=== PATIENT | male | born 1945 | race African-American/Black ===

== ENCOUNTER → 2016-08-30 | Day surgery (SDC) | payer MEDICARE, MEDICAID ==
[~2016-08-30] MED LIST: ACET325T PO; ALPR.5 PO; ALPR0.5T3 PO; AMINLIQ7 PO; ANTA500C CHEW; ASPI-110 PO; ASPI81TA82 PO; B CO; CALC667T PO; CINA30 PO; DILT90 PO; DILT90TA PO; HYDR-3133 PO; HYDR50TA15 PO; ISOS30TA3 PO; ISOS60 PO; LEVOTAB PO; LOMO2.5T PO; LOSA100T PO; LOSA50TA PO; METO25 PO; METO25TA3 PO; MIRTA15 PO; ONDA1TAB17 PO; OXYC1SOL5 PO; OXYC1TAB63 PO; OXYGENTANK NAS.CANULA; PRED20 PO; REME15TA PO; SEVEL800 PO; SODIUM CHLOR 0.9% 1000 ML BAG IV ONE; SODIUM CHLOR 0.9% 250 ML BAG IV ONE; SUCR1TAB PO; TAB-TAB PO; TRAZ150T75 PO; TRIAPOW; ZANT300T PO; ZITHTAB PO; ZOFR4TAB3 SL
== END | disposition home or self-care (01) ==
LOC: ESDC 09:43
PROVIDERS: ATTEND Internal Medicine Gastroenterology
DX: R11.2 Nausea with vomiting, unspecified (principal); K22.9 Disease of esophagus, unspecified; K29.80 Duodenitis without bleeding
CPT/HCPCS: 00740; 43239; 88305; J3010; J7030; J7050

== ENCOUNTER 2016-09-14 23:02 | Inpatient (IN) | payer MEDICARE, MEDICAID ==
[~2016-09-14] VITALS: Ht 177.8 cm; Wt 83.0 kg
[~2016-09-14 23:02] MED LIST changes: -ACET325T PO; -ALPR0.5T3 PO; -AMINLIQ7 PO; -ANTA500C CHEW; -ASPI-110 PO; -B CO; -CINA30 PO; -DILT90TA PO; -ISOS30TA3 PO; -LEVOTAB PO; -LOMO2.5T PO; -LOSA100T PO; -METO25TA3 PO; -ONDA1TAB17 PO; -OXYC1TAB63 PO; -OXYGENTANK NAS.CANULA; -PRED20 PO; -SEVEL800 PO; -SODIUM CHLOR 0.9% 1000 ML BAG IV ONE; -SODIUM CHLOR 0.9% 250 ML BAG IV ONE; -SUCR1TAB PO; -TRAZ150T75 PO; -TRIAPOW; -ZITHTAB PO; -ZOFR4TAB3 SL
[2016-09-14 23:06] VITALS: BP 142/75; PULSE 104; RESP 24; TEMP 99.1; O2SAT 98
[2016-09-14 23:09] VITALS: BP 142/75; PULSE 95; RESP 22; O2SAT 96
[2016-09-14] MEDS ORDERED: SODIUM CHLORIDE 0.9% FLUSH 5 ML FLUSH IVF PRN (23:30)
[2016-09-14] MEDS ORDERED: methylPREDNISolone SOD SUCC 125 MG/2 ML VIAL IVP ONE (23:30)
[2016-09-14 23:35] VITALS: O2SAT 92
[2016-09-14] MEDS: RESP: ALBUTEROL 2.5 MG/IPRATROPIUM 0.5 MG NEB (SCH) INH (23:36)
--- NOTE | 2016-09-14 23:45 | RADRPT ---
EXAM DATE/TIME: 09/14/2016 21:32 [place] COMPARISON: CHEST PA & LAT, October 06, 2015, 10:24. INDICATIONS : Coughing x 3 days. MEDICAL HISTORY : Hypertension. Congestive heart failure. Chronic obstructive pulmonary disease. GERD, Renal failur e, Prostate CA, SURGICAL HISTORY : Prostatectomy. Arteriovenous shunt ENCOUNTER: Initial ACUITY: 3 days PAIN SCORE: 7/10 LOCATION: Bilateral chest FINDINGS: Mild cardiomegaly noted, slightly more prominent than last October. There is a slight degree of pulmona ry edema/vascular congestion. No focal/confluent consolidation. No large effusion seen. No pneumothor ax. Tortuous and atherosclerotic thoracic aorta again noted. There is a right internal jugular double lumen dialysis catheter with distal tip in the right atrium. CONCLUSION: Mild failure. No focal consolidation. Girish Russell MD on September 14, 2016 at 23:42 Board Certified Radiologist. This report was verified electronically.
[2016-09-14 23:51] LABS: AUTOMATED NEUTROPHIL # 7.1 TH/MM3 (1.8-7.7); BASOPHIL # 0.1 TH/MM3 (0-0.2); EOSINOPHIL # 0.6 TH/MM3 (0-0.4); EOSINOPHIL % 6.1 % (0.0-4.0); HEMATOCRIT 22.3 % (39.0-51.0); HEMO FLAGS DIFF FINAL; LYMPH % 7.3 % (9.0-44.0); LYMPHOCYTE # 0.7 TH/MM3 (1.0-4.8); MEAN CELL VOLUME 89.5 FL (80.0-100.0); MEAN CORPUSCULAR HEMOGLOBIN 30.1 PG (27.0-34.0); MEAN CORPUSCULAR HGB CONC 33.7 % (32.0-36.0); MONO % 9.5 % (0.0-8.0); NEUT % 76.1 % (16.0-70.0); PLATELET COUNT 222 TH/MM3 (150-450); RED BLOOD COUNT 2.49 MIL/MM3 (4.50-5.90); RED CELL DISTRIBUTION WIDTH 18.2 % (11.6-17.2); WHITE BLOOD COUNT 9.4 TH/MM3 (4.0-11.0)
[2016-09-14 23:58] LABS: INTERNATIONAL NORMALIZED RATIO 1.1 RATIO; PROTHROMBIN TIME - PATIENT 12.2 SEC (9.8-11.6)
[2016-09-15] VITALS (14 sets, daily range): BP systolic 132–177; BP diastolic 72–100; PULSE 92–119; RESP 16–30; TEMP 97.7–98.2; O2SAT 90–98
[2016-09-15 00:18] LABS: ANION GAP 10 MEQ/L (5-15); AST (GOT) 28 U/L (15-37); BLOOD UREA NITROGEN 44 MG/DL (7-18); CHLORIDE 101 MEQ/L (98-107); GLOMERULAR FILTRATION RATE 9 ML/MIN (>89); POTASSIUM 3.9 MEQ/L (3.5-5.1); SODIUM (NA) 139 MEQ/L (136-145)
[2016-09-15 00:23] LABS: ALKALINE PHOSPHATASE 270 U/L (45-117); ALT (GPT) 50 U/L (12-78); TOTAL BILIRUBIN ADULT 0.5 MG/DL (0.2-1.0)
--- NOTE | 2016-09-15 00:30 | PD ---
HPI Chief Complaint: Respiratory Symptoms Time Seen by Provider: 23:17 Travel History International Travel<30 days: No Contact w/Intl Traveler<30days: No Traveled to known affect area: No History of Present Illness HPI 71-year-old man who presents to the emergency room complaining of increased shortness of breath and cough. His a history of COPD, end-stage renal disease on Sunday dialysis, A. fib, hypertension, hyperlipidemia, who presents emergency Department if he develop worsening cough cold symptoms over the past several days, worsening trouble breathing tonight. He resides at [facility]. He has a prescription from his artificial foliage arranger for a chest x-ray. He denies any fevers or chills. He otherwise had been feeling well and healthy. History Past Medical History Narrative Medical A. fib History of prostate cancer COPD Hypertension GERD ESRD, on Sunday hemodialysis Hyperlipidemia Tetanus Vaccination: Unknown Influenza Vaccination: Yes Social History Alcohol Use: No Tobacco Use: No Allergies-Medications (Allergen,Severity, Reaction): Coded Allergies: No Known Allergies (Unverified , 09/14/16) Reported Meds & Prescriptions Reported Meds & Active Scripts Active Reported Antacid (Calcium Carbonate (Antacid)) 500 Mg Chew 500 Mg CHEW TID PRN Triamcinolone Acetonide (Triamcinolone Acetonide (Topic) 1 Pow Pow Acetaminophen 325 Mg Tab 325 Mg PO Q4-6H PRN Oxycodone-Acetaminophen 5-325 mg Tab 1 Tab PO Q6H PRN Pro-Stat (Amino Acids-Protein Hydrolysat) 1 Liq Liq 30 Ml PO TID Renal-Mya 0.8 mg (B-Complex W/ C & Folic Acid) 1 Tab Tab DAILY Alprazolam 0.5 Mg Tab 0.5 Mg PO HS PRN Aspirin 81 (Aspirin) 81 Mg Tabdr 81 Mg PO DAILY Trazodone (Trazodone HCl) 150 Mg Tab 150 Mg PO HS Levocetirizine 5 Mg Tab 5 Mg PO HS Sensipar (Cinacalcet) 30 Mg Tab 30 Mg PO DAILY Diltiazem (Diltiazem HCl) 90 Mg Tab 90 Mg PO QID Sucralfate 1 Gm Tab 1 Gm PO Q6HR on empty stomach Ondansetron (Ondansetron HCl) 8 Mg Tab 4 Mg PO TID Renvela (Sevelamer Carbonate) 800 Mg Tab 1,600 Mg PO TID Metoprolol Tartrate 25 Mg Tab 12.5 Mg PO BID Losartan (Losartan Potassium) 100 Mg Tab 100 Mg PO DAILY Isosorbide Mononitrate ER (Isosorbide Mononitrate) 30 Mg Nolan 30 Mg PO DAILY Review of Systems Except as stated in HPI: all other systems reviewed are Neg Physical Exam Narrative GENERAL: This 71-year-old man, moderate respiratory distress. SKIN: Warm and dry. HEAD: Atraumatic. Normocephalic. EYES: Pupils equal and round. No scleral icterus. No injection or drainage. ENT: No nasal bleeding or discharge. Mucous membranes pink and moist. NECK: Trachea midline. No JVD. CARDIOVASCULAR: Regular rate and rhythm. No murmur appreciated. RESPIRATORY: Moderate respiratory distress, speaks in short choppy sentences, moderate diffuse wheezing. GASTROINTESTINAL: Abdomen soft, non-tender, nondistended. Hepatic and splenic margins not palpable. MUSCULOSKELETAL: No obvious deformities. No edema. NEUROLOGICAL: Awake and alert. No obvious cranial nerve deficits. Motor grossly within normal limits. Normal speech. Data Data Last Documented VS Vital Signs Date Time Temp Pulse Resp B/P Pulse Ox O2 Delivery O2 Flow Rate FiO2 09/15/16 00:20 96 22 138/74 96 Nasal Cannula 4 09/14/16 23:06 99.1 Orders Complete Blood Count With Diff (09/14/16 23:17) Comprehensive Metabolic Panel (09/14/16 23:17) Prothrombin Time / Inr (Pt) (09/14/16 23:17) Magnesium (Mg) (09/14/16 23:17) Troponin I (09/14/16 23:17) Influenzae A/B Antigen (09/14/16 23:17) Blood Culture (09/14/16 23:17) Iv Access Insert/Monitor (09/14/16 23:17) Electrocardiogram (09/14/16 23:17) Ecg Monitoring (09/14/16 23:17) Oximetry (09/14/16 23:17) Oxygen Administration (09/14/16 23:17) Chest, Single Ap (09/14/16 23:17) Sodium Chloride 0.9% Flush (Ns Flush) (09/14/16 23:30) Methylprednisolone So Succ Inj (Solumedr (09/14/16 23:30) Albuterol-Ipratropium Neb (Duoneb Neb) (09/14/16 23:30) Ceftriaxone Inj (Rocephin Inj) (09/15/16 01:00) Azithromycin Inj (Zithromax Inj) (09/15/16 01:00) Admit Order (Ed Use Only) (09/15/16 ) Admit To Inpatient (09/15/16 ) Vital Signs (Adult) Q4H (09/15/16 01:07) Bedside Glucose KESHAWN.AC&HS (09/15/16 01:07) Engagement Mgr / Telemetry .CONTINUOUS (09/15/16 01:07) Intake + Output KESHAWN.QSHIFT (09/15/16 01:07) Diet Heart Healthy (09/15/16 Breakfast) Sodium Chloride 0.9% Flush (Ns Flush) (09/15/16 01:15) Sodium Chloride 0.9% Flush (Ns Flush) (09/15/16 09:00) Acetaminophen (Tylenol) (09/15/16 01:15) Ondansetron Inj (Zofran Inj) (09/15/16 01:15) Basic Metabolic Panel (Bmp) (09/16/16 06:00) Complete Blood Count With Diff (09/16/16 06:00) Heparin Inj (Heparin Inj) (09/15/16 01:15) Naloxone Inj (Narcan Inj) (09/15/16 01:15) Methylprednisolone So Succ Inj (Solumedr (09/15/16 06:00) Ceftriaxone Inj (Rocephin Inj) (09/15/16 01:15) Azithromycin Inj (Zithromax Inj) (09/15/16 01:15) Consult Nephrology (09/15/16 ) Albuterol-Ipratropium Neb (Duoneb Neb) (09/15/16 08:00) Albuterol-Ipratropium Neb (Duoneb Neb) (09/15/16 01:15) Labs Laboratory Tests Test 09/14/16 23:15 White Blood Count 9.4 TH/MM3 Red Blood Count 2.49 MIL/MM3 Hemoglobin 7.5 GM/DL Hematocrit 22.3 % Mean Corpuscular Volume 89.5 FL Mean Corpuscular Hemoglobin 30.1 PG Mean Corpuscular Hemoglobin 33.7 % Concent Red Cell Distribution Width 18.2 % Platelet Count 222 TH/MM3 Mean Platelet Volume 7.8 FL Neutrophils (%) (Auto) 76.1 % Lymphocytes (%) (Auto) 7.3 % Monocytes (%) (Auto) 9.5 % Eosinophils (%) (Auto) 6.1 % Basophils (%) (Auto) 1.0 % Neutrophils # (Auto) 7.1 TH/MM3 Lymphocytes # (Auto) 0.7 TH/MM3 Monocytes # (Auto) 0.9 TH/MM3 Eosinophils # (Auto) 0.6 TH/MM3 Basophils # (Auto) 0.1 TH/MM3 CBC Comment DIFF FINAL Differential Comment Prothrombin Time 12.2 SEC Prothromb Time International 1.1 RATIO Ratio Sodium Level 139 MEQ/L Potassium Level 3.9 MEQ/L Chloride Level 101 MEQ/L Carbon Dioxide Level 28.0 MEQ/L Anion Gap 10 MEQ/L Blood Urea Nitrogen 44 MG/DL Creatinine 7.25 MG/DL Estimat Glomerular Filtration 9 ML/MIN Rate Random Glucose 101 MG/DL Calcium Level 8.7 MG/DL Magnesium Level 2.0 MG/DL Total Bilirubin 0.5 MG/DL Aspartate Amino Transf 28 U/L (AST/SGOT) Alanine Aminotransferase 50 U/L (ALT/SGPT) Alkaline Phosphatase 270 U/L Troponin I 0.03 NG/ML Total Protein 7.4 GM/DL Albumin 3.5 GM/DL [facility] Medical Decision Making Medical Screen Exam Complete: Yes Emergency Medical Condition: Yes Interpretation(s) My review of EKG: A. fib, heart rate 106, leftward axis, nonspecific lateral ST depressions, no definite evidence of acute ischemia. Compared to previous EKG from October 17, 2015, lateral T wave inversions are less pronounced currently, heart rate under better control, lateral ST depressions of the same. LABS: CBC remarkable for hemoglobin of 7.5, CMP. A creatinine 44/7.25 Troponin 0.03 Coags unremarkable Chest x-ray mild failure. No focal consolidation. Differential Diagnosis Pneumonia, COPD, CHF or volume overload, other Narrative Course Medical decision making 71-year-old man, COPD and end-stage renal disease, presents with increased shortness of breath, with moderate diffuse wheezing. Dialysis was done today. Suspect pneumonia or COPD exacerbation. We'll check labs, x-ray, breathing treatment, steroids, reassess. FINAL: Patient with improved work of breathing but still with significant oxygen requirement. I suspect he has COPD exacerbation likely pneumonia although his chest x-ray shows some nonspecific pulmonary edema but no focal infiltrates. We'll recommend continue bronchodilators, oxygen, steroids, antibiotics. Consult nephrology. Diagnosis Primary Impression: Pneumonia Additional Impression: COPD exacerbation Keven Vargas MD Sep 15, 2016 00:30
[2016-09-15] MEDS ORDERED: OXYC1TAB63 PO (00:35)
[2016-09-15] MEDS ORDERED: TRIAPOW (00:35)
[2016-09-15] MEDS ORDERED: B CO (00:35)
[2016-09-15] MEDS ORDERED: LOSA100T PO (00:35)
[2016-09-15] MEDS ORDERED: SUCR1TAB PO (00:35)
[2016-09-15] MEDS ORDERED: ONDA1TAB17 PO (00:35)
[2016-09-15] MEDS ORDERED: SEVEL800 PO (00:35)
[2016-09-15] MEDS ORDERED: AMINLIQ7 PO (00:35)
[2016-09-15] MEDS ORDERED: DILT90TA PO (00:35)
[2016-09-15] MEDS ORDERED: ACET325T PO (00:35)
[2016-09-15] MEDS ORDERED: LEVOTAB PO (00:35)
[2016-09-15] MEDS ORDERED: METO25TA3 PO (00:35)
[2016-09-15] MEDS ORDERED: ISOS30TA3 PO (00:35)
[2016-09-15] MEDS ORDERED: TRAZ150T75 PO (00:35)
[2016-09-15] MEDS ORDERED: ALPR0.5T3 PO (00:35)
[2016-09-15] MEDS ORDERED: CINA30 PO (00:35)
[2016-09-15] MEDS ORDERED: ANTA500C CHEW (00:35)
[2016-09-15] MEDS ORDERED: ASPI-110 PO (00:35)
[2016-09-15] MEDS ORDERED: AZITHROMYCIN INJ 500 MG in SODIUM CHLOR 0.9% 250 ML INJ 250 ML IV ONE (01:00)
[2016-09-15] MEDS ORDERED: cefTRIAXone INJ 1,000 MG in SODIUM CHLORIDE 0.9% INJ 100 ML IV ONE (01:00)
[2016-09-15] MEDS ORDERED: SODIUM CHLORIDE 0.9% FLUSH 5 ML FLUSH FLUSH PRN (01:15)
[2016-09-15] MEDS ORDERED: ONDANSETRON HCL 4 MG/2 ML VIAL IVP PRN (01:15)
[2016-09-15] MEDS ORDERED: NALOXONE HCL 0.4 MG/ML AMP IV PRN (01:15)
[2016-09-15] MEDS ORDERED: ACETAMINOPHEN 325 MG TAB PO PRN ×2 (01:15→13:15)
[2016-09-15] MEDS: RESP: ALBUTEROL 2.5 MG/IPRATROPIUM 0.5 MG NEB (PRN) NEB ×2 (04:21→22:04)
[2016-09-15] MEDS ORDERED: ALPRAZolam 0.25 MG TAB PO ONE (05:15)
[2016-09-15] MEDS: methylPREDNISolone SOD SUCC 40 MG/1 ML VIAL IV PUSH SCH ×3 (05:19→18:00)
[2016-09-15] MEDS: RESP: ALBUTEROL 2.5 MG/IPRATROPIUM 0.5 MG NEB (SCH) NEB ×4 (07:41→19:12)
[2016-09-15] MEDS: SODIUM CHLORIDE 0.9% FLUSH 5 ML FLUSH FLUSH SCH ×2 (09:45→20:35)
[2016-09-15] MEDS: HEPARIN SODIUM - SQ 10,000 UNITS/ML VIAL SQ SCH ×2 (09:50→20:35)
--- NOTE | 2016-09-15 10:19 | MH ---
cc: PENNY GUTIERREZ DATE OF ADMISSION: 09/15/2016 REASON FOR ADMISSION Cough and shortness of breath. HISTORY OF PRESENT ILLNESS This is a pleasant 71-year-old black male who was in his usual state of health up until 3-4 days ago. He developed an acute onset of cough with increased shortness of breath and mild fever. He does have a significant history of end-stage renal disease and receives dialysis on Tuesdays, and Saturdays. He states that the symptoms have continued to worsen to the point last night that he felt like he needed to come and have someone in the emergency room see him. Currently according to the record he lives at the [facility]. He denies any chest pain. Denies any dizziness. He is positive for generalized weakness and fatigue secondary to his cough. Denies coughing up any sputum at this time. He is positive for a tachycardic rhythm, currently atrial fibrillation with RVR. He is alert and oriented but is unable to give extended talk or history at this time secondary to his shortness of breath. Most of this history information is being gathered by the record. PAST MEDICAL HISTORY 1. Atrial fibrillation. 2. Prostate cancer. 3. COPD. 4. Hypertension. 5. GERD. 6. End-stage renal disease with hemodialysis Sunday, and Sunday. 7. Hyperlipidemia. PAST SURGICAL HISTORY No history of surgery except for his shunt which is in the left forearm. ALLERGIES No known allergies. MEDICATIONS Medications reported: 1. Antacids. 2. Triamcinolone acetonide. 3. Oxycodone/acetaminophen. 4. Pro-Stat. 5. [place]-Mya. 6. Aspirin. 7. Trazodone. 8. Levocetirizine. 9. Sensipar. 10.Cardizem. 11.Carafate. 12.Ondansetron. 13.Renvela. 14.Lopressor. 15.Losartan. 16.Isosorbide ER. REVIEW OF SYSTEMS A 10-point review was attempted but was limited due to patient's shortness of breath. Positives noted acute shortness of breath, cough. Diarrhea noted approximately two weeks ago. Tachycardic rhythm. Anxiety, mild. PHYSICAL EXAMINATION VITAL SIGNS: Temperature 99.1, pulse 110, respiratory rate 28-36, blood pressure 141/81 and 147/94. O2 sat 90 on a Venti mask at 50%. GENERAL: A 71-year-old black man who looks to be his stated age struggling with some moderate respiratory distress. His head of bed is elevated at 75 degrees. He is alert and attempting to converse. SKIN: Pale mucous membranes. Warm and dry. HEENT: Atraumatic, normocephalic. Pupils are 2 mm and PERRLA. No drainage. Mucous membranes are pale and moist. No nasal discharge. NECK: Trachea is midline. No JVD. CARDIOVASCULAR: Irregular rate and rhythm with tachycardia. Heart sounds are distant but no murmurs, rubs or gallops appreciated. PULMONARY: Diffuse wheezing anteriorly and posteriorly with decreased breath sounds at the bases. He is speaking in 1-2 word short choppy sentences. Tachypneic respirations. O2 mask on. ABDOMEN: Round, soft, nontender, nondistended. Active bowel sounds in all four quadrants. EXTREMITIES: He moves his extremities with purpose. No edema. Pulses are intact. He does have a healed shunt in his left forearm. NEUROLOGIC: He is awake and alert. He is attempting to give data and history but is limited for now. Speech is clear. PSYCHIATRIC: Affect normal. Slightly anxious. DIAGNOSTIC DATA WBC count 9.4, RBC 2.49, hemoglobin 7.5, hematocrit 22.3, platelet count 222. Neutrophil count 76.1, lymphocyte 7.3, monocyte 9.5, eosinophils 6.1. Chemistry: Sodium 139, potassium 3.9, chloride 101, carbon dioxide 28, anion gap 10, BUN 44, creatinine 7.25, GFR 9, alkaline phosphatase 270, albumin 3.5. INR 1.1. Chest x-ray: No focal consolidation but mild failure. ASSESSMENT 1. COPD exacerbation with probable pneumonia. 2. Hypertension. 3. Possible congestive heart failure. 4. End-stage renal disease on hemodialysis. 5. Atrial fibrillation with RVR. 6. History of mood disorder. 7. Anemia of chronic disease. 8. Dyspnea. 9. Diabetes type 2. PLAN 1. Admit to inpatient status. 2. Vital signs q.4h. 3. Will monitor his glucose levels with Accu-Cheks a.c. and h.s., hyper and hypoglycemia protocol with sliding scale. 4. Heart-healthy renal diet. 5. Will use cardiac monitoring. 6. He has had labs for his initial assessment and will have pending labs for in the morning and whatever is needed. 7. Will consult nephrology for their expert opinion. The patient states he was initially told he might need more dialysis today, but his usual days are Sunday, and Sunday. 8. Reconcile his medications. 9. Currently he is going to receive IV steroids, Rocephin, azithromycin IV for possible pneumonia. 10.Accurate intake and output. 11.DVT prophylaxis with heparin. 12.O2 therapy as warranted to maintain his sat greater than 90. 13.Currently to my knowledge, patient is full code, full aggressive care, and we will follow. Dictated by: ROBINA Choudhary Penny Gutierrez MD JP/BT /8:42 AM /10:08 AM PT SEEN AND EXAMINED ON DAY ADMISSION ABOVE FACE TO FACE TIME SPENT WITH PT CHART WAS REVIEWED. INCLUDING LABS MEDS AND RAD DATA NOTES WERE REVEIWED PLAN OF CARE WAS DW AWAKE OVERNIGHT COUNSELOR ABOVE DW PT IN DETAIL COND WAS GUARDED MTDD
[2016-09-15] MEDS ORDERED: SODIUM CHLOR 0.9% 1000 ML INJ 1,000 ML IV PRN ×2 (13:03)
[2016-09-15] MEDS ORDERED: cloNIDine HCL 0.1 MG TAB PO PRN (13:15)
[2016-09-15] MEDS ORDERED: MANNITOL 12.5 GM/50 ML VIAL IV PRN (13:15)
[2016-09-15] MEDS ORDERED: EPOETIN ALFA 10,000 UNITS/ML VIAL IV PRN (13:15)
[2016-09-15] MEDS ORDERED: ALBUMIN HUMAN 25% 25 GM/100 ML BAGP IV PRN (13:15)
[2016-09-15] MEDS ORDERED: HEPARIN SODIUM - IV 10,000 UNITS/10 ML VIAL IVF PRN (13:15)
[2016-09-15] MEDS ORDERED: NITROGLYCERIN 0.4 MG SL 25 TABS/BTL SL PRN (13:15)
[2016-09-15] MEDS ORDERED: GELATIN 12 MM/7 MM FOAM TOP PRN (13:15)
[2016-09-15] MEDS ORDERED: PILL SPLITTER OTHER PRN (13:45)
--- NOTE | 2016-09-15 13:45 | PD.CONS ---
HPI Service Nephrology Consult Requested By Justice Reason for Consult ESRD on HD Primary Care Physician Gustavo Moody M.D. History of Present Illness This is a 71 y/o AA male dialysis patient who was admitted for complaints of non productive cough, shortness of breath, and fever. He denies vomiting, pain, and sick contacts at the [facility] where he resides. He has a hx of ESRD, is on hemodialysis T-Th-Sun. He had a 3 hr treatment yesterday, but the clinic staff report he has been cutting his treatments short over the past few weeks. Other PMH of HTN, anemia, hyperlipidemia, GERD, A fib, and prostate CA s/p prostatectomy 4-5 yrs ago. He has AVF that has recently become occluded. Approximately 2 weeks ago he had PermCath placed on right to use in the interim with the plan being new AVF creation in left arm in the near future. Today he is on 35% oxygen via Venti mask, oxygen saturations of 95%. Chest xray showing mild heart failure with cardiomegaly. He is in A fib RVR, rate 110s. There are no electrolyte abnormalities on metabolic profile from this morning. Hemoglobin is low at 7.5. We were consulted for dialysis management. (Angela Ortega) Review of Systems Constitutional: COMPLAINS OF: Fatigue, Fever, Chills, DENIES: Change in appetite Respiratory: COMPLAINS OF: Cough, Wheezing, Sputum production, Shortness of breath, DENIES: Apneas Cardiovascular: COMPLAINS OF: Palpitations, Dyspnea on Exertion, DENIES: Chest pain, Syncope, Lower Extremity Edema (Angela Ortega) Past Family Social History Allergies: Coded Allergies: No Known Allergies (Unverified , 09/14/16) Past Medical History ESRD on HD T-Th-Sat HTN A fib, not on anticoagulation other than ASA CHF COPD Prostate CA s/p prostatectomy Hyperlipidemia GERD Past Surgical History Left arm AVF PermCath placement Prostatectomy 4 yrs ago Reported Medications Antacid (Calcium Carbonate (Antacid)) 500 Mg Chew 500 Mg CHEW TID PRN Triamcinolone Acetonide (Triamcinolone Acetonide (Topic) 1 Pow Pow Acetaminophen 325 Mg Tab 325 Mg PO Q4-6H PRN Oxycodone-Acetaminophen 5-325 mg Tab 1 Tab PO Q6H PRN Pro-Stat (Amino Acids-Protein Hydrolysat) 1 Liq Liq 30 Ml PO TID Renal-Mya 0.8 mg (B-Complex W/ C & Folic Acid) 1 Tab Tab DAILY Alprazolam 0.5 Mg Tab 0.5 Mg PO HS PRN Aspirin 81 (Aspirin) 81 Mg Tabdr 81 Mg PO DAILY Trazodone (Trazodone HCl) 150 Mg Tab 150 Mg PO HS Levocetirizine 5 Mg Tab 5 Mg PO HS Sensipar (Cinacalcet) 30 Mg Tab 30 Mg PO DAILY Diltiazem (Diltiazem HCl) 90 Mg Tab 90 Mg PO QID Sucralfate 1 Gm Tab 1 Gm PO Q6HR on empty stomach Ondansetron (Ondansetron HCl) 8 Mg Tab 4 Mg PO TID Renvela (Sevelamer Carbonate) 800 Mg Tab 1,600 Mg PO TID Metoprolol Tartrate 25 Mg Tab 12.5 Mg PO BID Losartan (Losartan Potassium) 100 Mg Tab 100 Mg PO DAILY Isosorbide Mononitrate ER (Isosorbide Mononitrate) 30 Mg Nolan 30 Mg PO DAILY Active Ordered Medications Current Medications Medications (Trade) Dose Ordered Sig/Erik Route Start Time Stop Time Status Last Admin (NS Flush) 2 ml UNSCH PRN FLUSH 09/15/16 01:15 (NS Flush) 2 ml BID FLUSH 09/15/16 09:00 09/15/16 09:45 (Tylenol) 650 mg Q4H PRN PO 09/15/16 01:15 (Zofran Inj) 4 mg Q6H PRN IVP 09/15/16 01:15 (Heparin Inj) 5,000 units Q12H SQ 09/15/16 09:00 09/15/16 09:50 (Narcan Inj) 0.4 mg UNSCH PRN IV 09/15/16 01:15 Methylprednisolone Sodium Succinate 40 mg 40 mg Q6HR IV PUSH 09/15/16 06:00 09/15/16 11:34 Ceftriaxone Sodium 1000 mg/ Sodium Chloride 100 ml @ 200 mls/hr Q24H IV 09/16/16 01:00 (Zithromax Inj/ NS 250 ml Inj) 250 ml @ 250 mls/hr Q24H IV 09/16/16 02:00 Alprazolam 0.25 mg 0.25 mg TID PRN PO 09/15/16 05:15 (NS 1000 ml Inj) 1,000 ml @ 0 mls/hr Q0M PRN IV 09/15/16 13:03 UNV Heparin Sodium (Porcine) 8000 units 8,000 units UNSCH PRN IVF 09/15/16 13:15 UNV Sodium Chloride 1,000 ml @ 200 mls/hr Q5H PRN IV 09/15/16 13:03 UNV (NS 1000 ml Inj) 1,000 ml @ 0 mls/hr Q0M PRN IV 09/15/16 13:03 UNV (Mannitol Inj) 12.5 gm UNSCH PRN IV 09/15/16 13:15 UNV (Albumin 25% Inj) 25 gm UNSCH PRN IV 09/15/16 13:15 UNV (NS Flush) 5 ml UNSCH PRN IVF 09/15/16 13:15 UNV (Heparin Inj) UNSCH PRN .XX 09/15/16 13:15 UNV (Gentamicin (Dialysis) Inj) 20 mg UNSCH PRN IV 09/15/16 13:15 UNV (Zofran Inj) 4 mg UNSCH PRN IV 09/15/16 13:15 UNV (Tylenol) 650 mg UNSCH PRN PO 09/15/16 13:15 UNV (Benadryl) 25 mg UNSCH PRN PO 09/15/16 13:15 UNV (Nitrostat Sl) 0.4 mg UNSCH PRN SL 09/15/16 13:15 UNV (Catapres) 0.1 mg UNSCH PRN PO 09/15/16 13:15 UNV (Epogen Inj) 10,000 units UNSCH PRN IV 09/15/16 13:15 UNV (Gelfoam 12 Mm/7 Mm Top) 1 foam UNSCH PRN TOP 09/15/16 13:15 UNV Family History No family history of renal disorders or dialysis Social History Former smoker, quit 2 yrs ago No ETOH reported Lives in assisted living facility minimal social support needs assistance with ADLs full code status (Angela Ortega) Physical Exam Vital Signs Vital Signs Date Time Temp Pulse Resp B/P Pulse Ox O2 Delivery O2 Flow Rate FiO2 09/15/16 11:40 114 18 158/95 97 Venturi Mask 7 09/15/16 09:40 117 20 166/98 94 Venturi Mask 7 09/15/16 09:40 97 Venturi Mask 7 09/15/16 07:41 97 Venturi Mask 50 09/15/16 07:25 103 17 147/94 91 Venturi Mask 6 09/15/16 05:42 102 28 138/87 95 Venturi Mask 6 09/15/16 04:19 95 Venturi Mask 6.00 50 09/15/16 03:43 103 24 137/78 90 Venturi Mask 6 09/15/16 03:03 110 28 141/81 90 Venturi Mask 7 50 09/15/16 01:55 92 30 132/72 92 Venturi Mask 7 50 09/15/16 00:20 96 22 138/74 96 Nasal Cannula 4 09/14/16 23:35 92 Nasal Cannula 6.00 09/14/16 23:19 89 Nasal Cannula 6 09/14/16 23:09 99 24 09/14/16 23:09 95 22 142/75 96 Room Air 09/14/16 23:06 99.1 104 24 142/75 98 Physical Exam Elderly AAM sitting up in bed, awake/alert oriented x 3, moves all extremities, no neuro deficits, of note he is more interactive/talkative than usual CV: S1/S2, irreg irregular, tachy in 110s, no murmurs or rubs; Permcath right chest/IJ Resp: rales throughout, some expiratory wheezing Ext: no edema, DP/PT pulses 2+; left forearm, AVF with aneurysm, no thrill or bruit detected Laboratory Laboratory Tests Test 09/14/16 23:15 White Blood Count 9.4 Red Blood Count 2.49 Hemoglobin 7.5 Hematocrit 22.3 Mean Corpuscular Volume 89.5 Mean Corpuscular Hemoglobin 30.1 Mean Corpuscular Hemoglobin 33.7 Concent Red Cell Distribution Width 18.2 Platelet Count 222 Mean Platelet Volume 7.8 Neutrophils (%) (Auto) 76.1 Lymphocytes (%) (Auto) 7.3 Monocytes (%) (Auto) 9.5 Eosinophils (%) (Auto) 6.1 Basophils (%) (Auto) 1.0 Neutrophils # (Auto) 7.1 Lymphocytes # (Auto) 0.7 Monocytes # (Auto) 0.9 Eosinophils # (Auto) 0.6 Basophils # (Auto) 0.1 CBC Comment DIFF FINAL Differential Comment Prothrombin Time 12.2 Prothromb Time International 1.1 Ratio Sodium Level 139 Potassium Level 3.9 Chloride Level 101 Carbon Dioxide Level 28.0 Anion Gap 10 Blood Urea Nitrogen 44 Creatinine 7.25 Estimat Glomerular Filtration 9 Rate Random Glucose 101 Calcium Level 8.7 Magnesium Level 2.0 Total Bilirubin 0.5 Aspartate Amino Transf 28 (AST/SGOT) Alanine Aminotransferase 50 (ALT/SGPT) Alkaline Phosphatase 270 Troponin I 0.03 Total Protein 7.4 Albumin 3.5 Date/Time Procedure Status Source Growth 09/14/16 23:45 Influenza Types A,B Antigen (JUSTIN) - Final Complete Nasal Washing NEGATIVE FOR FLU A AND B ANTIGEN.... 09/14/16 23:25 Aerobic Blood Culture - Preliminary Resulted Blood Peripheral NO GROWTH IN 1 DAY 09/14/16 23:25 Anaerobic Blood Culture - Preliminary Resulted Blood Peripheral NO GROWTH IN 1 DAY 09/14/16 23:17 Influenza Types A,B Antigen (JUSTIN) Received Nasal Washing Pending (Angela Ortega) Result Diagram: 09/14/16231409/14/162314 Imaging Last 72 hours Impressions Chest X-Ray 09/14/162316 Signed Impressions: Service Date/Time: September 21:32 - CONCLUSION: Mild failure. No focal consolidation. Girish Russell MD (Angela Ortega) Assessment and Plan Problem List: (1) ESRD (end stage renal disease) on dialysis Plan: T--Sun HD schedule, he did have 3 hr treatment yesterday I spoke with the clinic, he has been cutting his treatments short for the past several weeks chest xray demonstrating heart failure, will dialyze him today he has Permcath for dialysis no electrolyte concerns monitor fluid volume status (2) Pneumonia Plan: On solumedrol, antibiotic therapy consists of Rocephin and Zithromax oxygen as needed monitor clinically blood cx in progress (3) HTN (hypertension) Plan: restarted home medications including Cardizem, metoprolol, and isosorbide monitor blood pressure (4) Atrial fibrillation Plan: rate is elevated I will restart Cardizem and Lopressor per home medication list he is on ASA for anticoagulation may require medication/dosage adjustment (5) Anemia of renal disease Plan: denies rectal bleeding, give Epogen with dialysis, check iron profile in am monitor hemoglobin, transfuse as needed (6) Metabolic bone disease Plan: check phosphorus level in am begin Renvela, monitor effect (Angela Ortega) Assessment and Plan patient was seen and examined. Seen during dialysis. On 3K, UF goal is 4 liters. He is tachycardic. Admitted with shortness of breath, also has anemia. Patient has been cutting short his treatments, has become fluid overloaded over the past 2 weeks or so. His weight was about 8kg above his dry weight as of yesterday when I saw him in [facility]. Attempt fluid removal with dialysis. Blood transfusion : 1 unit of PRBC. Rule out occult bleeding. Monitor. (Keron Singh MD) Angela Ortega Sep 15, 2016 13:45 Keron Singh MD Sep 15, 2016 15:58
[2016-09-15] MEDS ORDERED: CINACALCET HYDROCHLORIDE 30 MG TAB PO SCH (14:00)
[2016-09-15] MEDS ORDERED: SODIUM CHLOR 0.9% 250 ML INJ 250 ML IV ONE (15:15)
[2016-09-15] MEDS: SODIUM CHLOR 0.9% 1000 ML INJ 1,000 ML IV PRN (15:21)
[2016-09-15] MEDS: HEPARIN SODIUM - IV 10,000 UNITS/10 ML VIAL PRN (15:21)
[2016-09-15] MEDS: GENTAMICIN SULFATE (DIALYSIS USE ONLY) 20 MG/2 ML VIAL IV PRN (15:21)
[2016-09-15] MEDS: SODIUM CHLORIDE 0.9% FLUSH 5 ML FLUSH IVF PRN (15:22)
[2016-09-15] MEDS: SEVELAMER CARBONATE 800 MG TAB PO SCH (17:00)
[2016-09-15] MEDS: DILTIAZEM HCL 90 MG TAB PO SCH (18:00)
--- NOTE | 2016-09-15 18:54 | EKG ---
Date Performed: 09/14/2016 Time Performed: 23:17:33 PTAGE: 71 years EKG: ATRIAL FIBRILLATION WITH RAPID VENTRICULAR RESPONSE MARKED LEFT AXIS DEVIATION MODERATE INT RAVENTRICULAR CONDUCTION DELAY NONSPECIFIC ST & T-WAVE ABNORMALITY When compared to previous tracing, heart rate is slower, Otherwise no significant change. ABNORMAL ECG PREVIOUS TRACING : 09/18/2015 11.16 DOCTOR: Ronnie Gonzalez Interpretating Date/Time 09/15/2016 18:52:36
[2016-09-15] MEDS: METOPROLOL TARTRATE 25 MG TAB PO SCH (20:34)
[2016-09-16] VITALS (10 sets, daily range): BP systolic 105–143; BP diastolic 64–88; PULSE 88–108; RESP 16–24; TEMP 98.2–99.7; O2SAT 91–97
[2016-09-16] MEDS: DILTIAZEM HCL 90 MG TAB PO SCH ×5 (00:24→23:33)
[2016-09-16] MEDS: methylPREDNISolone SOD SUCC 40 MG/1 ML VIAL IV PUSH SCH ×4 (00:24→22:27)
[2016-09-16] MEDS: cefTRIAXone INJ 1,000 MG in SODIUM CHLORIDE 0.9% INJ 100 ML IV SCH ×2 (00:25→23:35)
[2016-09-16] MEDS: AZITHROMYCIN INJ 500 MG in SODIUM CHLOR 0.9% 250 ML INJ 250 ML IV SCH (01:14)
[2016-09-16] MEDS: ISOSORBIDE MONONITRATE 30 MG TAB PO SCH (06:25)
[2016-09-16] MEDS: RESP: ALBUTEROL 2.5 MG/IPRATROPIUM 0.5 MG NEB (SCH) NEB ×5 (07:14→19:44)
[2016-09-16] MEDS: SEVELAMER CARBONATE 800 MG TAB PO SCH ×3 (08:00→18:38)
[2016-09-16] MEDS: diphenhydrAMINE HCL 25 MG CAP PO PRN (08:01)
[2016-09-16] MEDS: SODIUM CHLOR 0.9% 1000 ML INJ 1,000 ML IV PRN (08:02)
[2016-09-16] MEDS: SODIUM CHLORIDE 0.9% FLUSH 5 ML FLUSH IVF PRN (08:02)
[2016-09-16] MEDS: HEPARIN SODIUM - IV 10,000 UNITS/10 ML VIAL PRN (08:03)
[2016-09-16] MEDS: GENTAMICIN SULFATE (DIALYSIS USE ONLY) 20 MG/2 ML VIAL IV PRN (08:03)
[2016-09-16 08:09] LABS: AUTOMATED NEUTROPHIL # 7.8 TH/MM3 (1.8-7.7); BASOPHIL % 0.3 % (0.0-2.0); HEMATOCRIT 26.8 % (39.0-51.0); HEMO FLAGS DIFF FINAL; LYMPH % 3.8 % (9.0-44.0); LYMPHOCYTE # 0.3 TH/MM3 (1.0-4.8); MEAN CELL VOLUME 88.2 FL (80.0-100.0); MEAN CORPUSCULAR HEMOGLOBIN 29.2 PG (27.0-34.0); MEAN CORPUSCULAR HGB CONC 33.1 % (32.0-36.0); MONO % 3.6 % (0.0-8.0); NEUT % 92.3 % (16.0-70.0); PLATELET COUNT 210 TH/MM3 (150-450); RED BLOOD COUNT 3.03 MIL/MM3 (4.50-5.90); RED CELL DISTRIBUTION WIDTH 18.4 % (11.6-17.2); WHITE BLOOD COUNT 8.4 TH/MM3 (4.0-11.0)
[2016-09-16 08:25] LABS: ANION GAP 11 MEQ/L (5-15); BLOOD UREA NITROGEN 60 MG/DL (7-18); CHLORIDE 101 MEQ/L (98-107); GLOMERULAR FILTRATION RATE 8 ML/MIN (>89); POTASSIUM 4.7 MEQ/L (3.5-5.1); SODIUM (NA) 138 MEQ/L (136-145); TRANSFERRIN IRON PROFILE 208 MG/DL (200-360)
[2016-09-16] MEDS: HEPARIN SODIUM - SQ 10,000 UNITS/ML VIAL SQ SCH ×2 (09:00→22:26)
[2016-09-16] MEDS: SODIUM CHLORIDE 0.9% FLUSH 5 ML FLUSH FLUSH SCH ×2 (09:00→22:27)
--- NOTE | 2016-09-16 10:32 | HHI.NPPN ---
Subjective General Problems: Anemia, Heart Disease, Hypertension Renal Failure: End Stage Renal Disease History of Present Illness 71 y/o AA male dialysis patient who was admitted for complaints of non productive cough, shortness of breath, and fever. He denies vomiting, pain, and sick contacts at the [facility] where he resides. He has a hx of ESRD, is on hemodialysis T-Th-Sat. He had a 3 hr treatment yesterday, but the clinic staff report he has been cutting his treatments short over the past few weeks. Other PMH of HTN, anemia, hyperlipidemia, GERD, A fib, and prostate CA s/p prostatectomy 4-5 yrs ago. Additional Remarks Patient is alert, still has cough and mild SOB, now off O2. Review of Systems General Constitutional: Fatigue Respiratory Lungs: SOB, Cough, Sputum, Wheeze Cardiovascular Cardiac: HERNANDEZ Objective Data Data 09/15/16 09/16/16 19:00 07:00 Intake Total 360 ml Output Total 4000 ml Balance -4000 ml 360 ml Intake Oral 360 ml Output Hemodialysis 4000 ml # Voids 0 # Bowel Movements 0 Vital Signs Date Time Temp Pulse Resp B/P Pulse Ox O2 Delivery O2 Flow Rate FiO2 09/16/16 09:03 98.5 99 20 143/88 97 09/16/16 07:14 95 Nasal Cannula 4.00 09/16/16 04:00 98.4 88 24 131/77 95 09/16/16 00:00 98.3 107 20 131/75 91 09/15/16 22:04 21 09/15/16 21:25 132/97 09/15/16 20:00 119 09/15/16 19:48 97.7 112 24 177/100 98 09/15/16 17:15 98.2 108 16 170/95 97 09/15/16 13:00 96 Venturi Mask 6 09/15/16 11:40 114 18 158/95 97 Venturi Mask 7 -: 09/16/16 0625 09/16/16 0625 Physical Exam General Appearance: No Acute Distress, Comfortable Pulmonary Resp Exam: No Distress, Rhonchi, Decreased Bases, Diminished Breath Sounds Cardiology CV Exam: Regular, Normal Sinus Rhythm Gastrointestinal/Abdomen GI Exam: Soft, Non-Tender Extremeties Extremities Exam: Trace Edema Neurologic Neuro Exam: Alert, Awake, Oriented Psychiatric Psych Exam: Appropriate Responses Assessment/Plan Problem List: (1) ESRD (end stage renal disease) on dialysis Plan: T--Sun HD schedule, he has Permcath for dialysis no electrolyte concerns monitor fluid volume status. HD now, removing 4 liters. BP is stable. On Azithromycin and Ceftriaxone. (2) Pneumonia Plan: On solumedrol, antibiotic therapy consists of Rocephin and Zithromax oxygen as needed monitor clinically blood cx in progress (3) HTN (hypertension) Plan: restarted home medications including Cardizem, metoprolol, and isosorbide monitor blood pressure (4) Atrial fibrillation Plan: rate is elevated I will restart Cardizem and Lopressor per home medication list he is on ASA for anticoagulation may require medication/dosage adjustment (5) Anemia of renal disease Plan: denies rectal bleeding, give Epogen with dialysis, check iron profile in am monitor hemoglobin, transfuse as needed (6) Metabolic bone disease Plan: check phosphorus level in am begin Allegra, monitor effect Rosendo Driscoll MD Sep 16, 2016 10:32
[2016-09-16] MEDS: ONDANSETRON HCL 4 MG/2 ML VIAL IV PRN (10:41)
--- NOTE | 2016-09-16 11:26 | HHI.PR ---
Subjective Subjective Remarks back from HD c/o cough after HD tx, resolving now wants to eat no cp no sob removed oxygen, sats 80s, refuses to put back on as he is concerned with eating doesn't appear in distress no fever Review of Systems Constitutional Constitutional Remarks 12 point ROS difficult to complete Vitals/Results Intake & Output 09/15/16 09/15/16 09/16/16 15:00 23:00 07:00 Intake Total 360 ml Output Total 4000 ml Balance -4000 ml 360 ml Intake Oral 360 ml Output Hemodialysis 4000 ml # Voids 0 # Bowel Movements 0 Vital Signs Vital Signs Date Time Temp Pulse Resp B/P Pulse Ox O2 Delivery O2 Flow Rate FiO2 09/16/16 09:03 98.5 99 20 143/88 97 09/16/16 07:14 95 Nasal Cannula 4.00 09/16/16 04:00 98.4 88 24 131/77 95 09/16/16 00:00 98.3 107 20 131/75 91 09/15/16 22:04 21 09/15/16 21:25 132/97 09/15/16 20:00 119 09/15/16 19:48 97.7 112 24 177/100 98 09/15/16 17:15 98.2 108 16 170/95 97 09/15/16 13:00 96 Venturi Mask 6 09/15/16 11:40 114 18 158/95 97 Venturi Mask 7 CBC/BMP: 09/16/16 0625 09/16/16 0625 Lab Results Laboratory Tests Test 09/15/16 09/16/16 15:10 06:25 Blood Type B POSITIVE Antibody Screen NEGATIVE Crossmatch Leukocyte-Reduced Red Blood Cells Blood Bank Comment White Blood Count 8.4 TH/MM3 Red Blood Count 3.03 MIL/MM3 Hemoglobin 8.9 GM/DL Hematocrit 26.8 % Mean Corpuscular Volume 88.2 FL Mean Corpuscular Hemoglobin 29.2 PG Mean Corpuscular Hemoglobin 33.1 % Concent Red Cell Distribution Width 18.4 % Platelet Count 210 TH/MM3 Mean Platelet Volume 7.8 FL Neutrophils (%) (Auto) 92.3 % Lymphocytes (%) (Auto) 3.8 % Monocytes (%) (Auto) 3.6 % Eosinophils (%) (Auto) 0.0 % Basophils (%) (Auto) 0.3 % Neutrophils # (Auto) 7.8 TH/MM3 Lymphocytes # (Auto) 0.3 TH/MM3 Monocytes # (Auto) 0.3 TH/MM3 Eosinophils # (Auto) 0.0 TH/MM3 Basophils # (Auto) 0.0 TH/MM3 CBC Comment DIFF FINAL Differential Comment Sodium Level 138 MEQ/L Potassium Level 4.7 MEQ/L Chloride Level 101 MEQ/L Carbon Dioxide Level 26.0 MEQ/L Anion Gap 11 MEQ/L Blood Urea Nitrogen 60 MG/DL Creatinine 7.72 MG/DL Estimat Glomerular Filtration 8 ML/MIN Rate Random Glucose 121 MG/DL Calcium Level 8.6 MG/DL Phosphorus Level 4.9 MG/DL Iron Level 57 MCG/DL Total Iron Binding Capacity 291 MCG/DL Percent Iron Saturation 19.6 % Physical Exam General General Appearance: No Acute Distress, Comfortable Eyes Eye Exam: Pupils Equal, Pupils Reactive Ears & Nose Ears & Nose Exam: Nasal Mucosa [place] Th[place]at Throat Exam: Oral Mucosa [place] & Moist Pulmonary Resp Exam: No Distress, Decreased Bases, Diminished Breath Sounds Resp Remarks faint ronchi Cardiology CV Exam: Regular, Normal Sinus Rhythm Gastrointestinal/Abdomen GI Exam: Soft, Non-Tender, Bowel Sounds Present, Non-Distended Musculoskeletal MS Exam: Joints Intact Integumentary Skin Exam: Warm, Dry Extremeties Extremities Exam: Pedal Pulses Palpable, Trace Edema Neurologic Neuro Exam: Alert, Awake, Oriented, Speech Clear, Moving All Extremities, No Focal Deficits Psychiatric Psych Exam: Appropriate Responses VTE Prophylaxis VTE Prophylaxis Meds: Heparin Assessment/Plan Problem List: (1) CHF (congestive heart failure) (2) COPD exacerbation (3) Atrial fibrillation (4) Pneumonia (5) HTN (hypertension) (6) ESRD (end stage renal disease) on dialysis (7) Anemia of renal disease (8) Mood disorder Assessment/Plan appreciate nephrology input continue with HD per schedule Oxygen to keep sats >90% Duonebs Add Robitussin PRN wean down IV steroids continue empiric abx Monitor HH anemia of CKD Continue with BB/Cardizem cardiac telemetry Heparin for DVT prophylaxis Continue with home meds Possible dc 1-2 days D/W RN D/W Dr. Gutierrez D/W pt This pt. was seen by myself and Dr. Gutierrez, this note is written on his behalf. Problem Qualifiers (1) CHF (congestive heart failure): (2) Atrial fibrillation: Qualified Code: I48.2 - Chronic atrial fibrillation (3) Pneumonia: Qualified Code: J18.9 - Pneumonia due to infectious organism, unspecified laterality, unspecified part of lung (4) HTN (hypertension): Qualified Code: I10 - Essential hypertension Shirley Rivera Sep 16, 2016 11:26
[2016-09-16] MEDS: METOPROLOL TARTRATE 25 MG TAB PO SCH ×2 (11:35→22:25)
[2016-09-16] MEDS: guaiFENesin/DEXTROMETHORPHAN 200 MG/20 MG/10 ML CUP PO PRN ×3 (12:12→23:33)
[2016-09-16] MEDS: CALCIUM CARBONATE 500 MG CHEWABLE TAB CHEW PRN (17:34)
[2016-09-16] MEDS: ALPRAZolam 0.25 MG TAB PO PRN (22:26)
[2016-09-17] VITALS (9 sets, daily range): BP systolic 119–145; BP diastolic 71–85; PULSE 70–87; RESP 18–20; TEMP 97.4–98.5; O2SAT 92–96
[2016-09-17] MEDS: AZITHROMYCIN INJ 500 MG in SODIUM CHLOR 0.9% 250 ML INJ 250 ML IV SCH ×2 (02:00→18:00)
[2016-09-17] MEDS: ISOSORBIDE MONONITRATE 30 MG TAB PO SCH (05:27)
[2016-09-17] MEDS: DILTIAZEM HCL 90 MG TAB PO SCH ×4 (05:27→23:34)
[2016-09-17] MEDS: RESP: ALBUTEROL 2.5 MG/IPRATROPIUM 0.5 MG NEB (SCH) NEB ×4 (07:15→20:21)
[2016-09-17] MEDS: ONDANSETRON HCL 4 MG/2 ML VIAL IV PRN (08:58)
[2016-09-17] MEDS: SODIUM CHLORIDE 0.9% FLUSH 5 ML FLUSH FLUSH SCH ×2 (09:00→21:43)
[2016-09-17] MEDS: methylPREDNISolone SOD SUCC 40 MG/1 ML VIAL IV PUSH SCH ×2 (09:04→21:44)
[2016-09-17] MEDS: ALPRAZolam 0.25 MG TAB PO PRN ×2 (09:09→18:08)
[2016-09-17] MEDS: HEPARIN SODIUM - SQ 10,000 UNITS/ML VIAL SQ SCH ×2 (09:09→21:45)
--- NOTE | 2016-09-17 09:12 | HHI.PR ---
Subjective Subjective Remarks inc. cough and wheezing, can't bring up secretions sob no cp on oxygen at 2L/NC sats 95 no fever occ. vomiting after meals not feeling ready to be discharged doesn't use oxygen at [facility] Review of Systems Constitutional Constitutional Remarks 12 point ROS completed, unreliable Vitals/Results Intake & Output 09/16/16 09/16/16 09/17/16 15:00 23:00 07:00 Intake Total 480 ml 240 ml Output Total 4000 ml Balance -4000 ml 480 ml 240 ml Intake Oral 480 ml 240 ml Output Hemodialysis 4000 ml # Voids 1 1 # Bowel Movements 1 1 Vital Signs Vital Signs Date Time Temp Pulse Resp B/P Pulse Ox O2 Delivery O2 Flow Rate FiO2 09/17/16 08:00 97.8 86 20 129/72 95 09/17/16 07:15 95 Nasal Cannula 2.00 09/17/16 04:00 98.1 85 18 145/82 92 09/17/16 04:00 Nasal Cannula 3.00 09/17/16 00:00 98.5 77 18 124/85 96 09/17/16 00:00 Nasal Cannula 3.00 09/16/16 20:02 97 09/16/16 20:00 98.2 95 18 132/74 96 09/16/16 20:00 Nasal Cannula 4.00 09/16/16 19:47 97 Nasal Cannula 4.00 09/16/16 17:34 99.7 97 16 110/64 95 09/16/16 17:26 101 09/16/16 13:04 98.2 108 18 105/72 97 CBC/BMP: 09/16/16 0625 09/16/16 0625 Microbiology Microbiology 09/17/16 Stool Occult Blood (JUSTIN) - Final, Complete HEMOCCULT POSITIVE Physical Exam General General Appearance: No Acute Distress, Comfortable Eyes Eye Exam: Pupils Equal, Pupils Reactive Ears & Nose Ears & Nose Exam: Nasal Mucosa [place] Throat Throat Exam: Oral Mucosa [place] & Moist Pulmonary Resp Exam: No Distress, Decreased Bases, Diminished Breath Sounds Resp Remarks diffuse exp. wheeze and ronchi Cardiology CV Exam: Regular, Normal Sinus Rhythm Gastrointestinal/Abdomen GI Exam: Soft, Non-Tender, Bowel Sounds Present, Non-Distended Musculoskeletal MS Exam: Joints Intact Integumentary Skin Exam: Warm, Dry Extremeties Extremities Exam: Pedal Pulses Palpable, Trace Edema Neurologic Neuro Exam: Alert, Awake, Oriented, Speech Clear, Moving All Extremities, No Focal Deficits Psychiatric Psych Exam: Appropriate Responses VTE Prophylaxis VTE Prophylaxis Meds: Heparin Assessment/Plan Problem List: (1) CHF (congestive heart failure) (2) COPD exacerbation (3) Atrial fibrillation (4) Pneumonia (5) HTN (hypertension) (6) ESRD (end stage renal disease) on dialysis (7) Anemia of renal disease (8) Mood disorder Assessment/Plan appreciate nephrology input continue with HD per schedule Oxygen to keep sats >90% Duonebs Robitussin PRN Continue IV steroids continue empiric abx order walk test Add Mucinex Monitor HH anemia of CKD Continue with BB/Cardizem cardiac telemetry Heparin for DVT prophylaxis Continue with home meds not ready for dc today, remains with significant wheezing and cough, continue with above treatment D/W RN D/W Dr. Gutierrez D/W pt This pt. was seen by myself and Dr. Gutierrez, this note is written on his behalf. Problem Qualifiers (1) CHF (congestive heart failure): (2) Atrial fibrillation: Qualified Code: I48.2 - Chronic atrial fibrillation (3) Pneumonia: Qualified Code: J18.9 - Pneumonia due to infectious organism, unspecified laterality, unspecified part of lung (4) HTN (hypertension): Qualified Code: I10 - Essential hypertension Shirley Rivera Sep 17, 2016 09:12
[2016-09-17] MEDS: guaiFENesin E.R. 600 MG TAB PO SCH ×2 (09:15→21:00)
[2016-09-17] MEDS: SEVELAMER CARBONATE 800 MG TAB PO SCH ×3 (11:01→17:00)
[2016-09-17] MEDS: METOPROLOL TARTRATE 25 MG TAB PO SCH ×2 (11:01→21:45)
--- NOTE | 2016-09-17 12:16 | HHI.NPPN ---
Subjective General Problems: Anemia, Heart Disease, Hypertension Renal Failure: End Stage Renal Disease History of Present Illness 71 y/o AA male dialysis patient who was admitted for complaints of non productive cough, shortness of breath, and fever. He denies vomiting, pain, and sick contacts at the [facility] where he resides. He has a hx of ESRD, is on hemodialysis T-Th-Sat. He had a 3 hr treatment yesterday, but the clinic staff report he has been cutting his treatments short over the past few weeks. Other PMH of HTN, anemia, hyperlipidemia, GERD, A fib, and prostate CA s/p prostatectomy 4-5 yrs ago. Additional Remarks Patient is alert, sitting on chair, feeling better, cough and SOB improving. Review of Systems General Constitutional: Fatigue Respiratory Lungs: SOB, Cough, Sputum, Wheeze Cardiovascular Cardiac: HERNANDEZ Objective Data Data 09/16/16 09/17/16 19:00 07:00 Intake Total 720 ml Output Total 4000 ml Balance -4000 ml 720 ml Intake Oral 720 ml Output Hemodialysis 4000 ml # Voids 2 # Bowel Movements 2 Vital Signs Date Time Temp Pulse Resp B/P Pulse Ox O2 Delivery O2 Flow Rate FiO2 09/17/16 12:00 97.9 83 20 119/71 92 09/17/16 08:00 97.8 86 20 129/72 95 09/17/16 07:15 95 Nasal Cannula 2.00 09/17/16 04:00 98.1 85 18 145/82 92 09/17/16 04:00 Nasal Cannula 3.00 09/17/16 00:00 98.5 77 18 124/85 96 09/17/16 00:00 Nasal Cannula 3.00 09/16/16 20:02 97 09/16/16 20:00 98.2 95 18 132/74 96 09/16/16 20:00 Nasal Cannula 4.00 09/16/16 19:47 97 Nasal Cannula 4.00 09/16/16 17:34 99.7 97 16 110/64 95 09/16/16 17:26 101 09/16/16 13:04 98.2 108 18 105/72 97 -: 09/16/16 0625 09/16/16 0625 Microbiology 09/17/16 Stool Occult Blood (JUSTIN) - Final, Complete HEMOCCULT POSITIVE Physical Exam General Appearance: No Acute Distress, Comfortable Eyes Eye Exam: Pupils Equal, Pupils Reactive Ears & Nose Ears & Nose Exam: Nasal Mucosa [place] Throat Throat Exam: Oral Mucosa [place] & Moist Pulmonary Resp Exam: No Distress, Decreased Bases, Diminished Breath Sounds Cardiology CV Exam: Regular, Normal Sinus Rhythm Gastrointestinal/Abdomen GI Exam: Soft, Non-Tender, Bowel Sounds Present, Non-Distended Musculoskeletal MS Exam: Joints Intact Integumentary Skin Exam: Warm, Dry Extremeties Extremities Exam: Pedal Pulses Palpable, Trace Edema Neurologic Neuro Exam: Alert, Awake, Oriented, Speech Clear, Moving All Extremities, No Focal Deficits Psychiatric Psych Exam: Appropriate Responses Assessment/Plan Problem List: (1) ESRD (end stage renal disease) on dialysis Plan: T--Sun HD schedule, he has Permcath for dialysis no electrolyte concerns monitor fluid volume status. HD done yesterday, tolerated well, 4 liters removed. BP is stable, Continue antibiotics. (2) Pneumonia Plan: On solumedrol, antibiotic therapy consists of Rocephin and Zithromax oxygen as needed monitor clinically blood cx in progress (3) HTN (hypertension) Plan: restarted home medications including Cardizem, metoprolol, and isosorbide monitor blood pressure (4) Atrial fibrillation Plan: rate is elevated I will restart Cardizem and Lopressor per home medication list he is on ASA for anticoagulation may require medication/dosage adjustment (5) Anemia of renal disease Plan: denies rectal bleeding, give Epogen with dialysis, check iron profile in am monitor hemoglobin, transfuse as needed (6) Metabolic bone disease Plan: check phosphorus level in am begin Renvela, monitor effect Problem Qualifiers (1) Pneumonia: Qualified Code: J18.9 - Pneumonia due to infectious organism, unspecified laterality, unspecified part of lung (2) HTN (hypertension): Qualified Code: I10 - Essential hypertension (3) Atrial fibrillation: Qualified Code: I48.2 - Chronic atrial fibrillation Rosendo Driscoll MD Sep 17, 2016 12:16
[2016-09-17] MEDS: CALCIUM CARBONATE 500 MG CHEWABLE TAB CHEW PRN (18:08)
[2016-09-17] MEDS: guaiFENesin/DEXTROMETHORPHAN 200 MG/20 MG/10 ML CUP PO PRN (18:08)
[2016-09-17] MEDS: cefTRIAXone INJ 1,000 MG in SODIUM CHLORIDE 0.9% INJ 100 ML IV SCH (23:35)
[2016-09-18] VITALS: BP 113/67; PULSE 90; RESP 18; TEMP 97.4; O2SAT 92
[2016-09-18] MEDS: ALPRAZolam 0.25 MG TAB PO PRN (02:51)
[2016-09-18 04:00] VITALS: BP 142/67; PULSE 94; RESP 18; TEMP 97.2; O2SAT 91
[2016-09-18] MEDS: diphenhydrAMINE HCL 25 MG CAP PO PRN (05:11)
[2016-09-18] MEDS: DILTIAZEM HCL 90 MG TAB PO SCH (05:11)
[2016-09-18] MEDS: CALCIUM CARBONATE 500 MG CHEWABLE TAB CHEW PRN (05:12)
[2016-09-18] MEDS: ISOSORBIDE MONONITRATE 30 MG TAB PO SCH (05:12)
[2016-09-18] MEDS: RESP: ALBUTEROL 2.5 MG/IPRATROPIUM 0.5 MG NEB (SCH) NEB (08:53)
--- NOTE | 2016-09-18 09:11 | HHI.FF ---
Face to Face Verification Diagnosis: (1) COPD exacerbation Home Health Nursing Order: Medical education Oxygen administration education Nursing assessment with vital signs I have seen patient Renny Beaver on 09/18/16. My clinical findings support the need for the requested home health care services because: Patient has SOB Limited ability to care for self Need for psychosocial assistance Impaired cognition/judgement I certify that my clinical findings support that this patient is homebound because: Hx COPD- exertion dyspnea/weakness Shirley Rivera Sep 18, 2016 09:11
[2016-09-18] MEDS ORDERED: OXYGENTANK NAS.CANULA ×2 (09:12→12:34)
--- NOTE | 2016-09-18 09:13 | HHI.DCPOC ---
Discharge Care Plan Diagnosis: (1) HTN (hypertension) (2) ESRD (end stage renal disease) on dialysis (3) Anemia of renal disease (4) Mood disorder (5) CHF (congestive heart failure) (6) COPD exacerbation Your Health Problems Are: Chest Pain Shortness of Breath Goals to Promote Your Health * To prevent worsening of your condition and complications * To maintain your health at the optimal level Directions to Meet Your Goals Take your medications as prescribed Follow your dietary instruction Follow activity as directed Keep your appointments as scheduled Take your immunizations and boosters as scheduled If your symptoms worsen call your PCP, if no PCP go to Urgent Care Center or Emergency Room Smoking is Dangerous to Your Health. Avoid second hand smoke Call the 24-hour hour crisis hotline for domestic abuse at Shirley Rivera Sep 18, 2016 09:13
--- NOTE | 2016-09-18 10:04 | HHI.PR ---
Subjective Subjective Remarks sitting up in chair no distress notes sats 80 on RA, when asked to put oxygen on he states "what I need is food" per nursing, pt. threatening to leave AMA because he wanted food earlier less cough and wheezing today states that he doesn't use oxygen at [facility] "they won't give it to me" Tele reviewed, HR 100, afib RT placed on oxygen after pt. agreed, 2L/NC---sats up to 94% Review of Systems Constitutional Constitutional Remarks 12 point ROS difficult to complete Vitals/Results Intake & Output 09/17/16 09/17/16 09/18/16 15:00 23:00 07:00 Intake Total 600 ml 763 ml 340 ml Balance 600 ml 763 ml 340 ml Intake Oral 600 ml 240 ml 240 ml IV Total 523 ml 100 ml # Voids 0 0 # Bowel Movements 0 0 Vital Signs Vital Signs Date Time Temp Pulse Resp B/P Pulse Ox O2 Delivery O2 Flow Rate FiO2 09/18/16 04:00 Room Air 09/18/16 04:00 97.2 94 18 142/67 91 09/18/16 00:00 Nasal Cannula 2.00 09/18/16 00:00 97.4 90 18 113/67 92 09/17/16 20:23 95 Nasal Cannula 2.00 09/17/16 20:06 79 09/17/16 20:00 97.4 70 18 122/78 92 09/17/16 20:00 Nasal Cannula 2.00 09/17/16 16:00 98.3 87 20 133/81 94 09/17/16 12:00 97.9 83 20 119/71 92 CBC/BMP: 09/16/16 0625 09/16/16 0625 Physical Exam General General Appearance: No Acute Distress, Comfortable Eyes Eye Exam: Pupils Equal, Pupils Reactive Ears & Nose Ears & Nose Exam: Nasal Mucosa [place] Throat Throat Exam: Oral Mucosa [place] & Moist Pulmonary Resp Exam: Crackles, Decreased Bases, Diminished Breath Sounds Resp Remarks Cardiology CV Exam: Regular, Normal Sinus Rhythm Gastrointestinal/Abdomen GI Exam: Soft, Non-Tender, Bowel Sounds Present, Non-Distended Musculoskeletal MS Exam: Joints Intact Integumentary Skin Exam: Warm, Dry Extremeties Extremities Exam: Pedal Pulses Palpable, Trace Edema Neurologic Neuro Exam: Alert, Awake, Oriented, Speech Clear, Moving All Extremities, No Focal Deficits Psychiatric Psych Exam: Appropriate Responses VTE Prophylaxis VTE Prophylaxis Meds: Heparin Assessment/Plan Problem List: (1) CHF (congestive heart failure) (2) COPD exacerbation (3) Atrial fibrillation (4) Pneumonia (5) HTN (hypertension) (6) ESRD (end stage renal disease) on dialysis (7) Anemia of renal disease (8) Mood disorder Assessment/Plan appreciate nephrology input continue with HD per schedule Oxygen to keep sats >90% Duonebs Robitussin PRN DC IV steroids, change to PO continue empiric abx Mucinex order walk test Monitor HH anemia of CKD Continue with BB/Cardizem cardiac telemetry HR elevated, increase BB Heparin for DVT prophylaxis CM consult for DC planning, HHC, oxygen f/u on walk test results poss. DC later today if he remains stable D/W RN D/W Dr. Gutierrez D/W pt D/W CM This pt. was seen by myself and Dr. Gutierrez, this note is written on his behalf. Problem Qualifiers (1) CHF (congestive heart failure): (2) Atrial fibrillation: Qualified Code: I48.2 - Chronic atrial fibrillation (3) Pneumonia: Qualified Code: J18.9 - Pneumonia due to infectious organism, unspecified laterality, unspecified part of lung (4) HTN (hypertension): Qualified Code: I10 - Essential hypertension Shirley Rivera Sep 18, 2016 10:04
[2016-09-18] MEDS: guaiFENesin E.R. 600 MG TAB PO SCH (10:27)
[2016-09-18] MEDS: SEVELAMER CARBONATE 800 MG TAB PO SCH (10:27)
[2016-09-18] MEDS: SODIUM CHLORIDE 0.9% FLUSH 5 ML FLUSH FLUSH SCH (10:27)
[2016-09-18] MEDS: HEPARIN SODIUM - SQ 10,000 UNITS/ML VIAL SQ SCH (10:27)
[2016-09-18] MEDS ORDERED: PRED20 PO (12:36)
[2016-09-18] MEDS ORDERED: ZITHTAB PO (12:36)
--- NOTE | 2016-09-18 16:31 | PD.AMA ---
Against Medical Advice Note Discharge Disposition: Against Medical Advice Pt Condition on Discharge: Stable AMA Statement Patient Renny Beaver has decided to leave the hospital against medical advice. This patient has the capacity to refuse care and understands the risks of leaving, including permanent disability and/or , and has had an opportunity to ask questions about his condition. The patient has been informed that he may return for care at any time, and follow up has been arranged/ advised. Shirley Rivera Sep 18, 2016 16:31
--- NOTE | 2016-09-18 16:54 | HHI.DS ---
Discharge Summary Admission Date Sep 15, 2016 at 01:14 Discharge Date: Sep 18, 2016 Admitting Diagnosis COPD exacerbation, pneumonia (1) CHF (congestive heart failure) (2) Pneumonia (3) Hypoxia (4) COPD exacerbation (5) ESRD (end stage renal disease) on dialysis (6) HTN (hypertension) (7) Atrial fibrillation (8) Metabolic bone disease (9) Non-compliance (10) Mood disorder (11) Anemia of renal disease CBC/BMP: 09/16/16 0625 09/16/16 0625 Significant Findings Laboratory Tests Test 09/16/16 06:25 Red Blood Count 3.03 MIL/MM3 (4.50-5.90) Hemoglobin 8.9 GM/DL (13.0-17.0) Hematocrit 26.8 % (39.0-51.0) Red Cell Distribution Width 18.4 % (11.6-17.2) Neutrophils (%) (Auto) 92.3 % (16.0-70.0) Lymphocytes (%) (Auto) 3.8 % (9.0-44.0) Neutrophils # (Auto) 7.8 TH/MM3 (1.8-7.7) Lymphocytes # (Auto) 0.3 TH/MM3 (1.0-4.8) Blood Urea Nitrogen 60 MG/DL (7-18) Creatinine 7.72 MG/DL (0.60-1.30) Estimat Glomerular Filtration 8 ML/MIN (>89) Rate Random Glucose 121 MG/DL (74-106) Iron Level 57 MCG/DL (65-175) Percent Iron Saturation 19.6 % (20-50) Imaging Last Impressions Chest X-Ray 09/14/16 8457 Signed Impressions: Service Date/Time: September 21:32 - CONCLUSION: Mild failure. No focal consolidation. Girish Russell MD Hospital Course This is a pleasant 71-year-old black male who was in his usual state of health up until 3-4 days ago. He developed an acute onset of cough with increased shortness of breath and mild fever. He does have a significant history of end-stage renal disease and receives dialysis on Tuesdays, and Saturdays. He stated that the symptoms continued to worsen to the point last night that he felt like he needed to come and have someone in the emergency room see him. He lives in an [facility]. He denied any chest pain. Denied any dizziness. He is positive for generalized weakness and fatigue secondary to his cough. Denied coughing up any sputum at this time. He was positive for a tachycardic rhythm, atrial fibrillation with RVR. He is alert and oriented but is unable to give extended talk or history at this time secondary to his shortness of breath. Most of this history information is being gathered from the record. Pt. was evaluated and found with: (1) CHF (congestive heart failure) (2) COPD exacerbation (3) Atrial fibrillation (4) Pneumonia (5) HTN (hypertension) (6) ESRD (end stage renal disease) on dialysis (7) Anemia of renal disease (8) Mood disorder During the course of the hospitalization, the following took place: Patient was admitted, was put on oxygen to keep sats greater than 90%, IV steroids were initiated He was started on empiric antibiotics Cultures were obtained and followed-they were negative. Influenza was negative Nephrology was consulted to manage hemodialysis need Per nephrology, patient had been cutting treatments for the last couple of weeks. Likely cause of his symptoms was combination of fluid overload as well as infectious pulmonary process Patient was continued on dialysis per schedule, he tolerated well Patient started to improve, steroids were weaned to oral She was given Robitussin as needed for cough Difficulty mobilizing secretions, Mucinex was ordered Patient at times very cantankerous, demanding more food He threatened to leave AMA H&H was monitored, he was not anemic, likely secondary to chronic disease Hemoccult was negative Low iron stores Heart rate was elevated, A. fib, 1 teens 120s Was continued on beta blockers, Cardizem was adjusted On 09/18-Patient was noted hypoxic on room air, sats down to 80%, asymptomatic. Instructed to apply oxygen on, patient was fighting with respiratory therapist and undersigned. Indicated that he was interested in eating not putting oxygen on. He finally agreed to put oxygen back on an sats went up to 94% Patient was not on oxygen at assisted living facility. Informed patient that oxygen would be arranged, he was agreeable however he kept going back to the conversation of food. Case management was consulted to arrange home health care and discharge planning Walk test was ordered Discussed with patient discharge plan, patient was clinically stable, no WBC elevation, no fever Case management attempted to speak to patient about discharge plan, he was reluctant to provide information Patient signed out AGAINST MEDICAL ADVICE because he wanted to go eat Patient signed AMA form and left the hospital. Pt Condition on Discharge: Stable Discharge Instructions DIET: Follow Instructions for: Renal Failure Diet Activities you can perform: Weight Bearing as Violet Follow up Referrals: PCP Follow-up New Medications: Oxygen tank (Oxygen tank) 1 Ea Tank 2 LITER CHERYL.CANULA CONTINUOUS Oxygen Concentrator Portable Gaseous 2 L/min via Nasal Cannula Continuous For 99 months HYPOXEMIA PREVENTION #1 CYLINDER Continued Medications: Acetaminophen (Acetaminophen) 325 Mg Tab 325 MG PO Q4-6H PRN PAIN SCALE 1 TO 4/COUGH Ref 0 TAB Alprazolam (Alprazolam) 0.5 Mg Tab 0.5 MG PO HS PRN ANXIETY Ref 0 TAB Amino Acids-Protein Hydrolysat (Pro-Stat) 1 Liq Liq 30 ML PO TID Aspirin DR (Aspirin 81) 81 Mg Tabdr 81 MG PO DAILY Ref 0 TAB B-Complex W/ C & Folic Acid (Renal-Mya 0.8 mg) 1 Tab Tab DAILY Calcium Carbonate (Antacid) (Antacid) 500 Mg Chew 500 MG CHEW TID PRN REFLUX TAB Cinacalcet (Sensipar) 30 Mg Tab 30 MG PO DAILY #30 Ref 0 TAB Diltiazem (Diltiazem) 90 Mg Tab 90 MG PO QID Angina #120 Ref 0 TAB Isosorbide Mononitrate ER (Isosorbide Mononitrate ER) 30 Mg Nolan 30 MG PO DAILY Prevent Chest Pain #30 Ref 0 TAB Levocetirizine (Levocetirizine) 5 Mg Tab 5 MG PO HS Allergy Management #30 Ref 0 TAB Losartan (Losartan) 100 Mg Tab 100 MG PO DAILY Blood Pressure Management #30 Ref 0 TAB Metoprolol Tartrate (Metoprolol Tartrate) 25 Mg Tab 12.5 MG PO BID #60 Ref 0 TAB Ondansetron (Ondansetron) 8 Mg Tab 4 MG PO TID Nausea/Vomiting Ref 0 TAB Sevelamer Carbonate (Renvela) 800 Mg Tab 1600 MG PO TID Control phosphorous levels #180 Ref 0 TAB Sucralfate (Sucralfate) 1 Gm Tab 1 GM PO Q6HR on empty stomach Duodenal ulcer #90 Ref 0 TAB Trazodone (Trazodone) 150 Mg Tab 150 MG PO HS Control Depression #30 Ref 0 TAB Triamcinolone Acetonide (Topic (Triamcinolone Acetonide) 1 Pow Pow Discontinued Medications: Oxycodone-Acetaminophen (Oxycodone-Acetaminophen) 5-325 mg Tab 1 TAB PO Q6H PRN PAIN Ref 0 TAB Shirley Rivera Sep 18, 2016 16:54
[2016-09-18] MEDS ORDERED: AZITHROMYCIN INJ 500 MG in SODIUM CHLOR 0.9% 250 ML INJ 250 ML IV SCH (18:00)
[2016-09-18] MEDS ORDERED: METOPROLOL TARTRATE 25 MG TAB PO SCH (21:00)
[2016-09-19] MEDS ORDERED: predniSONE 20 MG TAB PO SCH (09:00)
== END 2016-09-18 10:40 | disposition left against medical advice (07) | DRG 193 ==
LOC: NEPC 23:02 → NEDA 09-15 01:14 → NEDH 09-15 05:21 → N04A 09-15 17:12
PROVIDERS: ADMIT Specialist; ATTEND Specialist
PROC: 5A1D60Z (ICD-10-PCS; principal; 2016-09-15)
PROC: 30233N1 Transfusion of Nonautologous Red Blood Cells into Peripheral Vein, Percutaneous Approach (ICD-10-PCS; 2016-09-15)
DX: J18.9 Pneumonia, unspecified organism (principal); N18.6 End stage renal disease; I12.0 Hypertensive chronic kidney disease with stage 5 chronic kidney disease or end stage renal disease; E88.89 Other specified metabolic disorders; I48.2 Chronic atrial fibrillation; J44.1 Chronic obstructive pulmonary disease with (acute) exacerbation; E87.70 Fluid overload, unspecified; E11.22 Type 2 diabetes mellitus with diabetic chronic kidney disease; I50.9 Heart failure, unspecified; Z99.2 Dependence on renal dialysis; K21.9 Gastro-esophageal reflux disease without esophagitis; Z85.46 Personal history of malignant neoplasm of prostate; E78.5 Hyperlipidemia, unspecified; Z79.82 Long term (current) use of aspirin; Z87.891 Personal history of nicotine dependence; Z91.19 Patient's noncompliance with other medical treatment and regimen; F39 Unspecified mood [affective] disorder; Z90.79 Acquired absence of other genital organ(s); D63.1 Anemia in chronic kidney disease; R09.02 Hypoxemia
CPT/HCPCS: 36430; 71010; 76937; 80048; 80053; 82272; 82948; 83540; 83550; 83735; 84100; 84484; 85025; 85610; 86850; 86900; 86901; 86920; 87040; 87804; 90935; 93005; 94640; 94664; 96374; 96375; J0456; J0696; J1580; J1644; J2405; J2920; J2930; J7030; J7050; P9016; Q4081

== ENCOUNTER 2016-09-18 11:04 | Emergency (ER) | payer MEDICARE, MEDICAID ==
[~2016-09-18] VITALS: Ht 177.8 cm; Wt 85.0 kg
[~2016-09-18 11:04] MED LIST changes: +ACET325T PO; -ALPR.5 PO; +ALPR0.5T3 PO; +AMINLIQ7 PO; +ANTA500C CHEW; +ASPI-110 PO; -ASPI81TA82 PO; +B CO; -CALC667T PO; +CINA30 PO; -DILT90 PO; +DILT90TA PO; -HYDR-3133 PO; -HYDR50TA15 PO; +ISOS30TA3 PO; -ISOS60 PO; +LEVOTAB PO; +LOSA100T PO; -LOSA50TA PO; -METO25 PO; +METO25TA3 PO; -MIRTA15 PO; +ONDA1TAB17 PO; -OXYC1SOL5 PO; +OXYC1TAB63 PO; +OXYGENTANK NAS.CANULA; -REME15TA PO; +SEVEL800 PO; +SUCR1TAB PO; -TAB-TAB PO; +TRAZ150T75 PO; +TRIAPOW; -ZANT300T PO
[2016-09-18 11:09] VITALS: BP 137/87; PULSE 106; RESP 16; TEMP 97.4; O2SAT 86
[2016-09-18 11:23] VITALS: BP 145/82; PULSE 95; RESP 22; O2SAT 94
--- NOTE | 2016-09-18 11:27 | PD ---
HPI Chief Complaint: Respiratory Symptoms Time Seen by Provider: 11:19 Travel History International Travel<30 days: No Contact w/Intl Traveler<30days: No History of Present Illness HPI Patient is a 71-year-old male with history of COPD, ESRD on HD here approximately one hour after he signed out AGAINST MEDICAL ADVICE. Patient was admitted for approximately 3 days for a pneumonia. He was being treated appropriately. This morning he was noted to be hypoxic on room air and the plan was to have an oxygen walk test. Patient however did not get the breakfast that he wanted. Patient states that they gave him 1 and again he takes for 4 breakfast. Patient signed out AGAINST MEDICAL ADVICE, had breakfast in our cafeteria and then presented to the ER to be readmitted. Overall his shortness of breath is improving, he IS hypoxic to 86%. PFSH Past Medical History Anemia: Yes Atrial Fibrillation: Yes Anxiety: Yes Cancer: Yes (HX PROSTATE) Cardiovascular Problems: Yes Chemotherapy: Yes Congestive Heart Failure: Yes COPD: Yes Diabetes: No Dialysis: Yes (M/W/F) Diminished Hearing: No Gastrointestinal Disorders: Yes (APPENDICITIS) GERD: Yes Hypertension: Yes Respiratory: Yes Migraines: Yes Renal Failure: Yes Tetanus Vaccination: Unknown Past Surgical History Arteriovenous Shunt: Yes (L ARM) Prostatectomy: Yes Other Surgery: Yes (AV FISTULA TO LEFT ARM) Social History Alcohol Use: No Tobacco Use: No Substance Use: No Allergies-Medications (Allergen,Severity, Reaction): Coded Allergies: No Known Allergies (Unverified , 09/14/16) Reported Meds & Prescriptions Reported Meds & Active Scripts Active Oxygen tank (Oxygen) 1 Ea Tank 2 Liter CHERYL.CANULA CONTINUOUS Oxygen Concentrator Portable Gaseous 2 L/min via Nasal Cannula Continuous For 99 months Reported Antacid (Calcium Carbonate (Antacid)) 500 Mg Chew 500 Mg CHEW TID PRN Triamcinolone Acetonide (Triamcinolone Acetonide (Topic) 1 Pow Pow Acetaminophen 325 Mg Tab 325 Mg PO Q4-6H PRN Pro-Stat (Amino Acids-Protein Hydrolysat) 1 Liq Liq 30 Ml PO TID Renal-Mya 0.8 mg (B-Complex W/ C & Folic Acid) 1 Tab Tab DAILY Alprazolam 0.5 Mg Tab 0.5 Mg PO HS PRN Aspirin 81 (Aspirin) 81 Mg Tabdr 81 Mg PO DAILY Trazodone (Trazodone HCl) 150 Mg Tab 150 Mg PO HS Levocetirizine 5 Mg Tab 5 Mg PO HS Sensipar (Cinacalcet) 30 Mg Tab 30 Mg PO DAILY Diltiazem (Diltiazem HCl) 90 Mg Tab 90 Mg PO QID Sucralfate 1 Gm Tab 1 Gm PO Q6HR on empty stomach Ondansetron (Ondansetron HCl) 8 Mg Tab 4 Mg PO TID Renvela (Sevelamer Carbonate) 800 Mg Tab 1,600 Mg PO TID Metoprolol Tartrate 25 Mg Tab 12.5 Mg PO BID Losartan (Losartan Potassium) 100 Mg Tab 100 Mg PO DAILY Isosorbide Mononitrate ER (Isosorbide Mononitrate) 30 Mg Nolan 30 Mg PO DAILY Review of Systems Except as stated in HPI: all other systems reviewed are Neg Physical Exam Narrative GENERAL: Well-appearing male in no respiratory distress SKIN: Warm and dry. HEAD: Normocephalic. EYES: No scleral icterus. No injection or drainage. ENT: Mucous membranes pink and moist. NECK: Supple CARDIOVASCULAR: Regular rate and rhythm. No murmur appreciated. RESPIRATORY: No accessory muscle use. Decreased in bilateral bases GASTROINTESTINAL: Abdomen soft, non-tender, nondistended. MUSCULOSKELETAL: Left upper extremity with palpable AV fistula NEUROLOGICAL: Awake and alert. Normal speech. PSYCHIATRIC: insight and judgment poor Data Data Last Documented VS Vital Signs Date Time Temp Pulse Resp B/P Pulse Ox O2 Delivery O2 Flow Rate FiO2 09/18/16 11:45 93 Nasal Cannula 4.00 09/18/16 11:23 95 22 145/82 09/18/16 11:09 97.4 Orders Resp Home Oxygen Walk Test (09/18/16 ) [facility] Medical Decision Making Medical Screen Exam Complete: Yes Emergency Medical Condition: Yes Medical Record Reviewed: Yes Differential Diagnosis 71-year-old male with history of COPD, ESRD here with shortness of breath 1 hour after he signed out AMA from a pneumonia admission. Differential includes pneumonia, nonadherence, A. fib, anemia, volume overload, CHF. Narrative Course Previous hospital records were reviewed. It appears the patient overall is doing better and there were plans to potentially discharge him to home today anyway should he pass and oxygen walk test. I spoke with patient's admitting physicians who routed on him today, they confirmed the above. Patient had a oxygen walk test with respiratory and failed and was hypoxic requiring home was involved to help arrange this. Patient will be discharged home with steroids, azithromycin and the home oxygen. Diagnosis Primary Impression: Hypoxia Additional Impressions: Pneumonia Qualified Code: J18.9 - Pneumonia due to infectious organism, unspecified laterality, unspecified part of lung COPD exacerbation CHF (congestive heart failure) Referrals: Primary Care Physician 2 days Additional Instructions: Finish antibiotics, steroids. Home oxygen as prescribed. Med/Other Pt SpecificInfo: Prescription(s) given Scripts Azithromycin (Zithromax Z-Kenney)250 Mg [id number] Mg PO DIRECTED #1 DSPK Ref 0 500 MG (2 tabs) day 1, then 1 tab days 2-5. Prov:Diana Andrade MD 09/18/16 Prednisone 20 Mg Tab20 Mg PO DAILY 5 Days Ref 0 Prov:Diana Andrade MD 09/18/16 Oxygen tank 1 Ea Tank #1 Liter Cheryl.canula Continuous Oxygen Concentrator Portable Gaseous 2 L/min via Nasal Cannula Continuous For 99 months Prov:Diana Andrade MD 09/18/16 Disposition: 01 DISCHARGE HOME Condition: Stable Diana Andrade MD Sep 18, 2016 11:27
[2016-09-18 11:45] VITALS: O2SAT 93
[2016-09-18] MEDS ORDERED: OXYGENTANK NAS.CANULA (12:34)
[2016-09-18] MEDS ORDERED: PRED20 PO (12:36)
[2016-09-18] MEDS ORDERED: ZITHTAB PO (12:36)
[2016-09-18 13:35] VITALS: BP 140/74
== END 2016-09-18 13:36 | disposition home or self-care (01) ==
LOC: NEPE 11:04
DX: R09.02 Hypoxemia (principal); J44.1 Chronic obstructive pulmonary disease with (acute) exacerbation; J18.9 Pneumonia, unspecified organism; I50.9 Heart failure, unspecified; N18.6 End stage renal disease; I12.0 Hypertensive chronic kidney disease with stage 5 chronic kidney disease or end stage renal disease; I48.91 Unspecified atrial fibrillation; D64.9 Anemia, unspecified; Z99.2 Dependence on renal dialysis
CPT/HCPCS: 94620

== ENCOUNTER 2016-10-01 04:18 | Emergency (ER) | payer MEDICARE, MEDICAID ==
[~2016-10-01 04:18] MED LIST changes: -OXYC1TAB63 PO; +PRED20 PO; +ZITHTAB PO
[2016-10-01 04:28] VITALS: BP 137/98; PULSE 120; RESP 18; TEMP 97.6; O2SAT 95
--- NOTE | 2016-10-01 04:36 | PD ---
HPI Chief Complaint: GI Complaint Time Seen by Provider: 04:25 Travel History International Travel<30 days: No Contact w/Intl Traveler<30days: No Traveled to known affect area: No History of Present Illness HPI 71-year-old male complains of nausea vomiting diarrhea. Patient states that the symptoms started tonight. Patient denies any headache. Patient denies any chest pain or shortness of breath. Patient denies abdominal pain. Patient denies any fever chills. Patient denies any blood or mucus in the stool. Patient has history of end-stage renal disease on dialysis. Patient also has history of CHF, COPD, hypertension, atrial fibrillation, mood disorder and anemia. PFSH Past Medical History Anemia: Yes Atrial Fibrillation: Yes Anxiety: Yes Cancer: Yes (HX PROSTATE) Cardiovascular Problems: Yes Chemotherapy: Yes Congestive Heart Failure: Yes COPD: Yes Diabetes: No Dialysis: Yes (M/W/F) Diminished Hearing: No Gastrointestinal Disorders: Yes (APPENDICITIS) GERD: Yes Hypertension: Yes Respiratory: Yes Migraines: Yes Renal Failure: Yes Past Surgical History Arteriovenous Shunt: Yes (L ARM) Prostatectomy: Yes Other Surgery: Yes (AV FISTULA TO LEFT ARM) Social History Alcohol Use: No Tobacco Use: No Substance Use: No Allergies-Medications (Allergen,Severity, Reaction): Coded Allergies: No Known Allergies (Unverified , 10/01/16) Reported Meds & Prescriptions Reported Meds & Active Scripts Active Zithromax Z-Kenney (Azithromycin) 250 Mg Dspk 250 Mg PO DIRECTED 500 MG (2 tabs) day 1, then 1 tab days 2-5. Prednisone 20 Mg Tab 20 Mg PO DAILY 5 Days Oxygen tank (Oxygen) 1 Ea Tank 2 Liter CHERYL.CANULA CONTINUOUS Oxygen Concentrator Portable Gaseous 2 L/min via Nasal Cannula Continuous For 99 months Oxygen tank (Oxygen) 1 Ea Tank 2 Liter CHERYL.CANULA CONTINUOUS Oxygen Concentrator Portable Gaseous 2 L/min via Nasal Cannula Continuous For 99 months Reported Antacid (Calcium Carbonate (Antacid)) 500 Mg Chew 500 Mg CHEW TID PRN Triamcinolone Acetonide (Triamcinolone Acetonide (Topic) 1 Pow Pow Acetaminophen 325 Mg Tab 325 Mg PO Q4-6H PRN Pro-Stat (Amino Acids-Protein Hydrolysat) 1 Liq Liq 30 Ml PO TID Renal-Mya 0.8 mg (B-Complex W/ C & Folic Acid) 1 Tab Tab DAILY Alprazolam 0.5 Mg Tab 0.5 Mg PO HS PRN Aspirin 81 (Aspirin) 81 Mg Tabdr 81 Mg PO DAILY Trazodone (Trazodone HCl) 150 Mg Tab 150 Mg PO HS Levocetirizine 5 Mg Tab 5 Mg PO HS Sensipar (Cinacalcet) 30 Mg Tab 30 Mg PO DAILY Diltiazem (Diltiazem HCl) 90 Mg Tab 90 Mg PO QID Sucralfate 1 Gm Tab 1 Gm PO Q6HR on empty stomach Ondansetron (Ondansetron HCl) 8 Mg Tab 4 Mg PO TID Renvela (Sevelamer Carbonate) 800 Mg Tab 1,600 Mg PO TID Metoprolol Tartrate 25 Mg Tab 12.5 Mg PO BID Losartan (Losartan Potassium) 100 Mg Tab 100 Mg PO DAILY Isosorbide Mononitrate ER (Isosorbide Mononitrate) 30 Mg Nolan 30 Mg PO DAILY Review of Systems General / Constitutional: No: Fever Eyes: No: Visual changes HENT: No: Headaches Cardiovascular: No: Chest Pain or Discomfort Respiratory: No: Shortness of Breath Gastrointestinal: Positive: Nausea, Vomiting, Diarrhea, No: Abdominal Pain Genitourinary: No: Dysuria Musculoskeletal: No: Pain Skin: No Rash Neurologic: No: Weakness Psychiatric: No: Depression Endocrine: No: Polydipsia Hematologic/Lymphatic: No: Easy Bruising Physical Exam Narrative GENERAL: Well-nourished, well-developed patient. SKIN: Warm and dry. HEAD: Normocephalic. EYES: No scleral icterus. No injection or drainage. NECK: Supple, trachea midline. No JVD or lymphadenopathy. CARDIOVASCULAR: Regular rate and rhythm without murmurs, gallops, or rubs. RESPIRATORY: Breath sounds equal bilaterally. No accessory muscle use. GASTROINTESTINAL: Abdomen soft, non-tender, nondistended. MUSCULOSKELETAL: No cyanosis, or edema. BACK: Nontender without obvious deformity. No CVA tenderness. Neurologic exam normal. Data Data Last Documented VS Vital Signs Date Time Temp Pulse Resp B/P Pulse Ox O2 Delivery O2 Flow Rate FiO2 10/01/16 04:40 125 18 95 Nasal Cannula 2 10/01/16 04:28 97.6 137/98 Orders Complete Blood Count With Diff (10/01/16 04:30) Comprehensive Metabolic Panel (10/01/16 04:30) Lipase (10/01/16 04:30) Magnesium (Mg) (10/01/16 04:30) Phosphorus (Po4) (10/01/16 04:30) Iv Access Insert/Monitor (10/01/16 04:30) Ecg Monitoring (10/01/16 04:30) Oximetry (10/01/16 04:30) Sodium Chlor 0.9% 1000 Ml Inj (Ns 1000 M (10/01/16 04:45) Ondansetron Inj (Zofran Inj) (10/01/16 04:45) Diphenoxylate/Atropine Tab (Lomotil Tab) (10/01/16 04:45) Labs Laboratory Tests Test 10/01/16 05:05 White Blood Count 12.4 TH/MM3 Red Blood Count 4.61 MIL/MM3 Hemoglobin 13.5 GM/DL Hematocrit 41.4 % Mean Corpuscular Volume 89.7 FL Mean Corpuscular Hemoglobin 29.4 PG Mean Corpuscular Hemoglobin 32.7 % Concent Red Cell Distribution Width 22.5 % Platelet Count 211 TH/MM3 Mean Platelet Volume 7.4 FL Neutrophils (%) (Auto) 92.3 % Lymphocytes (%) (Auto) 4.0 % Monocytes (%) (Auto) 1.8 % Eosinophils (%) (Auto) 1.3 % Basophils (%) (Auto) 0.6 % Neutrophils # (Auto) 11.5 TH/MM3 Lymphocytes # (Auto) 0.5 TH/MM3 Monocytes # (Auto) 0.2 TH/MM3 Eosinophils # (Auto) 0.2 TH/MM3 Basophils # (Auto) 0.1 TH/MM3 CBC Comment DIFF FINAL Differential Comment Sodium Level 139 MEQ/L Potassium Level 5.4 MEQ/L Chloride Level 99 MEQ/L Carbon Dioxide Level 27.2 MEQ/L Anion Gap 13 MEQ/L Blood Urea Nitrogen 53 MG/DL Creatinine 8.14 MG/DL Estimat Glomerular Filtration 8 ML/MIN Rate Random Glucose 101 MG/DL Calcium Level 9.1 MG/DL Phosphorus Level 3.9 MG/DL Magnesium Level 2.2 MG/DL Total Bilirubin 0.6 MG/DL Aspartate Amino Transf 16 U/L (AST/SGOT) Alanine Aminotransferase 22 U/L (ALT/SGPT) Alkaline Phosphatase 290 U/L Total Protein 8.5 GM/DL Albumin 4.3 GM/DL Lipase 155 U/L MDM Medical Decision Making Medical Screen Exam Complete: Yes Emergency Medical Condition: Yes Interpretation(s) 5:45 AM. CBC WBC 12.4. Hemoglobin 13.5 hematocrit 41.4. 92 neutrophil. Potassium 5.4. BUN 53. Creatinine 8.14. Alkaline phosphatase 290. Differential Diagnosis Differential diagnosis including gastroenteritis, gastritis, PUD, pancreatitis, cholecystitis, colitis, UTI, pyelonephritis. Narrative Course 71-year-old male complains of nausea vomiting diarrhea. Patient has history of end-stage renal disease on dialysis. Normal saline solution 100 cc an hour. Zofran 4 mg IV. Lomotil one tablet by mouth given. Diagnosis Primary Impression: Gastroenteritis Patient Instructions: General Instructions Additional Instructions: Clear fluid for 24 hours and advance as tolerated. Take medication as needed. Follow-up with personal physician. Return if persistent problem or worse. Med/Other Pt SpecificInfo: Prescription(s) given Scripts Diphenoxylate-Atropine (Lomotil)2.5-0.025 Mg Tab1 Tab PO Q6H PRN (DIARRHEA) #10 TAB Ref 0 Prov:Armond Clemens MD 10/01/16 Ondansetron Odt (Zofran Odt)4 Mg Tab4 Mg SL Q6HR PRN (Nausea/Vomiting) #10 TAB Prov:Armond Clemens MD 10/01/16 Disposition: 01 DISCHARGE HOME Condition: Stable Armond Clemens MD Oct 01, 2016 04:36
[2016-10-01 04:40] VITALS: PULSE 125; RESP 18; O2SAT 95
[2016-10-01] MEDS ORDERED: DIPHENOXYLATE/ATROPINE 2.5 MG/0.025 MG TAB PO ONE (04:45)
[2016-10-01] MEDS ORDERED: SODIUM CHLOR 0.9% 1000 ML INJ 1,000 ML IV SCH (04:45)
[2016-10-01] MEDS ORDERED: ONDANSETRON HCL 4 MG/2 ML VIAL IV PUSH ONE (04:45)
[2016-10-01 05:20] LABS: AUTOMATED NEUTROPHIL # 11.5 TH/MM3 (1.8-7.7); BASOPHIL # 0.1 TH/MM3 (0-0.2); BASOPHIL % 0.6 % (0.0-2.0); EOSINOPHIL # 0.2 TH/MM3 (0-0.4); EOSINOPHIL % 1.3 % (0.0-4.0); HEMATOCRIT 41.4 % (39.0-51.0); HEMO FLAGS DIFF FINAL; LYMPHOCYTE # 0.5 TH/MM3 (1.0-4.8); MEAN CELL VOLUME 89.7 FL (80.0-100.0); MEAN CORPUSCULAR HEMOGLOBIN 29.4 PG (27.0-34.0); MEAN CORPUSCULAR HGB CONC 32.7 % (32.0-36.0); MONO % 1.8 % (0.0-8.0); NEUT % 92.3 % (16.0-70.0); PLATELET COUNT 211 TH/MM3 (150-450); RED BLOOD COUNT 4.61 MIL/MM3 (4.50-5.90); RED CELL DISTRIBUTION WIDTH 22.5 % (11.6-17.2); WHITE BLOOD COUNT 12.4 TH/MM3 (4.0-11.0)
[2016-10-01 05:41] LABS: ALT (GPT) 22 U/L (12-78); ANION GAP 13 MEQ/L (5-15); AST (GOT) 16 U/L (15-37); BICARBONATE 27.2 MEQ/L (21.0-32.0); BLOOD UREA NITROGEN 53 MG/DL (7-18); CHLORIDE 99 MEQ/L (98-107); GLOMERULAR FILTRATION RATE 8 ML/MIN (>89); MAGNESIUM 2.2 MG/DL (1.5-2.5); POTASSIUM 5.4 MEQ/L (3.5-5.1); SODIUM (NA) 139 MEQ/L (136-145)
[2016-10-01 05:43] LABS: ALKALINE PHOSPHATASE 290 U/L (45-117); TOTAL BILIRUBIN ADULT 0.6 MG/DL (0.2-1.0)
[2016-10-01] MEDS ORDERED: ZOFR4TAB3 SL (05:48)
[2016-10-01] MEDS ORDERED: LOMO2.5T PO (05:48)
== END 2016-10-01 06:24 | disposition home or self-care (01) ==
LOC: NEPE 04:18
DX: K52.9 Noninfective gastroenteritis and colitis, unspecified (principal); N18.6 End stage renal disease; I12.0 Hypertensive chronic kidney disease with stage 5 chronic kidney disease or end stage renal disease; I50.9 Heart failure, unspecified; Z99.2 Dependence on renal dialysis
CPT/HCPCS: 80053; 83690; 83735; 84100; 85025; 96374; 99284; J2405; J7030

== ENCOUNTER 2017-06-13 00:56 | Inpatient (IN) | payer MEDICARE, MEDICAID ==
[2017-06-13] VITALS (13 sets, daily range): BP systolic 95–136; BP diastolic 53–76; PULSE 86–110; RESP 18–26; TEMP 98.2–98.7; O2SAT 91–100
[~2017-06-13] VITALS: Ht 177.8 cm; Wt 87.5 kg
[~2017-06-13 00:56] MED LIST changes: -ASPI-110 PO; +ASPI1TAB57 PO; +LOMO2.5T PO; -ONDA1TAB17 PO; +ONDA8TAB7 PO; +ZOFR4TAB3 SL
[2017-06-13] MEDS ORDERED: TYLE325T PO (01:08)
[2017-06-13] MEDS ORDERED: TRAZ1TAB14 PO (01:08)
[2017-06-13] MEDS ORDERED: SODIUM CHLORIDE 0.9% FLUSH 10 ML FLUSH IVF PRN (01:15)
--- NOTE | 2017-06-13 01:23 | PD ---
HPI Chief Complaint: Respiratory Symptoms Time Seen by Provider: 01:14 Travel History International Travel<30 days: No Contact w/Intl Traveler<30days: No Traveled to known affect area: No History of Present Illness HPI The patient is a 72 year old male who presents to the [facility] emergency department with a history of reportedly signing out AGAINST MEDICAL ADVICE from [facility] at 11 PM today. The patient reports that he had been admitted to the hospital for approximately 2 weeks. The patient reports that they were working on placement at a fpc facility. The patient reports that he does not have any place to go. He reports that he had been traveling back and forth to [place]. He reports that his son lives in [place] and kicked him out of the house. The patient is a chronic renal failure patient on hemodialysis. The patient receives hemodialysis on Sunday, , and Sunday. The patient last dialysis earlier today. The patient arrives nauseated and short of breath. The patient had 2 episodes of vomiting prior to arrival. The patient reports that he has had a dry cough. The patient reports that he left the other facility prior to arrival at this facility due to the fact that they would not let him go outside and sit son. On review of systems otherwise, the patient denies having any known recent fevers, neck pain, chest pain, abdominal pain, diarrhea, or neurologic symptoms. [facility] Past Medical History Narrative Medical The patient's past medical history is significant for COPD, congestive heart failure, chronic renal failure on hemodialysis, history of prostate cancer, history of atrial fibrillation, history of C. difficile colitis, history of anemia, diverticulosis, hyperlipidemia Anemia: Yes Atrial Fibrillation: Yes Anxiety: Yes Cancer: Yes (HX PROSTATE) Cardiovascular Problems: Yes Chemotherapy: Yes Congestive Heart Failure: Yes COPD: Yes Diabetes: No Dialysis: Yes (//SUN) Diminished Hearing: No Gastrointestinal Disorders: Yes (APPENDICITIS) GERD: Yes Hypertension: Yes Respiratory: Yes Migraines: Yes Renal Failure: Yes Tetanus Vaccination: < 5 Years Influenza Vaccination: Yes Past Surgical History Narrative Surgical The patient's past surgical history is significant for an AV fistula in the left upper extremity, prostatectomy. Arteriovenous Shunt: Yes (L UPPER ARM FISTULA-WORKING) Prostatectomy: Yes Other Surgery: Yes (AV FISTULA TO LEFT UPPER ARM WORKS) Social History Alcohol Use: No Tobacco Use: No Substance Use: No Allergies-Medications (Allergen,Severity, Reaction): Coded Allergies: No Known Allergies (Unverified Allergy, Unknown, 06/13/17) Reported Meds & Prescriptions Reported Meds & Active Scripts Active Lomotil (Diphenoxylate-Atropine) 2.5-0.025 Mg Tab 1 Tab PO Q6H PRN Zofran Odt (Ondansetron Odt) 4 Mg Tab 4 Mg SL Q6HR PRN Prednisone 20 Mg Tab 20 Mg PO DAILY 5 Days Reported Tylenol (Acetaminophen) 325 Mg Tab 325 Mg PO Q6H PRN Trazodone (Trazodone HCl) 150 Mg Tablet 150 Mg PO HS Antacid (Calcium Carbonate (Antacid)) 500 Mg Chew 500 Mg CHEW TID PRN Triamcinolone Acetonide (Triamcinolone Acetonide (Topic) 1 Pow Pow Pro-Stat (Amino Acids-Protein Hydrolysat) 1 Liq Liq 30 Ml PO TID Renal-Mya 0.8 mg (B-Complex W/ C & Folic Acid) 1 Tab Tab DAILY Alprazolam 0.5 Mg Tab 0.5 Mg PO HS PRN Aspirin 81 (Aspirin) 81 Mg Tabdr 81 Mg PO DAILY Levocetirizine 5 Mg Tab 5 Mg PO HS Sensipar (Cinacalcet) 30 Mg Tab 30 Mg PO DAILY Diltiazem (Diltiazem HCl) 90 Mg Tab 90 Mg PO QID Sucralfate 1 Gm Tab 1 Gm PO Q6HR on empty stomach Ondansetron (Ondansetron HCl) 8 Mg Tab 4 Mg PO TID Renvela (Sevelamer Carbonate) 800 Mg Tab 1,600 Mg PO TID Metoprolol Tartrate 25 Mg Tab 12.5 Mg PO BID Losartan (Losartan Potassium) 100 Mg Tab 100 Mg PO DAILY Isosorbide Mononitrate ER (Isosorbide Mononitrate) 30 Mg Nolan 30 Mg PO DAILY Review of Systems Except as stated in HPI: all other systems reviewed are Neg General / Constitutional: No: Fever Eyes: No: Visual changes HENT: No: Headaches Cardiovascular: No: Chest Pain or Discomfort Respiratory: Positive: Cough, Shortness of Breath Gastrointestinal: Positive: Nausea, Vomiting, No: Diarrhea, Abdominal Pain Musculoskeletal: No: Pain Skin: No Rash Neurologic: No: Weakness, Focal Abnormalities, Change in Mentation, Slurred Speech, Sensory Disturbance Psychiatric: No: Depression Endocrine: No: Polydipsia Hematologic/Lymphatic: No: Easy Bruising Physical Exam Narrative General: The patient is uncomfortable appearing on arrival with nausea and vomiting on arrival. Head and Neck exam: Head is normocephalic atraumatic. Eyes: EOMI, pupils are equal round and reactive to light. Nose: Midline septum with pink mucous membranes Mouth: Dentition unremarkable. Moist mucus membranes. Posterior oropharynx is not erythematous. No tonsillar hypertrophy. Uvula midline. Airway patent. Neck: No palpable lymphadenopathy. No nuchal rigidity. No thyromegaly. Cardiovascular: Irregularly irregular with a rate in the 1 teens, however the patient is initially active and actively vomiting on my arrival to the room without murmurs , gallops, or rubs. After the patient stopped retching and vomiting, the patient's heart rate is 90s. Lungs: Clear to auscultation bilaterally. No wheezes, rhonchi, or rales. Abdomen: Soft, without tenderness to palpation in all 4 quadrants of the abdomen. No guarding, rebound, or rigidity. Normal bowel sounds are audible. No tenderness on palpation of McBurney's point. Extremities: No clubbing, cyanosis, or edema. 2+ pulses in all 4 extremities. No calf tenderness on palpation. The patient has a palpable thrill in the AV fistula in the left upper extremity. Back: No costovertebral angle tenderness to palpation. Neurologic Exam: Grossly nonfocal. Skin Exam: No rash noted. Intact skin that is warm and dry. Data Data Last Documented VS Vital Signs Date Time Temp Pulse Resp B/P (MAP) Pulse Ox O2 Delivery O2 Flow Rate FiO2 06/13/17 01:26 95 Nasal Cannula 2.00 06/13/17 01:25 107 24 06/13/17 01:00 98.7 Orders Orders Electrocardiogram (06/13/17:) B-Type Natriuretic Peptide (06/13/17:15) Ckmb (Isoenzyme) Profile (06/13/17:15) Complete Blood Count With Diff (06/13/17:) Comprehensive Metabolic Panel (06/13/17:) Magnesium (Mg) (06/13/17:) Prothrombin Time / Inr (Pt) (11/8/17 01:15) Act Partial Throm Time (Ptt) (06/13/17 01:15) Troponin I (06/13/17 01:15) Lipase (06/13/17 01:15) Chest, Single Ap (06/13/17 01:15) Ecg Monitoring (06/13/17 01:15) Bilateral Bp Monitoring (06/13/17 01:15) Iv Access Insert/Monitor (06/13/17:15) Oximetry (06/13/17:15) Oxygen Administration (06/13/17:15) Sodium Chloride 0.9% Flush (Ns Flush) (06/13/17 01:15) Ondansetron Inj (Zofran Inj) (06/13/17 01:30) Sodium Polysty Sulfate Liq (Kayexalate L (06/13/17 04:30) Nitroglycerin 2% Oint (Nitroglycerin 2% (06/13/17 04:30) Admit Order (Ed Use Only) (06/13/17 04:16) Labs Laboratory Tests Test 06/13/17 01:48 White Blood Count 8.9 TH/MM3 Red Blood Count 3.49 MIL/MM3 Hemoglobin 11.4 GM/DL Hematocrit 35.0 % Mean Corpuscular Volume 100.2 FL Mean Corpuscular Hemoglobin 32.8 PG Mean Corpuscular Hemoglobin Concent 32.7 % Red Cell Distribution Width 20.9 % Platelet Count 329 TH/MM3 Mean Platelet Volume 8.3 FL CBC Comment AUTO DIFF Differential Total Cells Counted 100 Neutrophils % (Manual) 75 % Lymphocytes % 11 % Monocytes % 11 % Eosinophils % 1 % Basophils % 1 % Neutrophils # (Manual) 6.8 TH/MM3 Myelocytes 1 % Differential Comment FINAL DIFF MANUAL Atypical Lymphocytes % Platelet Estimate NORMAL Platelet Morphology Comment NORMAL Polychromasia 2.3 % Ovalocytes 1+ Acanthocytes 1+ Prothrombin Time 10.7 SEC Prothromb Time International Ratio 1.0 RATIO Activated Partial Thromboplast Time 26.8 SEC Blood Urea Nitrogen 48 MG/DL Creatinine 7.80 MG/DL Random Glucose 85 MG/DL Total Protein 7.4 GM/DL Albumin 4.0 GM/DL Calcium Level 9.3 MG/DL Magnesium Level 2.5 MG/DL Alkaline Phosphatase 282 U/L Aspartate Amino Transf (AST/SGOT) 17 U/L Alanine Aminotransferase (ALT/SGPT) 18 U/L Total Bilirubin 0.3 MG/DL Sodium Level 140 MEQ/L Potassium Level 5.7 MEQ/L Chloride Level 98 MEQ/L Carbon Dioxide Level 33.7 MEQ/L Anion Gap 8 MEQ/L Estimat Glomerular Filtration Rate 8 ML/MIN Total Creatine Kinase 82 U/L Troponin I 0.09 NG/ML B-Type Natriuretic Peptide 1264 PG/ML Lipase 139 U/L MDM Medical Decision Making Medical Screen Exam Complete: Yes Emergency Medical Condition: Yes Medical Record Reviewed: Yes Interpretation(s) Last Impressions Chest X-Ray 06/13/17 0115 Signed Impressions: Service Date/Time: Tuesday, June 13, 2017 01:48 - CONCLUSION: 1. Cardiomegaly and findings of congestive heart failure. Scottie Chavarria MD Differential Diagnosis COPD exacerbation, versus pneumonia, versus CHF exacerbation, versus fluid overload related to renal failure Narrative Course During the course of the patients emergency department visit, the patients history, examination, and differential diagnosis were reviewed with the patient. The patient was placed on a court monitor with oximetry and frequent blood pressure monitoring. The patient had IV access obtained and blood work sent for analysis. The patient had an ECG done on arrival. The patient's ECG reveals atrial fibrillation with RVR, heart rate of 108, no acute ST segment elevation. Records have been requested from [facility] in [place]. The patient was initially provided Zofran 4 mg IV for nausea. The patients laboratory studies were reviewed and remarkable for white count of 8.9, hemoglobin 11.4, platelets 329 with 75 neutrophils, 11 monocytes. CMP is remarkable for potassium of 5.7 with slight hemolysis, Kayexalate was administered times one dose. CO2 33.7, BUN 48, creatinine 7.80, alkaline phosphatase 282, CPK 82, troponin I 0.09. BNP 1264, lipase 139, PT 10.7, PTT 26.8. Given the patient's elevated troponin, the patient was given nitroglycerin 1 inch the chest wall. Radiology studies were reviewed and remarkable for a chest x-ray that shows cardiomegaly and findings of congestive heart failure. The patients results were discussed with the patient, including the plan of care. I explained that further testing and/ or monitoring is indicated based on the patients history, examination, and/ or laboratory findings. Therefore, I recommended admission for additional evaluation. The patient expressed understanding and was agreeable with this plan. The patient was admitted to the hospital in stable condition and sent to a bed under the care of the [facility] service. Physician Communication Physician Communication The patient's case including history, pertinent physical examination findings, and laboratory studies were discussed with Dr. Damon. It was agreed that the patient would be admitted to the [facility] service. Diagnosis Primary Impression: Acute exacerbation of congestive heart failure Qualified Codes: I50.9 - Heart failure, unspecified Additional Impressions: Elevated troponin Chronic kidney disease with end stage renal failure on dialysis Admitting Information Admitting Physician Requests: Admit Samaria Evans MD Jun 13, 2017 01:23
[2017-06-13] MEDS ORDERED: ONDANSETRON HCL 4 MG/2 ML VIAL IV PUSH ONE (01:30)
[2017-06-13 01:59] LABS: MEAN CELL VOLUME 100.2 FL (80.0-100.0); MEAN CORPUSCULAR HEMOGLOBIN 32.8 PG (27.0-34.0); MEAN CORPUSCULAR HGB CONC 32.7 % (32.0-36.0); PLATELET COUNT 329 TH/MM3 (150-450); RED BLOOD COUNT 3.49 MIL/MM3 (4.50-5.90); RED CELL DISTRIBUTION WIDTH 20.9 % (11.6-17.2); WHITE BLOOD COUNT 8.9 TH/MM3 (4.0-11.0)
[2017-06-13 02:01] LABS: HEMO FLAGS AUTO DIFF
--- NOTE | 2017-06-13 02:13 | RADRPT ---
EXAM DATE/TIME: 06/13/2017 01:48 [place] COMPARISON: CHEST SINGLE AP, September 14, 2016, 21:32. INDICATIONS : Chest pain. MEDICAL HISTORY : Hypertension. Congestive heart failure. Chronic obstructive pulmonary disease. GERD, Renal failure, P rostate CA. SURGICAL HISTORY : Prostatectomy. Arteriovenous shunt ENCOUNTER: Subsequent ACUITY: 3 days PAIN SCORE: 0/10 LOCATION: Bilateral chest FINDINGS: The cardiac silhouette is enlarged in transverse diameter. There is prominence of the aortic knob is with calcification characteristic of atherosclerotic vascular disease. There are findings of congesti ve heart failure with interstitial and alveolar opacity bilaterally. CONCLUSION: 1. Cardiomegaly and findings of congestive heart failure. Scottie Chavarria MD on June 13, 2017 at 2:11 Board Certified Radiologist. This report was verified electronically.
[2017-06-13 02:14] LABS: APTT (PATIENT) 26.8 SEC (24.3-30.1); PROTHROMBIN TIME - PATIENT 10.7 SEC (9.8-11.6)
[2017-06-13 02:26] LABS: BASOPHILS 1 % (0-2); EOSINOPHILS 1 % (0-4); MYELOCYTES 1 % (0-0); NEUTROPHIL # MANUAL DIFF 6.8 TH/MM3 (1.8-7.7); POLYS (SEG NEUTROPHILS) 75 % (16-70); SCAN/DIFF FINAL DIFF MANUAL; WBC DIFF SAMPLE 100
[2017-06-13 02:27] LABS: OVALOCYTES 1+ (NORMAL); PLATELET ESTIMATE SMEAR NORMAL (NORMAL); PLATELET MORPHOLOGY NORMAL (NORMAL)
[2017-06-13 02:28] LABS: ACANTHOCYTES 1+ (NORMAL); POLYCHROMASIA 2.3 % (0.0-1.9)
[2017-06-13 02:35] LABS: ALKALINE PHOSPHATASE 282 U/L (45-117); ALT (GPT) 18 U/L (12-78); ANION GAP 8 MEQ/L (5-15); AST (GOT) 17 U/L (15-37); BICARBONATE 33.7 MEQ/L (21.0-32.0); BLOOD UREA NITROGEN 48 MG/DL (7-18); CHLORIDE 98 MEQ/L (98-107); GLOMERULAR FILTRATION RATE 8 ML/MIN (>89); MAGNESIUM 2.5 MG/DL (1.5-2.5); SODIUM (NA) 140 MEQ/L (136-145); TOTAL BILIRUBIN ADULT 0.3 MG/DL (0.2-1.0)
[2017-06-13 02:36] LABS: CREATINE KINASE 82 U/L (39-308); POTASSIUM 5.7 MEQ/L (3.5-5.1)
[2017-06-13] MEDS ORDERED: NITROGLYCERIN 2% OINT 1 GM PACKET TOPICAL ONE (04:30)
[2017-06-13] MEDS ORDERED: SODIUM POLYSTYRENE SULFONATE SUSP 15 GM/60 ML CUP PO ONE (04:30)
[2017-06-13] MEDS ORDERED: NALOXONE HCL 0.4 MG/ML AMP IV PUSH PRN (04:45)
[2017-06-13] MEDS ORDERED: SODIUM CHLORIDE 0.9% FLUSH 10 ML FLUSH IV FLUSH PRN ×3 (04:45→09:30)
[2017-06-13] MEDS: HEPARIN SODIUM - SQ 10,000 UNITS/ML VIAL SQ SCH ×5 (05:55→21:37)
[2017-06-13] MEDS ORDERED: CALCIUM CARBONATE 500 MG CHEWABLE TAB CHEW PRN (07:45)
--- NOTE | 2017-06-13 07:58 | HHI.HP ---
[facility] Service [place] [facility] Primary Care Physician No Primary Care Physician Admission Diagnosis Chf exacerbation, renal failure on hemodialysis Diagnoses: (1) Atrial fibrillation with RVR Diagnosis: Principal Chief Complaint: shortness of breath Travel History International Travel<30 Days: No Contact w/Intl Traveler <30 Da: No Traveled to Known Affected Are: No History of Present Illness patient is a 72 y/o male, homeless, with history of ESRD-on HD, atrial fibrillation, COPD and hypertension who presented to ER with shortness of breath. he says that he was admitted to the [facility] because of COPD exacerbation. he says that ' they were trying to find him a place' but he signed out AMA. he went to a hotel but his sob and cough got worse and he came back to ER. he denies any fever, chills,chest pain, palpitations. he says that he has dry cough.he was found to be in a-fib with RVR at the time of presentation. Review of Systems Constitutional: DENIES: Fever, Weight loss, Chills, Night Sweats Eyes: DENIES: Blurred vision, Diplopia, Vision loss, Double Vision Ears, nose, mouth, throat: DENIES: Tinnitus, Vertigo, Throat pain, Epistaxis Respiratory: COMPLAINS OF: Cough, Shortness of breath, DENIES: Apneas, Snoring , Wheezing, Hemoptysis, Sputum production Cardiovascular: DENIES: Chest pain, Palpitations, Syncope, Dyspnea on Exertion , PND, Lower Extremity Edema, Orthopnea, Claudication Gastrointestinal: DENIES: Abdominal pain, Black stools, Bloody stools, Constipation, Diarrhea, Nausea, Vomiting, Difficulty Swallowing, Anorexia Genitourinary: DENIES: Urinary frequency, Urgency, Hematuria, Dysuria Musculoskeletal: DENIES: Joint pain, Muscle aches, Stiffness, Joint Swelling Integumentary: DENIES: Rash Neurologic: DENIES: Abnormal gait, Headache, Localized weakness, Paresthesias, Seizures, Speech Problems, Tremor, Poor Balance Psychiatric: DENIES: Anxiety, Confusion, Mood changes, Depression, Hallucinations, Agitation, Suicidal Ideation, Homicidal Ideation, Delusions Past Family Social History Past Medical History COPD atrial fibrillation prostate cancer hypertension ESRD Past Surgical History prostate surgery and shunt placement Reported Medications Lomotil (Diphenoxylate-Atropine) 2.5-0.025 Mg Tab 1 Tab PO Q6H PRN Zofran Odt (Ondansetron Odt) 4 Mg Tab 4 Mg SL Q6HR PRN Prednisone 20 Mg Tab 20 Mg PO DAILY 5 Days Reported Tylenol (Acetaminophen) 325 Mg Tab 325 Mg PO Q6H PRN Trazodone (Trazodone HCl) 150 Mg Tablet 150 Mg PO HS Antacid (Calcium Carbonate (Antacid)) 500 Mg Chew 500 Mg CHEW TID PRN Triamcinolone Acetonide (Triamcinolone Acetonide (Topic) 1 Pow Pow Pro-Stat (Amino Acids-Protein Hydrolysat) 1 Liq Liq 30 Ml PO TID Renal-Mya 0.8 mg (B-Complex W/ C & Folic Acid) 1 Tab Tab DAILY Alprazolam 0.5 Mg Tab 0.5 Mg PO HS PRN Aspirin 81 (Aspirin) 81 Mg Tabdr 81 Mg PO DAILY Levocetirizine 5 Mg Tab 5 Mg PO HS Sensipar (Cinacalcet) 30 Mg Tab 30 Mg PO DAILY Diltiazem (Diltiazem HCl) 90 Mg Tab 90 Mg PO QID Sucralfate 1 Gm Tab 1 Gm PO Q6HR on empty stomach Ondansetron (Ondansetron HCl) 8 Mg Tab 4 Mg PO TID Renvela (Sevelamer Carbonate) 800 Mg Tab 1,600 Mg PO TID Metoprolol Tartrate 25 Mg Tab 12.5 Mg PO BID Losartan (Losartan Potassium) 100 Mg Tab 100 Mg PO DAILY Isosorbide Mononitrate ER (Isosorbide Mononitrate) 30 Mg Nolan 30 Mg PO DAILY Allergies: Coded Allergies: No Known Allergies (Unverified Allergy, Unknown, 06/13/17) Active Ordered Medications Current Medications Sodium Chloride (NS Flush) 2 ml UNSCH PRN IVF FLUSH AFTER USING IV ACCESS; Start 06/13/17 at 01:15; Stop 06/13/17 at 04:46; Status DC Ondansetron HCl (Zofran Inj) 4 mg ONCE ONCE IV PUSH Last administered on t 01:54; Start 06/13/17 at 01:30; Stop 06/13/17 at 01:31; Status DC Sodium Polystyrene Sulfonate (Kayexalate Liq) 15 gm ONCE ONCE PO Last administered on 06/13/17 04:53; Start 06/13/17 at 04:30; Stop 06/13/17 at 04:31 ; Status DC Nitroglycerin (Nitroglycerin 2% Oint) 1 inch ONCE ONCE TOPICAL ; Start at 04:30; Stop 06/13/17 at 04:31; Status DC Sodium Chloride (NS Flush) 2 ml UNSCH PRN IV FLUSH FLUSH AFTER USING IV ACCESS ; Start 06/13/17 at 04:45 Sodium Chloride (NS Flush) 2 ml BID IV FLUSH ; Start 06/13/17 at 09:00 Heparin Sodium (Porcine) (Heparin Inj) 5,000 units Q8H SQ Last administered on 06/13/17 05:55; Start 06/13/17 at 06:00 Naloxone HCl (Narcan Inj) 0.4 mg UNSCH PRN IV PUSH SEE LABEL COMMENTS; Start 06/13/17 at 04:45 Family History not significant. Social History quit smoking two years ago- doesn't drink. currently homeless. Physical Exam Vital Signs Vital Signs Date Time Temp Pulse Resp B/P (MAP) Pulse Ox O2 Delivery O2 Flow Rate FiO2 06/13/17 06:16 87 06/13/17 04:54 109 22 116/75 (89) 98 Nasal Cannula 2.00 06/13/17 01:26 95 Nasal Cannula 2.00 06/13/17 01:26 95 Nasal Cannula 2.00 06/13/17 01:25 107 24 120/62 (81) 96 Nasal Cannula 2.00 06/13/17 01:00 98.7 110 22 120/62 (81) 96 Physical Exam GENERAL: This is a well-nourished, well-developed patient, in no apparent distress. SKIN: No rashes, ecchymoses or lesions. Cool and dry. HEAD: Atraumatic. Normocephalic. No temporal or scalp tenderness. EYES: Pupils equal round and reactive. Extraocular motions intact. No scleral icterus. No injection or drainage. ENT: Nose without bleeding, purulent drainage or septal hematoma. Throat without erythema, tonsillar hypertrophy or exudate. Uvula midline. Airway patent. NECK: Trachea midline. No JVD or lymphadenopathy. Supple, nontender, no meningeal signs. CARDIOVASCULAR: Regular rate and rhythm without murmurs, gallops, or rubs. RESPIRATORY: mild bilateral wheezing. GASTROINTESTINAL: Abdomen soft, non-tender, nondistended. No hepato-splenomegaly , or palpable masses. No guarding. MUSCULOSKELETAL: Extremities without clubbing, cyanosis, or edema. No joint tenderness, effusion, or edema noted. No calf tenderness. Negative Homans sign bilaterally. NEUROLOGICAL: Awake and alert. Cranial nerves II through XII intact. Motor and sensory grossly within normal limits. Five out of 5 muscle strength in all muscle groups. Normal speech. Laboratory Laboratory Tests Test 06/13/17 01:48 White Blood Count 8.9 Red Blood Count 3.49 Hemoglobin 11.4 Hematocrit 35.0 Mean Corpuscular Volume 100.2 Mean Corpuscular Hemoglobin 32.8 Mean Corpuscular Hemoglobin Concent 32.7 Red Cell Distribution Width 20.9 Platelet Count 329 Mean Platelet Volume 8.3 CBC Comment AUTO DIFF Differential Total Cells Counted 100 Neutrophils % (Manual) 75 Lymphocytes % 11 Monocytes % 11 Eosinophils % 1 Basophils % 1 Neutrophils # (Manual) 6.8 Myelocytes 1 Differential Comment FINAL DIFF MANUAL Atypical Lymphocytes Platelet Estimate NORMAL Platelet Morphology Comment NORMAL Polychromasia 2.3 Ovalocytes 1+ Acanthocytes 1+ Prothrombin Time 10.7 Prothromb Time International Ratio 1.0 Activated Partial Thromboplast Time 26.8 Blood Urea Nitrogen 48 Creatinine 7.80 Random Glucose 85 Total Protein 7.4 Albumin 4.0 Calcium Level 9.3 Magnesium Level 2.5 Alkaline Phosphatase 282 Aspartate Amino Transf (AST/SGOT) 17 Alanine Aminotransferase (ALT/SGPT) 18 Total Bilirubin 0.3 Sodium Level 140 Potassium Level 5.7 Chloride Level 98 Carbon Dioxide Level 33.7 Anion Gap 8 Estimat Glomerular Filtration Rate 8 Total Creatine Kinase 82 Troponin I 0.09 B-Type Natriuretic Peptide 1264 Lipase 139 Result Diagram: 06/13/1714706/13/17147 Imaging Last Impressions Chest X-Ray 06/13/17114 Signed Impressions: Service Date/Time: Tuesday, June 13, 2017 01:48 - CONCLUSION: 1. Cardiomegaly and findings of congestive heart failure. MD Pita Garcia VTE Risk Assessment Pita VTE Risk Assessment: Mod/High Risk (score >= 2) Caprini Risk Assessment Model Point Value = 1 Point Value = 2 Point Value = 3 Point Value = 5 Age 41-60 Minor surgery BMI > 25 kg/m2 Swollen legs Varicose veins or History of unexplained or recurrent spontaneous Oral contraceptives or hormone replacement Sepsis (< 1 month) Serious lung disease, including pneumonia (< 1 month) Abnormal pulmonary function Acute myocardial infarction Congestive heart failure (< 1 month) History of inflammatory bowel disease Medical patient at bed rest Age 61-74 Arthroscopic surgery Major open surgery (> 45 min) Laparoscopic surgery (> 45 min) Malignancy Confined to bed (> 72 hours) Immobilizing plaster cast Central venous access Age >= 75 History of VTE Family history of VTE Factor V Leiden Prothrombin [id number] Lupus anticoagulant Anticardiolipin antibodies Elevated serum homocysteine Heparin-induced thrombocytopenia Other congenital or acquired thrombophilia Stroke (< 1 month) Elective arthroplasty Hip, pelvis, or leg fracture Acute spinal cord injury (< 1 month) Prophylaxis Regimen Total Risk Factor Score Risk Level Prophylaxis Regimen 0-1 Low Early ambulation 2 Moderate Order ONE of the following: *Sequential Compression Device (SCD) *Heparin 5000 units SQ BID 3-4 Higher Order ONE of the following medications: *Heparin 5000 units SQ TID *Enoxaparin/Lovenox 40 mg SQ daily (WT < 150 kg, CrCl > 30 mL/min) *Enoxaparin/Lovenox 30 mg SQ daily (WT < 150 kg, CrCl > 10-29 mL/min) *Enoxaparin/Lovenox 30 mg SQ BID (WT < 150 kg, CrCl > 30 mL/min) AND/OR *Sequential Compression Device (SCD) 5 or more Highest Order ONE of the following medications: *Heparin 5000 units SQ TID (Preferred with Epidurals) *Enoxaparin/Lovenox 40 mg SQ daily (WT < 150 kg, CrCl > 30 mL/min) *Enoxaparin/Lovenox 30 mg SQ daily (WT < 150 kg, CrCl > 10-29 mL/min) *Enoxaparin/Lovenox 30 mg SQ BID (WT < 150 kg, CrCl > 30 mL/min) AND *Sequential Compression Device (SCD) Assessment and Plan Assessment and Plan A/P - atrial fibrillation with RVR HR overall better- resume his po metoprolol, cardizem- continue to monitor on telemetry resume aspirin -sob and cough due COPD with mild exacerbation vs acute on chronic systolic CHF - start on neb treatment and po prednisone-keep on oxygen to keep O2 sat > 90%. nephrology consulted for HD. -hypertension; resume home meds- will monitor and adjust the regimen as needed -ESRD - on HD ( on TTS schedule; the last dialysis was yesterday)- with hyperkalemia- received a dose of Kayexalate- repeat potassium level today- nephrology consulted -history of prostate cancer -DVT prophylaxis with subq Heparin -consulted PT and case management ( patient is homeless) . will obtain the medical record from [facility]. Discussed Condition With the patient. Physician Certification 2 Midnight Certification Type: Admission for Inpatient Services Order for Inpatient Services The services are ordered in accordance with Medicare regulations or non- Medicare payer requirements, as applicable. In the case of services not specified as inpatient-only, they are appropriately provided as inpatient services in accordance with the 2-midnight benchmark. Estimated LOS (days): 2 days is the estimated time the patient will need to remain in the hospital, assuming treatment plan goals are met and no additional complications. Post-Hospital Plan: Not yet determined Kae Edward MD Jun 13, 2017 07:58
[2017-06-13] MEDS ORDERED: PILL SPLITTER OTHER PRN (08:45)
[2017-06-13] MEDS ORDERED: SODIUM CHLOR 0.9% 1000 ML INJ 1,000 ML IV PRN ×2 (08:57→09:17)
[2017-06-13] MEDS ORDERED: SODIUM CHLOR 0.9% 1000 ML INJ 1,000 ML OTHER PRN ×4 (08:57→09:17)
[2017-06-13] MEDS ORDERED: MANNITOL 12.5 GM/50 ML VIAL IV PRN ×2 (09:00→09:30)
[2017-06-13] MEDS ORDERED: cloNIDine HCL 0.1 MG TAB PO PRN ×2 (09:00→09:30)
[2017-06-13] MEDS ORDERED: HEPARIN SODIUM - IV 10,000 UNITS/10 ML VIAL PRN ×2 (09:00→09:30)
[2017-06-13] MEDS ORDERED: ONDANSETRON HCL 4 MG/2 ML VIAL IV PUSH PRN ×2 (09:00→09:30)
[2017-06-13] MEDS ORDERED: GELATIN 12 MM/7 MM FOAM TOP PRN ×2 (09:00→09:30)
[2017-06-13] MEDS ORDERED: ALBUMIN 25% INJ 100 ML IV PRN ×2 (09:00→09:30)
[2017-06-13] MEDS ORDERED: NITROGLYCERIN 0.4 MG SL 25 TABS/BTL SL PRN ×2 (09:00→09:30)
[2017-06-13] MEDS: SODIUM CHLORIDE 0.9% FLUSH 10 ML FLUSH IV FLUSH SCH ×2 (09:29→21:31)
[2017-06-13] MEDS ORDERED: diphenhydrAMINE HCL 25 MG CAP PO PRN (09:30)
[2017-06-13] MEDS ORDERED: ACETAMINOPHEN 325 MG TAB PO PRN (09:30)
[2017-06-13] MEDS ORDERED: GENTAMICIN SULFATE (DIALYSIS USE ONLY) 20 MG/2 ML VIAL OTHER PRN (09:30)
[2017-06-13] MEDS ORDERED: EPOETIN ALFA 4,000 UNITS/ML VIAL IV PUSH PRN (09:30)
[2017-06-13] MEDS ORDERED: HEPARIN SODIUM - IV 10,000 UNITS/10 ML VIAL IV FLUSH PRN (09:30)
[2017-06-13] MEDS: RESP: ALBUTEROL 2.5 MG/IPRATROPIUM 0.5 MG NEB (SCH) NEB ×3 (09:36→22:11)
--- NOTE | 2017-06-13 09:36 | EKG ---
Date Performed: 06/13/2017 Time Performed: 01:05:11 PTAGE: 72 years EKG: ATRIAL FIBRILLATION WITH RAPID VENTRICULAR RESPONSE PATTERN CONSISTENT WITH PULMONARY DISEA SE INFERIOR MYOCARDIAL INFARCTION ABNORMAL ECG PREVIOUS TRACING : 09/14/2016 23.17 DOCTOR: Keven Scherer Interpretating Date/Time 06/13/2017 09:33:25
[2017-06-13] MEDS: METOPROLOL TARTRATE 25 MG TAB PO SCH ×2 (09:45→21:31)
[2017-06-13] MEDS: predniSONE 20 MG TAB PO SCH (09:48)
[2017-06-13] MEDS: ASPIRIN EC 81 MG TABEC PO SCH (09:50)
[2017-06-13] MEDS: ISOSORBIDE MONONITRATE 30 MG TAB PO SCH (09:50)
[2017-06-13] MEDS: DILTIAZEM HCL 90 MG TAB PO SCH ×4 (09:51→21:29)
[2017-06-13] MEDS: CINACALCET HYDROCHLORIDE 30 MG TAB PO SCH (09:51)
[2017-06-13] MEDS: SEVELAMER CARBONATE 800 MG TAB PO SCH ×3 (09:52→16:56)
--- NOTE | 2017-06-13 11:11 | PD.CONS ---
HPI Service Nephrology Consult Requested By Reason for Consult ESRD on HD Primary Care Physician No Primary Care Physician History of Present Illness This is a 72 y/o AAM patient who left [facility] yesterday for unknown reasons. He has ESRD, was dialyzed yesterday in full. The pt apparently pulled out his permcath at some point. He has a fistula that is patient. K was 5.7 today, he was given Kayexalate. We were consulted for renal management. Other PMH of anemia, metabolic bone disorder, HTN, A Fib, and prostate CA. He is awake, alert, in no distress. We planned for dialysis today however the patient moved his left arm while on HD and his AVF infiltrated. Repeat potassium is 5.0. IR has been consulted. (Angela Ortega) Review of Systems Constitutional: DENIES: Fatigue, Fever, Weight loss, Change in appetite Respiratory: DENIES: Sputum production, Shortness of breath Cardiovascular: DENIES: Chest pain Gastrointestinal: DENIES: Abdominal pain (Angela Ortega) Past Family Social History Allergies: Coded Allergies: No Known Allergies (Unverified Allergy, Unknown, 06/13/17) Past Medical History ESRD on HD TTS COPD atrial fibrillation prostate cancer hypertension anemia metabolic bone disorder Past Surgical History AVF left arm prostate surgery Reported Medications Reported Tylenol (Acetaminophen) 325 Mg Tab 325 Mg PO Q6H PRN Trazodone (Trazodone HCl) 150 Mg Tablet 150 Mg PO HS Antacid (Calcium Carbonate (Antacid)) 500 Mg Chew 500 Mg CHEW TID PRN Triamcinolone Acetonide (Triamcinolone Acetonide (Topic) 1 Pow Pow Pro-Stat (Amino Acids-Protein Hydrolysat) 1 Liq Liq 30 Ml PO TID Renal-Mya 0.8 mg (B-Complex W/ C & Folic Acid) 1 Tab Tab DAILY Alprazolam 0.5 Mg Tab 0.5 Mg PO HS PRN Aspirin 81 (Aspirin) 81 Mg Tabdr 81 Mg PO DAILY Levocetirizine 5 Mg Tab 5 Mg PO HS Sensipar (Cinacalcet) 30 Mg Tab 30 Mg PO DAILY Diltiazem (Diltiazem HCl) 90 Mg Tab 90 Mg PO QID Sucralfate 1 Gm Tab 1 Gm PO Q6HR on empty stomach Ondansetron (Ondansetron HCl) 8 Mg Tab 4 Mg PO TID Renvela (Sevelamer Carbonate) 800 Mg Tab 1,600 Mg PO TID Metoprolol Tartrate 25 Mg Tab 12.5 Mg PO BID Losartan (Losartan Potassium) 100 Mg Tab 100 Mg PO DAILY Isosorbide Mononitrate ER (Isosorbide Mononitrate) 30 Mg Nolan 30 Mg PO DAILY Active Ordered Medications Current Medications Medications (Trade) Dose Ordered Sig/Erik Route Start Time Stop Time Status Last Admin (NS Flush) 2 ml UNSCH PRN IV FLUSH 06/13/17 04:45 (NS Flush) 2 ml BID IV FLUSH 06/13/17 09:00 06/13/17 09:29 (Heparin Inj) 5,000 units Q8H SQ 06/13/17 06:00 06/13/17 05:55 (Narcan Inj) 0.4 mg UNSCH PRN IV PUSH 06/13/17 04:45 (Duoneb Neb) 1 ampule Q6HR NEB NEB 06/13/17 10:00 06/14/17 09:00 06/13/17 09:36 (Albuterol Neb) 1.25 mg Q2HR NEB PRN NEB 06/13/17 07:45 (Xanax) 0.5 mg HS PRN PO 06/13/17 07:45 (Ecotrin Ec) 81 mg DAILY PO 06/13/17 09:00 06/13/17 09:50 (Tums Chew) 500 mg TID PRN CHEW 06/13/17 07:45 (Sensipar) 30 mg DAILY PO 06/13/17 09:00 06/13/17 09:51 (Cardizem) 90 mg QID PO 06/13/17 09:00 06/13/17 09:51 (Imdur) 30 mg DAILY@0700 PO 06/13/17 09:00 06/13/17 09:50 (Lopressor) 12.5 mg BID PO 06/13/17 09:00 06/13/17 09:45 (Renvela) 1,600 mg TID PO 06/13/17 09:00 06/13/17 09:52 (Carafate) 1 gm Q6HR PO 06/13/17 12:00 (Desyrel) 150 mg HS PO 06/13/17 21:00 (Deltasone) 40 mg DAILY PO 06/13/17 09:00 06/18/17 08:00 06/13/17 09:48 (Zofran Inj) 4 mg Q8HR PRN IV PUSH 06/13/17 08:15 (Pill Splitter) 1 ea UNSCH PRN OTHER 06/13/17 08:45 Sodium Chloride 1,000 ml @ 0 mls/hr Q0M PRN OTHER 06/13/17 08:57 (Heparin Inj) 8,000 units UNSCH PRN IV FLUSH 06/13/17 09:00 Sodium Chloride 1,000 ml @ 200 mls/hr Q5H PRN IV 06/13/17 08:57 Sodium Chloride 1,000 ml @ 0 mls/hr Q0M PRN OTHER 06/13/17 08:57 (Mannitol Inj) 12.5 gm UNSCH PRN IV 06/13/17 09:00 Albumin Human 100 ml @ 60 mls/hr UNSCH PRN IV 06/13/17 09:00 (NS Flush) 5 ml UNSCH PRN IV FLUSH 06/13/17 09:00 (Heparin Inj) UNSCH PRN .XX 06/13/17 09:00 (Gentamicin (Dialysis) Inj) 20 mg UNSCH PRN OTHER 06/13/17 09:00 (Zofran Inj) 4 mg UNSCH PRN IV PUSH 06/13/17 09:00 (Tylenol) 650 mg UNSCH PRN PO 06/13/17 09:00 (Benadryl) 25 mg UNSCH PRN PO 06/13/17 09:00 (Nitrostat Sl) 0.4 mg UNSCH PRN SL 06/13/17 09:00 (Catapres) 0.1 mg UNSCH PRN PO 06/13/17 09:00 (Gelfoam 12 Mm/7 Mm Top) 1 foam UNSCH PRN TOP 06/13/17 09:00 (Epogen Inj) 4,000 units UNSCH PRN IV PUSH 06/13/17 09:30 Family History No hx of renal disorders Social History No smoking Denies ETOH He is homeless Unemployed He is noncompliant with medical instructions (Angela Ortega) Physical Exam Vital Signs Vital Signs Date Time Temp Pulse Resp B/P (MAP) Pulse Ox O2 Delivery O2 Flow Rate FiO2 06/13/17 09:37 100 Nasal Cannula 3.00 06/13/17 09:23 107 18 136/63 (87) 91 Nasal Cannula 3.00 06/13/17 06:16 87 06/13/17 04:54 109 22 116/75 (89) 98 Nasal Cannula 2.00 06/13/17 01:26 95 Nasal Cannula 2.00 06/13/17 01:26 95 Nasal Cannula 2.00 06/13/17 01:25 107 24 120/62 (81) 96 Nasal Cannula 2.00 06/13/17 01:00 98.7 110 22 120/62 (81) 96 Physical Exam AAM, awake, not in distress Alert, orineted x 3 S1/S2, irreg irreg, rate controlled, no murmurs Abdomen soft No extremity edema AVF left arm, + thrill/bruit Laboratory Laboratory Tests Test 06/13/17 01:48 06/13/17 10:27 White Blood Count 8.9 Red Blood Count 3.49 Hemoglobin 11.4 Hematocrit 35.0 Mean Corpuscular Volume 100.2 Mean Corpuscular Hemoglobin 32.8 Mean Corpuscular Hemoglobin Concent 32.7 Red Cell Distribution Width 20.9 Platelet Count 329 Mean Platelet Volume 8.3 CBC Comment AUTO DIFF Differential Total Cells Counted 100 Neutrophils % (Manual) 75 Lymphocytes % 11 Monocytes % 11 Eosinophils % 1 Basophils % 1 Neutrophils # (Manual) 6.8 Myelocytes 1 Differential Comment FINAL DIFF MANUAL Atypical Lymphocytes Platelet Estimate NORMAL Platelet Morphology Comment NORMAL Polychromasia 2.3 Ovalocytes 1+ Acanthocytes 1+ Prothrombin Time 10.7 Prothromb Time International Ratio 1.0 Activated Partial Thromboplast Time 26.8 Blood Urea Nitrogen 48 Creatinine 7.80 Random Glucose 85 Total Protein 7.4 Albumin 4.0 Calcium Level 9.3 Magnesium Level 2.5 Alkaline Phosphatase 282 Aspartate Amino Transf (AST/SGOT) 17 Alanine Aminotransferase (ALT/SGPT) 18 Total Bilirubin 0.3 Sodium Level 140 Potassium Level 5.7 Chloride Level 98 Carbon Dioxide Level 33.7 Anion Gap 8 Estimat Glomerular Filtration Rate 8 Total Creatine Kinase 82 Troponin I 0.09 B-Type Natriuretic Peptide 1264 Lipase 139 (Angela Ortega) Result Diagram: 11/8/17 0148 11/8/17 0148 Imaging Last 72 hours Impressions Chest X-Ray 06/13/17 0115 Signed Impressions: Service Date/Time: Tuesday, June 13, 2017 01:48 - CONCLUSION: 1. Cardiomegaly and findings of congestive heart failure. Scottie Chavarria MD (Angela Ortega) Assessment and Plan Problem List: (1) ESRD (end stage renal disease) on dialysis ICD Codes: N18.6 - End stage renal disease; Z99.2 - Dependence on renal dialysis Status: Chronic Plan: Typical TTS HD, had treatment yesterday Attempted dialysis today, AVF infiltrated IR consulted for Permcath placement in AM and dialysis Repeat labs in AM Renal diet without protein restriction Avoid IVF (2) Hyperkalemia, diminished renal excretion ICD Codes: E87.5 - Hyperkalemia Status: Acute Plan: Given Kayexalate in the ER Low K diet ordered Repeat K has improved (3) Metabolic bone disease ICD Codes: E88.9 - Metabolic disorder, unspecified; M90.80 - Osteopathy in diseases classified elsewhere, unspecified site Status: Acute Plan: On Renvela with meals On Sensipar for secondary hyperparathyroidism (4) HTN (hypertension) ICD Codes: I10 - Essential (primary) hypertension Status: Acute Plan: Medications were resumed Monitor blood pressure (5) Anemia of renal disease ICD Codes: D63.1 - Anemia in chronic kidney disease Status: Acute Plan: Epogen with dialysis (Angela Ortega) Assessment and Plan patient was seen examined.Agree with above assessment and plan. Discussed with the gameroom technician that was taking care of him at [facility]. He was dialyzed yesterday through a left IJ PermCath, but it appears that the patient has pulled it at some point. Dialysis today because of hyperkalemia. Unfortunately his AVF infiltrated during dialysis due to patient movement. (Keron Singh MD) Angela Ortega Jun 13, 2017 11:11 Keron Singh MD Jun 13, 2017 20:47
[2017-06-13] MEDS: SUCRALFATE 1 GM TAB PO SCH ×2 (12:17→16:57)
[2017-06-13] MEDS: traZODone HCL 100 MG TAB PO SCH (21:31)
[2017-06-14] VITALS (16 sets, daily range): BP systolic 97–154; BP diastolic 54–85; PULSE 71–118; RESP 18–24; TEMP 97.2–98.1; O2SAT 91–98
[2017-06-14] MEDS: ALPRAZolam 0.5 MG TAB PO PRN ×2 (00:38→23:29)
[2017-06-14] MEDS: SUCRALFATE 1 GM TAB PO SCH ×5 (00:41→22:56)
[2017-06-14] MEDS: RESP: ALBUTEROL 2.5 MG/IPRATROPIUM 0.5 MG NEB (SCH) NEB (05:02)
[2017-06-14] MEDS: HEPARIN SODIUM - SQ 10,000 UNITS/ML VIAL SQ SCH ×3 (05:34→22:00)
[2017-06-14] MEDS: ISOSORBIDE MONONITRATE 30 MG TAB PO SCH (05:35)
--- NOTE | 2017-06-14 08:06 | HHI.PR ---
Subjective Remarks in no acute distress. sob has improved. denies pain. says that ' he's hungry.' awaiting permacath placement today. Objective Vitals Vital Signs Date Time Temp Pulse Resp B/P (MAP) Pulse Ox O2 Delivery O2 Flow Rate FiO2 06/14/17 05:00 97.5 82 20 112/65 (81) 94 06/14/17 00:36 113/62 (79) 96 06/13/17 23:35 98.5 98 20 95/53 (67) 92 06/13/17 22:18 98 Nasal Cannula 4.00 06/13/17 20:08 98.2 97 26 108/60 (76) 96 06/13/17 20:00 86 06/13/17 20:00 Nasal Cannula 3.00 06/13/17 11:45 Nasal Cannula 3.00 06/13/17 11:30 98.7 100 20 112/66 (81) 98 06/13/17 11:21 06/13/17 09:37 100 Nasal Cannula 3.00 06/13/17 09:23 107 18 136/63 (87) 91 Nasal Cannula 3.00 I/O 06/13/17 06/13/17 06/13/17 06/14/17 06/14/17 06/14/17 06:59 14:59 22:59 06:59 14:59 22:59 Intake Total 240 ml Output Total 0 ml Balance 240 ml Intake Oral 240 ml Output Urine Total 0 ml # Bowel Movements 0 Result Diagram: 06/13/17 0148 06/13/17 1027 Imaging Last Impressions Chest X-Ray 06/13/17 0115 Signed Impressions: Service Date/Time: Tuesday, June 13, 2017 01:48 - CONCLUSION: 1. Cardiomegaly and findings of congestive heart failure. Scottie Chavarria MD Objective Remarks GENERAL: This is a well-nourished, well-developed patient, in no apparent distress. CARDIOVASCULAR: Regular rate and regular rhythm without murmurs, gallops, or rubs. RESPIRATORY: Clear to auscultation. Breath sounds equal bilaterally. No wheezes , rales, or rhonchi. GASTROINTESTINAL: Abdomen soft, non-tender, nondistended. Normal, active bowel sounds MUSCULOSKELETAL: Extremities without clubbing, cyanosis, or edema. NEURO: Alert & Oriented x4 to person, place, time, situation. Moves all ext x4 Medications and IVs Current Medications Sodium Chloride (NS Flush) 2 ml UNSCH PRN IVF FLUSH AFTER USING IV ACCESS; Start 06/13/17 at 01:15; Stop 06/13/17 at 04:46; Status DC Ondansetron HCl (Zofran Inj) 4 mg ONCE ONCE IV PUSH Last administered on 01:54; Start 06/13/17 at 01:30; Stop 06/13/17 at 01:31; Status DC Sodium Polystyrene Sulfonate (Kayexalate Liq) 15 gm ONCE ONCE PO Last administered on 06/13/17 04:53; Start 06/13/17 at 04:30; Stop 06/13/17 at 04:31 ; Status DC Nitroglycerin (Nitroglycerin 2% Oint) 1 inch ONCE ONCE TOPICAL ; Start at 04:30; Stop 06/13/17 at 04:31; Status DC Sodium Chloride (NS Flush) 2 ml UNSCH PRN IV FLUSH FLUSH AFTER USING IV ACCESS ; Start 06/13/17 at 04:45 Sodium Chloride (NS Flush) 2 ml BID IV FLUSH Last administered on 06/13/17 21: 31; Start 06/13/17 at 09:00 Heparin Sodium (Porcine) (Heparin Inj) 5,000 units Q8H SQ Last administered on 06/13/17 05:55; Start 06/13/17 at 06:00 Naloxone HCl (Narcan Inj) 0.4 mg UNSCH PRN IV PUSH SEE LABEL COMMENTS; Start 06/13/17 at 04:45 Albuterol/ Ipratropium (Duoneb Neb) 1 ampule Q6HR NEB NEB Last administered on 06/14/17 05:02; Start 06/13/17 at 10:00; Stop 06/14/17 at 09:00 Albuterol Sulfate (Albuterol Neb) 1.25 mg Q2HR NEB PRN NEB SHORTNESS OF BREATH ; Start 06/13/17 at 07:45 Alprazolam (Xanax) 0.5 mg HS PRN PO ANXIETY Last administered on 06/14/17 00: 38; Start 06/13/17 at 07:45 Aspirin (Ecotrin Ec) 81 mg DAILY PO Last administered on 06/13/17 09:50; Start 06/13/17 at 09:00 Calcium Carbonate (Tums Chew) 500 mg TID PRN CHEW REFLUX; Start 06/13/17 at 07: 45 Cinacalcet (Sensipar) 30 mg DAILY PO Last administered on 06/13/17 09:51; Start 06/13/17 at 09:00 Diltiazem HCl (Cardizem) 90 mg QID PO Last administered on 06/13/17 21:29; Start 06/13/17 at 09:00 Isosorbide Mononitrate (Imdur) 30 mg DAILY@0700 PO Last administered on 05:35; Start 06/13/17 at 09:00 Metoprolol Tartrate (Lopressor) 12.5 mg BID PO Last administered on 06/13/17 21:31; Start 06/13/17 at 09:00 Sevelamer Carbonate (Renvela) 1,600 mg TID PO Last administered on 06/13/17 16 :56; Start 06/13/17 at 09:00 Sucralfate (Carafate) 1 gm Q6HR PO Last administered on 06/14/17 05:35; Start 06/13/17 at 12:00 Trazodone HCl (Desyrel) 150 mg HS PO Last administered on 06/13/17 21:31; Start 06/13/17 at 21:00 Prednisone (Deltasone) 40 mg DAILY PO Last administered on 06/13/17 09:48; Start 06/13/17 at 09:00; Stop 06/18/17 at 08:00 Ondansetron HCl (Zofran Inj) 4 mg Q8HR PRN IV PUSH NAUSEA; Start 06/13/17 at 08 :15 Miscellaneous (Pill Splitter) 1 ea UNSCH PRN OTHER SEE LABEL COMMENTS; Start 06/13/17 at 08:45 Sodium Chloride 1,000 ml @ 0 mls/hr Q0M PRN OTHER For Prime & Rinse Back; Start 06/13/17 at 08:57 Heparin Sodium (Porcine) (Heparin Inj) 8,000 units UNSCH PRN IV FLUSH WITH DIALYSIS; Start 06/13/17 at 09:00 Sodium Chloride 1,000 ml @ 200 mls/hr Q5H PRN IV WITH DIALYSIS; Start 06/13/17 at 08:57 Sodium Chloride 1,000 ml @ 0 mls/hr Q0M PRN OTHER WITH DIALYSIS; Start at 08:57 Mannitol (Mannitol Inj) 12.5 gm UNSCH PRN IV WITH DIALYSIS; Start 06/13/17 at 09:00 Albumin Human 100 ml @ 60 mls/hr UNSCH PRN IV WITH DIALYSIS; Start 06/13/17 at 09:00 Sodium Chloride (NS Flush) 5 ml UNSCH PRN IV FLUSH WITH DIALYSIS; Start at 09:00 Heparin Sodium (Porcine) (Heparin Inj) UNSCH PRN .XX WITH DIALYSIS; Start 06/13/17 at 09:00 Gentamicin Sulfate (Gentamicin (Dialysis) Inj) 20 mg UNSCH PRN OTHER WITH DIALYSIS; Start 06/13/17 at 09:00 Ondansetron HCl (Zofran Inj) 4 mg UNSCH PRN IV PUSH WITH DIALYSIS; Start at 09:00 Acetaminophen (Tylenol) 650 mg UNSCH PRN PO for headach, pain, temp > 101F; Start 06/13/17 at 09:00 Diphenhydramine HCl (Benadryl) 25 mg UNSCH PRN PO for hives/itching/anaphylaxis ; Start 06/13/17 at 09:00 Nitroglycerin (Nitrostat Sl) 0.4 mg UNSCH PRN SL CHEST PAIN; Start 06/13/17 at 09:00 Clonidine (Catapres) 0.1 mg UNSCH PRN PO for BP > 180/100 X 2 readings; Start 06/13/17 at 09:00 Gelatin (Gelfoam 12 Mm/7 Mm Top) 1 foam UNSCH PRN TOP SEE LABEL COMMENTS; Start 06/13/17 at 09:00 Sodium Chloride 1,000 ml @ 0 mls/hr Q0M PRN OTHER For Prime & Rinse Back; Start 06/13/17 at 09:17; Stop 06/13/17 at 09:57; Status DC Heparin Sodium (Porcine) (Heparin Inj) 8,000 units UNSCH PRN IV FLUSH WITH DIALYSIS; Start 06/13/17 at 09:30; Stop 06/13/17 at 09:57; Status DC Sodium Chloride 1,000 ml @ 200 mls/hr Q5H PRN IV WITH DIALYSIS; Start 06/13/17 at 09:17; Stop 06/13/17 at 09:57; Status DC Sodium Chloride 1,000 ml @ 0 mls/hr Q0M PRN OTHER WITH DIALYSIS; Start at 09:17; Stop 06/13/17 at 09:57; Status DC Mannitol (Mannitol Inj) 12.5 gm UNSCH PRN IV WITH DIALYSIS; Start 06/13/17 at 09:30; Stop 06/13/17 at 09:57; Status DC Albumin Human 100 ml @ 60 mls/hr UNSCH PRN IV WITH DIALYSIS; Start 06/13/17 at 09:30; Stop 06/13/17 at 09:57; Status DC Sodium Chloride (NS Flush) 5 ml UNSCH PRN IV FLUSH WITH DIALYSIS; Start at 09:30; Stop 06/13/17 at 09:57; Status DC Heparin Sodium (Porcine) (Heparin Inj) UNSCH PRN .XX WITH DIALYSIS; Start 06/13/17 at 09:30; Stop 06/13/17 at 09:57; Status DC Gentamicin Sulfate (Gentamicin (Dialysis) Inj) 20 mg UNSCH PRN OTHER WITH DIALYSIS; Start 06/13/17 at 09:30; Stop 06/13/17 at 09:57; Status DC Ondansetron HCl (Zofran Inj) 4 mg UNSCH PRN IV PUSH WITH DIALYSIS; Start at 09:30; Stop 06/13/17 at 09:57; Status DC Acetaminophen (Tylenol) 650 mg UNSCH PRN PO for headach, pain, temp > 101F; Start 06/13/17 at 09:30; Stop 06/13/17 at 09:57; Status DC Diphenhydramine HCl (Benadryl) 25 mg UNSCH PRN PO for hives/itching/anaphylaxis ; Start 06/13/17 at 09:30; Stop 06/13/17 at 09:57; Status DC Nitroglycerin (Nitrostat Sl) 0.4 mg UNSCH PRN SL CHEST PAIN; Start 06/13/17 at 09:30; Stop 06/13/17 at 09:57; Status DC Clonidine (Catapres) 0.1 mg UNSCH PRN PO for BP > 180/100 X 2 readings; Start 06/13/17 at 09:30; Stop 06/13/17 at 09:57; Status DC Epoetin [place] (Epogen Inj) 4,000 units UNSCH PRN IV PUSH WITH DIALYSIS; Start 06/13/17 at 09:30 Gelatin (Gelfoam 12 Mm/7 Mm Top) 1 foam UNSCH PRN TOP SEE LABEL COMMENTS; Start 06/13/17 at 09:30; Stop 06/13/17 at 09:57; Status DC A/P Problem List: (1) Atrial fibrillation with RVR ICD Code: I48.91 - Unspecified atrial fibrillation Assessment and Plan A/P - atrial fibrillation with RVR; HR overall improved. resumed his po metoprolol, cardizem- continue to monitor on telemetry resumed aspirin -sob and cough due COPD with mild exacerbation vs acute on chronic systolic CHF - started on neb treatment and po prednisone-keep on oxygen to keep O2 sat > 90% - improved. nephrology consulted for HD. -hypertension; resumed home meds- will monitor and adjust the regimen as needed -ESRD - on HD ( on TTS schedule); had HD on 06/13/17 due to hyperkalemia- back on his HD schedule . reportedly pulled out his perma-cath- IR consulted for perma-cath placement. nephrology following. -history of prostate cancer -DVT prophylaxis with subq Heparin -consulted PT and case management ( patient is homeless) . Discharge Planning for perma-cath placement today. discharge when cleared by nephrology. case management consulted since the patient is homeless. Kae Edward MD Jun 14, 2017 08:06
[2017-06-14] MEDS ORDERED: VANCOMYCIN INJ 1,000 MG in SODIUM CHLOR 0.9% 250 ML INJ 250 ML IV SCH (08:15)
[2017-06-14] MEDS ORDERED: ceFAZolin 2 GM PREMIX 50 ML IV SCH (08:15)
[2017-06-14 08:23] LABS: AUTOMATED NEUTROPHIL # 6.2 TH/MM3 (1.8-7.7); BASOPHIL # 0.1 TH/MM3 (0-0.2); BASOPHIL % 0.7 % (0.0-2.0); EOSINOPHIL # 0.2 TH/MM3 (0-0.4); EOSINOPHIL % 1.8 % (0.0-4.0); HEMATOCRIT 29.6 % (39.0-51.0); HEMO FLAGS DIFF FINAL; LYMPHOCYTE # 1.5 TH/MM3 (1.0-4.8); MEAN CELL VOLUME 99.6 FL (80.0-100.0); MEAN CORPUSCULAR HEMOGLOBIN 32.7 PG (27.0-34.0); MEAN CORPUSCULAR HGB CONC 32.9 % (32.0-36.0); MONO % 9.7 % (0.0-8.0); NEUT % 70.8 % (16.0-70.0); PLATELET COUNT 255 TH/MM3 (150-450); RED BLOOD COUNT 2.97 MIL/MM3 (4.50-5.90); RED CELL DISTRIBUTION WIDTH 20.8 % (11.6-17.2); WHITE BLOOD COUNT 8.7 TH/MM3 (4.0-11.0)
[2017-06-14 08:48] LABS: BICARBONATE 29.3 MEQ/L (21.0-32.0); POTASSIUM 4.6 MEQ/L (3.5-5.1)
[2017-06-14] MEDS: SEVELAMER CARBONATE 800 MG TAB PO SCH ×3 (09:00→17:00)
[2017-06-14] MEDS: ASPIRIN EC 81 MG TABEC PO SCH (09:00)
[2017-06-14] MEDS: CINACALCET HYDROCHLORIDE 30 MG TAB PO SCH (09:14)
[2017-06-14] MEDS: METOPROLOL TARTRATE 25 MG TAB PO SCH ×2 (09:14→22:59)
[2017-06-14] MEDS: predniSONE 20 MG TAB PO SCH (09:14)
[2017-06-14] MEDS: DILTIAZEM HCL 90 MG TAB PO SCH ×5 (09:14→22:58)
[2017-06-14] MEDS: SODIUM CHLORIDE 0.9% FLUSH 10 ML FLUSH IV FLUSH SCH ×2 (09:15→22:59)
[2017-06-14] MEDS ORDERED: LIDOCAINE 1%/EPINEPHrine 1:100,000 SOLN 20 ML VIAL ONE (10:16)
[2017-06-14] MEDS ORDERED: MIDAZOLAM HCL 2 MG/2 ML VIAL ONE (10:22)
[2017-06-14] MEDS ORDERED: HEPARIN SODIUM - IV 2,000 UNITS/2 ML VIAL IV FLUSH PRN (12:15)
[2017-06-14] MEDS ORDERED: SODIUM CHLORIDE 0.9% FLUSH 10 ML FLUSH IV FLUSH PRN (12:15)
--- NOTE | 2017-06-14 12:15 | PD.RAD ---
Post Procedure Progress Note Pre Procedure Diagnosis: (1) Renal dialysis device, implant, or graft complication (2) ESRD (end stage renal disease) on dialysis Post Procedure Diagnosis: (1) Renal dialysis device, implant, or graft complication (2) ESRD (end stage renal disease) on dialysis Procedure Date: Jun 14, 2017 Supervising Radiologist: José Miguel Judge Proceduralist/Assist: Gricelda Guzman, RT(R), RT Eduar(R) Anesthesia: Local, Analgesia, Conscious Sedation Plan of Activity Patient to Unit: ROPU Patient Condition: Good See PACS Report for procedural detail/treatment Central Venous Access Device Procedure 1 Left (Subclavian), Right Internal Jugular Hemodialysis Catheter Tunneled Placement dual lumen [place]: 15 PICC Line Length (cm): 31 Findings: Left venous system chronically occluded. Unable to traverse occlusion from SC. Patient combative throughout procedure José Miguel Judge MD Jun 14, 2017 12:15
[2017-06-14] MEDS ORDERED: IOHEXOL 350 MG/ML 50 ML BTL (for RAD DIAG) OTHER ONE (13:09)
--- NOTE | 2017-06-14 16:20 | HHI.NPPN ---
Subjective Renal Failure: Chronic, End Stage Renal Disease Interval History Had permcath placed. To have dialysis today. (Angela Ortega) Objective Data Data Vital Signs Date Time Temp Pulse Resp B/P (MAP) Pulse Ox O2 Delivery O2 Flow Rate FiO2 06/14/17 14:50 73 18 119/63 (81) 93 06/14/17 14:20 77 18 106/65 (79) 92 06/14/17 14:20 94 Nasal Cannula 4.00 Non-Rebreather 06/14/17 13:50 74 18 100/56 (71) 95 06/14/17 13:30 94 Non-Rebreather 8.00 06/14/17 13:20 78 18 97/55 (69) 97 06/14/17 12:50 80 18 103/54 (70) 97 06/14/17 12:20 77 18 118/68 (85) 97 06/14/17 12:15 83 18 122/68 (86) 97 06/14/17 12:05 97.5 71 18 154/85 (108) 96 06/14/17 12:05 95 Partial Non-Rebreather 15.00 06/14/17 12:05 97.5 71 18 154/85 (108) 96 06/14/17 10:00 84 06/14/17 09:20 98 Nasal Cannula 2.00 06/14/17 09:00 99 Nasal Cannula 3.00 06/14/17 08:00 97.9 94 18 111/63 (79) 94 06/14/17 05:00 97.5 82 20 112/65 (81) 94 06/14/17 00:36 113/62 (79) 96 06/13/17 23:35 98.5 98 20 95/53 (67) 92 06/13/17 22:18 98 Nasal Cannula 4.00 06/13/17 20:08 98.2 97 26 108/60 (76) 96 06/13/17 20:00 86 06/13/17 20:00 Nasal Cannula 3.00 06/13/17 17:00 98.3 101 18 131/76 (94) 93 (Angela Ortega) -: 06/14/17 0720 06/14/17 0720 Imaging Last 72 hours Impressions Chest X-Ray 06/13/17 0115 Signed Impressions: Service Date/Time: Tuesday, June 13, 2017 01:48 - CONCLUSION: 1. Cardiomegaly and findings of congestive heart failure. Scottie Chavarria MD (Angela Ortega) Physical Exam General Appearance: Well Developed, Well Nourished, Comfortable (Angela Ortega) Eyes Eye Exam: Pupils Equal (Angela Ortega) Throat Throat Exam: Oral Mucosa Furley & Moist (Angela Ortega) Pulmonary Resp Exam: Clear Bilaterally, Breath Sounds Equal (Angela Ortega) Cardiology CV Exam: Regular, Normal Sinus Rhythm, Good Perfusion (Angela Ortega) Gastrointestinal/Abdomen GI Exam: Soft, Non-Tender, Bowel Sounds Present (Angela Ortega) Musculoskeletal MS Exam: Joints Intact, Normal Gait, Normal Tone (Angela Ortega) Integumentary Skin Exam: Clear, Warm, Dry (Angela Ortega) Extremeties Extremities Exam: No Edema, Pedal Pulses Palpable (Angela Orteag) Neurologic Neuro Exam: Alert, Awake, Oriented, Speech Clear, Moving All Extremities (Angela Ortega) Psychiatric Psych Exam: Appropriate Responses (Angela Ortega) Assessment/Plan Discussed Condition With: Patient Assessment Summary: End Stage Renal Disease Problem List: (1) ESRD (end stage renal disease) on dialysis ICD Codes: N18.6 - End stage renal disease; Z99.2 - Dependence on renal dialysis Status: Chronic Plan: Typical TTS HD, Due today for treatment Will attempt fluid removal given chest xray findings. s/p Permcath placement Renal diet without protein restriction Avoid IVF (2) Hyperkalemia, diminished renal excretion ICD Codes: E87.5 - Hyperkalemia Status: Acute Plan: Improved Monitor (3) Metabolic bone disease ICD Codes: E88.9 - Metabolic disorder, unspecified; M90.80 - Osteopathy in diseases classified elsewhere, unspecified site Status: Acute Plan: On Renvela with meals On Sensipar for secondary hyperparathyroidism (4) HTN (hypertension) ICD Codes: I10 - Essential (primary) hypertension Status: Acute Plan: Medications were resumed Monitor blood pressure (5) Anemia of renal disease ICD Codes: D63.1 - Anemia in chronic kidney disease Status: Acute Plan: Epogen with dialysis Plan He needs assistance with placement. In addition he does not have outpatient HD arrangements. He has historically been non compliant with dialysis. (Angela Ortega) Plan patient was seen and examined. Agree with above assessment and plan. (Keron Singh MD) Angela Ortega Jun 14, 2017 16:20 Keron Singh MD Jun 14, 2017 18:19
[2017-06-14] MEDS: diphenhydrAMINE HCL 25 MG CAP PO PRN (22:56)
[2017-06-14] MEDS: traZODone HCL 100 MG TAB PO SCH (22:57)
[2017-06-14] MEDS: RESP: ALBUTEROL 1.25 MG/3 ML NEB (PRN) NEB (23:12)
[2017-06-14] MEDS: ACETAMINOPHEN 325 MG TAB PO PRN (23:29)
[2017-06-15] VITALS (9 sets, daily range): BP systolic 80–119; BP diastolic 50–72; PULSE 86–106; RESP 12–20; TEMP 97.7–99; O2SAT 94–97
[2017-06-15] MEDS: HEPARIN SODIUM - SQ 10,000 UNITS/ML VIAL SQ SCH ×3 (06:00→20:35)
[2017-06-15] MEDS: ISOSORBIDE MONONITRATE 30 MG TAB PO SCH (06:41)
[2017-06-15] MEDS: SUCRALFATE 1 GM TAB PO SCH ×3 (06:41→17:55)
--- NOTE | 2017-06-15 09:16 | RADRPT ---
EXAM DATE/TIME: 06/14/2017 11:12 [place] COMPARISON: No previous studies available for comparison. INDICATIONS : Patient with end stage renal disease in need of tunnelled dialysis catheter placement. MEDICAL HISTORY : ESRD on hemodialysis, HTN, CHF, COPD, A-Fib, Prostate cancer, Anemia, GERD, Metabolic bone disorder SURGICAL HISTORY : AVF left arm, Prostatectomy, Dialysis catheter ENCOUNTER: Initial ACUITY: 2 days PAIN SCORE: 0/10 FLUORO TIME: 14.2 minutes IMAGE SERIES: 5 SEDATION TIME: 45 minutes CONTRAST: 40 cc Omnipaque (iohexol) 350 ACCESS: Left internal jugular vein SEDATION: 1.) 3 mg midazolam (Versed) IV 2.) 150 mcg fentanyl (Sublimaze) IV Prophylactic antibiotics were administered with appropriate pre-procedure timing. Vancomycin within 2 hours of procedure, Ancef (or alternative) within 1 hour of procedure. DEVICE: 1. 15 [place] dual lumen 31 cm Hardy II Plus catheter PROCEDURE : 1. Ultrasound-guided venipuncture. 2. PermaCath placement. 3. Conscious sedation with continuous EKG and oximetry monitoring. 4. Right subclavian venogram. The risks, benefits and alternatives to the procedure were explained and verbal and written consent w as obtained. The site was prepped in sterile fashion. Full sterile technique was used, including ca p, mask, sterile gloves and gown and a large sterile sheet. Hand hygiene and 2% chlorhexidine and/or betadine/alcohol prep was utilized per protocol for cutaneous antisepsis. Sterile gel and sterile p robe cover were utilized for ultrasound guidance. The skin and subcutaneous tissues were infiltrated with local anesthetic solution. Patient has had multiple vascular access is in the past. Also reports bilateral upper extremity fistu las which have failed. The last fistula was on the left the patient thought that they may be revising that access. Therefore, initially, we attempted to access the right. Ultrasound evaluation showed th e right IJ to be occluded with a widely patent subclavian that seems to vary slightly with respiratio n. With ultrasound guidance, the right subclavian was accessed but the wire would not pass centrally. Contrast injection showed chronic occlusion in the central subclavian some collateral reconstitution of the SVC. A brief attempt was made to traverse the occluded subclavian however, this was not succe ssful, partly due to the fact that the patient was extremely uncooperative and was continually moving throughout the procedure. With attempted further sedation, the patient would desaturate. At this poi nt, right-sided access was abandoned. With ultrasound and fluoroscopic guidance a dermatotomy was created over the prescribed vein. A micr opuncture set was used to access the targeted vein and serial dilatation was performed to accept the prescribed length catheter. A subcutaneous tunnel was created in a retrograde fashion the catheter w as pulled through the tunnel. The catheter was flushed and assembled and locked with heparin. The c atheter was sutured in place. Conscious sedation was performed with the prescribed dosages and duration as above in the presence of an independent trained radiology nurse to assist in the monitoring of the patient. EKG and oximetry remained stable throughout the procedure. The patient tolerated the procedure well and there were n o complications. The patient was sent to post anesthesia recovery in stable condition. CONCLUSION: 1. 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 2. Uncomplicated PermaCath placement in the left IJ as above. José Miguel Judge MD on June 15, 2017 at 9:10 Board Certified Radiologist. This report was verified electronically.
--- NOTE | 2017-06-15 09:30 | HHI.PR ---
Subjective Remarks resting comfortably with no distress. says that his sob has improved. Objective Vitals Vital Signs Date Time Temp Pulse Resp B/P (MAP) Pulse Ox O2 Delivery O2 Flow Rate FiO2 06/15/17 07:00 98.8 92 12 111/59 (76) 95 06/15/17 04:34 Nasal Cannula 3.00 06/15/17 04:34 98.3 88 20 100/55 (70) 96 06/14/17 23:42 Nasal Cannula 3.00 06/14/17 23:42 97.2 118 24 107/61 (76) 91 06/14/17 21:36 Nasal Cannula 2.00 06/14/17 21:21 113 06/14/17 20:00 98.1 104 18 114/71 (85) 94 06/14/17 14:50 73 18 119/63 (81) 93 06/14/17 14:20 77 18 106/65 (79) 92 06/14/17 14:20 94 Nasal Cannula 4.00 Non-Rebreather 06/14/17 13:50 74 18 100/56 (71) 95 06/14/17 13:30 94 Non-Rebreather 8.00 06/14/17 13:20 78 18 97/55 (69) 97 06/14/17 12:50 80 18 103/54 (70) 97 06/14/17 12:20 77 18 118/68 (85) 97 06/14/17 12:15 83 18 122/68 (86) 97 06/14/17 12:05 97.5 71 18 154/85 (108) 96 06/14/17 12:05 95 Partial Non-Rebreather 15.00 06/14/17 12:05 97.5 71 18 154/85 (108) 96 06/14/17 10:00 84 I/O 06/14/17 06/14/17 06/14/17 06/15/17 06/15/17 06/15/17 07:00 15:00 23:00 07:00 15:00 23:00 Intake Total 240 ml 420 ml Output Total 0 ml 3000 ml 0 ml Balance 240 ml -3000 ml 420 ml Intake Oral 240 ml 420 ml Output Urine Total 0 ml 0 ml Hemodialysis 3000 ml # Bowel Movements 0 0 Result Diagram: 06/14/1771906/14/17719 Imaging Last Impressions Chest X-Ray 06/13/17 0115 Signed Impressions: Service Date/Time: Tuesday, June 13, 2017 01:48 - CONCLUSION: 1. Cardiomegaly and findings of congestive heart failure. Scottie Chavarria MD Objective Remarks GENERAL: This is a well-nourished, well-developed patient, in no apparent distress. CARDIOVASCULAR: Regular rate and regular rhythm without murmurs, gallops, or rubs. RESPIRATORY: Clear to auscultation. Breath sounds equal bilaterally. No wheezes , rales, or rhonchi. GASTROINTESTINAL: Abdomen soft, non-tender, nondistended. Normal, active bowel sounds MUSCULOSKELETAL: Extremities without clubbing, cyanosis, or edema. NEURO: Alert & Oriented x4 to person, place, time, situation. Moves all ext x4 Medications and IVs Current Medications Sodium Chloride (NS Flush) 2 ml UNSCH PRN IVF FLUSH AFTER USING IV ACCESS; Start 06/13/17 at 01:15; Stop 06/13/17 at 04:46; Status DC Ondansetron HCl (Zofran Inj) 4 mg ONCE ONCE IV PUSH Last administered on 01:54; Start 06/13/17 at 01:30; Stop 06/13/17 at 01:31; Status DC Sodium Polystyrene Sulfonate (Kayexalate Liq) 15 gm ONCE ONCE PO Last administered on 06/13/17 04:53; Start 06/13/17 at 04:30; Stop 06/13/17 at 04:31 ; Status DC Nitroglycerin (Nitroglycerin 2% Oint) 1 inch ONCE ONCE TOPICAL ; Start at 04:30; Stop 06/13/17 at 04:31; Status DC Sodium Chloride (NS Flush) 2 ml UNSCH PRN IV FLUSH FLUSH AFTER USING IV ACCESS ; Start 06/13/17 at 04:45 Sodium Chloride (NS Flush) 2 ml BID IV FLUSH Last administered on 06/14/17 22: 59; Start 06/13/17 at 09:00 Heparin Sodium (Porcine) (Heparin Inj) 5,000 units Q8H SQ Last administered on 06/13/17 05:55; Start 06/13/17 at 06:00 Naloxone HCl (Narcan Inj) 0.4 mg UNSCH PRN IV PUSH SEE LABEL COMMENTS; Start 06/13/17 at 04:45 Albuterol/ Ipratropium (Duoneb Neb) 1 ampule Q6HR NEB NEB Last administered on 06/14/17 05:02; Start 06/13/17 at 10:00; Stop 06/14/17 at 09:00; Status DC Albuterol Sulfate (Albuterol Neb) 1.25 mg Q2HR NEB PRN NEB SHORTNESS OF BREATH Last administered on 06/14/17 23:12; Start 06/13/17 at 07:45 Alprazolam (Xanax) 0.5 mg HS PRN PO ANXIETY Last administered on 06/14/17 23: 29; Start 06/13/17 at 07:45 Aspirin (Ecotrin Ec) 81 mg DAILY PO Last administered on 06/13/17 09:50; Start 06/13/17 at 09:00 Calcium Carbonate (Tums Chew) 500 mg TID PRN CHEW REFLUX; Start 06/13/17 at 07: 45 Cinacalcet (Sensipar) 30 mg DAILY PO Last administered on 06/14/17 09:14; Start 06/13/17 at 09:00 Diltiazem HCl (Cardizem) 90 mg QID PO Last administered on 06/14/17 22:58; Start 06/13/17 at 09:00 Isosorbide Mononitrate (Imdur) 30 mg DAILY@0700 PO Last administered on 06:41; Start 06/13/17 at 09:00 Metoprolol Tartrate (Lopressor) 12.5 mg BID PO Last administered on 06/14/17 22:59; Start 06/13/17 at 09:00 Sevelamer Carbonate (Renvela) 1,600 mg TID PO Last administered on 06/13/17 16 :56; Start 06/13/17 at 09:00 Sucralfate (Carafate) 1 gm Q6HR PO Last administered on 06/15/17 06:41; Start 06/13/17 at 12:00 Trazodone HCl (Desyrel) 150 mg HS PO Last administered on 06/14/17 22:57; Start 06/13/17 at 21:00 Prednisone (Deltasone) 40 mg DAILY PO Last administered on 06/14/17 09:14; Start 06/13/17 at 09:00; Stop 06/18/17 at 08:00 Ondansetron HCl (Zofran Inj) 4 mg Q8HR PRN IV PUSH NAUSEA; Start 06/13/17 at 08 :15 Miscellaneous (Pill Splitter) 1 ea UNSCH PRN OTHER SEE LABEL COMMENTS; Start 06/13/17 at 08:45 Sodium Chloride 1,000 ml @ 0 mls/hr Q0M PRN OTHER For Prime & Rinse Back; Start 06/13/17 at 08:57 Heparin Sodium (Porcine) (Heparin Inj) 8,000 units UNSCH PRN IV FLUSH WITH DIALYSIS; Start 06/13/17 at 09:00 Sodium Chloride 1,000 ml @ 200 mls/hr Q5H PRN IV WITH DIALYSIS; Start 06/13/17 at 08:57 Sodium Chloride 1,000 ml @ 0 mls/hr Q0M PRN OTHER WITH DIALYSIS; Start at 08:57 Mannitol (Mannitol Inj) 12.5 gm UNSCH PRN IV WITH DIALYSIS; Start 06/13/17 at 09:00 Albumin Human 100 ml @ 60 mls/hr UNSCH PRN IV WITH DIALYSIS; Start 06/13/17 at 09:00 Sodium Chloride (NS Flush) 5 ml UNSCH PRN IV FLUSH WITH DIALYSIS; Start at 09:00 Heparin Sodium (Porcine) (Heparin Inj) UNSCH PRN .XX WITH DIALYSIS; Start 06/13/17 at 09:00 Gentamicin Sulfate (Gentamicin (Dialysis) Inj) 20 mg UNSCH PRN OTHER WITH DIALYSIS; Start 06/13/17 at 09:00 Ondansetron HCl (Zofran Inj) 4 mg UNSCH PRN IV PUSH WITH DIALYSIS; Start at 09:00 Acetaminophen (Tylenol) 650 mg UNSCH PRN PO for headach, pain, temp > 101F Last administered on 06/14/17 23:29; Start 06/13/17 at 09:00 Diphenhydramine HCl (Benadryl) 25 mg UNSCH PRN PO for hives/itching/ anaphylaxis Last administered on 06/14/17 22:56; Start 06/13/17 at 09:00 Nitroglycerin (Nitrostat Sl) 0.4 mg UNSCH PRN SL CHEST PAIN; Start 06/13/17 at 09:00 Clonidine (Catapres) 0.1 mg UNSCH PRN PO for BP > 180/100 X 2 readings; Start 06/13/17 at 09:00 Gelatin (Gelfoam 12 Mm/7 Mm Top) 1 foam UNSCH PRN TOP SEE LABEL COMMENTS; Start 06/13/17 at 09:00 Sodium Chloride 1,000 ml @ 0 mls/hr Q0M PRN OTHER For Prime & Rinse Back; Start 06/13/17 at 09:17; Stop 06/13/17 at 09:57; Status DC Heparin Sodium (Porcine) (Heparin Inj) 8,000 units UNSCH PRN IV FLUSH WITH DIALYSIS; Start 06/13/17 at 09:30; Stop 06/13/17 at 09:57; Status DC Sodium Chloride 1,000 ml @ 200 mls/hr Q5H PRN IV WITH DIALYSIS; Start 06/13/17 at 09:17; Stop 06/13/17 at 09:57; Status DC Sodium Chloride 1,000 ml @ 0 mls/hr Q0M PRN OTHER WITH DIALYSIS; Start at 09:17; Stop 06/13/17 at 09:57; Status DC Mannitol (Mannitol Inj) 12.5 gm UNSCH PRN IV WITH DIALYSIS; Start 06/13/17 at 09:30; Stop 06/13/17 at 09:57; Status DC Albumin Human 100 ml @ 60 mls/hr UNSCH PRN IV WITH DIALYSIS; Start 06/13/17 at 09:30; Stop 06/13/17 at 09:57; Status DC Sodium Chloride (NS Flush) 5 ml UNSCH PRN IV FLUSH WITH DIALYSIS; Start at 09:30; Stop 06/13/17 at 09:57; Status DC Heparin Sodium (Porcine) (Heparin Inj) UNSCH PRN .XX WITH DIALYSIS; Start 06/13/17 at 09:30; Stop 06/13/17 at 09:57; Status DC Gentamicin Sulfate (Gentamicin (Dialysis) Inj) 20 mg UNSCH PRN OTHER WITH DIALYSIS; Start 06/13/17 at 09:30; Stop 06/13/17 at 09:57; Status DC Ondansetron HCl (Zofran Inj) 4 mg UNSCH PRN IV PUSH WITH DIALYSIS; Start at 09:30; Stop 06/13/17 at 09:57; Status DC Acetaminophen (Tylenol) 650 mg UNSCH PRN PO for headach, pain, temp > 101F; Start 06/13/17 at 09:30; Stop 06/13/17 at 09:57; Status DC Diphenhydramine HCl (Benadryl) 25 mg UNSCH PRN PO for hives/itching/anaphylaxis ; Start 06/13/17 at 09:30; Stop 06/13/17 at 09:57; Status DC Nitroglycerin (Nitrostat Sl) 0.4 mg UNSCH PRN SL CHEST PAIN; Start 06/13/17 at 09:30; Stop 06/13/17 at 09:57; Status DC Clonidine (Catapres) 0.1 mg UNSCH PRN PO for BP > 180/100 X 2 readings; Start 06/13/17 at 09:30; Stop 06/13/17 at 09:57; Status DC Epoetin [place] (Epogen Inj) 4,000 units UNSCH PRN IV PUSH WITH DIALYSIS; Start 06/13/17 at 09:30 Gelatin (Gelfoam 12 Mm/7 Mm Top) 1 foam UNSCH PRN TOP SEE LABEL COMMENTS; Start 06/13/17 at 09:30; Stop 06/13/17 at 09:57; Status DC Vancomycin HCl 1000 mg/Sodium Chloride 250 ml @ 250 mls/hr FIRE BOSS IV Last administered on 06/14/17 09:13; Start 06/14/17 at 08:15; Stop 06/18/17 at 08: 14 Cefazolin Sodium/ Dextrose 50 ml @ 100 mls/hr FIRE BOSS IV Last administered on 06/14/17 09:12; Start 06/14/17 at 08:15; Stop 06/18/17 at 08:14 Heparin Sodium (Porcine) (*HEPARIN INJ Periprocedural ONLY) 10,000 units STK- MED ONCE .ROUTE Last administered on 06/14/17 11:50; Start 06/14/17 at 10:16; Stop 06/14/17 at 10:17; Status DC Lidocaine/ Epinephrine (Xylocaine-Epi 1%-1:100,000 Inj) 20 ml STK-MED ONCE .ROUTE Last administered on 06/14/17 11:00; Start 06/14/17 at 10:16; Stop 06/14/17 at 10:17; Status DC Fentanyl Citrate (fentaNYL INJ) 100 mcg STK-MED ONCE .ROUTE Last administered on 06/14/17 11:00; Start 06/14/17 at 10:22; Stop 06/14/17 at 10:23; Status DC Midazolam HCl (Versed Inj) 4 mg STK-MED ONCE .ROUTE Last administered on 10:22; Start 06/14/17 at 10:22; Stop 06/14/17 at 10:23; Status DC Fentanyl Citrate (fentaNYL INJ) 100 mcg STK-MED ONCE .ROUTE Last administered on 06/14/17 10:25; Start 06/14/17 at 10:25; Stop 06/14/17 at 10:26; Status DC Sodium Chloride (NS Flush) UNSCH PRN IV FLUSH SEE PROTOCOL; Start 06/14/17 at 12:15 Heparin Sodium (Porcine) (Heparin Inj) UNSCH PRN IV FLUSH SEE PROTOCOL; Start 06/14/17 at 12:15 Iohexol (Omnipaque 350 Inj) 40 ml STK-MED ONCE OTHER Last administered on 11:15; Start 06/14/17 at 13:09; Stop 06/14/17 at 13:10; Status DC A/P Problem List: (1) Atrial fibrillation with RVR ICD Code: I48.91 - Unspecified atrial fibrillation Assessment and Plan A/P - atrial fibrillation with RVR; HR overall improved. resumed his po metoprolol- hold cardizem for now due to low BP's; will resume at a lower dose within the next 24 hrs if BP improves.continue to monitor on telemetry resumed aspirin. -sob and cough due COPD with mild exacerbation vs acute on chronic systolic CHF - started on neb treatment and po prednisone-keep on oxygen to keep O2 sat > 90% - improved. on HD per nephrology. -hypertension; resumed home meds- will monitor and adjust the regimen as needed -ESRD - on HD ( on TTS schedule); had HD on 06/13/17 due to hyperkalemia- back on his HD schedule . reportedly pulled out his perma-cath- s/p perma-cath placement by IR. nephrology following. -history of prostate cancer -DVT prophylaxis with subq Heparin -consulted PT and case management ( patient is homeless) . Discharge Planning patient is homeless- on HD. case management consulted for dc planning- d/w the case management today. Kae Edward MD Jun 15, 2017 09:30
[2017-06-15] MEDS: METOPROLOL TARTRATE 25 MG TAB PO SCH ×2 (09:57→20:34)
[2017-06-15] MEDS: DILTIAZEM HCL 90 MG TAB PO SCH ×2 (09:57→12:44)
[2017-06-15] MEDS: SODIUM CHLORIDE 0.9% FLUSH 10 ML FLUSH IV FLUSH SCH ×2 (09:57→20:34)
[2017-06-15] MEDS: SEVELAMER CARBONATE 800 MG TAB PO SCH ×3 (09:57→17:55)
[2017-06-15] MEDS: CINACALCET HYDROCHLORIDE 30 MG TAB PO SCH (09:58)
[2017-06-15] MEDS: predniSONE 20 MG TAB PO SCH (09:58)
[2017-06-15] MEDS: ASPIRIN EC 81 MG TABEC PO SCH (09:58)
[2017-06-15] MEDS: ACETAMINOPHEN 325 MG TAB PO PRN ×2 (12:24→18:51)
--- NOTE | 2017-06-15 13:02 | HHI.NPPN ---
Subjective Renal Failure: Chronic, End Stage Renal Disease Interval History 3L fluid removal yesterday. He is ambulating in room. Appears short of breath. Hypotensive currently. (Angela Ortega) Objective Data Data Vital Signs Date Time Temp Pulse Resp B/P (MAP) Pulse Ox O2 Delivery O2 Flow Rate FiO2 06/15/17 12:19 86 80/51 (61) 06/15/17 11:42 97.7 92 15 89/50 (63) 94 06/15/17 09:16 95 Nasal Cannula 3.00 06/15/17 07:00 98.8 92 12 111/59 (76) 95 06/15/17 04:34 Nasal Cannula 3.00 06/15/17 04:34 98.3 88 20 100/55 (70) 96 06/14/17 23:42 Nasal Cannula 3.00 06/14/17 23:42 97.2 118 24 107/61 (76) 91 06/14/17 21:36 Nasal Cannula 2.00 06/14/17 21:21 113 06/14/17 20:00 98.1 104 18 114/71 (85) 94 06/14/17 14:50 73 18 119/63 (81) 93 06/14/17 14:20 77 18 106/65 (79) 92 06/14/17 14:20 94 Nasal Cannula 4.00 Non-Rebreather 06/14/17 13:50 74 18 100/56 (71) 95 06/14/17 13:30 94 Non-Rebreather 8.00 06/14/17 13:20 78 18 97/55 (69) 97 (Angela Ortega) -: 06/14/17 0720 06/14/17 0720 Imaging Last 72 hours Impressions Catheter Placement X-Ray 06/14/17 0000 Signed Impressions: Service Date/Time: June 11:12 - CONCLUSION: 1. 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 2. Uncomplicated PermaCath placement in the left IJ as above. José Miguel Judge MD Chest X-Ray 06/13/17 0115 Signed Impressions: Service Date/Time: Tuesday, June 13, 2017 01:48 - CONCLUSION: 1. Cardiomegaly and findings of congestive heart failure. Scottie Chavarria MD Tubes & Lines: Perma-Cath (Angela Ortega B. ASSOCIATE PROFESSOR OF LITERATURE) Physical Exam General Appearance: Well Developed, Well Nourished, Comfortable (Glen Ortegaon B. ASSOCIATE PROFESSOR OF LITERATURE) Eyes Eye Exam: Pupils Equal (Glen Ortegaon B. ASSOCIATE PROFESSOR OF LITERATURE) Throat Throat Exam: Oral Mucosa [place] & Moist (Angela Ortega B. ASSOCIATE PROFESSOR OF LITERATURE) Pulmonary Resp Exam: Clear Bilaterally, Breath Sounds Equal (ShannonAngela B. ASSOCIATE PROFESSOR OF LITERATURE) Cardiology CV Exam: Regular, Normal Sinus Rhythm, Good Perfusion (Angela Ortega B. ASSOCIATE PROFESSOR OF LITERATURE) Gastrointestinal/Abdomen GI Exam: Soft, Non-Tender, Bowel Sounds Present (Angela Ortega B. ASSOCIATE PROFESSOR OF LITERATURE) Musculoskeletal MS Exam: Joints Intact, Normal Gait, Normal Tone (Glen Ortegaon B. ASSOCIATE PROFESSOR OF LITERATURE) Integumentary Skin Exam: Clear, Warm, Dry (Angela Ortega B. ASSOCIATE PROFESSOR OF LITERATURE) Extremeties Extremities Exam: No Edema, Pedal Pulses Palpable (Angela Ortega B. ASSOCIATE PROFESSOR OF LITERATURE) Neurologic Neuro Exam: Alert, Awake, Oriented, Speech Clear, Moving All Extremities (Angela Ortega B. ASSOCIATE PROFESSOR OF LITERATURE) Psychiatric Psych Exam: Appropriate Responses (Angela OrtegaP) Assessment/Plan Discussed Condition With: Patient Assessment Summary: End Stage Renal Disease Problem List: (1) ESRD (end stage renal disease) on dialysis ICD Codes: N18.6 - End stage renal disease; Z99.2 - Dependence on renal dialysis Status: Chronic Plan: Continue TTS HD support. 3L UF yesterday Monitor fluid status, UF as tolerated tomorrow s/p Permcath placement due to AVG infiltration Attempt to cannulate AVG possibly on Sunday Renal diet without protein restriction Avoid IVF He does not have outpatient HD arrangements currently. (2) Hyperkalemia, diminished renal excretion ICD Codes: E87.5 - Hyperkalemia Status: Acute Plan: Improved Monitor (3) Metabolic bone disease ICD Codes: E88.9 - Metabolic disorder, unspecified; M90.80 - Osteopathy in diseases classified elsewhere, unspecified site Status: Acute Plan: On Renvela with meals On Sensipar for secondary hyperparathyroidism (4) HTN (hypertension) ICD Codes: I10 - Essential (primary) hypertension Status: Acute Plan: hypotensive today, hold antihypertensives if systolic < 100 mmHg Monitor blood pressure (5) Anemia of renal disease ICD Codes: D63.1 - Anemia in chronic kidney disease Status: Acute Plan: Epogen with dialysis , dose increased 06/15 Plan (Angela Ortega) Problem List: (1) ESRD (end stage renal disease) on dialysis ICD Codes: N18.6 - End stage renal disease; Z99.2 - Dependence on renal dialysis Status: Chronic Plan: Continue TTS HD support. 3L UF yesterday Monitor fluid status, UF as tolerated tomorrow s/p Permcath placement due to AVG infiltration Attempt to cannulate AVG possibly on Sunday Renal diet without protein restriction Avoid IVF He does not have outpatient HD arrangements currently. (2) Hyperkalemia, diminished renal excretion ICD Codes: E87.5 - Hyperkalemia Status: Acute Plan: Improved Monitor (3) Metabolic bone disease ICD Codes: E88.9 - Metabolic disorder, unspecified; M90.80 - Osteopathy in diseases classified elsewhere, unspecified site Status: Acute Plan: On Renvela with meals On Sensipar for secondary hyperparathyroidism (4) HTN (hypertension) ICD Codes: I10 - Essential (primary) hypertension Status: Acute Plan: hypotensive today, hold antihypertensives if systolic < 100 mmHg Monitor blood pressure (5) Anemia of renal disease ICD Codes: D63.1 - Anemia in chronic kidney disease Status: Acute Plan: Epogen with dialysis , dose increased 06/15 Plan patient was seen and examined. Dialysis tomorrow. Use AVF if possible tomorrow. Disposition is an issue. (Keron Singh MD) Angela Ortega Jun 15, 2017 13:02 Keron Singh MD Jun 15, 2017 15:19
[2017-06-15] MEDS: RESP: ALBUTEROL 1.25 MG/3 ML NEB (PRN) NEB (15:07)
[2017-06-15] MEDS ORDERED: ACETAMINOPHEN 325 MG TAB PO PRN (18:45)
[2017-06-15] MEDS: traZODone HCL 100 MG TAB PO SCH (20:34)
[2017-06-15] MEDS: diphenhydrAMINE HCL 25 MG CAP PO PRN (20:34)
[2017-06-16] MEDS: SUCRALFATE 1 GM TAB PO SCH ×4 (00:01→18:00)
[2017-06-16 04:42] VITALS: BP 112/80; PULSE 95; RESP 18; TEMP 98.2; O2SAT 97
[2017-06-16] MEDS: HEPARIN SODIUM - SQ 10,000 UNITS/ML VIAL SQ SCH ×3 (05:06→21:23)
[2017-06-16] MEDS: ISOSORBIDE MONONITRATE 30 MG TAB PO SCH (06:03)
[2017-06-16 08:00] VITALS: BP 119/82; PULSE 110; RESP 20; TEMP 97.8; O2SAT 90
[2017-06-16 08:11] LABS: BICARBONATE 28.7 MEQ/L (21.0-32.0); POTASSIUM 5.1 MEQ/L (3.5-5.1)
[2017-06-16] MEDS: SODIUM CHLORIDE 0.9% FLUSH 10 ML FLUSH IV FLUSH SCH ×2 (08:58→21:26)
[2017-06-16] MEDS: predniSONE 20 MG TAB PO SCH (08:59)
[2017-06-16] MEDS: SEVELAMER CARBONATE 800 MG TAB PO SCH ×3 (08:59→18:00)
[2017-06-16] MEDS: ASPIRIN EC 81 MG TABEC PO SCH (08:59)
[2017-06-16] MEDS: METOPROLOL TARTRATE 25 MG TAB PO SCH ×2 (08:59→21:23)
[2017-06-16] MEDS: CINACALCET HYDROCHLORIDE 30 MG TAB PO SCH (08:59)
--- NOTE | 2017-06-16 11:24 | HHI.NPPN ---
Subjective Renal Failure: Chronic, End Stage Renal Disease History of Present Illness 72 year old Black male with ESRD Additional Remarks Refused dialysis It is causing pain Objective Data Data Vital Signs Date Time Temp Pulse Resp B/P (MAP) Pulse Ox O2 Delivery O2 Flow Rate FiO2 06/16/17 09:10 90 Nasal Cannula 2.00 06/16/17 08:00 97.8 110 20 119/82 (94) 90 06/16/17 04:42 98.2 95 18 112/80 (91) 97 06/15/17 23:27 98.6 106 18 111/60 (77) 94 06/15/17 20:20 93 06/15/17 20:15 98.6 101 18 119/72 (88) 97 06/15/17 19:45 Nasal Cannula 2.00 06/15/17 16:00 99.0 100 20 105/53 (70) 97 06/15/17 12:19 86 80/51 (61) 06/15/17 11:42 97.7 92 15 89/50 (63) 94 -: 06/14/17 0720 06/16/17 0633 Tubes & Lines: Perma-Cath Physical Exam General Appearance: Well Developed, Well Nourished, Comfortable Eyes Eye Exam: Pupils Equal Throat Throat Exam: Oral Mucosa [place] & Moist Pulmonary Resp Exam: Crackles, Decreased Bases Cardiology CV Exam: Irregular, Arrhythmia Gastrointestinal/Abdomen GI Exam: Soft, Non-Tender, Bowel Sounds Present Musculoskeletal MS Exam: Joints Intact, Normal Gait, Normal Tone Integumentary Skin Exam: Clear, Warm, Dry Extremeties Extremities Exam: No Edema, Pedal Pulses Palpable Neurologic Neuro Exam: Alert, Awake, Oriented, Speech Clear, Moving All Extremities Psychiatric Psych Exam: Appropriate Responses Assessment/Plan Discussed Condition With: Patient Assessment Summary: End Stage Renal Disease Problem List: (1) ESRD (end stage renal disease) on dialysis ICD Codes: N18.6 - End stage renal disease; Z99.2 - Dependence on renal dialysis Status: Chronic Plan: Continue TTS HD refused dialysis he had pain with needles, but he had dialysis with PermCath and he states he had pain in neck I offered EMLA cream use AVF told him he needs dialysis today, he continues to refuse it c/o he do not like dialysis unit and then shifted that he has problems with Nursing staff at dialysis and he would like to be discharged I told him I will talk to Nursing staff which I did and he has been non cooperative told him he will have a different dialysis nurse today and we can try but refused to consider consequence including was explained he may sign AMA [id number] seen at dialysis finally agreed to it tolerating it well He does not have outpatient HD arrangements currently. (2) Hyperkalemia, diminished renal excretion ICD Codes: E87.5 - Hyperkalemia Status: Acute Plan: Improved Monitor (3) Metabolic bone disease ICD Codes: E88.9 - Metabolic disorder, unspecified; M90.80 - Osteopathy in diseases classified elsewhere, unspecified site Status: Acute Plan: On Renvela with meals On Sensipar for secondary hyperparathyroidism (4) HTN (hypertension) ICD Codes: I10 - Essential (primary) hypertension Status: Acute Plan: hypotensive today, hold antihypertensives if systolic < 100 mmHg Monitor blood pressure (5) Anemia of renal disease ICD Codes: D63.1 - Anemia in chronic kidney disease Status: Acute Plan: Epogen with dialysis , dose increased 06/15 Plan patient was seen and examined. Dialysis tomorrow. Use AVF if possible tomorrow. Disposition is an issue. Eliana Vital MD Jun 16, 2017 11:24
[2017-06-16] MEDS ORDERED: LIDOCAINE-PRILOCAIN 2.5% CREAM 5 GM TUBE TOPICAL ONE (11:30)
[2017-06-16 12:00] VITALS: BP 112/57; PULSE 105; RESP 20; TEMP 98.3; O2SAT 92
[2017-06-16 13:08] VITALS: O2SAT 99
[2017-06-16] MEDS: RESP: ALBUTEROL 1.25 MG/3 ML NEB (PRN) NEB (13:16)
[2017-06-16] MEDS ORDERED: NAPROXEN 250 MG TAB PO ONE (13:45)
[2017-06-16] MEDS ORDERED: ACETAMINOPHEN/HYDROcodone 325 MG/5 MG TAB PO PRN (13:45)
[2017-06-16] MEDS: ACETAMINOPHEN/HYDROcodone 325 MG/7.5 MG TAB PO PRN (14:29)
[2017-06-16] MEDS: HEPARIN SODIUM - IV 10,000 UNITS/10 ML VIAL IV FLUSH PRN (15:36)
[2017-06-16] MEDS: diphenhydrAMINE HCL 50 MG/ML VIAL IV PRN (15:36)
[2017-06-16] MEDS: GENTAMICIN SULFATE (DIALYSIS USE ONLY) 20 MG/2 ML VIAL OTHER PRN (15:36)
[2017-06-16] MEDS: EPOETIN ALFA 4,000 UNITS/ML VIAL IV PUSH PRN (15:36)
--- NOTE | 2017-06-16 16:32 | HHI.PR ---
Subjective Remarks Primary complaint today is left neck pain going into his left chest. This happens with vascular access that was placed at his left chest recently. Inflammatory etiology discussed with the patient. Objective Vital Signs Date Time Temp Pulse Resp B/P (MAP) Pulse Ox O2 Delivery O2 Flow Rate FiO2 06/16/17 13:08 99 Nasal Cannula 3.00 06/16/17 12:00 98.3 105 20 112/57 (75) 92 06/16/17 09:10 90 Nasal Cannula 2.00 06/16/17 08:00 97.8 110 20 119/82 (94) 90 06/16/17 04:42 98.2 95 18 112/80 (91) 97 06/15/17 23:27 98.6 106 18 111/60 (77) 94 06/15/17 20:20 93 06/15/17 20:15 98.6 101 18 119/72 (88) 97 06/15/17 19:45 Nasal Cannula 2.00 I/O 06/15/17 06/15/17 06/15/17 06/16/17 06/16/17 06/16/17 07:00 15:00 23:00 07:00 15:00 23:00 Intake Total 420 ml 960 ml 480 ml Output Total 0 ml 0 ml Balance 420 ml 960 ml 480 ml Intake Oral 420 ml 960 ml 480 ml Output Urine Total 0 ml 0 ml # Voids 3 # Bowel Movements 0 0 1 Result Diagram: 06/14/17 0720 06/16/17 0633 Objective Remarks GENERAL: NAD, A&Ox3 HEAD: Normocephalic. NECK: Supple, trachea midline. No lymphadenopathy. EYES: No scleral icterus. No injection or drainage. CARDIOVASCULAR: Regular rate and rhythm without murmurs, gallops, or rubs. RESPIRATORY: Breath sounds equal bilaterally. No accessory muscle use. GASTROINTESTINAL: Abdomen soft, non-tender, nondistended. MUSCULOSKELETAL: No cyanosis, or edema. Breasts Scars at arms. vascular access port in left upper chest. SKIN: Warm and dry. NEURO: No focal neurological deficitis. A/P Problem List: (1) Renal dialysis device, implant, or graft complication ICD Code: T82.9XXA - Unspecified complication of cardiac and vascular prosthetic device, implant and graft, initial encounter (2) Anemia of renal disease ICD Code: D63.1 - Anemia in chronic kidney disease Status: Acute (3) ESRD (end stage renal disease) on dialysis ICD Code: N18.6 - End stage renal disease; Z99.2 - Dependence on renal dialysis Status: Chronic Assessment and Plan Assessment and Plan 72-year-old male admitted secondary to CHF exacerbation with renal failure A. fib with RVR Continue metoprolol Follow on telemetry Continue aspirin COPD with mild exacerbation Exacerbation resolved Oxygen supplements as needed Chronic renal failure End-stage renal disease Continue dialysis Follow electrolytes Nephrology following Follow renal function Hypertension Continue baseline treatments Follow blood pressure History of prostate cancer Continue monitoring as an outpatient DVT prophylaxis Heparin Vinicius Philippe MD Jun 16, 2017 16:32
[2017-06-16 20:00] VITALS: BP 138/83; PULSE 115; RESP 17; TEMP 98; O2SAT 97
[2017-06-16 20:41] VITALS: PULSE 108
[2017-06-16] MEDS ORDERED: diphenhydrAMINE HCL 50 MG/ML VIAL IV PRN (21:00)
[2017-06-16] MEDS: traZODone HCL 100 MG TAB PO SCH (21:23)
[2017-06-16] MEDS: NAPROXEN 250 MG TAB PO SCH (21:23)
[2017-06-16] MEDS: ALPRAZolam 0.5 MG TAB PO PRN (21:23)
[2017-06-17] VITALS (8 sets, daily range): BP systolic 104–138; BP diastolic 61–82; PULSE 96–108; RESP 16–20; TEMP 97.8–98.8; O2SAT 88–97
[2017-06-17] MEDS: SUCRALFATE 1 GM TAB PO SCH ×4 (00:08→18:44)
[2017-06-17 05:27] LABS: BASOPHIL # 0.2 TH/MM3 (0-0.2); BASOPHIL % 1.6 % (0.0-2.0); EOSINOPHIL % 0.3 % (0.0-4.0); HEMATOCRIT 32.5 % (39.0-51.0); HEMO FLAGS DIFF FINAL; LYMPH % 9.1 % (9.0-44.0); MEAN CELL VOLUME 100.1 FL (80.0-100.0); MEAN CORPUSCULAR HEMOGLOBIN 32.4 PG (27.0-34.0); MEAN CORPUSCULAR HGB CONC 32.3 % (32.0-36.0); MONO % 7.5 % (0.0-8.0); NEUT % 81.5 % (16.0-70.0); PLATELET COUNT 242 TH/MM3 (150-450); RED BLOOD COUNT 3.25 MIL/MM3 (4.50-5.90); RED CELL DISTRIBUTION WIDTH 20.5 % (11.6-17.2)
[2017-06-17] MEDS: ISOSORBIDE MONONITRATE 30 MG TAB PO SCH (06:02)
[2017-06-17] MEDS: HEPARIN SODIUM - SQ 10,000 UNITS/ML VIAL SQ SCH ×3 (06:03→21:05)
[2017-06-17 06:33] LABS: ALKALINE PHOSPHATASE 204 U/L (45-117); ALT (GPT) 11 U/L (12-78); ANION GAP 10 MEQ/L (5-15); AST (GOT) 17 U/L (15-37); BICARBONATE 27.4 MEQ/L (21.0-32.0); BLOOD UREA NITROGEN 50 MG/DL (7-18); CHLORIDE 99 MEQ/L (98-107); GLOMERULAR FILTRATION RATE 9 ML/MIN (>89); POTASSIUM 4.8 MEQ/L (3.5-5.1); SODIUM (NA) 136 MEQ/L (136-145); TOTAL BILIRUBIN ADULT 0.3 MG/DL (0.2-1.0)
[2017-06-17] MEDS: NAPROXEN 250 MG TAB PO SCH ×2 (10:17→21:04)
[2017-06-17] MEDS: predniSONE 20 MG TAB PO SCH (10:17)
[2017-06-17] MEDS: CINACALCET HYDROCHLORIDE 30 MG TAB PO SCH (10:17)
[2017-06-17] MEDS: SEVELAMER CARBONATE 800 MG TAB PO SCH ×3 (10:17→18:44)
[2017-06-17] MEDS: SODIUM CHLORIDE 0.9% FLUSH 10 ML FLUSH IV FLUSH SCH ×2 (10:18→21:05)
[2017-06-17] MEDS: METOPROLOL TARTRATE 25 MG TAB PO SCH ×2 (10:18→21:04)
[2017-06-17] MEDS: ASPIRIN EC 81 MG TABEC PO SCH (10:18)
--- NOTE | 2017-06-17 10:40 | HHI.PR ---
Subjective Remarks Improvement in blood work status post dialysis yesterday. Improved pain and left chest with NSAIDs (temporary) and pain treatments. No new complaints from the patient. Objective Vital Signs Date Time Temp Pulse Resp B/P (MAP) Pulse Ox O2 Delivery O2 Flow Rate FiO2 06/17/17 08:01 98.2 96 17 128/71 (90) 92 06/17/17 07:54 104 06/17/17 04:00 Nasal Cannula 3.00 06/17/17 04:00 97.8 108 16 124/74 (91) 93 06/17/17 00:00 Nasal Cannula 3.00 06/17/17 00:00 98.4 104 18 123/73 (90) 97 06/16/17 20:41 108 06/16/17 20:00 Nasal Cannula 3.00 06/16/17 20:00 98.0 115 17 138/83 (101) 97 06/16/17 13:08 99 Nasal Cannula 3.00 06/16/17 12:00 98.3 105 20 112/57 (75) 92 I/O 06/16/17 06/16/17 06/16/17 06/17/17 06/17/17 06/17/17 07:00 15:00 23:00 07:00 15:00 23:00 Intake Total 480 ml 720 ml 400 ml Output Total 0 ml 2400 ml 0 ml Balance 480 ml -1680 ml 400 ml Intake Oral 480 ml 720 ml 400 ml Output Urine Total 0 ml 0 ml Hemodialysis 2400 ml # Voids 1 # Bowel Movements 1 1 Result Diagram: 06/17/1743006/17/17 0431 Objective Remarks GENERAL: NAD, A&Ox3 HEAD: Normocephalic. NECK: Supple, trachea midline. No lymphadenopathy. EYES: No scleral icterus. No injection or drainage. CARDIOVASCULAR: Regular rate and rhythm without murmurs, gallops, or rubs. RESPIRATORY: Breath sounds equal bilaterally. No accessory muscle use. GASTROINTESTINAL: Abdomen soft, non-tender, nondistended. MUSCULOSKELETAL: No cyanosis, or edema. Breasts Scars at arms. vascular access port in left upper chest. SKIN: Warm and dry. NEURO: No focal neurological deficitis. A/P Problem List: (1) Renal dialysis device, implant, or graft complication ICD Code: T82.9XXA - Unspecified complication of cardiac and vascular prosthetic device, implant and graft, initial encounter (2) Anemia of renal disease ICD Code: D63.1 - Anemia in chronic kidney disease Status: Acute (3) ESRD (end stage renal disease) on dialysis ICD Code: N18.6 - End stage renal disease; Z99.2 - Dependence on renal dialysis Status: Chronic Assessment and Plan Assessment and Plan 72-year-old male admitted secondary to CHF exacerbation with renal failure. Seeking long-term placement. Patient cannot be off dialysis at this point. A. fib with RVR Continue metoprolol Follow on telemetry Continue aspirin COPD with mild exacerbation Exacerbation resolved Oxygen supplements as needed Chronic renal failure End-stage renal disease Continue dialysis Follow electrolytes Nephrology following Follow renal function Hypertension Continue baseline treatments Follow blood pressure History of prostate cancer Continue monitoring as an outpatient DVT prophylaxis Heparin Vinicius Philippe MD Jun 17, 2017 10:40
--- NOTE | 2017-06-17 12:02 | HHI.NPPN ---
Subjective Renal Failure: Chronic, End Stage Renal Disease History of Present Illness 72 year old Black male with ESRD Objective Data Data Vital Signs Date Time Temp Pulse Resp B/P (MAP) Pulse Ox O2 Delivery O2 Flow Rate FiO2 06/17/17 08:01 98.2 96 17 128/71 (90) 92 06/17/17 07:54 104 06/17/17 04:00 Nasal Cannula 3.00 06/17/17 04:00 97.8 108 16 124/74 (91) 93 06/17/17 00:00 Nasal Cannula 3.00 06/17/17 00:00 98.4 104 18 123/73 (90) 97 06/16/17 20:41 108 06/16/17 20:00 Nasal Cannula 3.00 06/16/17 20:00 98.0 115 17 138/83 (101) 97 06/16/17 13:08 99 Nasal Cannula 3.00 -: 06/17/17 0431 06/17/17 0431 Tubes & Lines: Perma-Cath Physical Exam General Appearance: Well Developed, Well Nourished, Comfortable Eyes Eye Exam: Pupils Equal Throat Throat Exam: Oral Mucosa [place] & Moist Pulmonary Resp Exam: Crackles, Decreased Bases Cardiology CV Exam: Irregular, Arrhythmia Gastrointestinal/Abdomen GI Exam: Soft, Non-Tender, Bowel Sounds Present Musculoskeletal MS Exam: Joints Intact, Normal Gait, Normal Tone Integumentary Skin Exam: Clear, Warm, Dry Extremeties Extremities Exam: No Edema, Pedal Pulses Palpable Neurologic Neuro Exam: Alert, Awake, Oriented, Speech Clear, Moving All Extremities Psychiatric Psych Exam: Appropriate Responses Assessment/Plan Discussed Condition With: Patient Assessment Summary: End Stage Renal Disease Problem List: (1) ESRD (end stage renal disease) on dialysis ICD Codes: N18.6 - End stage renal disease; Z99.2 - Dependence on renal dialysis Status: Chronic Plan: Continue TTS HD refused dialysis he had pain with needles, but he had dialysis with PermCath and he states he had pain in neck after initial refusal finally did dialysis yesterday afternoon 2.4 L off He does not have outpatient HD arrangements currently. Dr. Singh to follow (2) Hyperkalemia, diminished renal excretion ICD Codes: E87.5 - Hyperkalemia Status: Acute Plan: Improved Monitor (3) Metabolic bone disease ICD Codes: E88.9 - Metabolic disorder, unspecified; M90.80 - Osteopathy in diseases classified elsewhere, unspecified site Status: Acute Plan: On Renvela with meals On Sensipar for secondary hyperparathyroidism (4) HTN (hypertension) ICD Codes: I10 - Essential (primary) hypertension Status: Acute Plan: hypotensive today, hold antihypertensives if systolic < 100 mmHg Monitor blood pressure (5) Anemia of renal disease ICD Codes: D63.1 - Anemia in chronic kidney disease Status: Acute Plan: Epogen with dialysis , dose increased 06/15 Plan patient was seen and examined. Dialysis tomorrow. Use AVF if possible tomorrow. Disposition is an issue. Eliana Vital MD Jun 17, 2017 12:02
[2017-06-17] MEDS: ALPRAZolam 0.5 MG TAB PO PRN (21:04)
[2017-06-17] MEDS: traZODone HCL 100 MG TAB PO SCH (21:04)
[2017-06-18] VITALS (8 sets, daily range): BP systolic 106–135; BP diastolic 58–81; PULSE 84–107; RESP 16–20; TEMP 97.4–98.3; O2SAT 92–98
[2017-06-18] MEDS: SUCRALFATE 1 GM TAB PO SCH ×5 (00:27→23:32)
[2017-06-18] MEDS: ISOSORBIDE MONONITRATE 30 MG TAB PO SCH (06:09)
[2017-06-18] MEDS: HEPARIN SODIUM - SQ 10,000 UNITS/ML VIAL SQ SCH ×3 (06:10→21:13)
[2017-06-18] MEDS: SEVELAMER CARBONATE 800 MG TAB PO SCH ×3 (08:33→18:17)
[2017-06-18] MEDS: ASPIRIN EC 81 MG TABEC PO SCH (08:34)
[2017-06-18] MEDS: METOPROLOL TARTRATE 25 MG TAB PO SCH ×2 (08:34→21:12)
[2017-06-18] MEDS: NAPROXEN 250 MG TAB PO SCH ×2 (08:34→21:13)
[2017-06-18] MEDS: ONDANSETRON HCL 4 MG/2 ML VIAL IV PUSH PRN ×2 (08:35→21:14)
[2017-06-18] MEDS: SODIUM CHLORIDE 0.9% FLUSH 10 ML FLUSH IV FLUSH SCH ×2 (08:35→21:13)
[2017-06-18] MEDS: CINACALCET HYDROCHLORIDE 30 MG TAB PO SCH (09:26)
[2017-06-18 09:38] LABS: AUTOMATED NEUTROPHIL # 8.4 TH/MM3 (1.8-7.7); BASOPHIL # 0.1 TH/MM3 (0-0.2); BASOPHIL % 0.5 % (0.0-2.0); EOSINOPHIL # 0.1 TH/MM3 (0-0.4); EOSINOPHIL % 0.6 % (0.0-4.0); HEMO FLAGS DIFF FINAL; LYMPH % 14.5 % (9.0-44.0); LYMPHOCYTE # 1.6 TH/MM3 (1.0-4.8); MEAN CELL VOLUME 99.5 FL (80.0-100.0); MEAN CORPUSCULAR HEMOGLOBIN 31.6 PG (27.0-34.0); MEAN CORPUSCULAR HGB CONC 31.8 % (32.0-36.0); MONO % 9.3 % (0.0-8.0); NEUT % 75.1 % (16.0-70.0); PLATELET COUNT 345 TH/MM3 (150-450); RED BLOOD COUNT 3.52 MIL/MM3 (4.50-5.90); RED CELL DISTRIBUTION WIDTH 20.7 % (11.6-17.2); WHITE BLOOD COUNT 11.2 TH/MM3 (4.0-11.0)
[2017-06-18 10:21] LABS: CHLORIDE 97 MEQ/L (98-107); POTASSIUM 4.3 MEQ/L (3.5-5.1); SODIUM (NA) 137 MEQ/L (136-145)
--- NOTE | 2017-06-18 11:53 | HHI.NPPN ---
Subjective Renal Failure: Chronic, End Stage Renal Disease Interval History Talkative, not in distress. No new issues. (Angela Ortega) Objective Data Data Vital Signs Date Time Temp Pulse Resp B/P (MAP) Pulse Ox O2 Delivery O2 Flow Rate FiO2 06/18/17 09:18 93 Nasal Cannula 3.00 06/18/17 08:00 97.6 84 17 120/73 (89) 97 06/18/17 04:00 97.4 86 20 122/77 (92) 95 06/18/17 04:00 Nasal Cannula 3.00 06/18/17 00:00 98.3 97 20 106/61 (76) 97 06/18/17 00:00 Nasal Cannula 3.00 06/17/17 22:05 Nasal Cannula 3.00 06/17/17 20:08 96 06/17/17 20:00 98.8 106 20 109/70 (83) 96 06/17/17 20:00 Nasal Cannula 3.00 06/17/17 16:01 98.0 101 17 138/82 (100) 95 06/17/17 12:01 98.6 100 17 104/61 (75) 88 06/17/17 12:00 3.00 (Angela Ortega) -: 06/18/17 0846 06/18/17 0846 Tubes & Lines: Perma-Cath (Angela Ortega) Physical Exam General Appearance: Well Developed, Well Nourished, No Acute Distress, Comfortable (Angela Ortega) Eyes Eye Exam: Pupils Equal (Angela Ortega) Throat Throat Exam: Oral Mucosa [place] & Moist (Angela Ortega) Pulmonary Resp Exam: Clear Bilaterally, Breath Sounds Equal, Decreased Bases (Angela Ortega) Cardiology CV Exam: Irregular, Arrhythmia (Angela Ortega) Gastrointestinal/Abdomen GI Exam: Soft, Non-Tender, Bowel Sounds Present (Angela Ortega) Musculoskeletal MS Exam: Joints Intact, Normal Gait, Normal Tone (Angela Ortega) Integumentary Skin Exam: Clear, Warm, Dry (Angela Ortega) Extremeties Extremities Exam: No Edema, Pedal Pulses Palpable Extremeties Remarks left arm + thrill/bruit (Angela Ortega) Neurologic Neuro Exam: Alert, Awake, Oriented, Speech Clear, Moving All Extremities (Angela Ortega) Psychiatric Psych Exam: Appropriate Responses (Angela Ortega) Assessment/Plan Discussed Condition With: Patient Assessment Summary: End Stage Renal Disease Problem List: (1) ESRD (end stage renal disease) on dialysis ICD Codes: N18.6 - End stage renal disease; Z99.2 - Dependence on renal dialysis Status: Chronic Plan: Continue TTS HD Due tomorrow We will attempt to cannulate left arm graft and have asked him to avoid sudden movements while on HD Order EMLA cream If successful we may be able to remove Permcath Intermittently obtain renal panel Avoid IVF He does not have outpatient HD arrangements currently. (2) Hyperkalemia, diminished renal excretion ICD Codes: E87.5 - Hyperkalemia Status: Acute Plan: Improved Monitor (3) Metabolic bone disease ICD Codes: E88.9 - Metabolic disorder, unspecified; M90.80 - Osteopathy in diseases classified elsewhere, unspecified site Status: Acute Plan: On Renvela with meals On Sensipar for secondary hyperparathyroidism (4) HTN (hypertension) ICD Codes: I10 - Essential (primary) hypertension Status: Acute Plan: BP is better; hold antihypertensives if systolic < 100 mmHg Monitor blood pressure (5) Anemia of renal disease ICD Codes: D63.1 - Anemia in chronic kidney disease Status: Acute Plan: Epogen with dialysis , dose increased 06/15 (Angela Ortega) Problem List: (1) ESRD (end stage renal disease) on dialysis ICD Codes: N18.6 - End stage renal disease; Z99.2 - Dependence on renal dialysis Status: Chronic Plan: Continue TTS HD Due tomorrow We will attempt to cannulate left arm graft and have asked him to avoid sudden movements while on HD Order EMLA cream If successful we may be able to remove Permcath Intermittently obtain renal panel Avoid IVF He does not have outpatient HD arrangements currently. (2) Hyperkalemia, diminished renal excretion ICD Codes: E87.5 - Hyperkalemia Status: Acute Plan: Improved Monitor (3) Metabolic bone disease ICD Codes: E88.9 - Metabolic disorder, unspecified; M90.80 - Osteopathy in diseases classified elsewhere, unspecified site Status: Acute Plan: On Renvela with meals On Sensipar for secondary hyperparathyroidism (4) HTN (hypertension) ICD Codes: I10 - Essential (primary) hypertension Status: Acute Plan: BP is better; hold antihypertensives if systolic < 100 mmHg Monitor blood pressure (5) Anemia of renal disease ICD Codes: D63.1 - Anemia in chronic kidney disease Status: Acute Plan: Epogen with dialysis , dose increased 06/15 Plan patient was seen and examined. Disposition is an issue. We will attempt to use AVF for dialysis. (Keron Singh MD) Angela Ortega Jun 18, 2017 11:53 Keron Singh MD Jun 19, 2017 11:30
[2017-06-18 11:58] LABS: ALKALINE PHOSPHATASE 235 U/L (45-117); AST (GOT) 10 U/L (15-37); BLOOD UREA NITROGEN 74 MG/DL (7-18); GLOMERULAR FILTRATION RATE 6 ML/MIN (>89)
[2017-06-18 11:59] LABS: ALT (GPT) 17 U/L (12-78); ANION GAP 14 MEQ/L (5-15); BICARBONATE 25.8 MEQ/L (21.0-32.0); TOTAL BILIRUBIN ADULT 0.5 MG/DL (0.2-1.0)
--- NOTE | 2017-06-18 16:04 | HHI.PR ---
Subjective Remarks Patient has shown stability now. No further CHF exacerbation. He will need to continue dialysis. Part of his fluid overload secondary to missed dialysis. Objective Vital Signs Date Time Temp Pulse Resp B/P (MAP) Pulse Ox O2 Delivery O2 Flow Rate FiO2 06/18/17 12:00 97.6 97 18 135/78 (97) 92 06/18/17 09:18 93 Nasal Cannula 3.00 06/18/17 08:00 Nasal Cannula 3.00 06/18/17 08:00 97.6 84 17 120/73 (89) 97 06/18/17 04:00 97.4 86 20 122/77 (92) 95 06/18/17 04:00 Nasal Cannula 3.00 06/18/17 00:00 98.3 97 20 106/61 (76) 97 06/18/17 00:00 Nasal Cannula 3.00 06/17/17 22:05 Nasal Cannula 3.00 06/17/17 20:08 96 06/17/17 20:00 98.8 106 20 109/70 (83) 96 06/17/17 20:00 Nasal Cannula 3.00 I/O 06/17/17 06/17/17 06/17/17 06/18/17 06/18/17 06/18/17 07:00 15:00 23:00 07:00 15:00 23:00 Intake Total 400 ml 700 ml Output Total 0 ml 0 ml Balance 400 ml 700 ml Intake Oral 400 ml 700 ml Output Urine Total 0 ml 0 ml # Voids 0 # Bowel Movements 0 Result Diagram: 06/18/1784506/18/1746 Objective Remarks GENERAL: NAD, A&Ox3 HEAD: Normocephalic. NECK: Supple, trachea midline. No lymphadenopathy. EYES: No scleral icterus. No injection or drainage. CARDIOVASCULAR: Regular rate and rhythm without murmurs, gallops, or rubs. RESPIRATORY: Breath sounds equal bilaterally. No accessory muscle use. GASTROINTESTINAL: Abdomen soft, non-tender, nondistended. MUSCULOSKELETAL: No cyanosis, or edema. Breasts Scars at arms. vascular access port in left upper chest. SKIN: Warm and dry. NEURO: No focal neurological deficitis. A/P Problem List: (1) Renal dialysis device, implant, or graft complication ICD Code: T82.9XXA - Unspecified complication of cardiac and vascular prosthetic device, implant and graft, initial encounter (2) Anemia of renal disease ICD Code: D63.1 - Anemia in chronic kidney disease Status: Acute (3) ESRD (end stage renal disease) on dialysis ICD Code: N18.6 - End stage renal disease; Z99.2 - Dependence on renal dialysis Status: Chronic Assessment and Plan Assessment and Plan 72-year-old male admitted secondary to CHF exacerbation with renal failure. Patient is presently homeless. Seeking long-term placement. Patient cannot be off dialysis at this point. A. fib with RVR Continue metoprolol Follow on telemetry Continue aspirin COPD with mild exacerbation Exacerbation resolved Oxygen supplements as needed Chronic renal failure End-stage renal disease Continue dialysis Follow electrolytes Nephrology following Follow renal function Hypertension Continue baseline treatments Follow blood pressure History of prostate cancer Continue monitoring as an outpatient DVT prophylaxis Heparin Vinicius Philippe MD Jun 18, 2017 16:04
[2017-06-18] MEDS: diphenhydrAMINE HCL 25 MG CAP PO PRN (21:12)
[2017-06-18] MEDS: ALPRAZolam 0.5 MG TAB PO PRN (21:13)
[2017-06-18] MEDS: traZODone HCL 100 MG TAB PO SCH (21:13)
[2017-06-19] MEDS: SUCRALFATE 1 GM TAB PO SCH ×4 (06:13→22:44)
[2017-06-19] MEDS: ISOSORBIDE MONONITRATE 30 MG TAB PO SCH (06:13)
[2017-06-19] MEDS: HEPARIN SODIUM - SQ 10,000 UNITS/ML VIAL SQ SCH ×3 (06:13→20:04)
[2017-06-19 08:07] VITALS: BP 115/65; PULSE 98; RESP 20; TEMP 98; O2SAT 88
[2017-06-19] MEDS: ASPIRIN EC 81 MG TABEC PO SCH (08:43)
[2017-06-19] MEDS: SEVELAMER CARBONATE 800 MG TAB PO SCH ×3 (08:43→18:16)
[2017-06-19] MEDS: CINACALCET HYDROCHLORIDE 30 MG TAB PO SCH (08:43)
[2017-06-19] MEDS: METOPROLOL TARTRATE 25 MG TAB PO SCH ×2 (08:44→20:04)
[2017-06-19] MEDS: SODIUM CHLORIDE 0.9% FLUSH 10 ML FLUSH IV FLUSH SCH ×2 (09:00→20:03)
[2017-06-19 09:11] LABS: AUTOMATED NEUTROPHIL # 6.6 TH/MM3 (1.8-7.7); BASOPHIL # 0.1 TH/MM3 (0-0.2); EOSINOPHIL # 0.4 TH/MM3 (0-0.4); EOSINOPHIL % 4.1 % (0.0-4.0); HEMATOCRIT 32.5 % (39.0-51.0); HEMO FLAGS DIFF FINAL; LYMPHOCYTE # 1.8 TH/MM3 (1.0-4.8); MEAN CELL VOLUME 100.1 FL (80.0-100.0); MEAN CORPUSCULAR HEMOGLOBIN 32.2 PG (27.0-34.0); MEAN CORPUSCULAR HGB CONC 32.1 % (32.0-36.0); MONO % 8.6 % (0.0-8.0); NEUT % 68.3 % (16.0-70.0); PLATELET COUNT 298 TH/MM3 (150-450); RED BLOOD COUNT 3.25 MIL/MM3 (4.50-5.90); RED CELL DISTRIBUTION WIDTH 20.3 % (11.6-17.2); WHITE BLOOD COUNT 9.7 TH/MM3 (4.0-11.0)
[2017-06-19 09:28] LABS: ANION GAP 13 MEQ/L (5-15)
[2017-06-19 09:33] LABS: ALKALINE PHOSPHATASE 192 U/L (45-117); ALT (GPT) 9 U/L (12-78); AST (GOT) 12 U/L (15-37); BICARBONATE 24.4 MEQ/L (21.0-32.0); BLOOD UREA NITROGEN 90 MG/DL (7-18); CHLORIDE 97 MEQ/L (98-107); GLOMERULAR FILTRATION RATE 6 ML/MIN (>89); POTASSIUM 5.1 MEQ/L (3.5-5.1); SODIUM (NA) 134 MEQ/L (136-145); TOTAL BILIRUBIN ADULT 0.5 MG/DL (0.2-1.0)
--- NOTE | 2017-06-19 10:11 | HHI.PR ---
Subjective Remarks No complaints from the patient. Medically he is stable for discharge when outpatient dialysis can be arranged. Patient is agreeable to placement if needed. Objective Vital Signs Date Time Temp Pulse Resp B/P (MAP) Pulse Ox O2 Delivery O2 Flow Rate FiO2 06/19/17 08:07 98.0 98 20 115/65 (82) 88 06/19/17 04:00 Nasal Cannula 3.00 06/19/17 00:00 Nasal Cannula 3.00 06/18/17 23:32 97.9 92 16 111/58 (75) 98 06/18/17 20:00 Nasal Cannula 3.00 06/18/17 19:56 102 06/18/17 19:32 97.6 107 16 131/81 (98) 97 06/18/17 12:00 97.6 97 18 135/78 (97) 92 I/O 06/18/17 06/18/17 06/18/17 06/19/17 06/19/17 06/19/17 07:00 15:00 23:00 07:00 15:00 23:00 Intake Total 320 ml Output Total 0 ml Balance 320 ml Intake Oral 320 ml Output Urine Total 0 ml # Bowel Movements 0 Result Diagram: 06/19/17 0754 06/19/17 0754 Objective Remarks GENERAL: NAD, A&Ox3 HEAD: Normocephalic. NECK: Supple, trachea midline. No lymphadenopathy. EYES: No scleral icterus. No injection or drainage. CARDIOVASCULAR: Regular rate and rhythm without murmurs, gallops, or rubs. RESPIRATORY: Breath sounds equal bilaterally. No accessory muscle use. GASTROINTESTINAL: Abdomen soft, non-tender, nondistended. MUSCULOSKELETAL: No cyanosis, or edema. Breasts Scars at arms. vascular access port in left upper chest. SKIN: Warm and dry. NEURO: No focal neurological deficitis. A/P Problem List: (1) Renal dialysis device, implant, or graft complication ICD Code: T82.9XXA - Unspecified complication of cardiac and vascular prosthetic device, implant and graft, initial encounter (2) Anemia of renal disease ICD Code: D63.1 - Anemia in chronic kidney disease Status: Acute (3) ESRD (end stage renal disease) on dialysis ICD Code: N18.6 - End stage renal disease; Z99.2 - Dependence on renal dialysis Status: Chronic Assessment and Plan Assessment and Plan 72-year-old male admitted secondary to CHF exacerbation with renal failure. Patient is presently homeless. Seeking long-term placement. Patient cannot be off dialysis at this point. Continue to monitor renal function while hospitalized. A. fib with RVR Continue metoprolol Follow on telemetry Continue aspirin COPD with mild exacerbation Exacerbation resolved Oxygen supplements as needed Chronic renal failure End-stage renal disease Continue dialysis Follow electrolytes Nephrology following Follow renal function Hypertension Continue baseline treatments Follow blood pressure History of prostate cancer Continue monitoring as an outpatient DVT prophylaxis Heparin Vinicius Philippe MD Jun 19, 2017 10:11
--- NOTE | 2017-06-19 11:29 | HHI.NPPN ---
Subjective Renal Failure: Chronic, End Stage Renal Disease Interval History To be dialyzed today. No new concerns. (Angela Ortega) Objective Data Data Vital Signs Date Time Temp Pulse Resp B/P (MAP) Pulse Ox O2 Delivery O2 Flow Rate FiO2 06/19/17 08:07 98.0 98 20 115/65 (82) 88 06/19/17 04:00 Nasal Cannula 3.00 06/19/17 00:00 Nasal Cannula 3.00 06/18/17 23:32 97.9 92 16 111/58 (75) 98 06/18/17 20:00 Nasal Cannula 3.00 06/18/17 19:56 102 06/18/17 19:32 97.6 107 16 131/81 (98) 97 06/18/17 12:00 97.6 97 18 135/78 (97) 92 (Angela Ortega) -: 06/19/17 0754 06/19/17 0754 Tubes & Lines: Perma-Cath (Angela Ortega) Physical Exam General Appearance: Well Developed, Well Nourished, No Acute Distress, Comfortable (Angela Ortega) Eyes Eye Exam: Pupils Equal (Angela Ortega) Throat Throat Exam: Oral Mucosa [place] & Moist (Angela Ortega) Pulmonary Resp Exam: Clear Bilaterally, Breath Sounds Equal, Decreased Bases (Angela Ortega) Cardiology CV Exam: Irregular, Arrhythmia (Angela Ortega) Gastrointestinal/Abdomen GI Exam: Soft, Non-Tender, Bowel Sounds Present (Angela Ortega) Musculoskeletal MS Exam: Joints Intact, Normal Gait, Normal Tone (Angela Ortega) Integumentary Skin Exam: Clear, Warm, Dry (Angela Ortega) Extremeties Extremities Exam: No Edema, Pedal Pulses Palpable Extremeties Remarks left arm + thrill/bruit (Angela Ortega) Neurologic Neuro Exam: Alert, Awake, Oriented, Speech Clear, Moving All Extremities (Angela Ortega) Psychiatric Psych Exam: Appropriate Responses (Angela Ortega) Assessment/Plan Discussed Condition With: Patient Assessment Summary: Hypertension, End Stage Renal Disease Problem List: (1) ESRD (end stage renal disease) on dialysis ICD Codes: N18.6 - End stage renal disease; Z99.2 - Dependence on renal dialysis Status: Chronic Plan: Continue TTS HD He is due today We will attempt to cannulate left arm graft and have asked him to avoid sudden movements while on HD Ordered EMLA cream for nurse to apply prior to HD If successful we may be able to remove Permcath Intermittently obtain renal panel Avoid IVF He does not have outpatient HD arrangements currently. (2) Hyperkalemia, diminished renal excretion ICD Codes: E87.5 - Hyperkalemia Status: Acute Plan: Improved Monitor (3) Metabolic bone disease ICD Codes: E88.9 - Metabolic disorder, unspecified; M90.80 - Osteopathy in diseases classified elsewhere, unspecified site Status: Acute Plan: On Renvela with meals On Sensipar for secondary hyperparathyroidism (4) HTN (hypertension) ICD Codes: I10 - Essential (primary) hypertension Status: Acute Plan: BP is stable; hold antihypertensives if systolic < 100 mmHg Monitor blood pressure (5) Anemia of renal disease ICD Codes: D63.1 - Anemia in chronic kidney disease Status: Acute Plan: Epogen with dialysis , dose increased 06/15 (Angela Ortega) Plan patient was seen and examined. Attempt to use AVF. Agree with above assessment and plan. (Keron Singh MD) Angela Ortega Jun 19, 2017 11:28 Keron Singh MD Jun 20, 2017 10:32
[2017-06-19 12:07] VITALS: BP 121/75; PULSE 94; RESP 20; TEMP 98.5; O2SAT 91
[2017-06-19] MEDS: LIDOCAINE-PRILOCAIN 2.5% CREAM 5 GM TUBE TOPICAL PRN ×2 (12:45→13:15)
[2017-06-19] MEDS: GENTAMICIN SULFATE (DIALYSIS USE ONLY) 20 MG/2 ML VIAL OTHER PRN (16:36)
[2017-06-19 17:56] VITALS: O2SAT 91
[2017-06-19] MEDS: RESP: ALBUTEROL 1.25 MG/3 ML NEB (PRN) NEB (18:37)
[2017-06-19 19:30] VITALS: BP 143/77; PULSE 109; RESP 22; TEMP 97.3; O2SAT 93
[2017-06-19 19:42] VITALS: PULSE 111
[2017-06-19] MEDS: traZODone HCL 100 MG TAB PO SCH (20:04)
[2017-06-19 23:17] VITALS: BP 108/61; PULSE 88; RESP 20; TEMP 98.6; O2SAT 97
[2017-06-20] VITALS (8 sets, daily range): BP systolic 101–142; BP diastolic 60–88; PULSE 80–106; RESP 18–25; TEMP 97.6–99.3; O2SAT 90–100
[2017-06-20] MEDS: HEPARIN SODIUM - SQ 10,000 UNITS/ML VIAL SQ SCH ×3 (05:33→22:00)
[2017-06-20] MEDS: ISOSORBIDE MONONITRATE 30 MG TAB PO SCH (05:35)
[2017-06-20] MEDS: SUCRALFATE 1 GM TAB PO SCH ×4 (06:42→23:28)
[2017-06-20] MEDS: RESP: ALBUTEROL 1.25 MG/3 ML NEB (PRN) NEB ×4 (07:36→19:45)
[2017-06-20] MEDS: CINACALCET HYDROCHLORIDE 30 MG TAB PO SCH (10:20)
[2017-06-20] MEDS: SEVELAMER CARBONATE 800 MG TAB PO SCH ×3 (10:21→17:35)
[2017-06-20] MEDS: ASPIRIN EC 81 MG TABEC PO SCH (10:21)
[2017-06-20] MEDS: METOPROLOL TARTRATE 25 MG TAB PO SCH ×2 (10:21→21:59)
[2017-06-20 10:22] LABS: ANION GAP 16 MEQ/L (5-15); AST (GOT) 16 U/L (15-37); BICARBONATE 23.4 MEQ/L (21.0-32.0); BLOOD UREA NITROGEN 68 MG/DL (7-18); CHLORIDE 95 MEQ/L (98-107); GLOMERULAR FILTRATION RATE 7 ML/MIN (>89); POTASSIUM 4.9 MEQ/L (3.5-5.1); SODIUM (NA) 134 MEQ/L (136-145)
[2017-06-20 10:24] LABS: ALKALINE PHOSPHATASE 202 U/L (45-117); ALT (GPT) 12 U/L (12-78); TOTAL BILIRUBIN ADULT 0.4 MG/DL (0.2-1.0)
--- NOTE | 2017-06-20 12:23 | HHI.NPPN ---
Subjective Renal Failure: Chronic, End Stage Renal Disease Interval History Dialyzed yesterday. He is threatening to leave AMA today. (Angela Ortega) Objective Data Data Vital Signs Date Time Temp Pulse Resp B/P (MAP) Pulse Ox O2 Delivery O2 Flow Rate FiO2 06/20/17 08:07 98.8 106 20 142/88 (106) 91 06/20/17 08:00 Nasal Cannula 3.00 06/20/17 07:35 97 Nasal Cannula 3.00 06/20/17 03:55 98.4 80 20 120/86 (97) 94 06/20/17 00:00 Nasal Cannula 3.00 06/19/17 23:17 98.6 88 20 108/61 (77) 97 06/19/17 20:00 Nasal Cannula 3.00 06/19/17 19:42 111 06/19/17 19:30 97.3 109 22 143/77 (99) 93 06/19/17 17:56 91 Nasal Cannula 3.00 (Angela Ortega) -: 06/19/17 0754 06/20/17 0838 Tubes & Lines: Perma-Cath (Angela Ortega) Physical Exam General Appearance: Well Developed, Well Nourished, No Acute Distress, Comfortable (Angela Ortega) Eyes Eye Exam: Pupils Equal (Angela Ortega) Throat Throat Exam: Oral Mucosa [place] & Moist (Angela Ortega) Pulmonary Resp Exam: Clear Bilaterally, Breath Sounds Equal, Decreased Bases (Angela Orteag) Cardiology CV Exam: Irregular, Arrhythmia (Angela Ortega) Gastrointestinal/Abdomen GI Exam: Soft, Non-Tender, Bowel Sounds Present (Angela Ortega) Musculoskeletal MS Exam: Joints Intact, Normal Gait, Normal Tone (Angela Ortega) Integumentary Skin Exam: Clear, Warm, Dry (Angela Ortega) Extremeties Extremities Exam: No Edema, Pedal Pulses Palpable Extremeties Remarks left arm + thrill/bruit (Angela Ortega) Neurologic Neuro Exam: Alert, Awake, Oriented, Speech Clear, Moving All Extremities (Angela Ortega) Psychiatric Psych Exam: Appropriate Responses (Angela Ortega) Assessment/Plan Discussed Condition With: Patient Assessment Summary: Hypertension, End Stage Renal Disease Problem List: (1) ESRD (end stage renal disease) on dialysis ICD Codes: N18.6 - End stage renal disease; Z99.2 - Dependence on renal dialysis Status: Chronic Plan: Dialyzed yesterday, 3L UF Continue TTS HD Intermittently obtain renal panel Avoid IVF Attempt to cannulate AV access tomorrow He does not have outpatient HD arrangements currently. Threatening to leave AMA. (2) Hyperkalemia, diminished renal excretion ICD Codes: E87.5 - Hyperkalemia Status: Acute Plan: Improved Monitor (3) Metabolic bone disease ICD Codes: E88.9 - Metabolic disorder, unspecified; M90.80 - Osteopathy in diseases classified elsewhere, unspecified site Status: Acute Plan: On Renvela with meals On Sensipar for secondary hyperparathyroidism (4) HTN (hypertension) ICD Codes: I10 - Essential (primary) hypertension Status: Acute Plan: BP is stable. continue medications as ordered Monitor blood pressure (5) Anemia of renal disease ICD Codes: D63.1 - Anemia in chronic kidney disease Status: Acute Plan: Epogen with dialysis , dose increased 06/15 (Angela Ortega) Plan patient did not cooperate during exam. He threatened to leave AMA (Keron Singh MD) Angela Ortega Jun 20, 2017 12:23 Keron Singh MD Jun 20, 2017 21:24
--- NOTE | 2017-06-20 13:12 | HHI.PR ---
Subjective Remarks Patient threatened to leave AMA today. Primary complaint was his diet. No other complaints. Objective Vital Signs Date Time Temp Pulse Resp B/P (MAP) Pulse Ox O2 Delivery O2 Flow Rate FiO2 06/20/17 12:07 98.0 92 20 122/73 (89) 97 06/20/17 08:07 98.8 106 20 142/88 (106) 91 06/20/17 08:00 Nasal Cannula 3.00 06/20/17 07:35 97 Nasal Cannula 3.00 06/20/17 03:55 98.4 80 20 120/86 (97) 94 06/20/17 00:00 Nasal Cannula 3.00 06/19/17 23:17 98.6 88 20 108/61 (77) 97 06/19/17 20:00 Nasal Cannula 3.00 06/19/17 19:42 111 06/19/17 19:30 97.3 109 22 143/77 (99) 93 06/19/17 17:56 91 Nasal Cannula 3.00 I/O 06/19/17 06/19/17 06/19/17 06/20/17 06/20/17 06/20/17 07:00 15:00 23:00 07:00 15:00 23:00 Intake Total 320 ml 380 ml 600 ml Output Total 0 ml 3000 ml Balance 320 ml -2620 ml 600 ml Intake Oral 320 ml 380 ml 600 ml Output Urine Total 0 ml Hemodialysis 3000 ml # Voids 0 0 # Bowel Movements 0 0 0 Result Diagram: 06/19/17 0754 06/20/17 0838 Objective Remarks GENERAL: NAD, A&Ox3 HEAD: Normocephalic. NECK: Supple, trachea midline. No lymphadenopathy. EYES: No scleral icterus. No injection or drainage. CARDIOVASCULAR: Regular rate and rhythm without murmurs, gallops, or rubs. RESPIRATORY: Breath sounds equal bilaterally. No accessory muscle use. GASTROINTESTINAL: Abdomen soft, non-tender, nondistended. MUSCULOSKELETAL: No cyanosis, or edema. Breasts Scars at arms. vascular access port in left upper chest. SKIN: Warm and dry. NEURO: No focal neurological deficitis. A/P Problem List: (1) Renal dialysis device, implant, or graft complication ICD Code: T82.9XXA - Unspecified complication of cardiac and vascular prosthetic device, implant and graft, initial encounter (2) Anemia of renal disease ICD Code: D63.1 - Anemia in chronic kidney disease Status: Acute (3) ESRD (end stage renal disease) on dialysis ICD Code: N18.6 - End stage renal disease; Z99.2 - Dependence on renal dialysis Status: Chronic Assessment and Plan Assessment and Plan 72-year-old male admitted secondary to CHF exacerbation with renal failure. Patient is presently homeless. Seeking long-term placement. Patient cannot be off dialysis at this point. Labs reviewed. Continue dialysis needed. Continue to monitor renal function while hospitalized. Labs ordered for further monitoring. A. fib with RVR Continue metoprolol Follow on telemetry Continue aspirin COPD with mild exacerbation Exacerbation resolved Oxygen supplements as needed Chronic renal failure End-stage renal disease Continue dialysis Follow electrolytes Nephrology following Follow renal function Hypertension Continue baseline treatments Follow blood pressure History of prostate cancer Continue monitoring as an outpatient DVT prophylaxis Heparin Vinicius Philippe MD Jun 20, 2017 13:12
[2017-06-20] MEDS: SODIUM CHLORIDE 0.9% FLUSH 10 ML FLUSH IV FLUSH SCH ×2 (13:32→22:00)
[2017-06-20 17:03] LABS: AUTOMATED NEUTROPHIL # 7.7 TH/MM3 (1.8-7.7); BASOPHIL # 0.1 TH/MM3 (0-0.2); BASOPHIL % 0.8 % (0.0-2.0); EOSINOPHIL # 0.5 TH/MM3 (0-0.4); EOSINOPHIL % 4.9 % (0.0-4.0); HEMATOCRIT 34.5 % (39.0-51.0); HEMO FLAGS DIFF FINAL; LYMPH % 13.3 % (9.0-44.0); LYMPHOCYTE # 1.4 TH/MM3 (1.0-4.8); MEAN CELL VOLUME 97.8 FL (80.0-100.0); MEAN CORPUSCULAR HEMOGLOBIN 32.7 PG (27.0-34.0); MEAN CORPUSCULAR HGB CONC 33.5 % (32.0-36.0); MONO % 8.3 % (0.0-8.0); NEUT % 72.7 % (16.0-70.0); PLATELET COUNT 307 TH/MM3 (150-450); RED BLOOD COUNT 3.53 MIL/MM3 (4.50-5.90); RED CELL DISTRIBUTION WIDTH 20.8 % (11.6-17.2); WHITE BLOOD COUNT 10.6 TH/MM3 (4.0-11.0)
[2017-06-20] MEDS: ONDANSETRON HCL 4 MG/2 ML VIAL IV PUSH PRN (17:35)
[2017-06-20] MEDS: ALPRAZolam 0.5 MG TAB PO PRN (21:59)
[2017-06-20] MEDS: traZODone HCL 100 MG TAB PO SCH (21:59)
[2017-06-20] MEDS: ACETAMINOPHEN/HYDROcodone 325 MG/7.5 MG TAB PO PRN (23:28)
[2017-06-21] MEDS: RESP: ALBUTEROL 1.25 MG/3 ML NEB (PRN) NEB ×3 (00:37→18:04)
[2017-06-21] MEDS: ONDANSETRON HCL 4 MG/2 ML VIAL IV PUSH PRN (00:40)
[2017-06-21 03:45] VITALS: BP 105/57; PULSE 101; RESP 18; TEMP 98.6; O2SAT 97
[2017-06-21] MEDS: HEPARIN SODIUM - SQ 10,000 UNITS/ML VIAL SQ SCH ×3 (06:00→20:52)
[2017-06-21] MEDS: ISOSORBIDE MONONITRATE 30 MG TAB PO SCH (06:08)
[2017-06-21] MEDS: SUCRALFATE 1 GM TAB PO SCH ×4 (06:08→17:31)
[2017-06-21 08:00] VITALS: BP 116/71; PULSE 96; RESP 20; TEMP 98.7; O2SAT 98
[2017-06-21 08:31] VITALS: O2SAT 98
[2017-06-21] MEDS: SEVELAMER CARBONATE 800 MG TAB PO SCH ×4 (08:36→17:32)
[2017-06-21] MEDS: ASPIRIN EC 81 MG TABEC PO SCH (08:36)
[2017-06-21] MEDS: SODIUM CHLORIDE 0.9% FLUSH 10 ML FLUSH IV FLUSH SCH ×2 (08:36→20:53)
[2017-06-21] MEDS: CINACALCET HYDROCHLORIDE 30 MG TAB PO SCH (08:36)
[2017-06-21] MEDS: METOPROLOL TARTRATE 25 MG TAB PO SCH ×2 (08:36→20:53)
[2017-06-21 10:26] LABS: AUTOMATED NEUTROPHIL # 5.6 TH/MM3 (1.8-7.7); BASOPHIL # 0.1 TH/MM3 (0-0.2); BASOPHIL % 1.3 % (0.0-2.0); EOSINOPHIL # 0.9 TH/MM3 (0-0.4); EOSINOPHIL % 9.8 % (0.0-4.0); HEMO FLAGS DIFF FINAL; LYMPH % 16.3 % (9.0-44.0); LYMPHOCYTE # 1.5 TH/MM3 (1.0-4.8); MEAN CELL VOLUME 98.7 FL (80.0-100.0); MEAN CORPUSCULAR HEMOGLOBIN 32.8 PG (27.0-34.0); MEAN CORPUSCULAR HGB CONC 33.2 % (32.0-36.0); MONO % 10.3 % (0.0-8.0); NEUT % 62.3 % (16.0-70.0); PLATELET COUNT 238 TH/MM3 (150-450); RED BLOOD COUNT 3.34 MIL/MM3 (4.50-5.90); RED CELL DISTRIBUTION WIDTH 20.7 % (11.6-17.2)
[2017-06-21 10:56] LABS: ALKALINE PHOSPHATASE 205 U/L (45-117); ALT (GPT) 9 U/L (12-78); ANION GAP 14 MEQ/L (5-15); AST (GOT) 10 U/L (15-37); BICARBONATE 28.9 MEQ/L (21.0-32.0); BLOOD UREA NITROGEN 79 MG/DL (7-18); CHLORIDE 94 MEQ/L (98-107); GLOMERULAR FILTRATION RATE 6 ML/MIN (>89); POTASSIUM 4.3 MEQ/L (3.5-5.1); SODIUM (NA) 137 MEQ/L (136-145); TOTAL BILIRUBIN ADULT 0.4 MG/DL (0.2-1.0)
[2017-06-21] MEDS: diphenhydrAMINE HCL 50 MG/ML VIAL IV PRN (11:17)
[2017-06-21] MEDS: diphenhydrAMINE HCL 25 MG CAP PO PRN (12:27)
[2017-06-21] MEDS: GENTAMICIN SULFATE (DIALYSIS USE ONLY) 20 MG/2 ML VIAL OTHER PRN (15:03)
[2017-06-21] MEDS: HEPARIN SODIUM - IV 10,000 UNITS/10 ML VIAL IV FLUSH PRN (15:03)
[2017-06-21] MEDS: EPOETIN ALFA 4,000 UNITS/ML VIAL IV PUSH PRN (15:04)
[2017-06-21] MEDS: ALPRAZolam 0.5 MG TAB PO PRN (15:42)
[2017-06-21 16:00] VITALS: BP 109/60; PULSE 107; RESP 20; TEMP 97.4; O2SAT 95
--- NOTE | 2017-06-21 17:20 | HHI.PR ---
Subjective Remarks Mr. Beaver had dialysis today. After dialysis he is reporting that he like to leave AMA. He is encouraged to stay in the hospital and seek options of placement in outpatient dialysis arrangement rather than leaving AMA. Risks are discussed. Objective Vital Signs Date Time Temp Pulse Resp B/P (MAP) Pulse Ox O2 Delivery O2 Flow Rate FiO2 06/21/17 16:00 97.4 107 20 109/60 (76) 95 06/21/17 12:07 Nasal Cannula 2.00 06/21/17 08:31 98 Nasal Cannula 2.00 06/21/17 08:00 98.7 96 20 116/71 (86) 98 06/21/17 03:45 98.6 101 18 105/57 (73) 97 06/21/17 03:45 Nasal Cannula 2.00 06/20/17 23:28 Nasal Cannula 2.00 06/20/17 23:28 99.3 94 18 101/60 (74) 98 06/20/17 20:00 97.6 100 25 117/74 (88) 100 06/20/17 20:00 Nasal Cannula 2.00 06/20/17 19:45 93 21 I/O 06/20/17 06/20/17 06/20/17 06/21/17 06/21/17 06/21/17 07:00 15:00 23:00 07:00 15:00 23:00 Intake Total 600 ml 520 ml 240 ml Output Total 2500 ml Balance 600 ml 520 ml 240 ml -2500 ml Intake Oral 600 ml 520 ml 240 ml Hemodialysis 2500 ml # Voids 0 4 # Bowel Movements 0 0 2 Result Diagram: 06/21/1792606/21/17926 Objective Remarks GENERAL: NAD, A&Ox3 HEAD: Normocephalic. NECK: Supple, trachea midline. No lymphadenopathy. EYES: No scleral icterus. No injection or drainage. CARDIOVASCULAR: Regular rate and rhythm without murmurs, gallops, or rubs. RESPIRATORY: Breath sounds equal bilaterally. No accessory muscle use. GASTROINTESTINAL: Abdomen soft, non-tender, nondistended. MUSCULOSKELETAL: No cyanosis, or edema. Breasts Scars at arms. vascular access port in left upper chest. SKIN: Warm and dry. NEURO: No focal neurological deficitis. A/P Problem List: (1) Renal dialysis device, implant, or graft complication ICD Code: T82.9XXA - Unspecified complication of cardiac and vascular prosthetic device, implant and graft, initial encounter (2) Anemia of renal disease ICD Code: D63.1 - Anemia in chronic kidney disease Status: Acute (3) ESRD (end stage renal disease) on dialysis ICD Code: N18.6 - End stage renal disease; Z99.2 - Dependence on renal dialysis Status: Chronic Assessment and Plan Assessment and Plan 72-year-old male admitted secondary to CHF exacerbation with renal failure. Patient is considering leaving AMA. He is encouraged to stay rather than leave AMA. The risks of missing dialysis are discussed with the patient. A. fib with RVR Continue metoprolol Follow on telemetry Continue aspirin COPD with mild exacerbation Exacerbation resolved Oxygen supplements as needed Chronic renal failure End-stage renal disease Continue dialysis Follow electrolytes Nephrology following Follow renal function Hypertension Continue baseline treatments Follow blood pressure History of prostate cancer Continue monitoring as an outpatient DVT prophylaxis Heparin Vinicius Philippe MD Jun 21, 2017 17:20
[2017-06-21 19:22] VITALS: BP 135/79; PULSE 110; RESP 20; TEMP 98.6; O2SAT 92
--- NOTE | 2017-06-21 20:38 | HHI.NPPN ---
Subjective Renal Failure: Chronic, End Stage Renal Disease Interval History Had dialysis today, apparently moved his arm, developed infiltration at AVF site , therefore PermCath was used to complete dialysis. Objective Data Data 06/21/17 06/22/17 19:00 07:00 Output Total 2500 ml Balance -2500 ml Hemodialysis 2500 ml Vital Signs Date Time Temp Pulse Resp B/P (MAP) Pulse Ox O2 Delivery O2 Flow Rate FiO2 06/21/17 16:00 97.4 107 20 109/60 (76) 95 06/21/17 12:07 Nasal Cannula 2.00 06/21/17 08:31 98 Nasal Cannula 2.00 06/21/17 08:00 98.7 96 20 116/71 (86) 98 06/21/17 03:45 98.6 101 18 105/57 (73) 97 06/21/17 03:45 Nasal Cannula 2.00 06/20/17 23:28 Nasal Cannula 2.00 06/20/17 23:28 99.3 94 18 101/60 (74) 98 -: 06/21/17 0927 06/21/17 0927 Tubes & Lines: Perma-Cath Physical Exam General Appearance: Well Developed, Well Nourished, No Acute Distress, Comfortable Eyes Eye Exam: Pupils Equal Throat Throat Exam: Oral Mucosa [place] & Moist Pulmonary Resp Exam: Clear Bilaterally, Breath Sounds Equal, Decreased Bases Cardiology CV Exam: Irregular, Arrhythmia Gastrointestinal/Abdomen GI Exam: Soft, Non-Tender, Bowel Sounds Present Musculoskeletal MS Exam: Joints Intact, Normal Gait, Normal Tone Integumentary Skin Exam: Clear, Warm, Dry Extremeties Extremities Exam: No Edema, Pedal Pulses Palpable Neurologic Neuro Exam: Alert, Awake, Oriented, Speech Clear, Moving All Extremities Psychiatric Psych Exam: Appropriate Responses Assessment/Plan Discussed Condition With: Patient Assessment Summary: Hypertension, End Stage Renal Disease Problem List: (1) ESRD (end stage renal disease) on dialysis ICD Codes: N18.6 - End stage renal disease; Z99.2 - Dependence on renal dialysis Status: Chronic Plan: Dialyzed yesterday, 3L UF Continue TTS HD Intermittently obtain renal panel Avoid IVF He does not have outpatient HD arrangements currently. Threatening to leave AMA. (2) Hyperkalemia, diminished renal excretion ICD Codes: E87.5 - Hyperkalemia Status: Acute Plan: Improved Monitor (3) Metabolic bone disease ICD Codes: E88.9 - Metabolic disorder, unspecified; M90.80 - Osteopathy in diseases classified elsewhere, unspecified site Status: Acute Plan: On Renvela with meals On Sensipar for secondary hyperparathyroidism (4) HTN (hypertension) ICD Codes: I10 - Essential (primary) hypertension Status: Acute Plan: BP is stable. continue medications as ordered Monitor blood pressure (5) Anemia of renal disease ICD Codes: D63.1 - Anemia in chronic kidney disease Status: Acute Plan: Epogen with dialysis , dose increased 06/15 Plan He may be sent to SNF with dialysis arranged with transitional dialysis at [place]. Keron Singh MD Jun 21, 2017 20:38
[2017-06-21] MEDS: traZODone HCL 100 MG TAB PO SCH (20:53)
[2017-06-22] MEDS: SUCRALFATE 1 GM TAB PO SCH ×4 (00:13→17:19)
[2017-06-22] MEDS: diphenhydrAMINE HCL 25 MG CAP PO PRN (00:13)
[2017-06-22] MEDS: RESP: ALBUTEROL 1.25 MG/3 ML NEB (PRN) NEB ×2 (00:17→15:10)
[2017-06-22] MEDS: ISOSORBIDE MONONITRATE 30 MG TAB PO SCH (06:13)
[2017-06-22] MEDS: HEPARIN SODIUM - SQ 10,000 UNITS/ML VIAL SQ SCH ×2 (06:14→12:21)
[2017-06-22 08:00] VITALS: BP 126/61; PULSE 100; RESP 18; TEMP 98.4; O2SAT 92
[2017-06-22] MEDS: ASPIRIN EC 81 MG TABEC PO SCH (08:41)
[2017-06-22] MEDS: METOPROLOL TARTRATE 25 MG TAB PO SCH (08:41)
[2017-06-22] MEDS: CINACALCET HYDROCHLORIDE 30 MG TAB PO SCH (08:41)
[2017-06-22] MEDS: SODIUM CHLORIDE 0.9% FLUSH 10 ML FLUSH IV FLUSH SCH ×2 (08:41→08:44)
[2017-06-22] MEDS: SEVELAMER CARBONATE 800 MG TAB PO SCH ×3 (08:41→17:19)
--- NOTE | 2017-06-22 09:50 | HHI.PR ---
Subjective Remarks Patient has not yet left AMA. He says he's intensely today, he said that yesterday. He is encouraged to stay and wait placement and dialysis arrangements. I also said that if he is going to leave AMA he should time at right with the weekend and his next dialysis treatment so that he has more time to arrange housing and dialysis himself with the least possible risk. Objective Vital Signs Date Time Temp Pulse Resp B/P (MAP) Pulse Ox O2 Delivery O2 Flow Rate FiO2 06/22/17 09:02 Nasal Cannula 2.00 06/22/17 08:00 98.4 100 18 126/61 (82) 92 06/21/17 19:22 98.6 110 20 135/79 (97) 92 06/21/17 16:00 97.4 107 20 109/60 (76) 95 06/21/17 12:07 Nasal Cannula 2.00 I/O 06/21/17 06/21/17 06/21/17 06/22/17 06/22/17 06/22/17 07:00 15:00 23:00 07:00 15:00 23:00 Intake Total 240 ml 600 ml Output Total 2500 ml 0 ml Balance 240 ml -2500 ml 600 ml Intake Oral 240 ml 600 ml Output Urine Total 0 ml Hemodialysis 2500 ml # Bowel Movements 2 0 Result Diagram: 06/21/1792606/21/17926 Objective Remarks GENERAL: NAD, A&Ox3 HEAD: Normocephalic. NECK: Supple, trachea midline. No lymphadenopathy. EYES: No scleral icterus. No injection or drainage. CARDIOVASCULAR: Regular rate and rhythm without murmurs, gallops, or rubs. RESPIRATORY: Breath sounds equal bilaterally. No accessory muscle use. GASTROINTESTINAL: Abdomen soft, non-tender, nondistended. MUSCULOSKELETAL: No cyanosis, or edema. Breasts Scars at arms. vascular access port in left upper chest. SKIN: Warm and dry. NEURO: No focal neurological deficitis. A/P Problem List: (1) Renal dialysis device, implant, or graft complication ICD Code: T82.9XXA - Unspecified complication of cardiac and vascular prosthetic device, implant and graft, initial encounter (2) Anemia of renal disease ICD Code: D63.1 - Anemia in chronic kidney disease Status: Acute (3) ESRD (end stage renal disease) on dialysis ICD Code: N18.6 - End stage renal disease; Z99.2 - Dependence on renal dialysis Status: Chronic Assessment and Plan Assessment and Plan 72-year-old male admitted secondary to CHF exacerbation with renal failure. Patient is considering leaving AMA. He is encouraged to stay rather than leave AMA. The risks of missing dialysis are discussed with the patient. Continue arrangements for outpatient dialysis and housing arrangements. A. fib with RVR Continue metoprolol Follow on telemetry Continue aspirin COPD with mild exacerbation Exacerbation resolved Oxygen supplements as needed Chronic renal failure End-stage renal disease Continue dialysis Follow electrolytes Nephrology following Follow renal function Hypertension Continue baseline treatments Follow blood pressure History of prostate cancer Continue monitoring as an outpatient DVT prophylaxis Heparin Vinicius Philippe MD Jun 22, 2017 09:50
[2017-06-22 09:58] LABS: AUTOMATED NEUTROPHIL # 5.8 TH/MM3 (1.8-7.7); BASOPHIL # 0.1 TH/MM3 (0-0.2); BASOPHIL % 1.1 % (0.0-2.0); EOSINOPHIL # 1.1 TH/MM3 (0-0.4); EOSINOPHIL % 12.2 % (0.0-4.0); HEMATOCRIT 35.1 % (39.0-51.0); HEMO FLAGS DIFF FINAL; LYMPH % 15.6 % (9.0-44.0); LYMPHOCYTE # 1.5 TH/MM3 (1.0-4.8); MEAN CELL VOLUME 99.4 FL (80.0-100.0); MEAN CORPUSCULAR HEMOGLOBIN 32.6 PG (27.0-34.0); MEAN CORPUSCULAR HGB CONC 32.8 % (32.0-36.0); MONO % 9.6 % (0.0-8.0); NEUT % 61.5 % (16.0-70.0); PLATELET COUNT 283 TH/MM3 (150-450); RED BLOOD COUNT 3.53 MIL/MM3 (4.50-5.90); RED CELL DISTRIBUTION WIDTH 20.4 % (11.6-17.2); WHITE BLOOD COUNT 9.4 TH/MM3 (4.0-11.0)
[2017-06-22 10:22] LABS: ALKALINE PHOSPHATASE 208 U/L (45-117); ALT (GPT) 10 U/L (12-78); ANION GAP 10 MEQ/L (5-15); AST (GOT) 10 U/L (15-37); BICARBONATE 30.5 MEQ/L (21.0-32.0); BLOOD UREA NITROGEN 56 MG/DL (7-18); CHLORIDE 96 MEQ/L (98-107); GLOMERULAR FILTRATION RATE 7 ML/MIN (>89); POTASSIUM 4.1 MEQ/L (3.5-5.1); SODIUM (NA) 136 MEQ/L (136-145); TOTAL BILIRUBIN ADULT 0.4 MG/DL (0.2-1.0)
--- NOTE | 2017-06-22 10:26 | HHI.NPPN ---
Subjective Renal Failure: Chronic, End Stage Renal Disease Interval History Resting, no acute concerns. Discharge plans uncertain. (Angela Ortega) Objective Data Data Vital Signs Date Time Temp Pulse Resp B/P (MAP) Pulse Ox O2 Delivery O2 Flow Rate FiO2 06/22/17 09:02 Nasal Cannula 2.00 06/22/17 08:00 98.4 100 18 126/61 (82) 92 06/21/17 19:22 98.6 110 20 135/79 (97) 92 06/21/17 16:00 97.4 107 20 109/60 (76) 95 06/21/17 12:07 Nasal Cannula 2.00 (Angela Ortega) -: 06/22/17 0917 06/22/17 09 Tubes & Lines: Perma-Cath (Angela Ortega) Physical Exam General Appearance: Well Developed, Well Nourished, No Acute Distress, Comfortable (Angela Ortega) Eyes Eye Exam: Pupils Equal (Angela Ortega) Throat Throat Exam: Oral Mucosa [place] & Moist (Angela Ortega) Pulmonary Resp Exam: Clear Bilaterally, Breath Sounds Equal, Decreased Bases (Angela Ortega) Cardiology CV Exam: Irregular, Arrhythmia (Angela Ortega) Gastrointestinal/Abdomen GI Exam: Soft, Non-Tender, Bowel Sounds Present (Angela Ortega) Musculoskeletal MS Exam: Joints Intact, Normal Gait, Normal Tone (Angela Ortega) Integumentary Skin Exam: Clear, Warm, Dry (Angela Ortega) Extremeties Extremities Exam: No Edema, Pedal Pulses Palpable Extremeties Remarks left arm + thrill/bruit (Angela Ortega) Neurologic Neuro Exam: Alert, Awake, Oriented, Speech Clear, Moving All Extremities (Angela Ortega) Psychiatric Psych Exam: Appropriate Responses (Angela Ortega) Assessment/Plan Discussed Condition With: Patient Assessment Summary: Hypertension, End Stage Renal Disease Problem List: (1) ESRD (end stage renal disease) on dialysis ICD Codes: N18.6 - End stage renal disease; Z99.2 - Dependence on renal dialysis Status: Chronic Plan: Dialysis yesterday, Continue TTS HD Intermittently obtain renal panel Avoid IVF He does not have outpatient HD arrangements currently. Was going to go to [facility] and enter [place] [facility] are no vacant spots (2) Hyperkalemia, diminished renal excretion ICD Codes: E87.5 - Hyperkalemia Status: Acute Plan: Improved Monitor (3) Metabolic bone disease ICD Codes: E88.9 - Metabolic disorder, unspecified; M90.80 - Osteopathy in diseases classified elsewhere, unspecified site Status: Acute Plan: On Renvela with meals On Sensipar for secondary hyperparathyroidism (4) HTN (hypertension) ICD Codes: I10 - Essential (primary) hypertension Status: Acute Plan: BP is stable. continue medications as ordered Monitor blood pressure (5) Anemia of renal disease ICD Codes: D63.1 - Anemia in chronic kidney disease Status: Acute Plan: Epogen with dialysis , dose increased 06/15 (Angela Ortega) Problem List: (1) ESRD (end stage renal disease) on dialysis ICD Codes: N18.6 - End stage renal disease; Z99.2 - Dependence on renal dialysis Status: Chronic Plan: Dialysis yesterday, Continue TTS HD Intermittently obtain renal panel Avoid IVF He does not have outpatient HD arrangements currently. Was going to go to [facility] and enter [place] [facility] there are no vacant spots (2) Hyperkalemia, diminished renal excretion ICD Codes: E87.5 - Hyperkalemia Status: Acute Plan: Improved Monitor (3) Metabolic bone disease ICD Codes: E88.9 - Metabolic disorder, unspecified; M90.80 - Osteopathy in diseases classified elsewhere, unspecified site Status: Acute Plan: On Renvela with meals On Sensipar for secondary hyperparathyroidism (4) HTN (hypertension) ICD Codes: I10 - Essential (primary) hypertension Status: Acute Plan: BP is stable. continue medications as ordered Monitor blood pressure (5) Anemia of renal disease ICD Codes: D63.1 - Anemia in chronic kidney disease Status: Acute Plan: Epogen with dialysis , dose increased 06/15 Plan patient was seen and examined. He will be dialyzed tomorrow. patient safety manager is attempting to send him to [facility], with transitional dialysis at [place]. (Keron Singh MD) Angela Ortega [facility] Jun 22, 2017 10:26 Keron Singh MD Jun 22, 2017 14:58
[2017-06-22 10:48] VITALS: O2SAT 92
[2017-06-22 12:04] VITALS: BP 108/63; PULSE 96; RESP 20; TEMP 99.1; O2SAT 100
[2017-06-22] MEDS ORDERED: LOPERAMIDE HCL SOLN 2 MG/10 ML UDC PO PRN (12:15)
[2017-06-22 15:10] VITALS: O2SAT 95
[2017-06-22 16:00] VITALS: BP 116/68; PULSE 99; RESP 20; TEMP 98.4; O2SAT 96
== END 2017-06-22 17:36 | DRG 291 ==
LOC: NEPE 00:56 → NEDA 04:18 → N04B 11:07
PROVIDERS: ADMIT Hospitalist; ATTEND Hospitalist
PROC: 5A1D70Z Performance of Urinary Filtration, Intermittent, Less than 6 Hours Per Day (ICD-10-PCS; 2017-06-13)
PROC: 05HM33Z Insertion of Infusion Device into Right Internal Jugular Vein, Percutaneous Approach (ICD-10-PCS; principal; 2017-06-14)
DX: I13.2 Hypertensive heart and chronic kidney disease with heart failure and with stage 5 chronic kidney disease, or end stage renal disease (principal); N18.6 End stage renal disease; I95.9 Hypotension, unspecified; E87.5 Hyperkalemia; N25.81 Secondary hyperparathyroidism of renal origin; J44.1 Chronic obstructive pulmonary disease with (acute) exacerbation; I48.91 Unspecified atrial fibrillation; N25.0 Renal osteodystrophy; I50.9 Heart failure, unspecified; Z99.2 Dependence on renal dialysis; K21.9 Gastro-esophageal reflux disease without esophagitis; F41.9 Anxiety disorder, unspecified; E78.5 Hyperlipidemia, unspecified; K57.90 Diverticulosis of intestine, part unspecified, without perforation or abscess without bleeding; D63.1 Anemia in chronic kidney disease; R11.2 Nausea with vomiting, unspecified; R74.8 Abnormal levels of other serum enzymes; Z91.15 Patient's noncompliance with renal dialysis; Z91.19 Patient's noncompliance with other medical treatment and regimen; Z86.19 Personal history of other infectious and parasitic diseases; Z85.46 Personal history of malignant neoplasm of prostate; Z59.0 Homelessness; Z87.891 Personal history of nicotine dependence
CPT/HCPCS: 36558; 71010; 75827; 75860; 76937; 77001; 80048; 80053; 80069; 80074; 82550; 83690; 83735; 83880; 83970; 84132; 84484; 85007; 85025; 85027; 85610; 85730; 90935; 93005; 94640; 94664; 96374; 96375; 99152; 99153; C1750; C1769; C1887; J0690; J1200; J1580; J1644; J2250; J2405; J3010; J3370; J7050; J7512; J7613; Q4081; Q9967

== ENCOUNTER 2017-06-27 21:50 | Emergency (ER) | payer MEDICARE, MEDICAID ==
[~2017-06-27] VITALS: Ht 177.8 cm; Wt 91.0 kg
[~2017-06-27 21:50] MED LIST changes: -ACET325T PO; -OXYGENTANK NAS.CANULA; -TRAZ150T75 PO; +TRAZ1TAB14 PO; +TYLE325T PO; -ZITHTAB PO
[2017-06-27 21:59] VITALS: BP 137/81; PULSE 114; RESP 22; TEMP 98.6; O2SAT 91
[2017-06-27 22:24] VITALS: RESP 20; O2SAT 91
--- NOTE | 2017-06-27 22:26 | PD ---
HPI Chief Complaint: Skin Problem Time Seen by Provider: 22:06 Travel History International Travel<30 days: No Contact w/Intl Traveler<30days: No Traveled to known affect area: No History of Present Illness HPI Patient is a 72-year-old male with history of end-stage renal dialysis with a permacath in place, atrial fibrillation, COPD, hypertension who reports that he does get dialysis every Tuesdays, and Saturdays. Patient reports that he has anuric at baseline. Patient reports that he thinks that he may need a stress was changed to his permacath as he had dialysis today and his permacath is "itchy." Patient denies any drainage from his permacath, denies any fever or chills, denies any chest pain or shortness of breath. Patient is here for dressing changes to his permacath. Patient denies any complaints except for pruritus on his permacath. Denies any cough or congestion or palpitations. PFSH Past Medical History Anemia: Yes Atrial Fibrillation: Yes Anxiety: Yes Cancer: Yes (HX PROSTATE) Cardiovascular Problems: Yes Chemotherapy: Yes Congestive Heart Failure: Yes COPD: Yes Diabetes: No Dialysis: Yes (//SUN) Diminished Hearing: No Gastrointestinal Disorders: Yes (APPENDICITIS) GERD: Yes Hypertension: Yes Respiratory: Yes Migraines: Yes Renal Failure: Yes Past Surgical History Arteriovenous Shunt: Yes (L UPPER ARM FISTULA-WORKING) Prostatectomy: Yes Other Surgery: Yes (AV FISTULA TO LEFT UPPER ARM WORKS) Social History Alcohol Use: No Tobacco Use: No Substance Use: No Allergies-Medications (Allergen,Severity, Reaction): Coded Allergies: No Known Allergies (Unverified Allergy, Unknown, 06/27/17) Reported Meds & Prescriptions Reported Meds & Active Scripts Active Lomotil (Diphenoxylate-Atropine) 2.5-0.025 Mg Tab 1 Tab PO Q6H PRN Zofran Odt (Ondansetron Odt) 4 Mg Tab 4 Mg SL Q6HR PRN Prednisone 20 Mg Tab 20 Mg PO DAILY 5 Days Reported Tylenol (Acetaminophen) 325 Mg Tab 325 Mg PO Q6H PRN Trazodone (Trazodone HCl) 150 Mg Tablet 150 Mg PO HS Antacid (Calcium Carbonate (Antacid)) 500 Mg Chew 500 Mg CHEW TID PRN Triamcinolone Acetonide (Triamcinolone Acetonide (Topic) 1 Pow Pow Pro-Stat (Amino Acids-Protein Hydrolysat) 1 Liq Liq 30 Ml PO TID Renal-Mya 0.8 mg (B-Complex W/ C & Folic Acid) 1 Tab Tab DAILY Alprazolam 0.5 Mg Tab 0.5 Mg PO HS PRN Aspirin 81 (Aspirin) 81 Mg Tabdr 81 Mg PO DAILY Levocetirizine 5 Mg Tab 5 Mg PO HS Sensipar (Cinacalcet) 30 Mg Tab 30 Mg PO DAILY Diltiazem (Diltiazem HCl) 90 Mg Tab 90 Mg PO QID Sucralfate 1 Gm Tab 1 Gm PO Q6HR on empty stomach Ondansetron (Ondansetron HCl) 8 Mg Tab 4 Mg PO TID Renvela (Sevelamer Carbonate) 800 Mg Tab 1,600 Mg PO TID Metoprolol Tartrate 25 Mg Tab 12.5 Mg PO BID Losartan (Losartan Potassium) 100 Mg Tab 100 Mg PO DAILY Isosorbide Mononitrate ER (Isosorbide Mononitrate) 30 Mg Nolan 30 Mg PO DAILY Review of Systems General / Constitutional: No: Fever Eyes: No: Visual changes HENT: No: Headaches Cardiovascular: No: Chest Pain or Discomfort Respiratory: No: Shortness of Breath Gastrointestinal: No: Abdominal Pain Genitourinary: No: Dysuria Musculoskeletal: No: Pain Skin: No Rash Neurologic: No: Weakness Psychiatric: No: Depression Endocrine: No: Polydipsia Hematologic/Lymphatic: No: Easy Bruising Physical Exam Narrative GENERAL: Mild distress SKIN: Focused skin assessment warm/dry. HEAD: Atraumatic. Normocephalic. EYES: Pupils equal and round. No scleral icterus. No injection or drainage. ENT: No nasal bleeding or discharge. Mucous membranes pink and moist. NECK: Trachea midline. No JVD. CARDIOVASCULAR: Tachycardic. No murmur appreciated. Patient with left sided permacath in place, there are no signs of infection or drainage around the permacath site RESPIRATORY: No accessory muscle use. Clear to auscultation. Breath sounds equal bilaterally. GASTROINTESTINAL: Abdomen soft, non-tender, nondistended. Hepatic and splenic margins not palpable. MUSCULOSKELETAL: No obvious deformities. No clubbing. No cyanosis. No edema. NEUROLOGICAL: Awake and alert. No obvious cranial nerve deficits. Motor grossly within normal limits. Normal speech. PSYCHIATRIC: Appropriate mood and affect; insight and judgment normal. Data Data Last Documented VS Vital Signs Date Time Temp Pulse Resp B/P (MAP) Pulse Ox O2 Delivery O2 Flow Rate FiO2 06/27/17 23:42 91 19 115/75 (88) 95 Nasal Cannula 2.00 06/27/17 21:59 98.6 Orders Orders Electrocardiogram (06/27/17 22:16) Basic Metabolic Panel (Bmp) (06/27/17 22:16) Complete Blood Count With Diff (06/27/17 22:16) Prothrombin Time / Inr (Pt) (06/27/17 22:16) Act Partial Throm Time (Ptt) (06/27/17 22:16) Chest, Single Ap (06/27/17 22:16) Ecg Monitoring (06/27/17 22:16) Iv Access Insert/Monitor (06/27/17 22:16) Oximetry (06/27/17 22:16) Sodium Chloride 0.9% Flush (Ns Flush) (06/27/17 22:30) Influenzae A/B Antigen (06/27/17 22:16) Blood Culture (06/27/17 22:16) Diltiazem Inj (Cardizem Inj) (06/27/17 22:45) Diltiazem (Cardizem) (06/28/17 00:00) Sodium Polysty Sulfate Liq (Kayexalate L (06/28/17 00:45) Labs Laboratory Tests Test 06/27/17 23:25 White Blood Count 8.2 TH/MM3 Red Blood Count 3.35 MIL/MM3 Hemoglobin 10.8 GM/DL Hematocrit 32.8 % Mean Corpuscular Volume 97.8 FL Mean Corpuscular Hemoglobin 32.2 PG Mean Corpuscular Hemoglobin Concent 32.9 % Red Cell Distribution Width 19.3 % Platelet Count 217 TH/MM3 Mean Platelet Volume 7.9 FL Neutrophils (%) (Auto) 64.5 % Lymphocytes (%) (Auto) 13.9 % Monocytes (%) (Auto) 9.0 % Eosinophils (%) (Auto) 11.6 % Basophils (%) (Auto) 1.0 % Neutrophils # (Auto) 5.3 TH/MM3 Lymphocytes # (Auto) 1.1 TH/MM3 Monocytes # (Auto) 0.7 TH/MM3 Eosinophils # (Auto) 0.9 TH/MM3 Basophils # (Auto) 0.1 TH/MM3 CBC Comment DIFF FINAL Differential Comment Prothrombin Time 10.8 SEC Prothromb Time International Ratio 1.0 RATIO Activated Partial Thromboplast Time 26.4 SEC Blood Urea Nitrogen 46 MG/DL Creatinine 8.14 MG/DL Random Glucose 92 MG/DL Calcium Level 8.7 MG/DL Sodium Level 139 MEQ/L Potassium Level 5.7 MEQ/L Chloride Level 98 MEQ/L Carbon Dioxide Level 33.6 MEQ/L Anion Gap 7 MEQ/L Estimat Glomerular Filtration Rate 8 ML/MIN MDM Medical Decision Making Medical Screen Exam Complete: Yes Emergency Medical Condition: Yes Medical Record Reviewed: Yes Interpretation(s) EKG at 2230: Aflutter at 113bpm, qt/qtc: 329/396 Vital Signs Date Time Temp Pulse Resp B/P (MAP) Pulse Ox O2 Delivery O2 Flow Rate FiO2 06/27/17 21:59 98.6 114 22 137/81 (99) 91 Differential Diagnosis Atrial fibrillation, pneumonia, sepsis, infection to permacath site Narrative Course During the course of the patients emergency department visit, the patients history, examination, and differential diagnosis were reviewed with the patient. The patient was placed on a graphic arts instructor with oximetry and frequent blood pressure monitoring. Patient is tachycardic as he is currently in a flutter with a heart rate of 113 , IV Cardizem ordered for him as he is on oral Cardizem at home. The patient was initially provided IV Cardizem. The patients laboratory studies were reviewed and remarkable for: CBC & BMP Diagram 06/27/17 23:25 Calcium Level 8.7 Radiology studies were reviewed and remarkable for: Last Impressions Chest X-Ray 06/27/172215 Signed Impressions: Service Date/Time: Tuesday, June 27, 2017 22:35 - CONCLUSION: 1. Stable cardiomegaly. 2. No definite infiltrate seen, however motion degradation may obscure small infiltrates. Gelacio Odell MD Patient with afib with rvr - patient rate controlled after cardizem administered... patient's dressing were changed, patient refuses further care at this time. bun/cr elevated - patient will be due for his dialysis on Sat. patient does not have any signs of infection to his permacath site. Patient will return to ER as needed Diagnosis Primary Impression: Atrial fibrillation with RVR Additional Impression: Hyperkalemia Patient Instructions: General Instructions Additional Instructions: Please follow up with your primary care doctor in 2-3 days Return to the ER if symptoms worsen or progress Return to the ER as needed Please follow up with all cultures from today Disposition: 01 DISCHARGE HOME Condition: Stable Genet Hester DO Jun 27, 2017 22:26
[2017-06-27] MEDS ORDERED: SODIUM CHLORIDE 0.9% FLUSH 10 ML FLUSH IVF PRN (22:30)
[2017-06-27] MEDS ORDERED: DILTIAZEM HCL 25 MG/5 ML VIAL IV ONE (22:45)
--- NOTE | 2017-06-27 22:53 | RADRPT ---
EXAM DATE/TIME: 06/27/2017 22:35 [facility] COMPARISON: CHEST SINGLE AP, June 13, 2017, 1:48. INDICATIONS : Cough, Shortness of breath for 2 years. MEDICAL HISTORY : Chronic obstructive pulmonary disease. Hypertension Congestive heart failure. GERD, Renal failure , Prostate CA SURGICAL HISTORY : Prostatectomy. Arteriovenous shunt ENCOUNTER: Initial ACUITY: >1 year PAIN SCORE: 0/10 LOCATION: Bilateral chest FINDINGS: There is mild patient motion which degrades the image and may obscure small areas of infiltrate. The heart is enlarged, similar to prior. Double lumen central line in place with lumen tips projecting at the cavoatrial junction and right atrium. No evidence of pneumothorax. Prior chest x-ray on 06/13 had demonstrated patchy infiltrates in the lower lungs; no definite infiltrate seen on today's ex am; however, the motion may obscure infiltrates. Both hemidiaphragms are well delineated. CONCLUSION: 1. Stable cardiomegaly. 2. No definite infiltrate seen, however motion degradation may obscure small infiltrates. Gelacio Odell MD on June 27, 2017 at 22:50 Board Certified Radiologist. This report was verified electronically.
[2017-06-27 23:42] VITALS: BP 115/75; PULSE 91; RESP 19; O2SAT 95
[2017-06-28] MEDS ORDERED: DILTIAZEM HCL 30 MG TAB PO ONE
[2017-06-28 00:03] LABS: AUTOMATED NEUTROPHIL # 5.3 TH/MM3 (1.8-7.7); BASOPHIL # 0.1 TH/MM3 (0-0.2); EOSINOPHIL # 0.9 TH/MM3 (0-0.4); EOSINOPHIL % 11.6 % (0.0-4.0); HEMATOCRIT 32.8 % (39.0-51.0); HEMO FLAGS DIFF FINAL; LYMPH % 13.9 % (9.0-44.0); LYMPHOCYTE # 1.1 TH/MM3 (1.0-4.8); MEAN CELL VOLUME 97.8 FL (80.0-100.0); MEAN CORPUSCULAR HEMOGLOBIN 32.2 PG (27.0-34.0); MEAN CORPUSCULAR HGB CONC 32.9 % (32.0-36.0); NEUT % 64.5 % (16.0-70.0); PLATELET COUNT 217 TH/MM3 (150-450); RED BLOOD COUNT 3.35 MIL/MM3 (4.50-5.90); RED CELL DISTRIBUTION WIDTH 19.3 % (11.6-17.2); WHITE BLOOD COUNT 8.2 TH/MM3 (4.0-11.0)
[2017-06-28 00:18] LABS: APTT (PATIENT) 26.4 SEC (24.3-30.1); PROTHROMBIN TIME - PATIENT 10.8 SEC (9.8-11.6)
[2017-06-28 00:22] LABS: BICARBONATE 33.6 MEQ/L (21.0-32.0); POTASSIUM 5.7 MEQ/L (3.5-5.1)
[2017-06-28] MEDS ORDERED: SODIUM POLYSTYRENE SULFONATE SUSP 15 GM/60 ML CUP PO ONE (00:45)
--- NOTE | 2017-06-28 10:30 | EKG ---
Date Performed: 06/27/2017 Time Performed: 22:30:12 PTAGE: 72 years EKG: ATRIAL FLUTTER/TACHYCARDIA WITH RAPID VENTRICULAR RESPONSE MARKED LEFT AXIS DEVIATION PATTE RN CONSISTENT WITH PULMONARY DISEASE ABNORMAL ECG PREVIOUS TRACING : 06/13/2017 01.05 DOCTOR: Kamran Spears Interpretating Date/Time 06/28/2017 10:28:05
== END 2017-06-28 02:23 | disposition home or self-care (01) ==
LOC: NEPE 21:50
DX: I48.91 Unspecified atrial fibrillation (principal); E87.5 Hyperkalemia; I13.2 Hypertensive heart and chronic kidney disease with heart failure and with stage 5 chronic kidney disease, or end stage renal disease; N18.6 End stage renal disease; I50.9 Heart failure, unspecified; Z99.2 Dependence on renal dialysis
CPT/HCPCS: 71010; 80048; 85025; 85610; 85730; 87040; 87804; 93005; 96374

== ENCOUNTER 2017-06-30 16:41 | Inpatient (IN) | payer MEDICARE, MEDICAID ==
[~2017-06-30] VITALS: Ht 177.8 cm; Wt 92.9 kg
[2017-06-30 16:54] VITALS: BP 149/89; PULSE 92; RESP 35; O2SAT 94
[2017-06-30] MEDS ORDERED: AZITHROMYCIN 250 MG TAB PO ONE (17:00)
[2017-06-30] MEDS ORDERED: methylPREDNISolone SOD SUCC 125 MG/2 ML VIAL IV PUSH ONE (17:00)
[2017-06-30] MEDS ORDERED: SODIUM CHLORIDE 0.9% FLUSH 10 ML FLUSH IVF PRN (17:00)
[2017-06-30] MEDS ORDERED: cefTRIAXone INJ 1,000 MG in SODIUM CHLORIDE 0.9% INJ 100 ML IV ONE (17:00)
--- NOTE | 2017-06-30 17:06 | PD ---
HPI Chief Complaint: Respiratory Symptoms Time Seen by Provider: 16:56 Travel History International Travel<30 days: No Contact w/Intl Traveler<30days: No Traveled to known affect area: No History of Present Illness HPI 72-year-old Afro[place] male recently admitted for CHF exacerbation and renal failure. Patient has a port placed for dialysis on the left. Patient followed by Dr. Harmon. Patient has missed his dialysis appointment for the day today. He states increased cough and shortness of breath in the last 3 days. Patient states he may have had a fever over the last 2 days. He is currently on oxygen 2 L via nasal cannula satting at 91%. Patient denies any pain. He has no nausea or vomiting. He is notably dyspneic however. Patient is coming in from rehabilitation nursing facility. Patient states his last breathing treatment was approximately 12:30 PM. He has no known drug allergies. PFSH Past Medical History Anemia: Yes Atrial Fibrillation: Yes Anxiety: Yes Cancer: Yes (HX PROSTATE) Cardiovascular Problems: Yes Chemotherapy: Yes Congestive Heart Failure: Yes COPD: Yes Diabetes: No Dialysis: Yes (//SAT) Diminished Hearing: No Gastrointestinal Disorders: Yes (APPENDICITIS) GERD: Yes Hypertension: Yes Respiratory: Yes (COPD) Migraines: Yes Renal Failure: Yes Past Surgical History Arteriovenous Shunt: Yes (L UPPER ARM FISTULA-WORKING) Prostatectomy: Yes Other Surgery: Yes (AV FISTULA TO LEFT UPPER ARM WORKS) Social History Alcohol Use: No Tobacco Use: No Substance Use: No Allergies-Medications (Allergen,Severity, Reaction): Coded Allergies: No Known Allergies (Unverified Allergy, Unknown, 06/27/17) Reported Meds & Prescriptions Reported Meds & Active Scripts Active Lomotil (Diphenoxylate-Atropine) 2.5-0.025 Mg Tab 1 Tab PO Q6H PRN Zofran Odt (Ondansetron Odt) 4 Mg Tab 4 Mg SL Q6HR PRN Prednisone 20 Mg Tab 20 Mg PO DAILY 5 Days Reported Tylenol (Acetaminophen) 325 Mg Tab 325 Mg PO Q6H PRN Trazodone (Trazodone HCl) 150 Mg Tablet 150 Mg PO HS Antacid (Calcium Carbonate (Antacid)) 500 Mg Chew 500 Mg CHEW TID PRN Triamcinolone Acetonide (Triamcinolone Acetonide (Topic) 1 Pow Pow Pro-Stat (Amino Acids-Protein Hydrolysat) 1 Liq Liq 30 Ml PO TID Renal-Mya 0.8 mg (B-Complex W/ C & Folic Acid) 1 Tab Tab DAILY Alprazolam 0.5 Mg Tab 0.5 Mg PO HS PRN Aspirin 81 (Aspirin) 81 Mg Tabdr 81 Mg PO DAILY Levocetirizine 5 Mg Tab 5 Mg PO HS Sensipar (Cinacalcet) 30 Mg Tab 30 Mg PO DAILY Diltiazem (Diltiazem HCl) 90 Mg Tab 90 Mg PO QID Sucralfate 1 Gm Tab 1 Gm PO Q6HR on empty stomach Ondansetron (Ondansetron HCl) 8 Mg Tab 4 Mg PO TID Renvela (Sevelamer Carbonate) 800 Mg Tab 1,600 Mg PO TID Metoprolol Tartrate 25 Mg Tab 12.5 Mg PO BID Losartan (Losartan Potassium) 100 Mg Tab 100 Mg PO DAILY Isosorbide Mononitrate ER (Isosorbide Mononitrate) 30 Mg Nolan 30 Mg PO DAILY Review of Systems Except as stated in HPI: all other systems reviewed are Neg General / Constitutional: No: Fever, Chills Eyes: No: Visual changes HENT: No: Headaches Cardiovascular: No: Chest Pain or Discomfort Respiratory: No: Shortness of Breath Gastrointestinal: No: Abdominal Pain Genitourinary: No: Dysuria Musculoskeletal: No: Pain Skin: No Rash Neurologic: No: Weakness Psychiatric: No: Depression Endocrine: No: Polydipsia Hematologic/Lymphatic: No: Easy Bruising Physical Exam Narrative GENERAL: Patient appears in good spirits and in no acute distress. He is somewhat this neck. SKIN: Warm and dry. Normal color. Somewhat decreased turgor. HEAD: Atraumatic. Normocephalic. EYES: Pupils equal and round. No scleral icterus. No injection or drainage. ENT: No nasal bleeding or discharge. Mucous membranes pink and moist. Pharynx appears normal. Airway is patent. NECK: Trachea midline. No JVD. Supple and nontender. CARDIOVASCULAR: Regular rate and rhythm. RESPIRATORY: No accessory muscle use. Crackles in both bases to auscultation. Breath sounds equal bilaterally. GASTROINTESTINAL: Abdomen soft, non-tender, nondistended. Hepatic and splenic margins not palpable. MUSCULOSKELETAL: Extremities without clubbing, cyanosis, 1-2+ pedal edema in both feet and 1+ in both hands. No obvious deformities. NEUROLOGICAL: Awake and alert. No obvious cranial nerve deficits. Motor grossly within normal limits. Five out of 5 muscle strength in the arms and legs. Normal speech. PSYCHIATRIC: Appropriate mood and affect; insight and judgment normal. Data Data Last Documented VS Vital Signs Date Time Temp Pulse Resp B/P (MAP) Pulse Ox O2 Delivery O2 Flow Rate FiO2 06/30/17 18:23 98.2 109 21 149/89 (109) 96 Venturi Mask 35 06/30/17 17:02 4.00 Orders Orders Electrocardiogram (06/30/17 16:56) Complete Blood Count With Diff (06/30/17 16:56) Comprehensive Metabolic Panel (06/30/17 16:56) Lactic Acid Sepsis Protocol (06/30/17 16:56) Influenzae A/B Antigen (06/30/17 16:56) Urinalysis - C+S If Indicated (06/30/17 16:56) Blood Culture (06/30/17 16:56) Sputum Culture And Gram Stain (06/30/17 16:56) Chest, Single Ap (06/30/17 16:56) Arterial Blood Gas (Abg) (06/30/17 16:56) Ecg Monitoring (06/30/17 16:56) Iv Access Insert/Monitor (06/30/17 16:56) Oximetry (06/30/17 16:56) Oxygen Administration (06/30/17 16:56) Sodium Chloride 0.9% Flush (Ns Flush) (06/30/17 17:00) Ceftriaxone Inj (Rocephin Inj) (06/30/17 17:00) Azithromycin (Zithromax) (06/30/17 17:00) Albuterol-Ipratropium Neb (Duoneb Neb) (06/30/17 17:00) Methylprednisolone So Succ Inj (Solumedr (06/30/17 17:00) Sodium Bicarbonate 8.4% Inj (Sodium Bica (06/30/17 18:15) Insulin Human Regular Inj (Novolin R Inj (06/30/17 18:15) Calcium Chloride Inj (Calcium Chloride I (06/30/17 18:15) Dextrose 50% In Marcel (Vial) Inj (D50w (Vi (06/30/17 18:15) Blood Flow Rate (06/30/17 18:23) Dialysate Flow Rate (06/30/17 18:23) Dialyzer (06/30/17 18:) Concentrate (06/30/17 18:) Acid Concentrate (06/30/17 18:23) Length Of Dialysis (06/30/17 18:23) Frequency Of Dialysis (06/30/17 18:) Dialysis Obtain (06/30/17:) Needle Size (06/30/17:) Dialysis Schedule (06/30/17 18:) Resp Oxygen Ruddy C Titrat 1-4 L (06/30/17 ) Dialysis Weight (06/30/17 18:23) ^ Obtain As Needed (06/30/17:) Sodium Chlor 0.9% 1000 Ml Inj (Ns 1000 M (06/30/17 18:23) Heparin Inj (Heparin Inj) (06/30/17 18:30) Sodium Chlor 0.9% 1000 Ml Inj (Ns 1000 M (06/30/17 18:23) Sodium Chlor 0.9% 1000 Ml Inj (Ns 1000 M (06/30/17 18:23) Mannitol Inj (Mannitol Inj) (06/30/17 18:30) Albumin 25% Inj (Albumin 25% Inj) (06/30/17 18:30) Sodium Chloride 0.9% Flush (Ns Flush) (06/30/17 18:30) Ondansetron Inj (Zofran Inj) (06/30/17 18:30) Acetaminophen (Tylenol) (06/30/17 18:30) Diphenhydramine (Benadryl) (06/30/17 18:30) Nitroglycerin Sl (Nitrostat Sl) (06/30/17 18:30) Clonidine (Catapres) (06/30/17 18:30) Epoetin [place] Inj (Epogen Inj) (06/30/17 18:30) Gelatin 12 Mm/7 Mm Top (Gelfoam 12 Mm/7 (06/30/17 18:30) Labs Laboratory Tests Test 06/30/17 17:15 06/30/17 17:45 White Blood Count 8.8 TH/MM3 Red Blood Count 3.06 MIL/MM3 Hemoglobin 9.7 GM/DL Hematocrit 29.6 % Mean Corpuscular Volume 97.0 FL Mean Corpuscular Hemoglobin 31.7 PG Mean Corpuscular Hemoglobin Concent 32.7 % Red Cell Distribution Width 18.7 % Platelet Count 200 TH/MM3 Mean Platelet Volume 8.6 FL Neutrophils (%) (Auto) 70.0 % Lymphocytes (%) (Auto) 11.7 % Monocytes (%) (Auto) 7.1 % Eosinophils (%) (Auto) 9.9 % Basophils (%) (Auto) 1.3 % Neutrophils # (Auto) 6.2 TH/MM3 Lymphocytes # (Auto) 1.0 TH/MM3 Monocytes # (Auto) 0.6 TH/MM3 Eosinophils # (Auto) 0.9 TH/MM3 Basophils # (Auto) 0.1 TH/MM3 CBC Comment DIFF FINAL Differential Comment Blood Urea Nitrogen 73 MG/DL Creatinine 12.00 MG/DL Random Glucose 92 MG/DL Total Protein 6.6 GM/DL Albumin 3.6 GM/DL Calcium Level 8.8 MG/DL Alkaline Phosphatase 195 U/L Aspartate Amino Transf (AST/SGOT) 22 U/L Alanine Aminotransferase (ALT/SGPT) 33 U/L Total Bilirubin 0.8 MG/DL Sodium Level 133 MEQ/L Potassium Level 7.3 MEQ/L Chloride Level 95 MEQ/L Carbon Dioxide Level 27.9 MEQ/L Anion Gap 10 MEQ/L Estimat Glomerular Filtration Rate 5 ML/MIN Lactic Acid Level 1.8 mmol/L Blood Gas Puncture Site RT BRACHIAL Blood Gas Patient Temperature 37.0 Blood Gas HCO3 26 mmol/L Blood Gas Base Excess 1.5 mmol/L Blood Gas Oxygen Saturation 77 % Arterial Blood pH 7.42 Arterial Blood Partial Pressure CO2 40 mmHg Arterial Blood Partial Pressure O2 45 mmHG Arterial Blood Oxygen Content 10.2 Vol % Arterial Blood Carboxyhemoglobin 2.5 % Arterial Blood Methemoglobin 0.3 % Blood Gas Hemoglobin 9.5 G/DL Oxygen Delivery Device NASAL CANNULA Blood Gas Liter Flow 2 L/M [facility] Medical Decision Making Medical Screen Exam Complete: Yes Emergency Medical Condition: Yes Medical Record Reviewed: Yes Differential Diagnosis CHF. Pneumonia. Fluid overload. Need for dialysis. Narrative Course Patient appears medically stable at time of exam. Labs ordered including CBC, CMP, lactic acid and arterial blood gas. IV access is obtained Chest x-ray and EKG is ordered. Patient is given 1000 mg Rocephin as well as 500 mg of azithromycin by mouth. Blood cultures are ordered as well. CBC remarkable for hemoglobin 9.7, hematocrit 29.6. CMP remarkable for sodium 133, potassium is elevated 7.3, chloride is 95, BUN is 73, creatinine is 12.00 GFR is estimated 5. Lactic acid normal 1.8. Alkaline phosphatase is 195. Blood gas significant for O2 sat of 77, PO2 of 45, O2 content is 10.2, hemoglobin is 9.5. EKG shows atrial fibrillation with rapid ventricular response with marked peaked T waves. Patient discussed with Dr. Stevenson, who ordered bicarbonate, insulin, calcium chloride and D50 IV. Dr. Stevenson discussed the patient with Dr. Vital, the stacker straightener diversional therapist, and stat dialysis was arranged. Dr. Stevenson discussed the patient with who agreed to admit the patient. Diagnosis Primary Impression: Hypoxia Additional Impressions: ESRD (end stage renal disease) on dialysis Hyperkalemia, diminished renal excretion CHF (congestive heart failure) Qualified Codes: I50.9 - Heart failure, unspecified Admitting Information Admitting Physician Requests: Admit Condition: Stable Mook Rea Jun 30, 2017 17:06
[2017-06-30 17:21] VITALS: O2SAT 99
[2017-06-30] MEDS: RESP: ALBUTEROL 2.5 MG/IPRATROPIUM 0.5 MG NEB (SCH) INH (17:21)
[2017-06-30 17:38] LABS: AUTOMATED NEUTROPHIL # 6.2 TH/MM3 (1.8-7.7); BASOPHIL # 0.1 TH/MM3 (0-0.2); BASOPHIL % 1.3 % (0.0-2.0); EOSINOPHIL # 0.9 TH/MM3 (0-0.4); EOSINOPHIL % 9.9 % (0.0-4.0); HEMATOCRIT 29.6 % (39.0-51.0); HEMO FLAGS DIFF FINAL; LYMPH % 11.7 % (9.0-44.0); MEAN CORPUSCULAR HEMOGLOBIN 31.7 PG (27.0-34.0); MEAN CORPUSCULAR HGB CONC 32.7 % (32.0-36.0); MONO % 7.1 % (0.0-8.0); PLATELET COUNT 200 TH/MM3 (150-450); RED BLOOD COUNT 3.06 MIL/MM3 (4.50-5.90); RED CELL DISTRIBUTION WIDTH 18.7 % (11.6-17.2); WHITE BLOOD COUNT 8.8 TH/MM3 (4.0-11.0)
[2017-06-30 17:53] LABS: BLOOD GAS BASE EXCESS 1.5 mmol/L (-2-2); BLOOD GAS CARBOXYHEMOGLOBIN 2.5 % (0-4); BLOOD GAS HCO3 26 mmol/L (22-26); BLOOD GAS METHEMOGLOBIN 0.3 % (0-2); BLOOD GAS O2 HGB SATURATION 77 % (90-100); BLOOD GAS OXYGEN CONTENT 10.2 Vol % (12.0-20.0); BLOOD GAS PCO2 40 mmHg (38-42); BLOOD GAS PO2 45 mmHG (61-120); BLOOD GAS TOTAL HGB 9.5 G/DL (12.0-16.0)
[2017-06-30 17:54] LABS: CRITICAL VALUE YES; DRAW SITE RT BRACHIAL; LITER FLOW 2 L/M; NUMBER OF ARTERIAL PUNCTURES 2; OXYGEN DEVICE NASAL CANNULA; STAT YES; ULNAR PULSE PRESENT
[2017-06-30 17:55] LABS: ALKALINE PHOSPHATASE 195 U/L (45-117); ALT (GPT) 33 U/L (12-78); ANION GAP 10 MEQ/L (5-15); AST (GOT) 22 U/L (15-37); BICARBONATE 27.9 MEQ/L (21.0-32.0); BLOOD UREA NITROGEN 73 MG/DL (7-18); CHLORIDE 95 MEQ/L (98-107); GLOMERULAR FILTRATION RATE 5 ML/MIN (>89); SODIUM (NA) 133 MEQ/L (136-145); TOTAL BILIRUBIN ADULT 0.8 MG/DL (0.2-1.0)
[2017-06-30 18:00] LABS: POTASSIUM 7.3 MEQ/L (3.5-5.1)
[2017-06-30] MEDS ORDERED: INSULIN HUMAN REGULAR 1,000 UNITS/10 ML VIAL IV PUSH ONE (18:15)
[2017-06-30] MEDS ORDERED: CALCIUM CHLORIDE 10% SOLN 1 GRAM/10 ML SYR IV PUSH ONE (18:15)
[2017-06-30] MEDS ORDERED: SODIUM BICARBONATE 8.4% INJ 50 MEQ/50 ML SYR IV PUSH ONE (18:15)
[2017-06-30] MEDS ORDERED: DEXTROSE 50% IN WATER 50 ML VIAL(D50) IV PUSH ONE (18:15)
[2017-06-30 18:23] VITALS: BP 149/89; PULSE 109; RESP 21; TEMP 98.2; O2SAT 96
[2017-06-30] MEDS ORDERED: SODIUM CHLOR 0.9% 1000 ML INJ 1,000 ML OTHER PRN (18:23)
[2017-06-30] MEDS ORDERED: SODIUM CHLOR 0.9% 1000 ML INJ 1,000 ML IV PRN (18:23)
--- NOTE | 2017-06-30 18:24 | RADRPT ---
EXAM DATE/TIME: 06/30/2017 17:16 [facility] COMPARISON: CHEST SINGLE AP, June 27, 2017, 22:35. INDICATIONS : Cough. MEDICAL HISTORY : Chronic obstructive pulmonary disease. Hypertension Congestive heart failure. GERD, Renal failure, Pr ostate CA SURGICAL HISTORY : Prostatectomy. Arteriovenous shunt ENCOUNTER: Initial ACUITY: 1 day PAIN SCORE: 0/10 LOCATION: Bilateral chest FINDINGS: Frontal view of the chest demonstrates cardiomegaly and patchy areas of partially consolidative infil trate in both lower lobes. Both hemidiaphragms remain discernible. Double-lumen catheter stable in position. Stable cardiomegaly. CONCLUSION: Bilateral patchy infiltrates the mid and lower lungs. Stable cardiomegaly. Gelacio Odell MD on June 30, 2017 at 18:21 Board Certified Radiologist. This report was verified electronically.
[2017-06-30] MEDS ORDERED: HEPARIN SODIUM - IV 10,000 UNITS/10 ML VIAL IV FLUSH PRN (18:30)
[2017-06-30] MEDS ORDERED: EPOETIN ALFA 10,000 UNITS/ML VIAL IV PUSH PRN (18:30)
[2017-06-30] MEDS ORDERED: NITROGLYCERIN 0.4 MG SL 25 TABS/BTL SL PRN (18:30)
[2017-06-30] MEDS ORDERED: ACETAMINOPHEN 325 MG TAB PO PRN ×2 (18:30→19:00)
[2017-06-30] MEDS ORDERED: ONDANSETRON HCL 4 MG/2 ML VIAL IV PUSH PRN (18:30)
[2017-06-30] MEDS ORDERED: SODIUM CHLORIDE 0.9% FLUSH 10 ML FLUSH IV FLUSH PRN ×2 (18:30→19:00)
[2017-06-30] MEDS ORDERED: GELATIN 12 MM/7 MM FOAM TOP PRN (18:30)
[2017-06-30] MEDS ORDERED: ALBUMIN 25% INJ 100 ML IV PRN (18:30)
[2017-06-30] MEDS ORDERED: cloNIDine HCL 0.1 MG TAB PO PRN (18:30)
[2017-06-30] MEDS ORDERED: MANNITOL 12.5 GM/50 ML VIAL IV PRN (18:30)
[2017-06-30] MEDS ORDERED: BISACODYL 10 MG SUPP RECTAL PRN (19:00)
[2017-06-30] MEDS ORDERED: LACTULOSE SYRUP 20 GM/30 ML CUP PO PRN (19:00)
[2017-06-30] MEDS ORDERED: SENNOSIDES 8.6 MG TAB PO PRN (19:00)
[2017-06-30] MEDS ORDERED: MAGNESIUM HYDROXIDE SUSP 30 ML CUP PO PRN (19:00)
[2017-06-30] MEDS ORDERED: MORPHINE SULFATE 4 MG/ML INJ IV PUSH PRN (19:00)
--- NOTE | 2017-06-30 19:04 | HHI.HP ---
HPI Service [facility] Primary Care Physician No Primary Care Physician Admission Diagnosis CHF/Hyperkalemia/COPD Flair/ Diagnoses: (1) COPD (chronic obstructive pulmonary disease) Diagnosis: Principal (2) PNA (pneumonia) Diagnosis: Principal (3) Hypoxia Diagnosis: Principal (4) ESRD (end stage renal disease) on dialysis Diagnosis: Principal (5) CHF (congestive heart failure) Diagnosis: Principal (6) Hyperkalemia Diagnosis: Principal (7) Non-compliance Diagnosis: Principal (8) A-fib Diagnosis: Principal Travel History International Travel<30 Days: No Contact w/Intl Traveler <30 Da: No Traveled to Known Affected Are: No History of Present Illness This is a 72-year-old male with PMH of HTN, A. fib on ASA, Anxiety, CHF (Echo 07/21 w/ EF 40-45%), ESRD on HD T/Th/Sat, COPD and Non-Compliance who presented to the ER w/ complaints of cough and SOB. Has missed multiple appointments for dialysis, missed HD today and states cough/SOB much worse. Denies fever/ chills. On arrival pt noted to have O2 sat 88% on RA. Recent admit 06/13- for similar complaints, admitted for Afib w/ RVR, COPD and ESRD, per records pt wanting to LEAVE AMA on multiple occasions. BP 149/89, HR 92, O2 sat 91% on 2L NC, Afebrile. CBC essentially at baseline. K+ 7.3, s/p Insulin/D50/Ca/ Kayexalate. Creatinine 12.00, previously 8.14 on 06/27/17. CXR bilateral patchy infiltrates in the mid and lower lungs. Noted to have wheezing on exam as well. Dr. Vital consulted by ER physician, plan is for HD tonight. S/p Rocephin/Zithro, Solu-Medrol and DuoNeb in ER Review of Systems Except as stated in HPI: all other systems reviewed are Neg ROS: 14 point review of systems otherwise negative. Past Family Social History Past Medical History PMH: HTN, A. fib on ASA, Anxiety, CHF (Echo 09/17/15 w/ EF 40-45%), ESRD on HD T //Sun, COPD and Non-Compliance Past Surgical History PAST SURGICAL HISTORY: LUE AV Fistula, Prostatectomy Allergies: Coded Allergies: No Known Allergies (Unverified Allergy, Unknown, 06/27/17) Family History PAST FAMILY HISTORY: Reviewed. No h/o DM or CAD Social History PAST SOCIAL HISTORY: Negative for alcohol, tobacco or drugs. Physical Exam Vital Signs Vital Signs Date Time Temp Pulse Resp B/P (MAP) Pulse Ox O2 Delivery O2 Flow Rate FiO2 06/30/17 18:23 98.2 109 21 149/89 (109) 96 Venturi Mask 35 06/30/17 17:21 99 21 06/30/17 17:02 94 Nasal Cannula 4.00 06/30/17 16:58 18 Nasal Cannula 4.00 06/30/17 16:54 92 35 149/89 (109) 94 Physical Exam PE: GENERAL: Elderly black male in mild distress secondary to SOB, currently on Ventimask. HEENT: PERRLA, EOMI. No scleral icterus or conjunctival pallor. No lid lag or facial droop. CARDIOVASCULAR: Regular rate and rhythm. No obvious murmurs to auscultation. No chest tenderness to palpation. RESPIRATORY: No obvious rhonchi or wheezing. Crackles bilaterally. Breath sounds equal bilaterally. GASTROINTESTINAL: Abdomen soft, non-tender, nondistended. BS normal. MUSCULOSKELETAL: Extremities without clubbing, cyanosis. 2+ edema bilaterally. No obvious deformities. NEUROLOGICAL: Awake, alert and oriented x4. No focal neurologic deficits. Moving both upper and lower extremities spontaneously. Laboratory Laboratory Tests Test 06/30/17 17:15 06/30/17 17:45 White Blood Count 8.8 Red Blood Count 3.06 Hemoglobin 9.7 Hematocrit 29.6 Mean Corpuscular Volume 97.0 Mean Corpuscular Hemoglobin 31.7 Mean Corpuscular Hemoglobin Concent 32.7 Red Cell Distribution Width 18.7 Platelet Count 200 Mean Platelet Volume 8.6 Neutrophils (%) (Auto) 70.0 Lymphocytes (%) (Auto) 11.7 Monocytes (%) (Auto) 7.1 Eosinophils (%) (Auto) 9.9 Basophils (%) (Auto) 1.3 Neutrophils # (Auto) 6.2 Lymphocytes # (Auto) 1.0 Monocytes # (Auto) 0.6 Eosinophils # (Auto) 0.9 Basophils # (Auto) 0.1 CBC Comment DIFF FINAL Differential Comment Blood Urea Nitrogen 73 Creatinine 12.00 Random Glucose 92 Total Protein 6.6 Albumin 3.6 Calcium Level 8.8 Alkaline Phosphatase 195 Aspartate Amino Transf (AST/SGOT) 22 Alanine Aminotransferase (ALT/SGPT) 33 Total Bilirubin 0.8 Sodium Level 133 Potassium Level 7.3 Chloride Level 95 Carbon Dioxide Level 27.9 Anion Gap 10 Estimat Glomerular Filtration Rate 5 Lactic Acid Level 1.8 Blood Gas Puncture Site RT BRACHIAL Blood Gas Patient Temperature 37.0 Blood Gas HCO3 26 Blood Gas Base Excess 1.5 Blood Gas Oxygen Saturation 77 Arterial Blood pH 7.42 Arterial Blood Partial Pressure CO2 40 Arterial Blood Partial Pressure O2 45 Arterial Blood Oxygen Content 10.2 Arterial Blood Carboxyhemoglobin 2.5 Arterial Blood Methemoglobin 0.3 Blood Gas Hemoglobin 9.5 Oxygen Delivery Device NASAL CANNULA Blood Gas Liter Flow 2 Date/Time Source Procedure Growth Status 06/30/17 17:15 Blood Peripheral Aerobic Blood Culture Pending Received 06/30/17 17:15 Blood Peripheral Anaerobic Blood Culture Pending Received 06/30/17 18:08 Nasal Washing Influenza Types A,B Antigen (JUSTIN) - Final NEGATIVE FOR FLU A AND B ANTIGEN.... Complete Result Diagram: 06/30/17171406/30/171714 Caprini VTE Risk Assessment Caprini VTE Risk Assessment: Mod/High Risk (score >= 2) Caprini Risk Assessment Model Point Value = 1 Point Value = 2 Point Value = 3 Point Value = 5 Age 41-60 Minor surgery BMI > 25 kg/m2 Swollen legs Varicose veins or History of unexplained or recurrent spontaneous Oral contraceptives or hormone replacement Sepsis (< 1 month) Serious lung disease, including pneumonia (< 1 month) Abnormal pulmonary function Acute myocardial infarction Congestive heart failure (< 1 month) History of inflammatory bowel disease Medical patient at bed rest Age 61-74 Arthroscopic surgery Major open surgery (> 45 min) Laparoscopic surgery (> 45 min) Malignancy Confined to bed (> 72 hours) Immobilizing plaster cast Central venous access Age >= 75 History of VTE Family history of VTE Factor V Leiden Prothrombin [id number] Lupus anticoagulant Anticardiolipin antibodies Elevated serum homocysteine Heparin-induced thrombocytopenia Other congenital or acquired thrombophilia Stroke (< 1 month) Elective arthroplasty Hip, pelvis, or leg fracture Acute spinal cord injury (< 1 month) Prophylaxis Regimen Total Risk Factor Score Risk Level Prophylaxis Regimen 0-1 Low Early ambulation 2 Moderate Order ONE of the following: *Sequential Compression Device (SCD) *Heparin 5000 units SQ BID 3-4 Higher Order ONE of the following medications: *Heparin 5000 units SQ TID *Enoxaparin/Lovenox 40 mg SQ daily (WT < 150 kg, CrCl > 30 mL/min) *Enoxaparin/Lovenox 30 mg SQ daily (WT < 150 kg, CrCl > 10-29 mL/min) *Enoxaparin/Lovenox 30 mg SQ BID (WT < 150 kg, CrCl > 30 mL/min) AND/OR *Sequential Compression Device (SCD) 5 or more Highest Order ONE of the following medications: *Heparin 5000 units SQ TID (Preferred with Epidurals) *Enoxaparin/Lovenox 40 mg SQ daily (WT < 150 kg, CrCl > 30 mL/min) *Enoxaparin/Lovenox 30 mg SQ daily (WT < 150 kg, CrCl > 10-29 mL/min) *Enoxaparin/Lovenox 30 mg SQ BID (WT < 150 kg, CrCl > 30 mL/min) AND *Sequential Compression Device (SCD) Assessment and Plan Problem List: (1) COPD (chronic obstructive pulmonary disease) ICD Code: J44.9 - Chronic obstructive pulmonary disease, unspecified Status: Chronic (2) CHF (congestive heart failure) ICD Code: I50.9 - Heart failure, unspecified Status: Acute (3) Hypoxia ICD Code: R09.02 - Hypoxemia Status: Acute (4) ESRD (end stage renal disease) on dialysis ICD Code: N18.6 - End stage renal disease; Z99.2 - Dependence on renal dialysis Status: Chronic (5) Non-compliance ICD Code: Z91.19 - Patient's noncompliance with other medical treatment and regimen Status: Chronic (6) Hyperkalemia ICD Code: E87.5 - Hyperkalemia (7) PNA (pneumonia) ICD Code: J18.9 - Pneumonia, unspecified organism (8) A-fib ICD Code: I48.91 - Unspecified atrial fibrillation Assessment and Plan A/P: 1. COPD: Chronic Respiratory Failure w/ Acute Exacerbation, +wheezing on arrival, s/p Solu-Medrol and DuoNeb w/ some improvement. Continue Solu-Medrol, DuoNeb q4h and q2h prn, Symbicort, Mucinex 2. PNA: CXR w/ bilateral patchy infiltrates mid and lower lungs, images reviewed by me. S/p Rocephin/Zithro in ER. Continue w/ IV Abx. 3. CHF: Acute on Chronic. Systolic. Echo 09/17/15 w/ EF 40-45%. Resume home medications. HD for fluid overload. 4. Hypoxia: Multifactorial-secondary to CHF, COPD, PNA, and Non-compliance w/ HD. O2 sat 88% on RA, currently 96% on Venturi Mask. HD for fluid overload as above. Monitor O2. 5. ESRD on HD: //Sat. Follows w/ Dr. Singh. Notoriously non-compliant w / dialysis. Seen by Dr. Vital, plan is for HD tonight. 6. Hyperkalemia: K+ 7.3. S/p Insulin/D50/Ca/Kayexalate in ER. For HD tonight. Recheck labs following dialysis. 7. A-fib: Chronic. Resume home medications. On ASA. 8. Non-Compliance: As above, pt known to be non-compliant w/ meds, treatment and dialysis, wanting to LEAVE AMA on multiple occasions during last admit per records. Stressed importance of follow up and adhering to treatment. 9. DVT Prophylaxis: Heparin sq 10. Social work for d/c planning as needed. 11. Case discussed w/ ER physician at length. Physician Certification 2 Midnight Certification Type: Admission for Inpatient Services Order for Inpatient Services The services are ordered in accordance with Medicare regulations or non- Medicare payer requirements, as applicable. In the case of services not specified as inpatient-only, they are appropriately provided as inpatient services in accordance with the 2-midnight benchmark. Estimated LOS (days): 2 days is the estimated time the patient will need to remain in the hospital, assuming treatment plan goals are met and no additional complications. Post-Hospital Plan: Not yet determined Problem Qualifiers (1) CHF (congestive heart failure): Qualified Codes: I50.9 - Heart failure, unspecified (2) A-fib: Qualified Codes: I48.2 - Chronic atrial fibrillation Brenda Geiger MD Jun 30, 2017 19:04
--- NOTE | 2017-06-30 19:30 | PD.CONS ---
HPI Service Nephrology Consult Requested By Dr. Stevenson Reason for Consult ESRD needs hemodialysis Primary Care Physician No Primary Care Physician History of Present Illness Patient is a 72 year-old -Swiss male with history of noncompliance with hemodialysis missing several treatments he has a permacath in place also has left AV fistula and became short of breath, he was supposed to do his dialysis this morning, as an outpatient but missed his treatment and now came in in the emergency with increasing shortness of breath pulmonary edema and hyperkalemia with a potassium of 7.3, this was treated with calcium chloride, D50, insulin, and he is seen during his hemodialysis now. Patient has history of noncompliance and missing dialysis on several previous occasions. He follows with . Review of Systems Constitutional: COMPLAINS OF: Fatigue Respiratory: COMPLAINS OF: Cough, Shortness of breath Cardiovascular: COMPLAINS OF: Dyspnea on Exertion Neurologic: COMPLAINS OF: Abnormal gait Psychiatric: COMPLAINS OF: Anxiety Past Family Social History Allergies: Coded Allergies: No Known Allergies (Unverified Allergy, Unknown, 06/27/17) Past Medical History ESRD on HD TTS COPD atrial fibrillation prostate cancer hypertension anemia metabolic bone disorder Psychiatric disorder noncompliance Past Surgical History Permacath AVF left arm prostate surgery Reported Medications Reported Meds & Active Scripts Active Lomotil (Diphenoxylate-Atropine) 2.5-0.025 Mg Tab 1 Tab PO Q6H PRN Zofran Odt (Ondansetron Odt) 4 Mg Tab 4 Mg SL Q6HR PRN Prednisone 20 Mg Tab 20 Mg PO DAILY 5 Days Reported Tylenol (Acetaminophen) 325 Mg Tab 325 Mg PO Q6H PRN Trazodone (Trazodone HCl) 150 Mg Tablet 150 Mg PO HS Antacid (Calcium Carbonate (Antacid)) 500 Mg Chew 500 Mg CHEW TID PRN Triamcinolone Acetonide (Triamcinolone Acetonide (Topic) 1 Pow Pow Pro-Stat (Amino Acids-Protein Hydrolysat) 1 Liq Liq 30 Ml PO TID Renal-Mya 0.8 mg (B-Complex W/ C & Folic Acid) 1 Tab Tab DAILY Alprazolam 0.5 Mg Tab 0.5 Mg PO HS PRN Aspirin 81 (Aspirin) 81 Mg Tabdr 81 Mg PO DAILY Levocetirizine 5 Mg Tab 5 Mg PO HS Sensipar (Cinacalcet) 30 Mg Tab 30 Mg PO DAILY Diltiazem (Diltiazem HCl) 90 Mg Tab 90 Mg PO QID Sucralfate 1 Gm Tab 1 Gm PO Q6HR on empty stomach Ondansetron (Ondansetron HCl) 8 Mg Tab 4 Mg PO TID Renvela (Sevelamer Carbonate) 800 Mg Tab 1,600 Mg PO TID Metoprolol Tartrate 25 Mg Tab 12.5 Mg PO BID Losartan (Losartan Potassium) 100 Mg Tab 100 Mg PO DAILY Isosorbide Mononitrate ER (Isosorbide Mononitrate) 30 Mg Nolan 30 Mg PO DAILY Active Ordered Medications Current Medications Medications (Trade) Dose Ordered Sig/Erik Route Start Time Stop Time Status Last Admin (NS Flush) 2 ml UNSCH PRN IVF 06/30/17 17:00 Sodium Chloride 1,000 ml @ 0 mls/hr Q0M PRN OTHER 06/30/17 18:23 (Heparin Inj) 8,000 units UNSCH PRN IV FLUSH 06/30/17 18:30 Sodium Chloride 1,000 ml @ 200 mls/hr Q5H PRN IV 06/30/17 18:23 Sodium Chloride 1,000 ml @ 0 mls/hr Q0M PRN OTHER 06/30/17 18:23 (Mannitol Inj) 12.5 gm UNSCH PRN IV 06/30/17 18:30 Albumin Human 100 ml @ 60 mls/hr UNSCH PRN IV 06/30/17 18:30 (NS Flush) 5 ml UNSCH PRN IV FLUSH 06/30/17 18:30 (Zofran Inj) 4 mg UNSCH PRN IV PUSH 06/30/17 18:30 (Tylenol) 650 mg UNSCH PRN PO 06/30/17 18:30 (Benadryl) 25 mg UNSCH PRN PO 06/30/17 18:30 (Nitrostat Sl) 0.4 mg UNSCH PRN SL 06/30/17 18:30 (Catapres) 0.1 mg UNSCH PRN PO 06/30/17 18:30 (Epogen Inj) 10,000 units UNSCH PRN IV PUSH 06/30/17 18:30 (Gelfoam 12 Mm/7 Mm Top) 1 foam UNSCH PRN TOP 06/30/17 18:30 Ceftriaxone Sodium 1000 mg/ Sodium Chloride 100 ml @ 200 mls/hr Q24H IV 07/01/17 18:00 Azithromycin 500 mg/Sodium Chloride 250 ml @ 250 mls/hr Q24H IV 07/01/17 18:00 (Duoneb Neb) 1 ampule Q4HR WHILE AWAKE NEB NEB 06/30/17 20:00 UNV (Duoneb Neb) 1 ampule Q2HR NEB PRN NEB 06/30/17 19:00 UNV (SoluMEDROL INJ) 40 mg Q6HR IV PUSH 07/01/17 00:00 (NS Flush) 2 ml UNSCH PRN IV FLUSH 06/30/17 19:00 (NS Flush) 2 ml BID IV FLUSH 06/30/17 21:00 (Zofran Inj) 4 mg Q6H PRN IVP 06/30/17 19:00 (Heparin Inj) 5,000 units Q12H SQ 07/01/17 09:00 (Tylenol) 650 mg Q6H PRN PO 06/30/17 19:00 (King 5-325 Mg) 1 tab Q4H PRN PO 06/30/17 19:00 (Morphine Inj) 2 mg Q3H PRN IV PUSH 06/30/17 19:00 (Clarice-Colace) 1 tab BID PO 06/30/17 21:00 (Milk Of Magnesia Liq) 30 ml Q12H PRN PO 06/30/17 19:00 (Senokot) 17.2 mg Q12H PRN PO 06/30/17 19:00 (Dulcolax Supp) 10 mg DAILY PRN RECTAL 06/30/17 19:00 (Lactulose Liq) 30 ml DAILY PRN PO 06/30/17 19:00 (Xanax) 0.5 mg HS PRN PO 06/30/17 19:00 (Ecotrin Ec) 81 mg DAILY PO 07/01/17 09:00 (Sensipar) 30 mg DAILY PO 07/01/17 09:00 (Cardizem) 90 mg QID PO 06/30/17 21:00 (Imdur) 30 mg DAILY PO 07/01/17 09:00 (Cozaar) 100 mg DAILY PO 07/01/17 09:00 (Lopressor) 12.5 mg BID PO 06/30/17 21:00 (Renvela) 1,600 mg TID PO 07/01/17 09:00 (Carafate) 1 gm Q6HR PO 07/01/17 00:00 Non-Formulary Medication 150 mg HS PO 06/30/17 21:00 UNV Family History Noncontributory Social History History of smoking in the past Physical Exam Vital Signs Vital Signs Date Time Temp Pulse Resp B/P (MAP) Pulse Ox O2 Delivery O2 Flow Rate FiO2 06/30/17 18:23 98.2 109 21 149/89 (109) 96 Venturi Mask 35 06/30/17 17:21 99 21 06/30/17 17:02 94 Nasal Cannula 4.00 06/30/17 16:58 18 Nasal Cannula 4.00 06/30/17 16:54 92 35 149/89 (109) 94 Physical Exam GENERAL: Well-nourished, well-developed patient. SKIN: Warm and dry. HEAD: Normocephalic. EYES: No scleral icterus. No injection or drainage. NECK: Supple, trachea midline. No JVD or lymphadenopathy. CARDIOVASCULAR: Irregularly irregular. RESPIRATORY: Crepitation at the bases GASTROINTESTINAL: Abdomen soft, non-tender, nondistended. EXTREMITIES: No cyanosis,1 plus edema. NEUROLOGICAL: Awake, alert, and oriented x 3. Non-focal. Laboratory Laboratory Tests Test 06/30/17 17:15 06/30/17 17:45 White Blood Count 8.8 Red Blood Count 3.06 Hemoglobin 9.7 Hematocrit 29.6 Mean Corpuscular Volume 97.0 Mean Corpuscular Hemoglobin 31.7 Mean Corpuscular Hemoglobin Concent 32.7 Red Cell Distribution Width 18.7 Platelet Count 200 Mean Platelet Volume 8.6 Neutrophils (%) (Auto) 70.0 Lymphocytes (%) (Auto) 11.7 Monocytes (%) (Auto) 7.1 Eosinophils (%) (Auto) 9.9 Basophils (%) (Auto) 1.3 Neutrophils # (Auto) 6.2 Lymphocytes # (Auto) 1.0 Monocytes # (Auto) 0.6 Eosinophils # (Auto) 0.9 Basophils # (Auto) 0.1 CBC Comment DIFF FINAL Differential Comment Blood Urea Nitrogen 73 Creatinine 12.00 Random Glucose 92 Total Protein 6.6 Albumin 3.6 Calcium Level 8.8 Alkaline Phosphatase 195 Aspartate Amino Transf (AST/SGOT) 22 Alanine Aminotransferase (ALT/SGPT) 33 Total Bilirubin 0.8 Sodium Level 133 Potassium Level 7.3 Chloride Level 95 Carbon Dioxide Level 27.9 Anion Gap 10 Estimat Glomerular Filtration Rate 5 Lactic Acid Level 1.8 Blood Gas Puncture Site RT BRACHIAL Blood Gas Patient Temperature 37.0 Blood Gas HCO3 26 Blood Gas Base Excess 1.5 Blood Gas Oxygen Saturation 77 Arterial Blood pH 7.42 Arterial Blood Partial Pressure CO2 40 Arterial Blood Partial Pressure O2 45 Arterial Blood Oxygen Content 10.2 Arterial Blood Carboxyhemoglobin 2.5 Arterial Blood Methemoglobin 0.3 Blood Gas Hemoglobin 9.5 Oxygen Delivery Device NASAL CANNULA Blood Gas Liter Flow 2 Date/Time Source Procedure Growth Status 06/30/17 17:15 Blood Peripheral Aerobic Blood Culture Pending Received 06/30/17 17:15 Blood Peripheral Anaerobic Blood Culture Pending Received 06/30/17 18:08 Nasal Washing Influenza Types A,B Antigen (JUSTIN) - Final NEGATIVE FOR FLU A AND B ANTIGEN.... Complete Result Diagram: 06/30/17 1715 06/30/17 1715 Imaging Last Impressions Chest X-Ray 06/30/17 1656 Signed Impressions: Service Date/Time: Sunday, June 30, 2017 17:16 - CONCLUSION: Bilateral patchy infiltrates the mid and lower lungs. Stable cardiomegaly. Gelacio Odell MD Assessment and Plan Problem List: (1) ESRD (end stage renal disease) on dialysis ICD Codes: N18.6 - End stage renal disease; Z99.2 - Dependence on renal dialysis Status: Chronic Plan: Patient is seen during hemodialysis he remains argumentative He missed his appointment today and has been arguing with dialysis nurse that he has other things to do Patient is told that he has compromised his health by by not keeping his appointment And has a life-threatening hyperkalemia with congestive heart failure This can lead to cardiac arrest and He understands that but continued to be argumentative that he has other things to do He is seen during hemodialysis. Try to get fluid off him up to [address] Singh. (2) Non-compliance ICD Codes: Z91.19 - Patient's noncompliance with other medical treatment and regimen Status: Chronic Plan: Remains argumentative and wanted to state that he has other things to take care of (3) Hyperkalemia, diminished renal excretion ICD Codes: E87.5 - Hyperkalemia Status: Acute Plan: Discussed as above dialysis is initiated (4) CHF (congestive heart failure) ICD Codes: I50.9 - Heart failure, unspecified Status: Acute Plan: We'll get fluid off Problem Qualifiers (1) CHF (congestive heart failure): Qualified Codes: I50.9 - Heart failure, unspecified Eliana Vital MD Jun 30, 2017 19:30
[2017-06-30] MEDS: RESP: ALBUTEROL 2.5 MG/IPRATROPIUM 0.5 MG NEB (SCH) NEB (19:32)
[2017-06-30] MEDS: diphenhydrAMINE HCL 25 MG CAP PO PRN (20:00)
[2017-06-30] MEDS: DOCUSATE SODIUM 50 MG/SENNA 8.6 MG TAB PO SCH (21:00)
[2017-06-30] MEDS: GENTAMICIN SULFATE (DIALYSIS USE ONLY) 20 MG/2 ML VIAL OTHER PRN (22:00)
[2017-06-30] MEDS: SODIUM CHLOR 0.9% 1000 ML INJ 1,000 ML OTHER PRN (22:00)
[2017-06-30] MEDS: HEPARIN SODIUM - IV 10,000 UNITS/10 ML VIAL PRN (22:00)
[2017-06-30 22:40] VITALS: BP 137/104; PULSE 131; RESP 16; TEMP 97.7; O2SAT 94
[2017-06-30] MEDS: SUCRALFATE 1 GM TAB PO SCH (23:09)
[2017-06-30] MEDS: DILTIAZEM HCL 90 MG TAB PO SCH (23:10)
[2017-06-30] MEDS: METOPROLOL TARTRATE 25 MG TAB PO SCH (23:11)
[2017-06-30] MEDS: ALPRAZolam 0.5 MG TAB PO PRN (23:11)
[2017-06-30] MEDS: SODIUM CHLORIDE 0.9% FLUSH 10 ML FLUSH IV FLUSH SCH (23:11)
[2017-06-30] MEDS: BUDESONIDE-FORMOTEROL 160/4.5 MCG INHALER INH SCH (23:12)
[2017-06-30] MEDS: methylPREDNISolone SOD SUCC 40 MG/1 ML VIAL IV PUSH SCH (23:12)
[2017-06-30 23:14] VITALS: PULSE 144
--- NOTE | 2017-06-30 23:26 | EKG ---
Date Performed: 06/30/2017 Time Performed: 17:59:38 PTAGE: 72 years EKG: ATRIAL FIBRILLATION WITH RAPID VENTRICULAR RESPONSE MARKED LEFT AXIS DEVIATION INTRAVENTRIC ULAR CONDUCTION DELAY ABNORMAL ECG PREVIOUS TRACING : 06/27/2017 22.30 Compared to prior tracing no significant change DOCTOR: Gumaro Ro Interpretating Date/Time 06/30/2017 23:25:25
[2017-06-30 23:52] VITALS: PULSE 126
[2017-07-01] VITALS (12 sets, daily range): BP systolic 108–137; BP diastolic 63–77; PULSE 89–119; RESP 14–20; TEMP 97–98.8; O2SAT 86–98
[2017-07-01] MEDS: ACETAMINOPHEN/HYDROcodone 325 MG/5 MG TAB PO PRN ×2 (00:08→18:28)
[2017-07-01] MEDS: traZODone HCL 50 MG TAB PO SCH ×2 (00:08→22:54)
[2017-07-01] MEDS: guaiFENesin E.R. 600 MG TAB PO SCH ×3 (00:08→22:57)
[2017-07-01 00:21] LABS: BICARBONATE 25.9 MEQ/L (21.0-32.0); POTASSIUM 4.8 MEQ/L (3.5-5.1)
[2017-07-01] MEDS: RESP: ALBUTEROL 2.5 MG/IPRATROPIUM 0.5 MG NEB (PRN) NEB ×3 (00:21→14:09)
[2017-07-01] MEDS: methylPREDNISolone SOD SUCC 40 MG/1 ML VIAL IV PUSH SCH ×4 (05:18→22:57)
[2017-07-01] MEDS: SUCRALFATE 1 GM TAB PO SCH ×4 (05:18→22:58)
[2017-07-01] MEDS: METOPROLOL TARTRATE 25 MG TAB PO SCH ×2 (08:04→22:56)
[2017-07-01] MEDS: DILTIAZEM HCL 90 MG TAB PO SCH ×4 (08:05→22:54)
[2017-07-01] MEDS: ISOSORBIDE MONONITRATE 30 MG TAB PO SCH (08:05)
[2017-07-01] MEDS: BUDESONIDE-FORMOTEROL 160/4.5 MCG INHALER INH SCH ×2 (08:06→21:00)
[2017-07-01] MEDS: DOCUSATE SODIUM 50 MG/SENNA 8.6 MG TAB PO SCH ×3 (08:06→21:00)
[2017-07-01] MEDS: ASPIRIN EC 81 MG TABEC PO SCH (08:06)
[2017-07-01] MEDS: SODIUM CHLORIDE 0.9% FLUSH 10 ML FLUSH IV FLUSH SCH ×2 (08:06→22:57)
[2017-07-01] MEDS: HEPARIN SODIUM - SQ 10,000 UNITS/ML VIAL SQ SCH ×3 (08:06→22:54)
[2017-07-01] MEDS: SEVELAMER CARBONATE 800 MG TAB PO SCH ×3 (08:13→18:04)
[2017-07-01] MEDS: RESP: ALBUTEROL 2.5 MG/IPRATROPIUM 0.5 MG NEB (SCH) NEB ×4 (08:18→19:31)
[2017-07-01] MEDS ORDERED: LOSARTAN 50 MG TAB PO SCH (09:00)
[2017-07-01] MEDS: CINACALCET HYDROCHLORIDE 30 MG TAB PO SCH (10:43)
[2017-07-01] MEDS: CEFEPIME INJ 2,000 MG in SODIUM CHLORIDE 0.9% INJ 100 ML IV SCH (10:44)
[2017-07-01 11:49] LABS: AUTOMATED NEUTROPHIL # 5.4 TH/MM3 (1.8-7.7); BASOPHIL % 0.5 % (0.0-2.0); EOSINOPHIL % 0.2 % (0.0-4.0); HEMO FLAGS DIFF FINAL; LYMPH % 8.2 % (9.0-44.0); LYMPHOCYTE # 0.5 TH/MM3 (1.0-4.8); MEAN CELL VOLUME 96.4 FL (80.0-100.0); MEAN CORPUSCULAR HEMOGLOBIN 31.2 PG (27.0-34.0); MEAN CORPUSCULAR HGB CONC 32.4 % (32.0-36.0); MONO % 0.9 % (0.0-8.0); NEUT % 90.2 % (16.0-70.0); PLATELET COUNT 219 TH/MM3 (150-450); RED BLOOD COUNT 3.32 MIL/MM3 (4.50-5.90); RED CELL DISTRIBUTION WIDTH 18.9 % (11.6-17.2)
[2017-07-01] MEDS: guaiFENesin/CODEINE SYRUP 200 MG/20 MG/10 ML CUP PO PRN ×3 (12:20→22:59)
[2017-07-01 12:21] LABS: ALKALINE PHOSPHATASE 187 U/L (45-117); ALT (GPT) 32 U/L (12-78); ANION GAP 10 MEQ/L (5-15); AST (GOT) 26 U/L (15-37); BICARBONATE 28.2 MEQ/L (21.0-32.0); BLOOD UREA NITROGEN 52 MG/DL (7-18); CHLORIDE 96 MEQ/L (98-107); GLOMERULAR FILTRATION RATE 7 ML/MIN (>89); SODIUM (NA) 134 MEQ/L (136-145); TOTAL BILIRUBIN ADULT 0.7 MG/DL (0.2-1.0)
--- NOTE | 2017-07-01 12:21 | HHI.PR ---
Subjective Remarks Follow-up acute respiratory failure. Currently on Ventimask 6 L. Reports of improving shortness of breath and that nebulizations helps. Complains of nagging cough. Discussed with RN Objective Vitals Vital Signs Date Time Temp Pulse Resp B/P (MAP) Pulse Ox O2 Delivery O2 Flow Rate FiO2 07/01/17 08:19 Venturi Mask 6.00 07/01/17 08:18 96 Venturi Mask 50 07/01/17 08:15 98.3 104 20 137/73 (94) 93 07/01/17 04:00 97.6 106 14 136/77 (96) 94 07/01/17 00:21 94 Venturi Mask 5.00 50 07/01/17 00:00 97.0 119 16 114/63 (80) 96 06/30/17 23:52 126 06/30/17 23:15 Venturi Mask 6.00 06/30/17 23:14 144 06/30/17 22:40 97.7 131 16 137/104 (115) 94 06/30/17 19:35 06/30/17 18:23 98.2 109 21 149/89 (109) 96 Venturi Mask 35 06/30/17 17:21 99 21 06/30/17 17:02 94 Nasal Cannula 4.00 06/30/17 16:58 18 Nasal Cannula 4.00 06/30/17 16:54 92 35 149/89 (109) 94 I/O 06/30/17 06/30/17 06/30/17 07/01/17 07/01/17 07/01/17 07:00 15:00 23:00 07:00 15:00 23:00 Intake Total 100 ml Output Total 4000 ml Balance 100 ml -4000 ml Intake IV Total 100 ml Output Hemodialysis 4000 ml Result Diagram: 07/01/17 1125 06/30/17 2235 Imaging Last Impressions Chest X-Ray 06/30/17 1656 Signed Impressions: Service Date/Time: Friday, June 30, 2017 17:16 - CONCLUSION: Bilateral patchy infiltrates the mid and lower lungs. Stable cardiomegaly. Gelaico Odell MD Objective Remarks GENERAL: Elderly black male in mild distress secondary to SOB, currently on Ventimask. HEENT: PERRLA, EOMI. No scleral icterus or conjunctival pallor. No lid lag or facial droop. CARDIOVASCULAR: Irregularly irregular. No obvious murmurs to auscultation. No chest tenderness to palpation. RESPIRATORY: Expiratory wheezing and Crackles bilaterally. Breath sounds equal bilaterally. GASTROINTESTINAL: Abdomen soft, non-tender, nondistended. BS normal. MUSCULOSKELETAL: Extremities without clubbing, cyanosis. 2+ edema bilaterally. No obvious deformities. NEUROLOGICAL: Awake, alert and oriented x4. No focal neurologic deficits. Moving both upper and lower extremities spontaneously. Procedures None A/P Problem List: (1) COPD (chronic obstructive pulmonary disease) ICD Code: J44.9 - Chronic obstructive pulmonary disease, unspecified Status: Chronic (2) CHF (congestive heart failure) ICD Code: I50.9 - Heart failure, unspecified Status: Acute (3) Hypoxia ICD Code: R09.02 - Hypoxemia Status: Acute (4) ESRD (end stage renal disease) on dialysis ICD Code: N18.6 - End stage renal disease; Z99.2 - Dependence on renal dialysis Status: Chronic (5) Non-compliance ICD Code: Z91.19 - Patient's noncompliance with other medical treatment and regimen Status: Chronic (6) Hyperkalemia ICD Code: E87.5 - Hyperkalemia (7) PNA (pneumonia) ICD Code: J18.9 - Pneumonia, unspecified organism (8) A-fib ICD Code: I48.91 - Unspecified atrial fibrillation Assessment and Plan 1. COPD exacerbation: Chronic Respiratory Failure w/ Acute Exacerbation, + wheezing on arrival, s/p Solu-Medrol and DuoNeb w/ some improvement. Continue Solu-Medrol, DuoNeb q4h and q2h prn, Symbicort, Mucinex and oxygen to keep saturation at least 92% 2. PNA: CXR w/ bilateral patchy infiltrates mid and lower lungs, images reviewed by me. S/p Rocephin/Zithro in ER. Continue w/ IV Abx. Switch to cefepime for hospital-acquired pneumonia 3. CHF: Acute on Chronic. Systolic. Echo 09/17/15 w/ EF 40-45%. Resume home medications. Continue beta eris and ARB HD for fluid overload. 4. Hypoxia: Multifactorial-secondary to CHF, COPD, PNA, and Non-compliance w/ HD. O2 sat 88% on RA, currently 96% on Venturi Mask. HD for fluid overload as above. Monitor O2. 5. ESRD on HD: T//Sat. Follows w/ Dr. Singh. Notoriously non-compliant w / dialysis. Seen by Dr. Vital, plan is for HD tonight. 6. Hyperkalemia: K+ 7.3. S/p Insulin/D50/Ca/Kayexalate in ER. Improved 7. A-fib: Chronic. Resume home medications. On ASA. Consider Eliquis 8. Non-Compliance: As above, pt known to be non-compliant w/ meds, treatment and dialysis, wanting to LEAVE AMA on multiple occasions during last admit per records. Stressed importance of follow up and adhering to treatment. 9. DVT Prophylaxis: Heparin sq Discharge Planning Not ready for discharge Problem Qualifiers (1) CHF (congestive heart failure): Qualified Codes: I50.9 - Heart failure, unspecified (2) A-fib: Qualified Codes: I48.2 - Chronic atrial fibrillation Salty Buregss MD Jul 01, 2017 12:21
[2017-07-01 12:27] LABS: POTASSIUM 6.8 MEQ/L (3.5-5.1)
[2017-07-01] MEDS ORDERED: INSULIN HUMAN REGULAR 1,000 UNITS/10 ML VIAL IV PUSH ONE (12:30)
[2017-07-01] MEDS ORDERED: DEXTROSE 50% IN WATER 50 ML VIAL(D50) IV PUSH ONE (12:30)
[2017-07-01] MEDS ORDERED: CALCIUM GLUCONATE 10% 1 GM/10 ML VIAL IV PUSH ONE (12:30)
[2017-07-01] MEDS: SODIUM POLYSTYRENE SULFONATE SUSP 15 GM/60 ML CUP PO SCH ×3 (13:00→21:00)
[2017-07-01] MEDS ORDERED: SODIUM BICARBONATE 8.4% INJ 150 MEQ in DEXTROSE 5% IN WATE 1000ML INJ 1,000 ML IV SCH ×2 (15:00)
--- NOTE | 2017-07-01 15:34 | HHI.NPPN ---
Subjective History of Present Illness Patient is a 72-year-old noncompliant ESRD patient who misses his dialysis on a regular basis came in yesterday with increasing shortness of breath and hyperkalemia with a potassium of 7.3 Review of Systems General Constitutional: Fatigue Objective Data Data Vital Signs Date Time Temp Pulse Resp B/P (MAP) Pulse Ox O2 Delivery O2 Flow Rate FiO2 07/01/17 12:29 98 Venturi Mask 50 07/01/17 12:29 86 21 07/01/17 12:17 98.8 101 19 108/64 (79) 95 07/01/17 08:19 Venturi Mask 6.00 07/01/17 08:18 96 Venturi Mask 50 07/01/17 08:15 98.3 104 20 137/73 (94) 93 07/01/17 04:00 97.6 106 14 136/77 (96) 94 07/01/17 00:21 94 Venturi Mask 5.00 50 07/01/17 00:00 97.0 119 16 114/63 (80) 96 06/30/17 23:52 126 06/30/17 23:15 Venturi Mask 6.00 06/30/17 23:14 144 06/30/17 22:40 97.7 131 16 137/104 (115) 94 06/30/17 19:35 06/30/17 18:23 98.2 109 21 149/89 (109) 96 Venturi Mask 35 06/30/17 17:21 99 21 06/30/17 17:02 94 Nasal Cannula 4.00 06/30/17 16:58 18 Nasal Cannula 4.00 06/30/17 16:54 92 35 149/89 (109) 94 -: 07/01/17 1125 07/01/17 1125 Microbiology 06/30/17 Aerobic Blood Culture - Preliminary, Resulted NO GROWTH IN 1 DAY 06/30/17 Anaerobic Blood Culture - Preliminary, Resulted NO GROWTH IN 1 DAY 06/30/17 Aerobic Blood Culture - Preliminary, Resulted NO GROWTH IN 1 DAY 06/30/17 Anaerobic Blood Culture - Preliminary, Resulted NO GROWTH IN 1 DAY 06/30/17 Influenza Types A,B Antigen (JUSTIN) - Final, Complete NEGATIVE FOR FLU A AND B ANTIGEN.... Physical Exam General Appearance: Well Developed, Well Nourished Neck Neck Exam: Neck Supple Pulmonary Resp Exam: Decreased Bases, Diminished Breath Sounds Cardiology CV Exam: Regular Gastrointestinal/Abdomen GI Exam: Soft, Non-Tender, Bowel Sounds Present Extremeties Extremities Exam: Trace Edema Assessment/Plan Problem List: (1) ESRD (end stage renal disease) on dialysis ICD Codes: N18.6 - End stage renal disease; Z99.2 - Dependence on renal dialysis Status: Chronic Plan: Patient had dialysis yesterday and potassium declined to 4.8 but repeat went up to 6.8 Repeat potassium has been ordered after giving him medication lab is unable to draw blood and I spoke to the nurse repeated again as soon as possible Consider dialysis either this evening 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 Singh. (2) Non-compliance ICD Codes: Z91.19 - Patient's noncompliance with other medical treatment and regimen Status: Chronic Plan: Remains noncompliant (3) Hyperkalemia, diminished renal excretion ICD Codes: E87.5 - Hyperkalemia Status: Acute Plan: Discussed as above dialysis if necessary can be repeated (4) CHF (congestive heart failure) ICD Codes: I50.9 - Heart failure, unspecified Status: Acute Plan: 4 L removed Problem Qualifiers (1) CHF (congestive heart failure): Qualified Codes: I50.9 - Heart failure, unspecified Eliana Vital MD Jul 01, 2017 15:34
[2017-07-01 17:16] LABS: BICARBONATE 27.9 MEQ/L (21.0-32.0)
[2017-07-01 17:20] LABS: POTASSIUM 6.8 MEQ/L (3.5-5.1)
[2017-07-01] MEDS ORDERED: AZITHROMYCIN INJ 500 MG in SODIUM CHLOR 0.9% 250 ML INJ 250 ML IV SCH (18:00)
[2017-07-01] MEDS ORDERED: cefTRIAXone INJ 1,000 MG in SODIUM CHLORIDE 0.9% INJ 100 ML IV SCH (18:00)
[2017-07-01] MEDS: HEPARIN SODIUM - IV 10,000 UNITS/10 ML VIAL PRN (21:45)
[2017-07-01] MEDS: GENTAMICIN SULFATE (DIALYSIS USE ONLY) 20 MG/2 ML VIAL OTHER PRN (21:45)
[2017-07-01] MEDS: SODIUM CHLOR 0.9% 1000 ML INJ 1,000 ML OTHER PRN (21:45)
[2017-07-01] MEDS: ALPRAZolam 0.5 MG TAB PO PRN (23:01)
[2017-07-02] VITALS (9 sets, daily range): BP systolic 96–116; BP diastolic 53–77; PULSE 71–93; RESP 18–20; TEMP 97.7–98.8; O2SAT 90–99
[2017-07-02] MEDS: RESP: ALBUTEROL 2.5 MG/IPRATROPIUM 0.5 MG NEB (PRN) NEB ×2 (00:29→23:40)
[2017-07-02] MEDS: diphenhydrAMINE HCL 25 MG CAP PO PRN (02:22)
[2017-07-02 04:00] LABS: BICARBONATE 31.4 MEQ/L (21.0-32.0); POTASSIUM 4.9 MEQ/L (3.5-5.1)
[2017-07-02] MEDS: SUCRALFATE 1 GM TAB PO SCH ×4 (05:02→23:47)
[2017-07-02] MEDS: methylPREDNISolone SOD SUCC 40 MG/1 ML VIAL IV PUSH SCH ×4 (05:04→23:47)
[2017-07-02] MEDS: guaiFENesin/CODEINE SYRUP 200 MG/20 MG/10 ML CUP PO PRN (05:04)
[2017-07-02] MEDS: RESP: ALBUTEROL 2.5 MG/IPRATROPIUM 0.5 MG NEB (SCH) NEB ×4 (07:50→20:45)
[2017-07-02] MEDS: SODIUM CHLORIDE 0.9% FLUSH 10 ML FLUSH IV FLUSH SCH ×2 (09:00→22:31)
[2017-07-02] MEDS: CEFEPIME INJ 2,000 MG in SODIUM CHLORIDE 0.9% INJ 100 ML IV SCH (09:10)
[2017-07-02] MEDS: DILTIAZEM HCL 90 MG TAB PO SCH ×4 (09:10→22:33)
[2017-07-02] MEDS: ISOSORBIDE MONONITRATE 30 MG TAB PO SCH (09:10)
[2017-07-02] MEDS: METOPROLOL TARTRATE 25 MG TAB PO SCH ×2 (09:10→22:35)
[2017-07-02] MEDS: DOCUSATE SODIUM 50 MG/SENNA 8.6 MG TAB PO SCH ×2 (09:10→22:33)
[2017-07-02] MEDS: guaiFENesin E.R. 600 MG TAB PO SCH ×2 (09:10→22:33)
[2017-07-02] MEDS: SEVELAMER CARBONATE 800 MG TAB PO SCH ×3 (09:10→17:32)
[2017-07-02] MEDS: SODIUM POLYSTYRENE SULFONATE SUSP 15 GM/60 ML CUP PO SCH (09:11)
[2017-07-02] MEDS: HEPARIN SODIUM - SQ 10,000 UNITS/ML VIAL SQ SCH ×2 (09:11→21:00)
[2017-07-02] MEDS: ASPIRIN EC 81 MG TABEC PO SCH (09:11)
[2017-07-02] MEDS: BUDESONIDE-FORMOTEROL 160/4.5 MCG INHALER INH SCH ×2 (09:13→22:30)
[2017-07-02] MEDS: CINACALCET HYDROCHLORIDE 30 MG TAB PO SCH (09:16)
[2017-07-02] MEDS ORDERED: CALCIUM CARBONATE 500 MG CHEWABLE TAB CHEW PRN (11:15)
--- NOTE | 2017-07-02 11:39 | HHI.NPPN ---
Subjective Renal Failure: Chronic, End Stage Renal Disease Interval History Sitting up receiving a nebulizer. No acute concerns. (Angela Ortega) Review of Systems General Constitutional: Fatigue (Angela Ortega) Objective Data Data Vital Signs Date Time Temp Pulse Resp B/P (MAP) Pulse Ox O2 Delivery O2 Flow Rate FiO2 07/02/17 08:00 98.2 90 18 116/77 (90) 94 07/02/17 07:52 91 Venturi Mask 50 07/02/17 04:00 98.8 90 18 96/53 (67) 91 07/02/17 00:32 90 Venturi Mask 7.00 50 07/01/17 23:00 Venturi Mask 6.00 07/01/17 20:00 95 07/01/17 19:31 93 Venturi Mask 6.00 50 07/01/17 18:42 114 07/01/17 17:16 93 Venturi Mask 6.00 50 07/01/17 16:03 98.3 89 20 117/64 (81) 94 07/01/17 15:56 Nasal Cannula 4.00 07/01/17 12:29 98 Venturi Mask 50 07/01/17 12:29 86 21 07/01/17 12:17 98.8 101 19 108/64 (79) 95 (Angela Ortega) -: 07/01/17 1125 07/02/17 0321 Imaging Last 72 hours Impressions Chest X-Ray 06/30/17 1656 Signed Impressions: Service Date/Time: Friday, June 30, 2017 17:16 - CONCLUSION: Bilateral patchy infiltrates the mid and lower lungs. Stable cardiomegaly. Gelacio Odell MD Tubes & Lines: Perma-Cath (Angela Ortega) Physical Exam General Appearance: Well Developed, Well Nourished, Comfortable (Angela Ortega) Neck Neck Exam: Neck Supple (Angela Ortega) Pulmonary Resp Exam: Clear Bilaterally, No Distress, Decreased Bases, Diminished Breath Sounds (Angela Ortega) Cardiology CV Exam: Regular, Normal Sinus Rhythm (Angela Ortega) Gastrointestinal/Abdomen GI Exam: Soft, Non-Tender, Bowel Sounds Present (Angela Ortega) Musculoskeletal MS Exam: Normal Gait, Normal Tone (Angela Ortega) Integumentary Skin Exam: Warm, Dry, Intact (Angela Ortega) Extremeties Extremities Exam: No Edema, Pedal Pulses Palpable Extremeties Remarks AVF left arm, + thrill/bruit (Angela Ortega) Neurologic Neuro Exam: Alert, Awake, Oriented, Speech Clear, Moving All Extremities (Angela Ortega) Assessment/Plan Discussed Condition With: Patient Electrolyte Assessment: Hyperkalemia Problem List: (1) ESRD (end stage renal disease) on dialysis ICD Codes: N18.6 - End stage renal disease; Z99.2 - Dependence on renal dialysis Status: Chronic Plan: Normally has HD TTS. Missed Sunday; Dialyzed emergently Sunday evening and again on Sunday. We will dialyze tomorrow and then return to schedule. Low K diet ordered. No protein restriction. Avoid IVF. Renally dose medications when appropriate. (2) Non-compliance ICD Codes: Z91.19 - Patient's noncompliance with other medical treatment and regimen Status: Chronic Plan: Remains noncompliant with transitional program. He was residing at [facility]. (3) Hyperkalemia, diminished renal excretion ICD Codes: E87.5 - Hyperkalemia Status: Acute Plan: Improved with dialysis. Monitor renal panel. (4) CHF (congestive heart failure) ICD Codes: I50.9 - Heart failure, unspecified Status: Acute Plan: Follow fluid status. (Angela Ortega) Plan patient was seen and examined. Agree with above assessment and plan. Non compliant medication, has psych issues. Admitted with hyperkalemia. (Keron Singh MD) Problem Qualifiers (1) CHF (congestive heart failure): Qualified Codes: I50.9 - Heart failure, unspecified Angela Ortega Jul 02, 2017 11:39 Keron Singh MD Jul 03, 2017 10:47
--- NOTE | 2017-07-02 15:27 | HHI.PR ---
Subjective Remarks Follow-up respiratory failure. Still on Ventimask reports of improving shortness of breath. Also has belching. Discussed with RN Objective Vitals Vital Signs Date Time Temp Pulse Resp B/P (MAP) Pulse Ox O2 Delivery O2 Flow Rate FiO2 07/02/17 12:00 98.2 92 18 110/59 (76) 91 07/02/17 08:21 93 07/02/17 08:00 98.2 90 18 116/77 (90) 94 07/02/17 08:00 Venturi Mask 6.00 35 07/02/17 07:52 91 Venturi Mask 50 07/02/17 04:00 98.8 90 18 96/53 (67) 91 07/02/17 00:32 90 Venturi Mask 7.00 50 07/01/17 23:00 Venturi Mask 6.00 07/01/17 20:00 95 07/01/17 19:31 93 Venturi Mask 6.00 50 07/01/17 18:42 114 07/01/17 17:16 93 Venturi Mask 6.00 50 07/01/17 16:03 98.3 89 20 117/64 (81) 94 07/01/17 15:56 Nasal Cannula 4.00 I/O 07/01/17 07/01/17 07/01/17 07/02/17 07/02/17 07/02/17 07:00 15:00 23:00 07:00 15:00 23:00 Intake Total 100 ml 600 ml 360 ml Output Total 4000 ml 2500 ml 0 ml Balance -4000 ml 100 ml -1900 ml 360 ml Intake Oral 600 ml 360 ml IV Total 100 ml Output Urine Total 0 ml Hemodialysis 4000 ml 2500 ml # Bowel Movements 1 0 Result Diagram: 07/01/17 1125 07/02/17 0321 Imaging Last Impressions Chest X-Ray 06/30/17 1656 Signed Impressions: Service Date/Time: Friday, June 30, 2017 17:16 - CONCLUSION: Bilateral patchy infiltrates the mid and lower lungs. Stable cardiomegaly. Gelacio Odell MD Objective Remarks GENERAL: Elderly black male in no distress currently on Ventimask. HEENT: PERRLA, EOMI. No scleral icterus or conjunctival pallor. No lid lag or facial droop. CARDIOVASCULAR: Irregularly irregular. No obvious murmurs to auscultation. No chest tenderness to palpation. RESPIRATORY: Improved Crackles bilaterally. No wheezes Breath sounds equal bilaterally. GASTROINTESTINAL: Abdomen soft, non-tender, nondistended. BS normal. MUSCULOSKELETAL: Extremities without clubbing, cyanosis. 2+ edema bilaterally. No obvious deformities. NEUROLOGICAL: Awake, alert and oriented x4. No focal neurologic deficits. Moving both upper and lower extremities spontaneously. Procedures None A/P Problem List: (1) COPD (chronic obstructive pulmonary disease) ICD Code: J44.9 - Chronic obstructive pulmonary disease, unspecified Status: Chronic (2) CHF (congestive heart failure) ICD Code: I50.9 - Heart failure, unspecified Status: Acute (3) Hypoxia ICD Code: R09.02 - Hypoxemia Status: Acute (4) ESRD (end stage renal disease) on dialysis ICD Code: N18.6 - End stage renal disease; Z99.2 - Dependence on renal dialysis Status: Chronic (5) Non-compliance ICD Code: Z91.19 - Patient's noncompliance with other medical treatment and regimen Status: Chronic (6) Hyperkalemia ICD Code: E87.5 - Hyperkalemia (7) PNA (pneumonia) ICD Code: J18.9 - Pneumonia, unspecified organism (8) A-fib ICD Code: I48.91 - Unspecified atrial fibrillation Assessment and Plan 1. COPD exacerbation: Chronic Respiratory Failure w/ Acute Exacerbation, + wheezing on arrival, s/p Solu-Medrol and DuoNeb w/ some improvement. Improving but still requiring significant amount of oxygen. Continue Solu-Medrol, DuoNeb q4h and q2h prn, Symbicort, Mucinex and oxygen to keep saturation at least 92% 2. PNA: CXR w/ bilateral patchy infiltrates mid and lower lungs, images reviewed by me. S/p Rocephin/Zithro in ER. Continue w/ IV Abx. Switch to cefepime for hospital-acquired pneumonia. Switch to by mouth Zithromax 3. CHF: Acute on Chronic. Systolic. Echo 09/17/15 w/ EF 40-45%. Resume home medications. Continue beta eris and ARB HD for fluid overload. 4. Hypoxia: Multifactorial-secondary to CHF, COPD, PNA, and Non-compliance w/ HD. O2 sat 88% on RA, currently 96% on Venturi Mask. HD for fluid overload as above. Monitor O2. 5. ESRD on HD: T/Th/Sat. Follows w/ Dr. Singh. Notoriously non-compliant w / dialysis. Status post urgent hemodialysis last night secondary to hyperkalemia which is 6. Hyperkalemia: K+ 7.3. S/p Insulin/D50/Ca/Kayexalate in ER. Improved 7. A-fib: Chronic. Resume home medications. On ASA. Consider Eliquis 8. Non-Compliance: As above, pt known to be non-compliant w/ meds, treatment and dialysis, wanting to LEAVE AMA on multiple occasions during last admit per records. Stressed importance of follow up and adhering to treatment. 9. DVT Prophylaxis: Heparin sq Discharge Planning Not ready for discharge Problem Qualifiers (1) CHF (congestive heart failure): Qualified Codes: I50.9 - Heart failure, unspecified (2) A-fib: Qualified Codes: I48.2 - Chronic atrial fibrillation Salty Burgess MD Jul 02, 2017 15:27
[2017-07-02] MEDS: ACETAMINOPHEN/HYDROcodone 325 MG/5 MG TAB PO PRN ×2 (15:30→22:34)
[2017-07-02] MEDS: AZITHROMYCIN 250 MG TAB PO SCH (17:39)
[2017-07-02] MEDS: traZODone HCL 50 MG TAB PO SCH (22:33)
[2017-07-02] MEDS: ALPRAZolam 0.5 MG TAB PO PRN (23:47)
[2017-07-03] VITALS (10 sets, daily range): BP systolic 102–132; BP diastolic 55–82; PULSE 76–132; RESP 20; TEMP 97–98.5; O2SAT 90–99
[2017-07-03] MEDS: methylPREDNISolone SOD SUCC 40 MG/1 ML VIAL IV PUSH SCH ×3 (05:52→18:16)
[2017-07-03] MEDS: SUCRALFATE 1 GM TAB PO SCH ×3 (05:53→18:00)
[2017-07-03] MEDS: ONDANSETRON HCL 4 MG/2 ML VIAL IVP PRN (05:53)
[2017-07-03] MEDS: RESP: ALBUTEROL 2.5 MG/IPRATROPIUM 0.5 MG NEB (SCH) NEB ×4 (07:41→20:11)
[2017-07-03 08:53] LABS: BICARBONATE 27.5 MEQ/L (21.0-32.0); MAGNESIUM 2.3 MG/DL (1.5-2.5); POTASSIUM 5.5 MEQ/L (3.5-5.1)
[2017-07-03] MEDS: HEPARIN SODIUM - SQ 10,000 UNITS/ML VIAL SQ SCH ×2 (09:00→21:00)
[2017-07-03] MEDS: DILTIAZEM HCL 90 MG TAB PO SCH ×4 (09:00→22:24)
[2017-07-03] MEDS: DOCUSATE SODIUM 50 MG/SENNA 8.6 MG TAB PO SCH ×2 (09:00→21:00)
[2017-07-03] MEDS: BUDESONIDE-FORMOTEROL 160/4.5 MCG INHALER INH SCH ×2 (09:00→22:26)
[2017-07-03] MEDS: SODIUM CHLORIDE 0.9% FLUSH 10 ML FLUSH IV FLUSH SCH ×2 (09:00→22:26)
[2017-07-03 09:06] LABS: CALCIUM-PROTEIN CORRECTED 7.6 MG/DL (8.5-10.1)
--- NOTE | 2017-07-03 09:14 | HHI.NPPN ---
Subjective Renal Failure: Chronic, End Stage Renal Disease Interval History Seen during dialysis. He is on oxygen, coughing. (Angela Ortega) Review of Systems General Constitutional: Fatigue (Angela Ortega) Respiratory Lungs: SOB, Cough (Angela Ortega) Objective Data Data Vital Signs Date Time Temp Pulse Resp B/P (MAP) Pulse Ox O2 Delivery O2 Flow Rate FiO2 07/03/17 07:42 93 Venturi Mask 40 07/03/17 04:00 98.2 90 20 132/82 (99) 91 07/03/17 00:00 98.3 85 20 102/55 (71) 92 07/02/17 20:46 95 Venturi Mask 6.00 07/02/17 20:00 Venturi Mask 6.00 35 07/02/17 20:00 80 07/02/17 20:00 97.7 71 20 115/59 (77) 99 07/02/17 16:30 20 07/02/17 16:00 98.2 76 18 107/58 (74) 95 07/02/17 12:00 98.2 92 18 110/59 (76) 91 (Angela Ortega) -: 07/01/17 1125 07/03/17 0819 Tubes & Lines: Perma-Cath (Angela Ortega) Physical Exam General Appearance: Well Developed, Well Nourished, Comfortable (Angela Ortega) Neck Neck Exam: Neck Supple (Angela Ortega) Pulmonary Resp Exam: Clear Bilaterally, No Distress, Decreased Bases, Diminished Breath Sounds (Angela Ortega) Cardiology CV Exam: Regular, Normal Sinus Rhythm (Angela Ortega) Gastrointestinal/Abdomen GI Exam: Soft, Non-Tender, Bowel Sounds Present (Angela Ortega) Musculoskeletal MS Exam: Normal Gait, Normal Tone (Angela Ortega) Integumentary Skin Exam: Warm, Dry, Intact (Angela Ortega) Extremeties Extremities Exam: No Edema, Pedal Pulses Palpable Extremeties Remarks AVF left arm, + thrill/bruit (Angela Ortega) Neurologic Neuro Exam: Alert, Awake, Oriented, Speech Clear, Moving All Extremities (Angela Ortega) Assessment/Plan Discussed Condition With: Patient Assessment Summary: Anemia of CKD Electrolyte Assessment: Hyperkalemia Problem List: (1) ESRD (end stage renal disease) on dialysis ICD Codes: N18.6 - End stage renal disease; Z99.2 - Dependence on renal dialysis Status: Chronic Plan: Continue HD support TTS. Seen during dialysis today on 2K, 350 BFR, goal 2L Low K diet ordered. No protein restriction. Avoid IVF. Renally dose medications when appropriate. Intermittently obtain renal panel. He has AV access left side; resists the use. Has a Permcath for HD. (2) Non-compliance ICD Codes: Z91.19 - Patient's noncompliance with other medical treatment and regimen Status: Chronic Plan: Remains noncompliant with transitional program. He was residing at [facility]. (3) Hyperkalemia, diminished renal excretion ICD Codes: E87.5 - Hyperkalemia Status: Acute Plan: On a 2K dialysate today, Low K diet (discussed foods to avoid). Avoid multivitamins. Monitor renal panel. (4) CHF (congestive heart failure) ICD Codes: I50.9 - Heart failure, unspecified Status: Acute Plan: Follow fluid status. He is wheezing, has COPD component. On oxygen and nebulizers. May need steroids. (Angela Ortega) Problem List: (1) ESRD (end stage renal disease) on dialysis ICD Codes: N18.6 - End stage renal disease; Z99.2 - Dependence on renal dialysis Status: Chronic Plan: Continue HD support TTS. Seen during dialysis today on 2K, 350 BFR, goal 2L Low K diet ordered. No protein restriction. Avoid IVF. Renally dose medications when appropriate. Intermittently obtain renal panel. He has AV access left side; resists the use. Has a Permcath for HD. (2) Non-compliance ICD Codes: Z91.19 - Patient's noncompliance with other medical treatment and regimen Status: Chronic Plan: Remains noncompliant with transitional program. He was residing at [facility]. (3) Hyperkalemia, diminished renal excretion ICD Codes: E87.5 - Hyperkalemia Status: Acute Plan: On a 2K dialysate today, Low K diet (discussed foods to avoid). Avoid multivitamins. Monitor renal panel. (4) CHF (congestive heart failure) ICD Codes: I50.9 - Heart failure, unspecified Status: Acute Plan: Follow fluid status. He is wheezing, has COPD component. On oxygen and nebulizers. May need steroids. Plan patient was seen and examined during dialysis. Agree with above assessment and plan. (Keron Singh MD) Problem Qualifiers (1) CHF (congestive heart failure): Qualified Codes: I50.9 - Heart failure, unspecified Angela OrtegaP Jul 03, 2017 09:14 Keron Singh MD Jul 03, 2017 10:51
[2017-07-03] MEDS: diphenhydrAMINE HCL 25 MG CAP PO PRN (11:38)
[2017-07-03] MEDS: SEVELAMER CARBONATE 800 MG TAB PO SCH ×3 (13:00→18:16)
[2017-07-03] MEDS: CEFEPIME INJ 2,000 MG in SODIUM CHLORIDE 0.9% INJ 100 ML IV SCH (13:08)
[2017-07-03] MEDS: METOPROLOL TARTRATE 25 MG TAB PO SCH ×2 (13:10→22:25)
[2017-07-03] MEDS: ISOSORBIDE MONONITRATE 30 MG TAB PO SCH (13:10)
[2017-07-03] MEDS: ASPIRIN EC 81 MG TABEC PO SCH (13:10)
[2017-07-03] MEDS: guaiFENesin E.R. 600 MG TAB PO SCH ×2 (13:10→22:24)
[2017-07-03] MEDS: AZITHROMYCIN 250 MG TAB PO SCH (13:11)
--- NOTE | 2017-07-03 15:13 | HHI.PR ---
Subjective Remarks Follow-up respiratory failure. Complains of persistent cough. Ventimask down to 40%. Discussed with RN Objective Vitals Vital Signs Date Time Temp Pulse Resp B/P (MAP) Pulse Ox O2 Delivery O2 Flow Rate FiO2 07/03/17 12:00 98.5 95 20 123/71 (88) 99 07/03/17 08:00 Venturi Mask 6.00 35 07/03/17 08:00 97.6 86 20 117/59 (78) 90 07/03/17 08:00 95 07/03/17 07:42 93 Venturi Mask 40 07/03/17 04:00 98.2 90 20 132/82 (99) 91 07/03/17 00:00 98.3 85 20 102/55 (71) 92 07/02/17 20:46 95 Venturi Mask 6.00 07/02/17 20:00 Venturi Mask 6.00 35 07/02/17 20:00 80 07/02/17 20:00 97.7 71 20 115/59 (77) 99 07/02/17 16:30 20 07/02/17 16:00 98.2 76 18 107/58 (74) 95 I/O 07/02/17 07/02/17 07/02/17 07/03/17 07/03/17 07/03/17 07:00 15:00 23:00 07:00 15:00 23:00 Intake Total 360 ml 600 ml 360 ml Output Total 0 ml 0 ml 2500 ml Balance 360 ml 600 ml 360 ml -2500 ml Intake Oral 360 ml 600 ml 360 ml Output Urine Total 0 ml 0 ml Hemodialysis 2500 ml # Voids 0 # Bowel Movements 0 0 0 Result Diagram: 07/01/17 1125 07/03/17 0819 Imaging Last Impressions Chest X-Ray 06/30/17 1656 Signed Impressions: Service Date/Time: Friday, June 30, 2017 17:16 - CONCLUSION: Bilateral patchy infiltrates the mid and lower lungs. Stable cardiomegaly. Gelacio Odell MD Objective Remarks GENERAL: Elderly black male in no distress currently on Ventimask 40%. HEENT: PERRLA, EOMI. No scleral icterus or conjunctival pallor. No lid lag or facial droop. CARDIOVASCULAR: Irregularly irregular. No obvious murmurs to auscultation. No chest tenderness to palpation. RESPIRATORY: Improved Crackles bilaterally. No wheezes Breath sounds equal bilaterally. GASTROINTESTINAL: Abdomen soft, non-tender, nondistended. BS normal. MUSCULOSKELETAL: Extremities without clubbing, cyanosis. 2+ edema bilaterally. No obvious deformities. NEUROLOGICAL: Awake, alert and oriented x4. No focal neurologic deficits. Moving both upper and lower extremities spontaneously. Procedures None A/P Problem List: (1) COPD (chronic obstructive pulmonary disease) ICD Code: J44.9 - Chronic obstructive pulmonary disease, unspecified Status: Chronic (2) CHF (congestive heart failure) ICD Code: I50.9 - Heart failure, unspecified Status: Acute (3) Hypoxia ICD Code: R09.02 - Hypoxemia Status: Acute (4) ESRD (end stage renal disease) on dialysis ICD Code: N18.6 - End stage renal disease; Z99.2 - Dependence on renal dialysis Status: Chronic (5) Non-compliance ICD Code: Z91.19 - Patient's noncompliance with other medical treatment and regimen Status: Chronic (6) Hyperkalemia ICD Code: E87.5 - Hyperkalemia (7) PNA (pneumonia) ICD Code: J18.9 - Pneumonia, unspecified organism (8) A-fib ICD Code: I48.91 - Unspecified atrial fibrillation Assessment and Plan 1. COPD exacerbation: Chronic Respiratory Failure w/ Acute Exacerbation, + wheezing on arrival, s/p Solu-Medrol and DuoNeb w/ some improvement. Improving but still requiring significant amount of oxygen currently on Ventimask 40%. Continue DuoNeb q4h and q2h prn, Symbicort, Mucinex and oxygen to keep saturation at least 92%. Switch to prednisone in the morning 2. PNA: CXR w/ bilateral patchy infiltrates mid and lower lungs, images reviewed by me. S/p Rocephin/Zithro in ER. Continue w/ IV Abx. Switched to cefepime for hospital-acquired pneumonia. Switched to by mouth Zithromax. Cultures negative to date 3. CHF: Acute on Chronic. Systolic. Echo 09/17/15 w/ EF 40-45%. Resume home medications. Continue beta eris and ARB HD for fluid overload. 4. Hypoxia: Multifactorial-secondary to CHF, COPD, PNA, and Non-compliance w/ HD. O2 sat 88% on RA, currently 96% on Venturi Mask. HD for fluid overload as above. Monitor O2. 5. ESRD on HD: T//Sat. Follows w/ Dr. Singh. Notoriously non-compliant w / dialysis. Status post urgent hemodialysis 2 secondary to hyperkalemia 6. Hyperkalemia: K+ 7.3. S/p Insulin/D50/Ca/Kayexalate in ER. Improved 7. A-fib: Chronic. Resume home medications. On ASA. Consider Eliquis 8. Non-Compliance: As above, pt known to be non-compliant w/ meds, treatment and dialysis, wanting to LEAVE AMA on multiple occasions during last admit per records. Stressed importance of follow up and adhering to treatment. 9. DVT Prophylaxis: Heparin sq Discharge Planning Not ready for discharge Problem Qualifiers (1) CHF (congestive heart failure): Qualified Codes: I50.9 - Heart failure, unspecified (2) A-fib: Qualified Codes: I48.2 - Chronic atrial fibrillation Salty Burgess MD Jul 03, 2017 15:13
[2017-07-03] MEDS: BENZONATATE 100 MG CAP PO SCH (18:16)
[2017-07-03] MEDS: CINACALCET HYDROCHLORIDE 30 MG TAB PO SCH (18:17)
[2017-07-03] MEDS: guaiFENesin/CODEINE SYRUP 200 MG/20 MG/10 ML CUP PO PRN (22:23)
[2017-07-03] MEDS: traZODone HCL 50 MG TAB PO SCH (22:24)
[2017-07-04] VITALS (12 sets, daily range): BP systolic 99–138; BP diastolic 55–77; PULSE 75–95; RESP 18–20; TEMP 97.7–98.3; O2SAT 90–99
[2017-07-04] MEDS: ALPRAZolam 0.5 MG TAB PO PRN ×2 (00:56→23:45)
[2017-07-04] MEDS: BENZONATATE 100 MG CAP PO SCH ×4 (01:10→23:45)
[2017-07-04] MEDS: SUCRALFATE 1 GM TAB PO SCH ×5 (01:10→23:45)
[2017-07-04] MEDS: RESP: ALBUTEROL 2.5 MG/IPRATROPIUM 0.5 MG NEB (SCH) NEB ×3 (08:05→15:56)
[2017-07-04 08:14] LABS: BICARBONATE 28.9 MEQ/L (21.0-32.0); MAGNESIUM 2.2 MG/DL (1.5-2.5); POTASSIUM 5.1 MEQ/L (3.5-5.1)
[2017-07-04 08:33] LABS: CALCIUM-PROTEIN CORRECTED 7.5 MG/DL (8.5-10.1)
[2017-07-04] MEDS: ISOSORBIDE MONONITRATE 30 MG TAB PO SCH (08:36)
[2017-07-04] MEDS: AZITHROMYCIN 250 MG TAB PO SCH (08:36)
[2017-07-04] MEDS: CINACALCET HYDROCHLORIDE 30 MG TAB PO SCH (08:36)
[2017-07-04] MEDS: SEVELAMER CARBONATE 800 MG TAB PO SCH ×3 (08:36→17:49)
[2017-07-04] MEDS: predniSONE 20 MG TAB PO SCH (08:36)
[2017-07-04] MEDS: DILTIAZEM HCL 90 MG TAB PO SCH ×4 (08:37→22:10)
[2017-07-04] MEDS: DOCUSATE SODIUM 50 MG/SENNA 8.6 MG TAB PO SCH ×2 (08:37→21:00)
[2017-07-04] MEDS: METOPROLOL TARTRATE 25 MG TAB PO SCH ×2 (08:37→22:10)
[2017-07-04] MEDS: ASPIRIN EC 81 MG TABEC PO SCH (08:37)
[2017-07-04] MEDS: guaiFENesin E.R. 600 MG TAB PO SCH ×2 (08:37→22:10)
[2017-07-04] MEDS: guaiFENesin/CODEINE SYRUP 200 MG/20 MG/10 ML CUP PO PRN ×3 (08:38→19:28)
[2017-07-04] MEDS: SODIUM CHLORIDE 0.9% FLUSH 10 ML FLUSH IV FLUSH SCH ×2 (08:38→22:12)
[2017-07-04] MEDS ORDERED: CALCITRIOL 0.25 MCG CAP PO SCH (09:00)
[2017-07-04] MEDS: HEPARIN SODIUM - SQ 10,000 UNITS/ML VIAL SQ SCH ×2 (09:00→21:00)
[2017-07-04] MEDS: CEFEPIME INJ 2,000 MG in SODIUM CHLORIDE 0.9% INJ 100 ML IV SCH (09:18)
--- NOTE | 2017-07-04 09:19 | HHI.PR ---
Subjective Remarks Follow-up respiratory failure. Breathing better this time. He feels very tired and he is sleepy. Denies any chest pain at this time. No nausea or vomiting no diarrhea or constipation. He is not coughing much. Plan for hemodialysis tomorrow Objective Vitals Vital Signs Date Time Temp Pulse Resp B/P (MAP) Pulse Ox O2 Delivery O2 Flow Rate FiO2 07/04/17 08:05 97 Nasal Cannula 4.00 07/04/17 08:00 97.7 75 18 133/72 (92) 96 07/04/17 04:00 98.3 86 20 111/68 (82) 90 07/04/17 03:53 82 07/04/17 00:00 95 07/03/17 20:00 Venturi Mask 6.00 35 07/03/17 20:00 99 07/03/17 20:00 98.4 102 20 132/81 (98) 91 07/03/17 16:39 96 Venturi Mask 40 07/03/17 16:05 76 07/03/17 16:00 97.0 106 20 123/71 (88) 96 07/03/17 12:30 132 07/03/17 12:00 98.5 95 20 123/71 (88) 99 07/03/17 12:00 Venturi Mask 6.00 35 I/O 07/03/17 07/03/17 07/03/17 07/04/17 07/04/17 07/04/17 07:00 15:00 23:00 07:00 15:00 23:00 Intake Total 360 ml 240 ml Output Total 2500 ml Balance 360 ml -2500 ml 240 ml Intake Oral 360 ml 240 ml Hemodialysis 2500 ml # Voids 0 0 # Bowel Movements 0 0 1 Result Diagram: 07/01/17 1125 07/04/17 0635 Imaging Last Impressions Chest X-Ray 06/30/17 1656 Signed Impressions: Service Date/Time: Friday, June 30, 2017 17:16 - CONCLUSION: Bilateral patchy infiltrates the mid and lower lungs. Stable cardiomegaly. Gelacio Odell MD Objective Remarks GENERAL: Elderly black male in no distress currently on Ventimask 40%. HEENT: PERRLA, EOMI. No scleral icterus or conjunctival pallor. No lid lag or facial droop. CARDIOVASCULAR: Irregularly irregular. No obvious murmurs to auscultation. No chest tenderness to palpation. RESPIRATORY: Improved Crackles bilaterally. No wheezes Breath sounds equal bilaterally. GASTROINTESTINAL: Abdomen soft, non-tender, nondistended. BS normal. MUSCULOSKELETAL: Extremities without clubbing, cyanosis. 2+ edema bilaterally. No obvious deformities. NEUROLOGICAL: Awake, alert and oriented x4. No focal neurologic deficits. Moving both upper and lower extremities spontaneously. Procedures None A/P Problem List: (1) COPD (chronic obstructive pulmonary disease) ICD Code: J44.9 - Chronic obstructive pulmonary disease, unspecified Status: Chronic (2) CHF (congestive heart failure) ICD Code: I50.9 - Heart failure, unspecified Status: Acute (3) Hypoxia ICD Code: R09.02 - Hypoxemia Status: Acute (4) ESRD (end stage renal disease) on dialysis ICD Code: N18.6 - End stage renal disease; Z99.2 - Dependence on renal dialysis Status: Chronic (5) Non-compliance ICD Code: Z91.19 - Patient's noncompliance with other medical treatment and regimen Status: Chronic (6) Hyperkalemia ICD Code: E87.5 - Hyperkalemia (7) PNA (pneumonia) ICD Code: J18.9 - Pneumonia, unspecified organism (8) A-fib ICD Code: I48.91 - Unspecified atrial fibrillation Assessment and Plan COPD exacerbation: Chronic Respiratory Failure w/ Acute Exacerbation. + wheezing on arrival, s/p Solu-Medrol and DuoNeb w/ some improvement. Improving but still requiring significant amount of oxygen currently on Ventimask 40%. Continue DuoNeb q4h and q2h prn, Symbicort, Mucinex and oxygen to keep saturation at least 92%. Switch to prednisone in the morning PNA: CXR w/ bilateral patchy infiltrates mid and lower lungs, images reviewed by me. S/p Rocephin/Zithro in ER. Continue w/ IV Abx. Switched to cefepime for hospital-acquired pneumonia. Switched to by mouth Zithromax. Cultures negative to date CHF: Acute on Chronic. Systolic. Echo 09/17/15 w/ EF 40-45%. Resume home medications. Continue beta eris and ARB HD for fluid overload. Hypoxia: Multifactorial-secondary to CHF, COPD, PNA, and Non-compliance w/ HD. O2 sat 88% on RA, currently 96% on Venturi Mask. HD for fluid overload as above. Monitor O2. ESRD on HD: T/Th/Sat. Follows w/ Dr. Singh. Notoriously non-compliant w/ dialysis. Status post urgent hemodialysis 2 secondary to hyperkalemia Hyperkalemia: K+ 7.3. S/p Insulin/D50/Ca/Kayexalate in ER. Improved A-fib: Chronic. Resume home medications. On ASA. Consider Eliquis Non-Compliance: As above, pt known to be non-compliant w/ meds, treatment and dialysis, wanting to LEAVE AMA on multiple occasions during last admit per records. Stressed importance of follow up and adhering to treatment. DVT Prophylaxis: Heparin sq Discharge Planning pending improvement, not ready for discharge. CM ff Problem Qualifiers (1) CHF (congestive heart failure): Qualified Codes: I50.9 - Heart failure, unspecified (2) A-fib: Qualified Codes: I48.2 - Chronic atrial fibrillation Florecita Rodriguez MD Jul 04, 2017 09:19
[2017-07-04] MEDS: BUDESONIDE-FORMOTEROL 160/4.5 MCG INHALER INH SCH ×2 (09:23→22:13)
[2017-07-04] MEDS ORDERED: CALCIUM GLUCONATE INJ 1 GM in DEXTROSE 5% IN WATER 100ML INJ 100 ML IV ONE ×2 (11:00)
--- NOTE | 2017-07-04 11:51 | HHI.NPPN ---
Subjective Renal Failure: Chronic, End Stage Renal Disease Interval History Being treated for COPD exacerbation. Resting on oxygen. Dialyzed yesterday. (Angela Ortega) Review of Systems General Constitutional: Fatigue (Angela Ortega) Respiratory Lungs: SOB, Cough (Angela Ortega) Objective Data Data Vital Signs Date Time Temp Pulse Resp B/P (MAP) Pulse Ox O2 Delivery O2 Flow Rate FiO2 07/04/17 08:05 97 Nasal Cannula 4.00 07/04/17 08:00 77 07/04/17 08:00 97.7 75 18 133/72 (92) 96 07/04/17 04:00 98.3 86 20 111/68 (82) 90 07/04/17 03:53 82 07/04/17 00:00 95 07/03/17 20:00 Venturi Mask 6.00 35 07/03/17 20:00 99 07/03/17 20:00 98.4 102 20 132/81 (98) 91 07/03/17 16:39 96 Venturi Mask 40 07/03/17 16:05 76 07/03/17 16:00 97.0 106 20 123/71 (88) 96 07/03/17 12:30 132 07/03/17 12:00 98.5 95 20 123/71 (88) 99 07/03/17 12:00 Venturi Mask 6.00 35 (Angela Ortega) -: 07/01/17 1125 07/04/17 0635 Tubes & Lines: Perma-Cath (Angela Ortega) Physical Exam General Appearance: Well Developed, Well Nourished, Comfortable (Angela Ortega) Neck Neck Exam: Neck Supple (Angela Ortega) Pulmonary Resp Exam: Breath Sounds Equal, No Distress, Rhonchi, Decreased Bases, Diminished Breath Sounds Resp Remarks wheezing, expiratory (Angela Ortega) Cardiology CV Exam: Regular, Normal Sinus Rhythm (Angela Ortega) Gastrointestinal/Abdomen GI Exam: Soft, Non-Tender, Bowel Sounds Present (Angela Ortega) Musculoskeletal MS Exam: Normal Gait, Normal Tone (Angela Ortega) Integumentary Skin Exam: Warm, Dry, Intact (Angela Ortega) Extremeties Extremities Exam: No Edema, Pedal Pulses Palpable Extremeties Remarks AVF left arm, + thrill/bruit (Angela Ortega) Neurologic Neuro Exam: Alert, Awake, Oriented, Speech Clear, Moving All Extremities (Angela Ortega) Assessment/Plan Discussed Condition With: Patient Assessment Summary: Anemia of CKD Electrolyte Assessment: Hyperkalemia Problem List: (1) ESRD (end stage renal disease) on dialysis ICD Codes: N18.6 - End stage renal disease; Z99.2 - Dependence on renal dialysis Status: Chronic Plan: Continue HD support TTS. Low K diet ordered. No protein restriction. Avoid IVF. Renally dose medications when appropriate. Intermittently obtain renal panel. He has AV access left side; resists the use. Has a Permcath for HD. (2) Non-compliance ICD Codes: Z91.19 - Patient's noncompliance with other medical treatment and regimen Status: Chronic Plan: Remains noncompliant with transitional program. He was residing at [facility]. (3) Hyperkalemia, diminished renal excretion ICD Codes: E87.5 - Hyperkalemia Status: Acute Plan: Avoid multivitamins. Monitor renal panel. (4) CHF (congestive heart failure) ICD Codes: I50.9 - Heart failure, unspecified Status: Acute Plan: Follow fluid status. He is wheezing, being treated for COPD exacerbation; he is on oxygen and nebulizers. Steroids added. (5) Metabolic bone disease ICD Codes: E88.9 - Metabolic disorder, unspecified; M90.80 - Osteopathy in diseases classified elsewhere, unspecified site Status: Acute Plan: On Renvela with meals, dosage increase PTH is very high, has secondary hyperparathyroidism. On Sensipar, start Calcitriol 1mcg po daily (Angela Ortega) Plan patient was seen and examined. Agree with above assessment and plan. Calcitriol added due to high PTH. Continue Sensipar as well. Needs better phosphorus control. Continue Renvela with meals. (Keron Singh MD) Problem Qualifiers (1) CHF (congestive heart failure): Qualified Codes: I50.9 - Heart failure, unspecified Angela Ortega Jul 04, 2017 11:51 Keron Singh MD Jul 05, 2017 14:19
[2017-07-04] MEDS: traZODone HCL 50 MG TAB PO SCH (22:09)
[2017-07-04] MEDS: RESP: ALBUTEROL 2.5 MG/IPRATROPIUM 0.5 MG NEB (PRN) NEB (22:18)
[2017-07-05] VITALS (10 sets, daily range): BP systolic 109–124; BP diastolic 54–75; PULSE 79–106; RESP 16–20; TEMP 97.4–98.5; O2SAT 96–97
[2017-07-05] MEDS: ONDANSETRON HCL 4 MG/2 ML VIAL IVP PRN (01:54)
[2017-07-05] MEDS: SUCRALFATE 1 GM TAB PO SCH ×3 (06:23→19:20)
[2017-07-05 08:27] LABS: BICARBONATE 29.2 MEQ/L (21.0-32.0); MAGNESIUM 2.3 MG/DL (1.5-2.5); POTASSIUM 4.9 MEQ/L (3.5-5.1)
[2017-07-05] MEDS ORDERED: CALCITRIOL 0.25 MCG CAP PO SCH (09:00)
[2017-07-05] MEDS: METOPROLOL TARTRATE 25 MG TAB PO SCH (09:00)
[2017-07-05] MEDS: DILTIAZEM HCL 90 MG TAB PO SCH ×3 (09:00→19:20)
[2017-07-05] MEDS: ISOSORBIDE MONONITRATE 30 MG TAB PO SCH (09:00)
[2017-07-05] MEDS: HEPARIN SODIUM - SQ 10,000 UNITS/ML VIAL SQ SCH (09:00)
[2017-07-05] MEDS: RESP: ALBUTEROL 2.5 MG/IPRATROPIUM 0.5 MG NEB (PRN) NEB (09:22)
--- NOTE | 2017-07-05 09:36 | HHI.NPPN ---
Subjective Renal Failure: Chronic, End Stage Renal Disease Interval History Breathing improved. Due today for dialysis. (Angela Ortega) Review of Systems General Constitutional: Fatigue (Angela Ortega) Respiratory Lungs: SOB, Cough (Angela Ortega) Objective Data Data Vital Signs Date Time Temp Pulse Resp B/P (MAP) Pulse Ox O2 Delivery O2 Flow Rate FiO2 07/05/17 09:24 97 Nasal Cannula 5.00 07/05/17 06:28 98.0 105 20 122/61 (81) 96 07/05/17 04:00 106 07/05/17 04:00 Nasal Cannula 6.00 Humidified 07/05/17 00:18 98.2 91 20 123/60 (81) 97 07/05/17 00:00 Nasal Cannula 6.00 Humidified 07/05/17 00:00 79 07/04/17 22:20 99 Nasal Cannula 5.00 07/04/17 21:10 97.7 89 20 110/60 (77) 95 07/04/17 20:00 93 07/04/17 20:00 Nasal Cannula 6.00 Humidified 07/04/17 17:53 Nasal Cannula 6.00 07/04/17 17:49 80 138/77 (97) 07/04/17 16:00 97.7 81 18 120/60 (80) 97 07/04/17 15:59 96 Nasal Cannula 4.00 07/04/17 12:00 98.3 93 19 99/55 (70) 93 (Angela Ortega) -: 07/01/17 1125 07/05/17 0730 Tubes & Lines: Perma-Cath (Angela Ortega) Physical Exam General Appearance: Well Developed, Well Nourished, Comfortable (Angela Ortega) Neck Neck Exam: Neck Supple (Angela Ortega) Pulmonary Resp Exam: Breath Sounds Equal, No Distress, Rhonchi, Decreased Bases, Diminished Breath Sounds Resp Remarks wheezing, expiratory (Angela Ortega) Cardiology CV Exam: Regular, Normal Sinus Rhythm (Angela Ortega) Gastrointestinal/Abdomen GI Exam: Soft, Non-Tender, Bowel Sounds Present (Angela Ortega) Musculoskeletal MS Exam: Normal Gait, Normal Tone (Angela Ortega) Integumentary Skin Exam: Warm, Dry, Intact (Angela Ortega) Extremeties Extremities Exam: No Edema, Pedal Pulses Palpable Extremeties Remarks AVF left arm, + thrill/bruit (Angela Ortega) Neurologic Neuro Exam: Alert, Awake, Oriented, Speech Clear, Moving All Extremities (Angela Ortega) Assessment/Plan Discussed Condition With: Patient Assessment Summary: Anemia of CKD Electrolyte Assessment: Hyperkalemia Problem List: (1) ESRD (end stage renal disease) on dialysis ICD Codes: N18.6 - End stage renal disease; Z99.2 - Dependence on renal dialysis Status: Chronic Plan: Continue HD support TTS.He is due today. Attempt to cannulate AV access if he will allow. Historically he is resistant to using it. Permcath is in place Low K diet ordered. No protein restriction. Avoid IVF. Renally dose medications when appropriate. Intermittently obtain renal panel. (2) Non-compliance ICD Codes: Z91.19 - Patient's noncompliance with other medical treatment and regimen Status: Chronic Plan: Remains noncompliant with transitional program. We discussed the need to be compliant with the program to decrease hospital readmission. He was residing at [facility]. (3) Hyperkalemia, diminished renal excretion ICD Codes: E87.5 - Hyperkalemia Status: Acute Plan: Avoid multivitamins. Monitor renal panel. (4) CHF (congestive heart failure) ICD Codes: I50.9 - Heart failure, unspecified Status: Acute Plan: Follow fluid status. Wheezing improved, being treated for COPD exacerbation; he is on oxygen and nebulizers. Steroids added. (5) Metabolic bone disease ICD Codes: E88.9 - Metabolic disorder, unspecified; M90.80 - Osteopathy in diseases classified elsewhere, unspecified site Status: Acute Plan: On Renvela with meals, dosage increase PTH is very high, has secondary hyperparathyroidism. On Sensipar, also Calcitriol 1mcg po daily (Angela Ortega) Plan patient was seen and examined. Due for dialysis today. Agree with above assessment and plan. (Keron Singh MD) Problem Qualifiers (1) CHF (congestive heart failure): Qualified Codes: I50.9 - Heart failure, unspecified Angela Ortega Jul 05, 2017 09:36 Keron Singh MD Jul 05, 2017 14:26
[2017-07-05] MEDS: CINACALCET HYDROCHLORIDE 30 MG TAB PO SCH (09:57)
[2017-07-05] MEDS: guaiFENesin E.R. 600 MG TAB PO SCH (09:57)
[2017-07-05] MEDS: SEVELAMER CARBONATE 800 MG TAB PO SCH ×3 (09:57→19:20)
[2017-07-05] MEDS: predniSONE 20 MG TAB PO SCH (09:57)
[2017-07-05] MEDS: DOCUSATE SODIUM 50 MG/SENNA 8.6 MG TAB PO SCH (09:57)
[2017-07-05] MEDS: SODIUM CHLORIDE 0.9% FLUSH 10 ML FLUSH IV FLUSH SCH (09:58)
[2017-07-05] MEDS: BENZONATATE 100 MG CAP PO SCH (09:58)
[2017-07-05] MEDS: CEFEPIME INJ 2,000 MG in SODIUM CHLORIDE 0.9% INJ 100 ML IV SCH (09:58)
[2017-07-05] MEDS: BUDESONIDE-FORMOTEROL 160/4.5 MCG INHALER INH SCH (09:59)
[2017-07-05] MEDS: ASPIRIN EC 81 MG TABEC PO SCH (10:00)
[2017-07-05] MEDS ORDERED: LOMO2.5T PO (11:52)
[2017-07-05] MEDS ORDERED: TRAZ1TAB14 PO (11:52)
[2017-07-05] MEDS ORDERED: ALPR0.5T3 PO (11:52)
[2017-07-05] MEDS ORDERED: CALC.25 PO (11:52)
[2017-07-05] MEDS ORDERED: PERI PO (11:52)
--- NOTE | 2017-07-05 11:53 | HHI.DS ---
Discharge Summary Admission Date Jun 30, 2017 at 18:44 Discharge Date: Jul 05, 2017 Admitting Diagnosis CHF/Hyperkalemia/COPD Flair/ (1) COPD (chronic obstructive pulmonary disease) ICD Code: J44.9 - Chronic obstructive pulmonary disease, unspecified Status: Chronic (2) CHF (congestive heart failure) ICD Code: I50.9 - Heart failure, unspecified Status: Acute (3) Hypoxia ICD Code: R09.02 - Hypoxemia Status: Acute (4) ESRD (end stage renal disease) on dialysis ICD Code: N18.6 - End stage renal disease; Z99.2 - Dependence on renal dialysis Status: Chronic (5) Non-compliance ICD Code: Z91.19 - Patient's noncompliance with other medical treatment and regimen Status: Chronic (6) Hyperkalemia ICD Code: E87.5 - Hyperkalemia (7) PNA (pneumonia) ICD Code: J18.9 - Pneumonia, unspecified organism (8) A-fib ICD Code: I48.91 - Unspecified atrial fibrillation Procedures None Brief History - From Admission This is a 72-year-old male with PMH of HTN, A. fib on ASA, Anxiety, CHF (Echo 07/21 w/ EF 40-45%), ESRD on HD T/Th/Sat, COPD and Non-Compliance who presented to the ER w/ complaints of cough and SOB. Has missed multiple appointments for dialysis, missed HD today and states cough/SOB much worse. Denies fever/ chills. On arrival pt noted to have O2 sat 88% on RA. Recent admit 06/13- for similar complaints, admitted for Afib w/ RVR, COPD and ESRD, per records pt wanting to LEAVE AMA on multiple occasions. BP 149/89, HR 92, O2 sat 91% on 2L NC, Afebrile. CBC essentially at baseline. K+ 7.3, s/p Insulin/D50/Ca/ Kayexalate. Creatinine 12.00, previously 8.14 on 06/27/17. CXR bilateral patchy infiltrates in the mid and lower lungs. Noted to have wheezing on exam as well. Dr. Vital consulted by ER physician, plan is for HD tonight. S/p Rocephin/Zithro, Solu-Medrol and DuoNeb in ER CBC/BMP: 07/01/17 1125 07/05/17 0730 Significant Findings Laboratory Tests Test 07/03/17 08:19 07/03/17 14:24 07/04/17 06:35 07/05/17 07:30 Blood Urea Nitrogen 63 MG/DL (7-18) 61 MG/DL (7-18) 90 MG/DL (7-18) Creatinine 8.70 MG/DL (0.60-1.30) 7.40 MG/DL (0.60-1.30) 9.18 MG/DL (0.60-1.30) Random Glucose 147 MG/DL (74-106) 132 MG/DL (74-106) Calcium Level 7.3 MG/DL (8.5-10.1) 7.1 MG/DL (8.5-10.1) 7.7 MG/DL (8.5-10.1) Sodium Level 135 MEQ/L (136-145) 134 MEQ/L (136-145) 134 MEQ/L (136-145) Potassium Level 5.5 MEQ/L (3.5-5.1) Chloride Level 96 MEQ/L (98-107) 96 MEQ/L (98-107) Estimat Glomerular Filtration Rate 7 ML/MIN (>89) 9 ML/MIN (>89) 7 ML/MIN (>89) Protein Corrected Calcium 7.6 MG/DL (8.5-10.1) 7.5 MG/DL (8.5-10.1) Phosphorus Level 6.3 MG/DL (2.5-4.9) Parathyroid Hormone (Intact) 3334.5 PG/ML (12.4-76.8) Total Protein 6.3 GM/DL (6.4-8.2) Imaging Last Impressions Chest X-Ray 06/30/17 1656 Signed Impressions: Service Date/Time: Friday, June 30, 2017 17:16 - CONCLUSION: Bilateral patchy infiltrates the mid and lower lungs. Stable cardiomegaly. Gelacio Odell MD PE at Discharge GENERAL: Elderly black male in no distress currently on Ventimask 40%. HEENT: PERRLA, EOMI. No scleral icterus or conjunctival pallor. No lid lag or facial droop. CARDIOVASCULAR: Irregularly irregular. No obvious murmurs to auscultation. No chest tenderness to palpation. RESPIRATORY: Improved Crackles bilaterally. No wheezes Breath sounds equal bilaterally. GASTROINTESTINAL: Abdomen soft, non-tender, nondistended. BS normal. MUSCULOSKELETAL: Extremities without clubbing, cyanosis. 2+ edema bilaterally. No obvious deformities. NEUROLOGICAL: Awake, alert and oriented x4. No focal neurologic deficits. Moving both upper and lower extremities spontaneously. Pt update on day of discharge Feels tired. Plan for HD today. Patient says he feels much better today. He appears in nad. No chest pain or sob. Satting well on room air at this time. No wheezing. Likely DC after HD today. Hospital Course This is a 72-year-old male with PMH of HTN, A. fib on ASA, Anxiety, CHF (Echo 07/21 w/ EF 40-45%), ESRD on HD T/Th/Sat, COPD and Non-Compliance who presented to the ER w/ complaints of cough and SOB. Has missed multiple appointments for dialysis, missed HD today and states cough/SOB much worse. Denies fever/ chills. On arrival pt noted to have O2 sat 88% on RA. Recent admit 06/13- for similar complaints, admitted for Afib w/ RVR, COPD and ESRD, per records pt wanting to LEAVE AMA on multiple occasions. BP 149/89, HR 92, O2 sat 91% on 2L NC, Afebrile. CBC essentially at baseline. K+ 7.3, s/p Insulin/D50/Ca/ Kayexalate. Creatinine 12.00, previously 8.14 on 06/27/17. CXR bilateral patchy infiltrates in the mid and lower lungs. Noted to have wheezing on exam as well. Dr. Vital consulted by ER physician, plan is for HD tonight. S/p Rocephin/Zithro, Solu-Medrol and DuoNeb in ER. Patient with COPD exacerbation , chronic respiratory failure with acute exacerbation was on ventimask, improved. Patient with bilateral infiltrates treated with abx. Also with CHF received HD and improved. Electrolyte abn , replaced per nephro. Patient is a noncompliant patient. Patient was DC to SNF in stable condition to follow up as OP with PCP and consultants. COPD exacerbation: Chronic Respiratory Failure w/ Acute Exacerbation. + wheezing on arrival, s/p Solu-Medrol and DuoNeb w/ some improvement. Improving but still requiring significant amount of oxygen was on on Ventimask 40%. Continue DuoNeb q4h and q2h prn, Symbicort, Mucinex and oxygen to keep saturation at least 92%. Switch to prednisone in PNA: CXR w/ bilateral patchy infiltrates mid and lower lungs, images reviewed by me. S/p Rocephin/Zithro in ER. Continue w/ IV Abx. Switched to cefepime for hospital-acquired pneumonia. Switched to by mouth Zithromax. Cultures negative to date CHF: Acute on Chronic. Systolic. Echo 09/17/15 w/ EF 40-45%. Resume home medications. Continue beta eris and ARB HD for fluid overload. Hypoxia: Multifactorial-secondary to CHF, COPD, PNA, and Non-compliance w/ HD. O2 sat 88% on RA, currently 96% on Venturi Mask. HD for fluid overload as above. Monitor O2. ESRD on HD: T//Sat. Follows w/ Dr. Singh. Notoriously non-compliant w/ dialysis. Status post urgent hemodialysis 2 secondary to hyperkalemia Hyperkalemia: K+ 7.3. S/p Insulin/D50/Ca/Kayexalate in ER. Improved A-fib: Chronic. Resume home medications. On ASA. Consider Eliquis Non-Compliance: As above, pt known to be non-compliant w/ meds, treatment and dialysis, wanting to LEAVE AMA on multiple occasions during last admit per records. Stressed importance of follow up and adhering to treatment. DVT Prophylaxis: Heparin sq Pt Condition on Discharge: Stable Discharge Disposition: Discharge to SNF Discharge Time: > 30 minutes Discharge Instructions DIET: Follow Instructions for: Dialysis Diet Additional Diet Instructions: no protein restriction. Krestrictin 50 mEq, 2 gm Na restriction Activities you can perform: Regular-No Restrictions Follow up Referrals: Nephrology - 1 Week PCP Follow-up - 2-3 Days New Medications: Levofloxacin (Levaquin) 250 Mg Tablet 250 MG PO DAILY for Infection, #5 TAB 0 Refills Calcitriol (Rocaltrol) 0.25 Mcg Cap 1 MCG PO DAILY for Nutritional Supplement, #30 CAP Sennosides-Docusate Sodium (Gnp Senna Plus 8.6-50 mg) 8.6 Mg-50 Mg Tab 1 TAB PO BID for Constipation, #60 TAB Continued Medications: Acetaminophen (Tylenol) 325 Mg Tab 325 MG PO Q6H PRN for PAIN SCALE 4 TO 10, TAB 0 Refills Alprazolam (Alprazolam) 0.5 Mg Tab 0.5 MG PO HS PRN for ANXIETY, #10 TAB 0 Refills (This prescription has been renewed) Amino Acids-Protein Hydrolysat (Pro-Stat) 1 Liq Liq 30 ML PO TID Aspirin DR (Aspirin 81) 81 Mg Tabdr 81 MG PO DAILY, TAB 0 Refills B-Complex W/ C & Folic Acid (Renal-Mya 0.8 mg) 1 Tab Tab DAILY Calcium Carbonate (Antacid) (Antacid) 500 Mg Chew 500 MG CHEW TID PRN for REFLUX, TAB Cinacalcet (Sensipar) 30 Mg Tab 30 MG PO DAILY, #30 TAB 0 Refills Diltiazem (Diltiazem) 90 Mg Tab 90 MG PO QID for Angina, #120 TAB 0 Refills Diphenoxylate-Atropine (Lomotil) 2.5-0.025 Mg Tab 1 TAB PO Q6H PRN for DIARRHEA, #10 TAB 0 Refills (This prescription has been renewed) Isosorbide Mononitrate ER (Isosorbide Mononitrate ER) 30 Mg Nolan 30 MG PO DAILY for Prevent Chest Pain, #30 TAB 0 Refills Levocetirizine (Levocetirizine) 5 Mg Tab 5 MG PO HS for Allergy Management, #30 TAB 0 Refills Losartan (Losartan) 100 Mg Tab 100 MG PO DAILY for Blood Pressure Management, #30 TAB 0 Refills Metoprolol Tartrate (Metoprolol Tartrate) 25 Mg Tab 12.5 MG PO BID, #60 TAB 0 Refills Ondansetron (Ondansetron) 8 Mg Tab 4 MG PO TID for Nausea/Vomiting, TAB 0 Refills Prednisone (Prednisone) 20 Mg Tab 20 MG PO DAILY for 5 Days, TAB 0 Refills Sevelamer Carbonate (Renvela) 800 Mg Tab 1600 MG PO TID for Control phosphorous levels, #180 TAB 0 Refills Sucralfate (Sucralfate) 1 Gm Tab 1 GM PO Q6HR for Duodenal ulcer, #90 TAB 0 Refills on empty stomach Trazodone (Trazodone) 150 Mg Tablet 150 MG PO HS for Control Depression, #30 TAB 0 Refills (This prescription has been renewed) Triamcinolone Acetonide (Topic (Triamcinolone Acetonide) 1 Pow Pow Discontinued Medications: Ondansetron Odt (Zofran Odt) 4 Mg Tab 4 MG SL Q6HR PRN for Nausea/Vomiting, #10 TAB Florecita Rodriguez MD Jul 05, 2017 11:53
[2017-07-05] MEDS ORDERED: LEVA250T14 PO (12:35)
--- NOTE | 2017-07-05 15:48 | HHI.PR ---
Subjective Remarks Feels tired. Plan for HD today. Patient says he feels much better today. He appears in nad. No chest pain or sob. Satting well on room air at this time. No wheezing. Likely DC after HD today. Objective Vitals Vital Signs Date Time Temp Pulse Resp B/P (MAP) Pulse Ox O2 Delivery O2 Flow Rate FiO2 07/05/17 12:07 90 07/05/17 09:24 97 Nasal Cannula 5.00 07/05/17 08:45 Nasal Cannula 6.00 Humidified 07/05/17 06:28 98.0 105 20 122/61 (81) 96 07/05/17 04:00 106 07/05/17 04:00 Nasal Cannula 6.00 Humidified 07/05/17 00:18 98.2 91 20 123/60 (81) 97 07/05/17 00:00 Nasal Cannula 6.00 Humidified 07/05/17 00:00 79 07/04/17 22:20 99 Nasal Cannula 5.00 07/04/17 21:10 97.7 89 20 110/60 (77) 95 07/04/17 20:00 93 07/04/17 20:00 Nasal Cannula 6.00 Humidified 07/04/17 17:53 Nasal Cannula 6.00 07/04/17 17:49 80 138/77 (97) 07/04/17 16:00 97.7 81 18 120/60 (80) 97 07/04/17 15:59 96 Nasal Cannula 4.00 I/O 07/04/17 07/04/17 07/04/17 07/05/17 07/05/17 07/05/17 07:00 15:00 23:00 07:00 15:00 23:00 Intake Total 210 ml 480 ml 0 ml Output Total 0 ml Balance 210 ml 480 ml 0 ml Intake Oral 480 ml 0 ml IV Total 210 ml Output Urine Total 0 ml # Bowel Movements 1 0 0 Result Diagram: 07/01/17 1125 07/05/17 0730 Imaging Last Impressions Chest X-Ray 06/30/17 1656 Signed Impressions: Service Date/Time: Friday, June 30, 2017 17:16 - CONCLUSION: Bilateral patchy infiltrates the mid and lower lungs. Stable cardiomegaly. Gelacio Odell MD Objective Remarks GENERAL: Elderly black male in no distress currently on Ventimask 40%. HEENT: PERRLA, EOMI. No scleral icterus or conjunctival pallor. No lid lag or facial droop. CARDIOVASCULAR: Irregularly irregular. No obvious murmurs to auscultation. No chest tenderness to palpation. RESPIRATORY: Improved Crackles bilaterally. No wheezes Breath sounds equal bilaterally. GASTROINTESTINAL: Abdomen soft, non-tender, nondistended. BS normal. MUSCULOSKELETAL: Extremities without clubbing, cyanosis. 2+ edema bilaterally. No obvious deformities. NEUROLOGICAL: Awake, alert and oriented x4. No focal neurologic deficits. Moving both upper and lower extremities spontaneously. Procedures None A/P Problem List: (1) COPD (chronic obstructive pulmonary disease) ICD Code: J44.9 - Chronic obstructive pulmonary disease, unspecified Status: Chronic (2) CHF (congestive heart failure) ICD Code: I50.9 - Heart failure, unspecified Status: Acute (3) Hypoxia ICD Code: R09.02 - Hypoxemia Status: Acute (4) ESRD (end stage renal disease) on dialysis ICD Code: N18.6 - End stage renal disease; Z99.2 - Dependence on renal dialysis Status: Chronic (5) Non-compliance ICD Code: Z91.19 - Patient's noncompliance with other medical treatment and regimen Status: Chronic (6) Hyperkalemia ICD Code: E87.5 - Hyperkalemia (7) PNA (pneumonia) ICD Code: J18.9 - Pneumonia, unspecified organism (8) A-fib ICD Code: I48.91 - Unspecified atrial fibrillation Assessment and Plan COPD exacerbation: Chronic Respiratory Failure w/ Acute Exacerbation. + wheezing on arrival, s/p Solu-Medrol and DuoNeb w/ some improvement. Improving but still requiring significant amount of oxygen was on on Ventimask 40%. Continue DuoNeb q4h and q2h prn, Symbicort, Mucinex and oxygen to keep saturation at least 92%. Switch to prednisone PO . Taper steroids and PNA: CXR w/ bilateral patchy infiltrates mid and lower lungs, images reviewed by me. S/p Rocephin/Zithro in ER. Continue w/ IV Abx. Switched to cefepime for hospital-acquired pneumonia. Switched to by mouth Zithromax. Cultures negative to date. DC on levaquin per renal dose CHF: Acute on Chronic. Systolic. Echo 09/17/15 w/ EF 40-45%. Resume home medications. Continue beta eris and ARB HD for fluid overload. Hypoxia: Multifactorial-secondary to CHF, COPD, PNA, and Non-compliance w/ HD. O2 sat 88% on RA, currently 96%, was on Venturi Mask. Wean O2, patient improved now on HD for fluid overload as above. Monitor O2. ESRD on HD: T//Sat. Follows w/ Dr. Singh. Notoriously non-compliant w/ dialysis. Status post urgent hemodialysis 2 secondary to hyperkalemia Hyperkalemia: K+ 7.3. S/p Insulin/D50/Ca/Kayexalate in ER. Improved A-fib: Chronic. Resume home medications. On ASA. Consider Eliquis Non-Compliance: As above, pt known to be non-compliant w/ meds, treatment and dialysis, wanting to LEAVE AMA on multiple occasions during last admit per records. Stressed importance of follow up and adhering to treatment. DVT Prophylaxis: Heparin sq DC plan Poss DC to SNF today Problem Qualifiers (1) CHF (congestive heart failure): Qualified Codes: I50.9 - Heart failure, unspecified (2) A-fib: Qualified Codes: I48.2 - Chronic atrial fibrillation Florecita Rodriguez MD Jul 05, 2017 15:48
[2017-07-05] MEDS: diphenhydrAMINE HCL 25 MG CAP PO PRN (17:40)
[2017-07-05] MEDS: SODIUM CHLOR 0.9% 1000 ML INJ 1,000 ML OTHER PRN (17:40)
[2017-07-05] MEDS: GENTAMICIN SULFATE (DIALYSIS USE ONLY) 20 MG/2 ML VIAL OTHER PRN (17:40)
[2017-07-05] MEDS: HEPARIN SODIUM - IV 10,000 UNITS/10 ML VIAL PRN (17:40)
== END 2017-07-05 19:43 | DRG 291 ==
LOC: NEPC 16:41 → NEDA 18:44 → N04B 22:51
PROVIDERS: ADMIT Hospitalist; ATTEND Hospitalist
PROC: 5A1D70Z Performance of Urinary Filtration, Intermittent, Less than 6 Hours Per Day (ICD-10-PCS; principal; 2017-06-30)
DX: I13.2 Hypertensive heart and chronic kidney disease with heart failure and with stage 5 chronic kidney disease, or end stage renal disease (principal); I50.23 Acute on chronic systolic (congestive) heart failure; J96.21 Acute and chronic respiratory failure with hypoxia; J18.9 Pneumonia, unspecified organism; N25.81 Secondary hyperparathyroidism of renal origin; N18.6 End stage renal disease; E87.5 Hyperkalemia; I48.2 Chronic atrial fibrillation; E88.89 Other specified metabolic disorders; J44.0 Chronic obstructive pulmonary disease with (acute) lower respiratory infection; J44.1 Chronic obstructive pulmonary disease with (acute) exacerbation; D63.1 Anemia in chronic kidney disease; F41.9 Anxiety disorder, unspecified; K21.9 Gastro-esophageal reflux disease without esophagitis; Y95 Nosocomial condition; Z85.46 Personal history of malignant neoplasm of prostate; Z87.891 Personal history of nicotine dependence; Z91.15 Patient's noncompliance with renal dialysis; Z91.19 Patient's noncompliance with other medical treatment and regimen; Z92.21 Personal history of antineoplastic chemotherapy; Z99.2 Dependence on renal dialysis
CPT/HCPCS: 36600; 71010; 80048; 80053; 82805; 83605; 83735; 83970; 84100; 84155; 85025; 87040; 87804; 90935; 93005; 94640; 94664; 96365; 96374; 96375; J0456; J0610; J0692; J0696; J1580; J1644; J1815; J2405; J2920; J2930; J7030; J7050; J7070; J7512; Q4081

== ENCOUNTER 2017-07-19 09:57 | Emergency (ER) | payer MEDICARE, MEDICAID ==
[~2017-07-19] VITALS: Ht 177.8 cm; Wt 92.4 kg
[~2017-07-19 09:57] MED LIST changes: -B CO; +B CO PO; +CALC.25 PO; +LEVA250T14 PO; +PERI PO; -ZOFR4TAB3 SL
[2017-07-19 10:23] VITALS: BP 123/80; PULSE 110; RESP 21; O2SAT 96
[2017-07-19 10:28] VITALS: BP 123/80; PULSE 110; RESP 21; O2SAT 96
--- NOTE | 2017-07-19 10:43 | PD ---
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 Patient states that he was about to start dialysis, turned over in the bed and then developed bleeding in the left permacath site. Patient denies pain. The dialysis staff told him that he likely accidentally pulled it out resulting in the bleeding. Dialysis immediately sent him to the hospital for replacement and repair of the site. Patient denies fever, chills, chest pain, shortness of breath. Patient has no complaints today. PFSH Past Medical History Anemia: Yes Atrial Fibrillation: Yes Anxiety: Yes Cancer: Yes (HX PROSTATE) Cardiovascular Problems: Yes Chemotherapy: Yes Congestive Heart Failure: Yes COPD: Yes Diabetes: No Dialysis: Yes (TUES/THURS/SAT) Diminished Hearing: No Gastrointestinal Disorders: Yes (APPENDICITIS) GERD: Yes Hypertension: Yes Respiratory: Yes Migraines: Yes Renal Failure: Yes Past Surgical History Arteriovenous Shunt: Yes (L UPPER ARM FISTULA-WORKING) Prostatectomy: Yes Other Surgery: Yes (AV FISTULA TO LEFT UPPER ARM WORKS) Social History Alcohol Use: No (HX ) Tobacco Use: No (QUIT 2 YEARS AGO) Substance Use: No Allergies-Medications (Allergen,Severity, Reaction): Coded Allergies: No Known Allergies (Unverified Allergy, Unknown, 07/19/17) Reported Meds & Prescriptions Reported Meds & Active Scripts Active Lomotil (Diphenoxylate-Atropine) 2.5-0.025 Mg Tab 1 Tab PO Q6H PRN Gnp Senna Plus 8.6-50 mg (Sennosides-Docusate Sodium) 8.6 Mg-50 Mg Tab 1 Tab PO BID Trazodone (Trazodone HCl) 150 Mg Tablet 150 Mg PO HS Alprazolam 0.5 Mg Tab 0.5 Mg PO HS PRN Reported Duoneb (Ipratropium-Albuterol Neb) 0.5-2.5 Mg/3 Ml Neb 3 Ml NEB Q4HR PRN Tylenol (Acetaminophen) 325 Mg Tab 325 Mg PO Q6H PRN Antacid (Calcium Carbonate (Antacid)) 500 Mg Chew 500 Mg CHEW TID PRN Pro-Stat (Amino Acids-Protein Hydrolysat) 1 Liq Liq 30 Ml PO TID Renal-Mya 0.8 mg (B-Complex W/ C & Folic Acid) 1 Tab Tab 0.8 Mg PO DAILY Aspirin 81 (Aspirin) 81 Mg Tabdr 81 Mg PO DAILY Diltiazem (Diltiazem HCl) 90 Mg Tab 90 Mg PO QID Ondansetron (Ondansetron HCl) 8 Mg Tab 8 Mg PO TID PRN Renvela (Sevelamer Carbonate) 800 Mg Tab 800 Mg PO TID Metoprolol Tartrate 25 Mg Tab 12.5 Mg PO BID Losartan (Losartan Potassium) 100 Mg Tab 100 Mg PO DAILY Isosorbide Mononitrate ER (Isosorbide Mononitrate) 30 Mg Nolan 30 Mg PO DAILY Review of Systems Except as stated in HPI: all other systems reviewed are Neg Physical Exam Narrative GENERAL: Well developed well nourished in no apparent distress SKIN: Focused skin assessment warm/dry. HEAD: Atraumatic. Normocephalic. EYES: Pupils equal and round. No scleral icterus. No injection or drainage. ENT: No nasal bleeding or discharge. Mucous membranes pink and moist. NECK: Trachea midline. No JVD. Left chest- permacath in place with blood seeping from dressing. No edema, exudate. CARDIOVASCULAR: Irregularly irregular without murmurs clicks gallops or rubs. RESPIRATORY: No accessory muscle use. Clear to auscultation. Breath sounds equal bilaterally. GASTROINTESTINAL: Abdomen soft, non-tender, nondistended. Abdomen protuberant MUSCULOSKELETAL: No obvious deformities. No clubbing. No cyanosis. No edema. NEUROLOGICAL: Awake and alert. No obvious cranial nerve deficits. Motor grossly within normal limits. Normal speech. PSYCHIATRIC: Appropriate mood and affect; insight and judgment normal. Data Data Last Documented VS Vital Signs Date Time Temp Pulse Resp B/P (MAP) Pulse Ox O2 Delivery O2 Flow Rate FiO2 07/19/17 19:08 07/19/17 18:01 108 16 91 Nasal Cannula 2.00 07/19/17 11:36 98.1 Orders Orders Consult Nephrology (07/19/17 ) Blood Flow Rate (07/19/17 13:39) Dialysate Flow Rate (07/19/17 13:39) Dialyzer (07/19/17 13:39) Concentrate (07/19/17 13:39) Acid Concentrate (07/19/17 13:39) Length Of Dialysis (07/19/17 13:39) Frequency Of Dialysis (07/19/17 13:39) Dialysis Obtain (07/19/17 13:39) Needle Size (07/19/17 13:39) Dialysis Schedule (07/19/17 13:39) Resp Oxygen Ruddy C Titrat 1-4 L (07/19/17 ) Dialysis Weight (07/19/17 13:39) ^ Obtain As Needed (07/19/17 13:39) Sodium Chlor 0.9% 1000 Ml Inj (Ns 1000 M (07/19/17 13:39) Heparin Inj (Heparin Inj) (07/19/17 13:45) Sodium Chlor 0.9% 1000 Ml Inj (Ns 1000 M (07/19/17 13:39) Sodium Chlor 0.9% 1000 Ml Inj (Ns 1000 M (07/19/17 13:39) Mannitol Inj (Mannitol Inj) (07/19/17 13:45) Albumin 25% Inj (Albumin 25% Inj) (07/19/17 13:45) Sodium Chloride 0.9% Flush (Ns Flush) (07/19/17 13:45) Heparin Inj (Heparin Inj) (07/19/17 13:45) Gentamicin (Dialysis) Inj (Gentamicin (D (07/19/17 13:45) Ondansetron Inj (Zofran Inj) (07/19/17 13:45) Acetaminophen (Tylenol) (07/19/17 13:45) Diphenhydramine (Benadryl) (07/19/17 13:45) Nitroglycerin Sl (Nitrostat Sl) (07/19/17 13:45) Clonidine (Catapres) (07/19/17 13:45) Gelatin 12 Mm/7 Mm Top (Gelfoam 12 Mm/7 (07/19/17 13:45) (Hub Use Only)Inp Phy Cons/Ref (07/19/17 ) Vital Signs (Adult) Q15MX2,Q30MX4 (07/19/17 14:48) ^ Observe For (07/19/17 14:48) Activity Bed Rest (07/19/17 14:48) Diet Renal (07/19/17 Dinner) Ice / Cold Pack PRN (07/19/17 14:48) Sodium Chloride 0.9% Flush (Ns Flush) (07/19/17 15:00) Heparin Inj (Heparin Inj) (07/19/17 15:00) *Heparin Inj (*Heparin Inj Periprocedura (07/19/17 14:55) Lidocai-Epi 1%-1:100,000 Inj (Xylocaine- (07/19/17 14:55) Perm Cent Venous Cath [facility] (07/19/17 10:44) ^ Other Nursing Orders (07/19/17 16:03) Ed Discharge Order (07/19/17 17:40) MDM Medical Decision Making Medical Screen Exam Complete: Yes Emergency Medical Condition: Yes Differential Diagnosis enamel applier complication, obstructed catheter, dislodged catheter Narrative Course 72y male presents to emergency department for concern of a perma catheter dislodgment that occurred at dialysis morning. Patient states that he was about to start dialysis turned over in the bed and then developed bleeding in the left permacath site. Patient denies pain. The dialysis staff told him that he likely accidentally pulled it out resulting in the bleeding. Dialysis immediately sent him to the hospital for replacement and repair of the site. Patient denies fever, chills, chest pain, shortness of breath. Patient has no complaints today. Vital signs stable Physical exam consistent with a potentially dislodged catheter in his left anterior chest with blood oozing but evidence of infection. I spoke with SARWAT Gage regarding this patient and she stated they will take this patient for replacement. Last oral intake this morning. Patient denies use of anticoagulants. 1110 Patient walked to the restroom and accidentally pulled out the remaining portion of his catheter. 1326 SARWAT Reagan received a phone call from nephrology and they requested a consult for a "short dialysis". Consult placed for Dr. Vital. Patient apparently received dialysis while the hospital today. Patient will be discharged and advised to follow-up as scheduled his primary care physician. Advised to return to emergency department for worsening or persistent symptoms. Diagnosis Primary Impression: Renal dialysis device, implant, or graft complication Qualified Codes: T82.9XXA - Unspecified complication of cardiac and vascular prosthetic device, implant and graft, initial encounter Referrals: Primary Care Physician Additional Instructions: Follow the primary care physician within 2-3 days. Follow-up with her mri manager as scheduled. If you develop worsening symptoms return to the emergency department. Disposition: 01 DISCHARGE HOME Condition: Stable Charlene Morales Jul 19, 2017 10:43
[2017-07-19] MEDS ORDERED: IPRASOL NEB (10:56)
[2017-07-19 11:36] VITALS: BP 158/82; PULSE 104; RESP 20; TEMP 98.1; O2SAT 95
[2017-07-19 13:02] VITALS: BP 161/99; PULSE 115; RESP 18; O2SAT 98
[2017-07-19] MEDS ORDERED: SODIUM CHLOR 0.9% 1000 ML INJ 1,000 ML IV PRN (13:39)
[2017-07-19] MEDS ORDERED: SODIUM CHLOR 0.9% 1000 ML INJ 1,000 ML OTHER PRN ×2 (13:39)
[2017-07-19] MEDS ORDERED: cloNIDine HCL 0.1 MG TAB PO PRN (13:45)
[2017-07-19] MEDS ORDERED: ACETAMINOPHEN 325 MG TAB PO PRN (13:45)
[2017-07-19] MEDS ORDERED: NITROGLYCERIN 0.4 MG SL 25 TABS/BTL SL PRN (13:45)
[2017-07-19] MEDS ORDERED: GENTAMICIN SULFATE (DIALYSIS USE ONLY) 20 MG/2 ML VIAL OTHER PRN (13:45)
[2017-07-19] MEDS ORDERED: ONDANSETRON HCL 4 MG/2 ML VIAL IV PUSH PRN (13:45)
[2017-07-19] MEDS ORDERED: HEPARIN SODIUM - IV 10,000 UNITS/10 ML VIAL PRN (13:45)
[2017-07-19] MEDS ORDERED: HEPARIN SODIUM - IV 10,000 UNITS/10 ML VIAL IV FLUSH PRN (13:45)
[2017-07-19] MEDS ORDERED: MANNITOL 12.5 GM/50 ML VIAL IV PRN (13:45)
[2017-07-19] MEDS ORDERED: diphenhydrAMINE HCL 25 MG CAP PO PRN (13:45)
[2017-07-19] MEDS ORDERED: ALBUMIN 25% INJ 100 ML IV PRN (13:45)
[2017-07-19] MEDS ORDERED: GELATIN 12 MM/7 MM FOAM TOP PRN (13:45)
[2017-07-19] MEDS ORDERED: SODIUM CHLORIDE 0.9% FLUSH 10 ML FLUSH IV FLUSH PRN ×2 (13:45→15:00)
--- NOTE | 2017-07-19 14:50 | PD.RAD ---
Post Procedure Progress Note Pre Procedure Diagnosis: (1) Renal dialysis device, implant, or graft complication (2) ESRD (end stage renal disease) on dialysis Post Procedure Diagnosis: (1) Renal dialysis device, implant, or graft complication (2) ESRD (end stage renal disease) on dialysis Procedure Date: Jul 19, 2017 Supervising Radiologist: José Miguel Judge Proceduralist/Assist: Kami Ruvalcaba, RT(R)(CV), Stef Magana RT(R) Anesthesia: Local, Analgesia, Conscious Sedation Plan of Activity Patient to Unit: [facility] Patient Condition: Good See PACS Report for procedural detail/treatment Central Venous Access Device Procedure 1 Left Internal Jugular Hemodialysis Catheter Tunneled Replacement dual lumen Congolese: 15 PICC Line Length (cm): 31 Findings: Wired through existing tract José Miguel Judge MD Jul 19, 2017 14:50
[2017-07-19] MEDS ORDERED: LIDOCAINE 1%/EPINEPHrine 1:100,000 SOLN 20 ML VIAL ONE (14:55)
[2017-07-19] MEDS ORDERED: HEPARIN SODIUM - IV 2,000 UNITS/2 ML VIAL IV FLUSH PRN (15:00)
--- NOTE | 2017-07-19 16:08 | RADRPT ---
EXAM DATE/TIME: 07/19/2017 13:28 [facility] COMPARISON: No previous studies available for comparison. INDICATIONS : Patient presents with end-stage renal disease in need of permanent dialysis catheter. Previous cathet er was pulled out and dialysis earlier today. MEDICAL HISTORY : ESRD on hemodialysis HTN CHF COPD A-fib Prostate cancer Anemia GERD Metabolic bone disorder SURGICAL HISTORY : AVF left arm Prostatectomy Dialysis catheter ENCOUNTER: Subsequent ACUITY: 1 day PAIN SCORE: 0/10 LOCATION: N/A FLUORO TIME: 1.3 minutes IMAGE SERIES: SEDATION TIME: 30 minutes ACCESS: Left subclavian vein SEDATION: 1.) 1 mg midazolam (Versed) 2.) 100 mcg fentanyl (Sublimaze) Prophylactic antibiotics were administered with appropriate pre-procedure timing. Vancomycin within 2 hours of procedure, Ancef (or alternative) within 1 hour of procedure. DEVICE: 1. 15 Faroese dual lumen 31 cm Hardy II Plus catheter PROCEDURE : 1. Fluoroscopically-guided vascular access. 2. PermaCath placement. 3. Conscious sedation with continuous EKG and oximetry monitoring. The risks, benefits and alternatives to the procedure were explained and verbal and written consent w as obtained. The site was prepped in sterile fashion. Full sterile technique was used, including ca p, mask, sterile gloves and gown and a large sterile sheet. Hand hygiene and 2% chlorhexidine Betadi ne was utilized per protocol for cutaneous antisepsis with appropriate dry time for site. The skin a nd subcutaneous tissues were infiltrated with local anesthetic solution. Utilizing fluoroscopic guidance, the existing chest wall dermatotomy was probe hockey-stick catheter and Glidewire. Catheter was advanced into the central venous system and the wire was subsequently adv anced into the IVC. A 2-0 Prolene cerclage was then placed around the chest wall dermatotomy. A new, 31 cm cuff to tip PermCath catheter was then weaved over the wire and into the central venous system. The catheter was assembled. The cerclage was secured. Conscious sedation was performed with the prescribed dosages and duration as above in the presence of an independent trained radiology nurse to assist in the monitoring of the patient. EKG and oximetry remained stable throughout the procedure. The patient tolerated the procedure well and there were n o complications. The patient was sent to post anesthesia recovery in stable condition. CONCLUSION: Uncomplicated PermaCath replacement as above. José Miguel Judge MD on July 19, 2017 at 15:58 Board Certified Radiologist. This report was verified electronically.
[2017-07-19 18:01] VITALS: BP 111/59; PULSE 108; RESP 16; O2SAT 91
== END 2017-07-19 19:10 | disposition home or self-care (01) ==
LOC: NEPD 09:57
DX: T82.42XA Displacement of vascular dialysis catheter, initial encounter (principal); I13.2 Hypertensive heart and chronic kidney disease with heart failure and with stage 5 chronic kidney disease, or end stage renal disease; I50.9 Heart failure, unspecified; N18.6 End stage renal disease; Z99.2 Dependence on renal dialysis
CPT/HCPCS: 36558; 76937; 77001; 90935; 96374; 96375; 99152; 99153; 99285; C1750; C1769; C1887; G0257; J1580; J1644; J7030

== ENCOUNTER 2017-07-23 02:16 | Inpatient (IN) | payer MEDICARE, MEDICAID ==
[~2017-07-23] VITALS: Ht 177.8 cm; Wt 88.0 kg
[2017-07-23] VITALS (15 sets, daily range): BP systolic 94–141; BP diastolic 50–90; PULSE 90–122; RESP 18–26; TEMP 96.7–99.4; O2SAT 87–100
[~2017-07-23 02:16] MED LIST changes: -CALC.25 PO; -CINA30 PO; +IPRASOL NEB; -LEVA250T14 PO; -LEVOTAB PO; -PRED20 PO; -SUCR1TAB PO; -TRIAPOW
[2017-07-23] MEDS ORDERED: SODIUM CHLORIDE 0.9% FLUSH 10 ML FLUSH IVF PRN (02:30)
[2017-07-23] MEDS ORDERED: RESP: ALBUTEROL 2.5 MG/IPRATROPIUM 0.5 MG NEB (SCH) INH ONE (02:30)
--- NOTE | 2017-07-23 02:46 | RADRPT ---
EXAM DATE/TIME: 07/23/2017 02:33 [facility] COMPARISON: CHEST SINGLE AP, June 30, 2017, 17:16. INDICATIONS : Shortness of breath. MEDICAL HISTORY : Chronic obstructive pulmonary disease. Hypertension Congestive heart failure. GERD, Renal failure, Pr ostate CANCER SURGICAL HISTORY : Prostatectomy. Arteriovenous shunt ENCOUNTER: Initial ACUITY: 1 day PAIN SCORE: 0/10 LOCATION: Bilateral CHEST FINDINGS: There is a double-lumen catheter in place from the left internal jugular approach. The cardiac silhou ette is enlarged. There is prominence of the interstitium throughout the lungs. CONCLUSION: Cardiomegaly with diffuse prominence of the interstitium likely secondary to CHF. Girish Nguyen MD on July 23, 2017 at 2:43 Board Certified Radiologist. This report was verified electronically.
[2017-07-23 02:47] LABS: AUTOMATED NEUTROPHIL # 7.6 TH/MM3 (1.8-7.7); BASOPHIL # 0.1 TH/MM3 (0-0.2); BASOPHIL % 0.6 % (0.0-2.0); EOSINOPHIL # 0.4 TH/MM3 (0-0.4); EOSINOPHIL % 4.3 % (0.0-4.0); HEMOGLOBIN 8.2 GM/DL (13.0-17.0); LYMPH % 13.1 % (9.0-44.0); LYMPHOCYTE # 1.4 TH/MM3 (1.0-4.8); MEAN CORPUSCULAR HEMOGLOBIN 30.8 PG (27.0-34.0); MEAN CORPUSCULAR HGB CONC 32.8 % (32.0-36.0); MEAN PLATELET VOLUME 8.3 FL (7.0-11.0); MONO % 9.8 % (0.0-8.0); NEUT % 72.2 % (16.0-70.0); PLATELET COUNT 206 TH/MM3 (150-450); RED BLOOD COUNT 2.66 MIL/MM3 (4.50-5.90); WHITE BLOOD COUNT 10.5 TH/MM3 (4.0-11.0)
[2017-07-23 03:00] LABS: CALCIUM 8.9 MG/DL (8.5-10.1); CREATININE 9.68 MG/DL (0.60-1.30); MAGNESIUM 1.9 MG/DL (1.5-2.5)
--- NOTE | 2017-07-23 03:10 | PD ---
HPI Chief Complaint: Respiratory Distress Time Seen by Provider: 02:20 Travel History International Travel<30 days: No Contact w/Intl Traveler<30days: No Traveled to known affect area: No History of Present Illness HPI 72-year-old male end-stage renal disease arrives by EMS from rehabilitation facility where he had been for pneumonia due to shortness of breath. Patient undergoes dialysis Saturdays and with today being 2 AM Sunday morning reports having complete dialysis the day and half prior as per normal. He has no chest pain. He also complains of a rash about the buttocks. No diarrhea. No vomiting. He denies fever. PFSH Past Medical History Anemia: Yes Atrial Fibrillation: Yes Anxiety: Yes Cancer: Yes (HX PROSTATE) Cardiovascular Problems: Yes Chemotherapy: Yes Congestive Heart Failure: Yes COPD: Yes Diabetes: No Dialysis: Yes (//SUN) Diminished Hearing: No Gastrointestinal Disorders: Yes (APPENDICITIS) GERD: Yes Hypertension: Yes Respiratory: Yes Migraines: Yes Renal Failure: Yes Past Surgical History Arteriovenous Shunt: Yes (L UPPER ARM FISTULA-WORKING) Prostatectomy: Yes Other Surgery: Yes (AV FISTULA TO LEFT UPPER ARM WORKS) Social History Alcohol Use: No (HX ) Tobacco Use: No (QUIT 2 YEARS AGO) Substance Use: No Allergies-Medications (Allergen,Severity, Reaction): Coded Allergies: No Known Allergies (Unverified Allergy, Unknown, 07/23/17) Reported Meds & Prescriptions Reported Meds & Active Scripts Active Lomotil (Diphenoxylate-Atropine) 2.5-0.025 Mg Tab 1 Tab PO Q6H PRN Gnp Senna Plus 8.6-50 mg (Sennosides-Docusate Sodium) 8.6 Mg-50 Mg Tab 1 Tab PO BID Trazodone (Trazodone HCl) 150 Mg Tablet 150 Mg PO HS Alprazolam 0.5 Mg Tab 0.5 Mg PO HS PRN Reported Duoneb (Ipratropium-Albuterol Neb) 0.5-2.5 Mg/3 Ml Neb 3 Ml NEB Q4HR PRN Tylenol (Acetaminophen) 325 Mg Tab 325 Mg PO Q6H PRN Antacid (Calcium Carbonate (Antacid)) 500 Mg Chew 500 Mg CHEW TID PRN Pro-Stat (Amino Acids-Protein Hydrolysat) 1 Liq Liq 30 Ml PO TID Renal-Mya 0.8 mg (B-Complex W/ C & Folic Acid) 1 Tab Tab 0.8 Mg PO DAILY Aspirin 81 (Aspirin) 81 Mg Tabdr 81 Mg PO DAILY Diltiazem (Diltiazem HCl) 90 Mg Tab 90 Mg PO QID Ondansetron (Ondansetron HCl) 8 Mg Tab 8 Mg PO TID PRN Renvela (Sevelamer Carbonate) 800 Mg Tab 800 Mg PO TID Metoprolol Tartrate 25 Mg Tab 12.5 Mg PO BID Losartan (Losartan Potassium) 100 Mg Tab 100 Mg PO DAILY Isosorbide Mononitrate ER (Isosorbide Mononitrate) 30 Mg Nolan 30 Mg PO DAILY Review of Systems Except as stated in HPI: all other systems reviewed are Neg General / Constitutional: No: Fever Cardiovascular: No: Chest Pain or Discomfort Respiratory: Positive: Shortness of Breath Physical Exam Narrative GENERAL: 72-year-old male speaking sentences mild distress secondary to shortness of breath SKIN: Focused skin assessment warm/dry. HEAD: Atraumatic. Normocephalic. EYES: Pupils equal and round. No scleral icterus. No injection or drainage. ENT: No nasal bleeding or discharge. Mucous membranes pink and moist. NECK: Trachea midline. No JVD. CARDIOVASCULAR: Regular rate and rhythm. No murmur appreciated. RESPIRATORY: No accessory muscle use. Clear to auscultation. Breath sounds equal bilaterally. GASTROINTESTINAL: Abdomen soft, non-tender, nondistended. Hepatic and splenic margins not palpable. MUSCULOSKELETAL: AV fistula left arm with palpable thrill. No edema. Moving all extremities normally RECTAL: There is a perianal rash dry non tender without erythema, induration or fluctuance. NEUROLOGICAL: Awake and alert. No obvious cranial nerve deficits. Motor grossly within normal limits. Normal speech. PSYCHIATRIC: Appropriate mood and affect; insight and judgment normal. Data Data Last Documented VS Vital Signs Date Time Temp Pulse Resp B/P (MAP) Pulse Ox O2 Delivery O2 Flow Rate FiO2 07/23/17 03:37 91 18 93 Nasal Cannula 3.00 07/23/17 02:18 98.1 127/65 (85) VS reviewed Orders Orders Complete Blood Count With Diff (07/23/17 02:20) Magnesium (Mg) (07/23/17 02:20) Iv Access Insert/Monitor (07/23/17 02:20) Ecg Monitoring (07/23/17 02:20) Oximetry (07/23/17 02:20) Oxygen Administration (07/23/17 02:20) Chest, Single Ap (07/23/17 02:20) Sodium Chloride 0.9% Flush (Ns Flush) (07/23/17 02:30) Albuterol-Ipratropium Neb (Duoneb Neb) (07/23/17 02:30) Basic Metabolic Panel (Bmp) (07/23/17 02:20) Potassium, Serum (K) (07/23/17 03:04) Calcium Gluconate Inj (Calcium Gluconate (07/23/17 03:15) Insulin Human Regular Inj (Novolin R Inj (07/23/17 03:15) Dextrose 50% In Marcel (Vial) Inj (D50w (Vi (07/23/17 03:15) Sodium Bicarbonate 8.4% Inj (Sodium Bica (07/23/17 03:15) Sodium Polysty Sulfate Liq (Kayexalate L (07/23/17 03:15) Zinc Oxide 40% Oint (Desitin 40% Oint) (07/23/17 04:15) Electrocardiogram (07/23/17 ) Admit Order (Ed Use Only) (07/23/17 ) [facility] / Telemetry [id number] (07/23/17 05:38) Vital Signs (Adult) Q4H (07/23/17 05:38) Activity Bed Rest (07/23/17 05:38) Labs Laboratory Tests Test 07/23/17 02:29 07/23/17 04:42 White Blood Count 10.5 TH/MM3 Red Blood Count 2.66 MIL/MM3 Hemoglobin 8.2 GM/DL Hematocrit 25.0 % Mean Corpuscular Volume 94.0 FL Mean Corpuscular Hemoglobin 30.8 PG Mean Corpuscular Hemoglobin Concent 32.8 % Red Cell Distribution Width 19.0 % Platelet Count 206 TH/MM3 Mean Platelet Volume 8.3 FL Neutrophils (%) (Auto) 72.2 % Lymphocytes (%) (Auto) 13.1 % Monocytes (%) (Auto) 9.8 % Eosinophils (%) (Auto) 4.3 % Basophils (%) (Auto) 0.6 % Neutrophils # (Auto) 7.6 TH/MM3 Lymphocytes # (Auto) 1.4 TH/MM3 Monocytes # (Auto) 1.0 TH/MM3 Eosinophils # (Auto) 0.4 TH/MM3 Basophils # (Auto) 0.1 TH/MM3 CBC Comment AUTO DIFF Differential Comment AUTO DIFF CONFIRMED Platelet Estimate NORMAL Platelet Morphology Comment NORMAL Ovalocytes 1+ Acanthocytes OCC Blood Urea Nitrogen 71 MG/DL Creatinine 9.68 MG/DL Random Glucose 99 MG/DL Calcium Level 8.9 MG/DL Magnesium Level 1.9 MG/DL Sodium Level 136 MEQ/L Potassium Level 6.9 MEQ/L 5.9 MEQ/L Chloride Level 100 MEQ/L Carbon Dioxide Level 29.0 MEQ/L Anion Gap 7 MEQ/L Estimat Glomerular Filtration Rate 7 ML/MIN MDM Medical Decision Making Medical Screen Exam Complete: Yes Emergency Medical Condition: Yes Medical Record Reviewed: Yes Differential Diagnosis Volume overload, renal failure, CHF, electrolyte imbalance Narrative Course The patient has a rash in the perianal distribution and upon further discussion with the patient it seems as though this is the primary indication for his visit to the ER. CBC & BMP Diagram 07/23/17 02:29 Calcium Level 8.9, Magnesium Level 1.9 Repeat K is 5.9. Ca, Insulin/Dextrose, and Bicarb given No hyperkalemic EKG change observed EKG: atrial fibrillation, rate 107, L axis deviation Last Impressions Chest X-Ray 07/23/17 0220 Signed Impressions: Service Date/Time: Sunday, July 23, 2017 02:33 - CONCLUSION: Cardiomegaly with diffuse prominence of the interstitium likely secondary to CHF. Girish Nguyen MD d/w Dr Geiger pt will require monitoring until time of dialysis renal is Dr Vital Diagnosis Primary Impression: Anemia of renal disease Additional Impression: Hyperkalemia Admitting Information Admitting Physician Requests: Observation Vinicius Ro MD Jul 23, 2017 03:10
[2017-07-23] MEDS ORDERED: SODIUM BICARBONATE 8.4% SOLN 50 MEQ/50 ML VIAL SLOW IVP ONE (03:15)
[2017-07-23] MEDS ORDERED: INSULIN HUMAN REGULAR 1,000 UNITS/10 ML VIAL IV PUSH ONE (03:15)
[2017-07-23] MEDS ORDERED: DEXTROSE 50% IN WATER 50 ML VIAL(D50) IV PUSH ONE (03:15)
[2017-07-23] MEDS ORDERED: SODIUM POLYSTYRENE SULFONATE SUSP 15 GM/60 ML CUP PO ONE ×2 (03:15→11:00)
[2017-07-23] MEDS ORDERED: CALCIUM GLUCONATE 10% 1 GM/10 ML VIAL SLOW IVP ONE (03:15)
[2017-07-23 03:18] LABS: ACANTHOCYTES OCC (NORMAL); OVALOCYTES 1+ (NORMAL)
[2017-07-23] MEDS ORDERED: ZINC OXIDE 40% OINT 60 GM TUBE TOPICAL ONE (04:15)
[2017-07-23] MEDS ORDERED: BISACODYL 10 MG SUPP RECTAL PRN (06:00)
[2017-07-23] MEDS ORDERED: SODIUM CHLORIDE 0.9% FLUSH 10 ML FLUSH IV FLUSH PRN ×2 (06:00→11:00)
[2017-07-23] MEDS ORDERED: SENNOSIDES 8.6 MG TAB PO PRN (06:00)
[2017-07-23] MEDS ORDERED: ACETAMINOPHEN/HYDROcodone 325 MG/10 MG TAB PO PRN (06:00)
[2017-07-23] MEDS ORDERED: ACETAMINOPHEN 325 MG TAB PO PRN ×2 (06:00→11:00)
[2017-07-23] MEDS ORDERED: RESP: ALBUTEROL 2.5 MG/IPRATROPIUM 0.5 MG NEB (PRN) NEB (06:00)
[2017-07-23] MEDS ORDERED: LACTULOSE SYRUP 20 GM/30 ML CUP PO PRN (06:00)
[2017-07-23] MEDS ORDERED: MAGNESIUM HYDROXIDE SUSP 30 ML CUP PO PRN (06:00)
[2017-07-23] MEDS ORDERED: HYDR-3133 PO (06:25)
[2017-07-23] MEDS ORDERED: BENA25CA4 PO (06:25)
[2017-07-23] MEDS ORDERED: LOMO2.5T PO (06:25)
[2017-07-23] MEDS ORDERED: LEVOTAB PO (06:25)
[2017-07-23] MEDS ORDERED: ZOFR8TAB PO (06:25)
[2017-07-23] MEDS: SODIUM CHLORIDE 0.9% FLUSH 10 ML FLUSH IV FLUSH SCH ×2 (08:42→19:52)
[2017-07-23] MEDS: METOPROLOL TARTRATE 25 MG TAB PO SCH ×2 (08:43→19:52)
[2017-07-23] MEDS: HEPARIN SODIUM - SQ 10,000 UNITS/ML VIAL SQ SCH ×3 (08:43→19:53)
[2017-07-23] MEDS: ISOSORBIDE MONONITRATE 30 MG TAB PO SCH (08:43)
[2017-07-23] MEDS: VITAMIN B CMPLX/VITC/FOLIC AC CAP PO SCH (08:43)
[2017-07-23] MEDS: LOSARTAN 50 MG TAB PO SCH (08:43)
[2017-07-23] MEDS: SEVELAMER CARBONATE 800 MG TAB PO SCH ×3 (08:43→16:07)
[2017-07-23] MEDS: DOCUSATE SODIUM 50 MG/SENNA 8.6 MG TAB PO SCH ×2 (08:45→19:51)
[2017-07-23] MEDS: ONDANSETRON HCL 4 MG/2 ML VIAL IVP PRN ×2 (08:45→19:46)
[2017-07-23] MEDS: ASPIRIN EC 81 MG TABEC PO SCH (08:45)
--- NOTE | 2017-07-23 09:32 | HHI.HP ---
[facility] No Primary Care Physician Admission Diagnosis Hyperkalemia; Pulm Edema/Dyspnea Diagnoses: Chief Complaint: Cough and shortness of breathing Travel History International Travel<30 Days: No Contact w/Intl Traveler <30 Da: No Traveled to Known Affected Are: No History of Present Illness This is a 72-year-old male history of COPD, chronic last heart failure, age of fibrillation, end-stage renal disease on hemodialysis status post left tunnel catheter placed on 07/19/17, and noncompliance who presented with cough and shortness of breathing since April. Patient is poor historian and it was difficult getting a history from patient since patient did not want to give me much information. He stated that on his prior admission he was treated for pneumonia his symptoms. His symptoms have not worsened at all. Patient had multiple admissions due to the the same symptoms. Denies any fevers or chills. He is scheduled for dialysis on Sunday, and Sunday but from the medical records patient already received dialysis on July 07, , and . Otherwise patient has no other complaints. All other review of system reviewed and negative. Past Family Social History Past Medical History HTN, A. fib on ASA, Anxiety, CHF (Echo 09/17/15 w/ EF 40-45%), ESRD on HD // Sun, COPD, chronic respiratory failure, Non-Compliance Past Surgical History LUE AV Fistula, Prostatectomy Reported Medications Reported Meds & Active Scripts Active Lomotil (Diphenoxylate-Atropine) 2.5-0.025 Mg Tab 1 Tab PO Q6H PRN Gnp Senna Plus 8.6-50 mg (Sennosides-Docusate Sodium) 8.6 Mg-50 Mg Tab 1 Tab PO BID Trazodone (Trazodone HCl) 150 Mg Tablet 150 Mg PO HS Alprazolam 0.5 Mg Tab 0.5 Mg PO HS PRN Reported Zofran (Ondansetron HCl) 8 Mg Tab 8 Mg PO TID Lomotil (Diphenoxylate-Atropine) 2.5-0.025 Mg Tab 1 Tab PO Q6H PRN Levocetirizine 5 Mg Tab 5 Mg PO DAILY Hydroxyzine HCl 25 Mg Tab 25 Mg PO Q6HR Benadryl Allergy (Diphenhydramine HCl) 25 Mg Cap 1 Tab PO TUE, SHAWN, SAT PRN Duoneb (Ipratropium-Albuterol Neb) 0.5-2.5 Mg/3 Ml Neb 3 Ml NEB Q4HR PRN Tylenol (Acetaminophen) 325 Mg Tab 325 Mg PO Q6H PRN Antacid (Calcium Carbonate (Antacid)) 500 Mg Chew 500 Mg CHEW TID PRN Pro-Stat (Amino Acids-Protein Hydrolysat) 1 Liq Liq 30 Ml PO TID Renal-Mya 0.8 mg (B-Complex W/ C & Folic Acid) 1 Tab Tab 0.8 Mg PO DAILY Aspirin 81 (Aspirin) 81 Mg Tabdr 81 Mg PO DAILY Diltiazem (Diltiazem HCl) 90 Mg Tab 90 Mg PO QID Ondansetron (Ondansetron HCl) 8 Mg Tab 8 Mg PO TID PRN Renvela (Sevelamer Carbonate) 800 Mg Tab 800 Mg PO TID Metoprolol Tartrate 25 Mg Tab 12.5 Mg PO BID Losartan (Losartan Potassium) 100 Mg Tab 100 Mg PO DAILY Isosorbide Mononitrate ER (Isosorbide Mononitrate) 30 Mg Nolan 30 Mg PO DAILY Allergies: Coded Allergies: No Known Allergies (Unverified Allergy, Unknown, 07/23/17) Active Ordered Medications Current Medications Sodium Chloride (NS Flush) 2 ml UNSCH PRN IVF FLUSH AFTER USING IV ACCESS; Start 07/23/17 at 02:30; Stop 07/23/17 at 06:28; Status DC Albuterol/ Ipratropium (Duoneb Neb) 1 ampule ONCE ONCE INH Last administered on 07/23/17 02:53; Start 07/23/17 at 02:30; Stop 07/23/17 at 02:31; Status DC Calcium Gluconate (Calcium Gluconate Inj) 1 gm ONCE ONCE SLOW IVP Last administered on 07/23/17 03:35; Start 07/23/17 at 03:15; Stop 07/23/17 at 03 :16; Status DC Insulin Human Regular (NovoLIN R INJ) 10 units ONCE ONCE IV PUSH Last administered on 07/23/17 03:50; Start 07/23/17 at 03:15; Stop 07/23/17 at 03 :16; Status DC Dextrose (D50w (Vial) Inj) 50 ml ONCE ONCE IV PUSH Last administered on 03:45; Start 07/23/17 at 03:15; Stop 07/23/17 at 03:16; Status DC Sodium Bicarbonate (Sodium Bicarbonate 8.4% Inj) 50 meq ONCE ONCE SLOW IVP Last administered on 07/23/17 03:52; Start 07/23/17 at 03:15; Stop 07/23/17 at 03:16; Status DC Sodium Polystyrene Sulfonate (Kayexalate Liq) 15 gm ONCE ONCE PO Last administered on 07/23/17 03:42; Start 07/23/17 at 03:15; Stop 07/23/17 at 03 :16; Status DC Zinc Oxide (Desitin 40% Oint) 1 applic ONCE ONCE TOPICAL Last administered on 07/23/17 06:00; Start 07/23/17 at 04:15; Stop 07/23/17 at 04:16; Status DC Albuterol/ Ipratropium (Duoneb Neb) 1 ampule Q4HR NEB PRN NEB SOB/WHEEZING; Start 07/23/17 at 06:00 Sodium Chloride (NS Flush) 2 ml UNSCH PRN IV FLUSH FLUSH AFTER USING IV ACCESS ; Start 07/23/17 at 06:00 Sodium Chloride (NS Flush) 2 ml BID IV FLUSH Last administered on 07/23/17 08 :42; Start 07/23/17 at 09:00 Ondansetron HCl (Zofran Inj) 4 mg Q6H PRN IVP NAUSEA OR VOMITING Last administered on 07/23/17 08:45; Start 07/23/17 at 06:00 Heparin Sodium (Porcine) (Heparin Inj) 5,000 units Q12H SQ Last administered on 07/23/17 08:43; Start 07/23/17 at 09:00 Acetaminophen (Tylenol) 650 mg Q6H PRN PO FEVER/PAIN SCALE 1 TO 2; Start 07/23 at 06:00 Acetaminophen/ Hydrocodone Bitart ([place] 5-325 Mg) 1 tab Q4H PRN PO PAIN SCALE 3 TO 5; Start 07/23/17 at 06:00 Acetaminophen/ Hydrocodone Bitart ([place] 10-325 Mg) 1 tab Q4H PRN PO PAIN SCALE 6 TO 10; Start 07/23/17 at 06:00 Senna/Docusate Sodium (Clarice-Colace) 1 tab BID PO ; Start 07/23/17 at 09:00 Magnesium Hydroxide (Milk Of Magnesia Liq) 30 ml Q12H PRN PO Mild constipation ; Start 07/23/17 at 06:00 Sennosides (Senokot) 17.2 mg Q12H PRN PO Moderate constipation; Start at 06:00 Bisacodyl (Dulcolax Supp) 10 mg DAILY PRN RECTAL SEVERE CONSITIPATION; Start 07/23/17 at 06:00 Lactulose (Lactulose Liq) 30 ml DAILY PRN PO SEVERE CONSITIPATION; Start 07/23 at 06:00 Alprazolam (Xanax) 0.5 mg HS PRN PO ANXIETY; Start 07/23/17 at 06:00 Aspirin (Ecotrin Ec) 81 mg DAILY PO Last administered on 07/23/17 08:45; Start 07/23/17 at 09:00 Diltiazem HCl (Cardizem) 90 mg QID PO ; Start 07/23/17 at 09:00 Isosorbide Mononitrate (Imdur) 30 mg DAILY PO Last administered on 07/23/17 08:43; Start 07/23/17 at 09:00 Losartan Potassium (Cozaar) 100 mg DAILY PO Last administered on 07/23/17 08: 43; Start 07/23/17 at 09:00 Metoprolol Tartrate (Lopressor) 12.5 mg BID PO Last administered on 07/23/17 08:43; Start 07/23/17 at 09:00 Sevelamer Carbonate (Renvela) 800 mg TID PO Last administered on 07/23/17 08: 43; Start 07/23/17 at 09:00 Vitamin B Complex/ Vit C/Folic Acid (Nephrocaps) 1 cap DAILY PO Last administered on 07/23/17 08:43; Start 07/23/17 at 09:00 Trazodone HCl (Desyrel) 150 mg HS PO ; Start 07/23/17 at 21:00 Family History Reviewed. No significant family history. Social History Negative for alcohol, tobacco or drugs. Physical Exam Vital Signs Vital Signs Date Time Temp Pulse Resp B/P (MAP) Pulse Ox O2 Delivery O2 Flow Rate FiO2 07/23/17 08:00 97.2 115 20 141/90 (107) 91 07/23/17 07:22 110 18 123/80 (94) 100 Nasal Cannula 2.00 07/23/17 07:01 98.8 108 18 128/85 (99) 95 Nasal Cannula 4.00 07/23/17 03:37 91 18 93 Nasal Cannula 3.00 07/23/17 02:24 93 Nasal Cannula 07/23/17 02:24 92 Nasal Cannula 3.00 07/23/17 02:24 101 22 92 Nasal Cannula 3.00 07/23/17 02:18 98.1 90 22 127/65 (85) 87 Physical Exam GENERAL: This is a well-nourished, well-developed patient, in no apparent distress. SKIN: No rashes, ecchymoses or lesions. Cool and dry. HEAD: Atraumatic. Normocephalic. No temporal or scalp tenderness. EYES: Pupils equal round and reactive. Extraocular motions intact. No scleral icterus. No injection or drainage. ENT: Nose without bleeding, purulent drainage or septal hematoma. Throat without erythema, tonsillar hypertrophy or exudate. Uvula midline. Airway patent. NECK: Trachea midline. No JVD or lymphadenopathy. Supple, nontender, no meningeal signs. CARDIOVASCULAR: Regular rate and rhythm without murmurs, gallops, or rubs. RESPIRATORY: Diffuse rhonchi. No wheezing or crackles noted. GASTROINTESTINAL: Abdomen soft, non-tender, nondistended. No hepato-splenomegaly , or palpable masses. No guarding. MUSCULOSKELETAL: Extremities without clubbing, cyanosis, or edema. No joint tenderness, effusion, or edema noted. No calf tenderness. Negative Homans sign bilaterally. NEUROLOGICAL: Awake and alert. Cranial nerves II through XII intact. Motor and sensory grossly within normal limits. Five out of 5 muscle strength in all muscle groups. Normal speech. Laboratory Laboratory Tests Test 07/23/17 02:29 07/23/17 04:42 White Blood Count 10.5 Red Blood Count 2.66 Hemoglobin 8.2 Hematocrit 25.0 Mean Corpuscular Volume 94.0 Mean Corpuscular Hemoglobin 30.8 Mean Corpuscular Hemoglobin Concent 32.8 Red Cell Distribution Width 19.0 Platelet Count 206 Mean Platelet Volume 8.3 Neutrophils (%) (Auto) 72.2 Lymphocytes (%) (Auto) 13.1 Monocytes (%) (Auto) 9.8 Eosinophils (%) (Auto) 4.3 Basophils (%) (Auto) 0.6 Neutrophils # (Auto) 7.6 Lymphocytes # (Auto) 1.4 Monocytes # (Auto) 1.0 Eosinophils # (Auto) 0.4 Basophils # (Auto) 0.1 CBC Comment AUTO DIFF Differential Comment AUTO DIFF CONFIRMED Platelet Estimate NORMAL Platelet Morphology Comment NORMAL Ovalocytes 1+ Acanthocytes OCC Blood Urea Nitrogen 71 Creatinine 9.68 Random Glucose 99 Calcium Level 8.9 Magnesium Level 1.9 Sodium Level 136 Potassium Level 6.9 5.9 Chloride Level 100 Carbon Dioxide Level 29.0 Anion Gap 7 Estimat Glomerular Filtration Rate 7 Result Diagram: 07/23/1722807/23/17441 Imaging Last Impressions Chest X-Ray 07/23/17219 Signed Impressions: Service Date/Time: Sunday, July 23, 2017 02:33 - CONCLUSION: Cardiomegaly with diffuse prominence of the interstitium likely secondary to CHF. Girish Nguyen MD Caprini VTE Risk Assessment Caprini VTE Risk Assessment: Mod/High Risk (score >= 2) Caprini Risk Assessment Model Point Value = 1 Point Value = 2 Point Value = 3 Point Value = 5 Age 41-60 Minor surgery BMI > 25 kg/m2 Swollen legs Varicose veins or History of unexplained or recurrent spontaneous Oral contraceptives or hormone replacement Sepsis (< 1 month) Serious lung disease, including pneumonia (< 1 month) Abnormal pulmonary function Acute myocardial infarction Congestive heart failure (< 1 month) History of inflammatory bowel disease Medical patient at bed rest Age 61-74 Arthroscopic surgery Major open surgery (> 45 min) Laparoscopic surgery (> 45 min) Malignancy Confined to bed (> 72 hours) Immobilizing plaster cast Central venous access Age >= 75 History of VTE Family history of VTE Factor V Leiden Prothrombin [id number] Lupus anticoagulant Anticardiolipin antibodies Elevated serum homocysteine Heparin-induced thrombocytopenia Other congenital or acquired thrombophilia Stroke (< 1 month) Elective arthroplasty Hip, pelvis, or leg fracture Acute spinal cord injury (< 1 month) Prophylaxis Regimen Total Risk Factor Score Risk Level Prophylaxis Regimen 0-1 Low Early ambulation 2 Moderate Order ONE of the following: *Sequential Compression Device (SCD) *Heparin 5000 units SQ BID 3-4 Higher Order ONE of the following medications: *Heparin 5000 units SQ TID *Enoxaparin/Lovenox 40 mg SQ daily (WT < 150 kg, CrCl > 30 mL/min) *Enoxaparin/Lovenox 30 mg SQ daily (WT < 150 kg, CrCl > 10-29 mL/min) *Enoxaparin/Lovenox 30 mg SQ BID (WT < 150 kg, CrCl > 30 mL/min) AND/OR *Sequential Compression Device (SCD) 5 or more Highest Order ONE of the following medications: *Heparin 5000 units SQ TID (Preferred with Epidurals) *Enoxaparin/Lovenox 40 mg SQ daily (WT < 150 kg, CrCl > 30 mL/min) *Enoxaparin/Lovenox 30 mg SQ daily (WT < 150 kg, CrCl > 10-29 mL/min) *Enoxaparin/Lovenox 30 mg SQ BID (WT < 150 kg, CrCl > 30 mL/min) AND *Sequential Compression Device (SCD) Assessment and Plan Assessment and Plan 72-year-old male history of end-stage renal disease receiving dialysis on Sunday, , and Sunday, COPD and noncompliance presented with cough and shortness of breathing since April Cough/dyspnea -Symptoms have been since April. Patient is noncompliant with treatment. Chest x-ray suggests possible CHF. Most likely symptoms secondary to COPD and CHF. No infectious etiology noted. -Nephrology is consulted. Patient will need dialysis to remove fluid. -Continue to monitor clinically and give supportive care. COPD -Stable. Patient does have rhonchi which is due to congestion. -Home medication resumed. DuoNeb's when necessary. Chronic respiratory failure due to COPD -Continue to supplement with oxygen. End-stage renal disease on dialysis -Noncompliant. -Patient had left tunnel catheter placed on 07/19/17. -[employer] Supervisor consulted. Hyperkalemia -On admission potassium is 6.9 and today it is 5.9. -Will give dose of Kayexalate. -Patient come in the hospital repeatedly for this issue. Due to the noncompliance. -Monitor on telemetry and heel cover splitter consulted for dialysis. -Continue to trend. Coronary artery disease/hyperlipidemia/hypertension -Resume home medication. DVT prophylaxis -Heparin renally dosed. Discussed Condition With patient Physician Certification 2 Midnight Certification Type: Admission for Inpatient Services Order for Inpatient Services The services are ordered in accordance with Medicare regulations or non- Medicare payer requirements, as applicable. In the case of services not specified as inpatient-only, they are appropriately provided as inpatient services in accordance with the 2-midnight benchmark. Estimated LOS (days): 2 2 days is the estimated time the patient will need to remain in the hospital, assuming treatment plan goals are met and no additional complications. Post-Hospital Plan: Dorothea Laura MD Jul 23, 2017 09:32
[2017-07-23] MEDS: DILTIAZEM HCL 90 MG TAB PO SCH ×4 (10:44→19:50)
[2017-07-23] MEDS ORDERED: SODIUM CHLOR 0.9% 1000 ML INJ 1,000 ML IV PRN (10:54)
[2017-07-23] MEDS ORDERED: SODIUM CHLOR 0.9% 1000 ML INJ 1,000 ML OTHER PRN ×2 (10:54)
[2017-07-23] MEDS ORDERED: ONDANSETRON HCL 4 MG/2 ML VIAL IV PUSH PRN (11:00)
[2017-07-23] MEDS ORDERED: cloNIDine HCL 0.1 MG TAB PO PRN (11:00)
[2017-07-23] MEDS ORDERED: GELATIN 12 MM/7 MM FOAM TOP PRN (11:00)
[2017-07-23] MEDS ORDERED: ALBUMIN 25% INJ 100 ML IV PRN (11:00)
[2017-07-23] MEDS ORDERED: HEPARIN SODIUM - IV 10,000 UNITS/10 ML VIAL IV FLUSH PRN (11:00)
[2017-07-23] MEDS ORDERED: NITROGLYCERIN 0.4 MG SL 25 TABS/BTL SL PRN (11:00)
[2017-07-23] MEDS ORDERED: MANNITOL 12.5 GM/50 ML VIAL IV PRN (11:00)
--- NOTE | 2017-07-23 11:39 | PD.CONS ---
HPI Service Nephrology Consult Requested By Reason for Consult ESRD on HD Primary Care Physician No Primary Care Physician History of Present Illness This is a 72 y/o A[facility] patient with ESRD. He dialyzes TTS, is set up for transitional HD program, had full HD on Sunday. He was admitted overnight for shortness of breath. PMH of COPD, chronic CHF, Atrial fibrillation, most recent left tunnel catheter placed on 07/19/17, and noncompliance. He is not on oxygen. Chest xray showing CHF. He was hyperkalemic this AM, medicated with insulin, dextrose, and bicarbonate. Repeat K is 5.9. We were consulted for management. He is a full code. (Angela Ortega) Review of Systems Constitutional: COMPLAINS OF: Fatigue Respiratory: COMPLAINS OF: Shortness of breath Cardiovascular: COMPLAINS OF: Dyspnea on Exertion, DENIES: Chest pain, Lower Extremity Edema Gastrointestinal: DENIES: Abdominal pain (Angela Ortega) Past Family Social History Allergies: Coded Allergies: No Known Allergies (Unverified Allergy, Unknown, 07/23/17) Past Medical History ESRD on HD TTS COPD atrial fibrillation prostate cancer hypertension anemia metabolic bone disorder Psychiatric disorder noncompliance Past Surgical History Permacath AVF left arm prostate surgery Reported Medications Lomotil (Diphenoxylate-Atropine) 2.5-0.025 Mg Tab 1 Tab PO Q6H PRN Gnp Senna Plus 8.6-50 mg (Sennosides-Docusate Sodium) 8.6 Mg-50 Mg Tab 1 Tab PO BID Trazodone (Trazodone HCl) 150 Mg Tablet 150 Mg PO HS Alprazolam 0.5 Mg Tab 0.5 Mg PO HS PRN Reported Zofran (Ondansetron HCl) 8 Mg Tab 8 Mg PO TID Lomotil (Diphenoxylate-Atropine) 2.5-0.025 Mg Tab 1 Tab PO Q6H PRN Levocetirizine 5 Mg Tab 5 Mg PO DAILY Hydroxyzine HCl 25 Mg Tab 25 Mg PO Q6HR Benadryl Allergy (Diphenhydramine HCl) 25 Mg Cap 1 Tab PO TUE, SHAWN, SAT PRN Duoneb (Ipratropium-Albuterol Neb) 0.5-2.5 Mg/3 Ml Neb 3 Ml NEB Q4HR PRN Tylenol (Acetaminophen) 325 Mg Tab 325 Mg PO Q6H PRN Antacid (Calcium Carbonate (Antacid)) 500 Mg Chew 500 Mg CHEW TID PRN Pro-Stat (Amino Acids-Protein Hydrolysat) 1 Liq Liq 30 Ml PO TID Renal-Mya 0.8 mg (B-Complex W/ C & Folic Acid) 1 Tab Tab 0.8 Mg PO DAILY Aspirin 81 (Aspirin) 81 Mg Tabdr 81 Mg PO DAILY Diltiazem (Diltiazem HCl) 90 Mg Tab 90 Mg PO QID Ondansetron (Ondansetron HCl) 8 Mg Tab 8 Mg PO TID PRN Renvela (Sevelamer Carbonate) 800 Mg Tab 800 Mg PO TID Metoprolol Tartrate 25 Mg Tab 12.5 Mg PO BID Losartan (Losartan Potassium) 100 Mg Tab 100 Mg PO DAILY Isosorbide Mononitrate ER (Isosorbide Mononitrate) 30 Mg Nolan 30 Mg PO DAILY Active Ordered Medications Current Medications Medications (Trade) Dose Ordered Sig/Erik Route Start Time Stop Time Status Last Admin (Duoneb Neb) 1 ampule Q4HR NEB PRN NEB 07/23/17 06:00 (NS Flush) 2 ml UNSCH PRN IV FLUSH 07/23/17 06:00 (NS Flush) 2 ml BID IV FLUSH 07/23/17 09:00 07/23/17 08:42 (Zofran Inj) 4 mg Q6H PRN IVP 07/23/17 06:00 07/23/17 08:45 (Heparin Inj) 5,000 units Q12H SQ 07/23/17 09:00 07/23/17 08:43 (Tylenol) 650 mg Q6H PRN PO 07/23/17 06:00 ([place] 5-325 Mg) 1 tab Q4H PRN PO 07/23/17 06:00 ([place] 10-325 Mg) 1 tab Q4H PRN PO 07/23/17 06:00 (Clarice-Colace) 1 tab BID PO 07/23/17 09:00 (Milk Of Magnesia Liq) 30 ml Q12H PRN PO 07/23/17 06:00 (Senokot) 17.2 mg Q12H PRN PO 07/23/17 06:00 (Dulcolax Supp) 10 mg DAILY PRN RECTAL 07/23/17 06:00 (Lactulose Liq) 30 ml DAILY PRN PO 07/23/17 06:00 (Xanax) 0.5 mg HS PRN PO 07/23/17 06:00 (Ecotrin Ec) 81 mg DAILY PO 07/23/17 09:00 07/23/17 08:45 (Cardizem) 90 mg QID PO 07/23/17 09:00 07/23/17 10:44 (Imdur) 30 mg DAILY PO 07/23/17 09:00 07/23/17 08:43 (Cozaar) 100 mg DAILY PO 07/23/17 09:00 07/23/17 08:43 (Lopressor) 12.5 mg BID PO 07/23/17 09:00 07/23/17 08:43 (Renvela) 800 mg TID PO 07/23/17 09:00 07/23/17 08:43 (Nephrocaps) 1 cap DAILY PO 07/23/17 09:00 07/23/17 08:43 (Desyrel) 150 mg HS PO 07/23/17 21:00 Sodium Chloride 1,000 ml @ 0 mls/hr Q0M PRN OTHER 07/23/17 10:54 (Heparin Inj) 8,000 units UNSCH PRN IV FLUSH 07/23/17 11:00 Sodium Chloride 1,000 ml @ 200 mls/hr Q5H PRN IV 07/23/17 10:54 Sodium Chloride 1,000 ml @ 0 mls/hr Q0M PRN OTHER 07/23/17 10:54 (Mannitol Inj) 12.5 gm UNSCH PRN IV 07/23/17 11:00 Albumin Human 100 ml @ 60 mls/hr UNSCH PRN IV 07/23/17 11:00 (NS Flush) 5 ml UNSCH PRN IV FLUSH 07/23/17 11:00 (Heparin Inj) UNSCH PRN .XX 07/23/17 11:00 (Gentamicin (Dialysis) Inj) 20 mg UNSCH PRN OTHER 07/23/17 11:00 (Zofran Inj) 4 mg UNSCH PRN IV PUSH 07/23/17 11:00 (Tylenol) 650 mg UNSCH PRN PO 07/23/17 11:00 (Benadryl) 25 mg UNSCH PRN PO 07/23/17 11:00 (Nitrostat Sl) 0.4 mg UNSCH PRN SL 07/23/17 11:00 (Catapres) 0.1 mg UNSCH PRN PO 07/23/17 11:00 (Epogen Inj) 10,000 units UNSCH PRN IV PUSH 07/23/17 11:00 (Gelfoam 12 Mm/7 Mm Top) 1 foam UNSCH PRN TOP 07/23/17 11:00 Family History Non contributory Social History Former smoker [facility] at [facility] of non compliance (Angela Ortega) Physical Exam Vital Signs Vital Signs Date Time Temp Pulse Resp B/P (MAP) Pulse Ox O2 Delivery O2 Flow Rate FiO2 07/23/17 08:00 97.2 115 20 141/90 (107) 91 07/23/17 07:22 110 18 123/80 (94) 100 Nasal Cannula 2.00 07/23/17 07:01 98.8 108 18 128/85 (99) 95 Nasal Cannula 4.00 07/23/17 03:37 91 18 93 Nasal Cannula 3.00 07/23/17 02:24 93 Nasal Cannula 07/23/17 02:24 92 Nasal Cannula 3.00 07/23/17 02:24 101 22 92 Nasal Cannula 3.00 07/23/17 02:18 98.1 90 22 127/65 (85) 87 Physical Exam GENERAL: Well-nourished, well-developed patient. SKIN: Warm and dry. HEAD: Normocephalic. EYES: No scleral icterus. No injection or drainage. NECK: Supple, trachea midline. No JVD or lymphadenopathy. CARDIOVASCULAR: Irregularly irregular. Permcath right chest. RESPIRATORY: Crepitation at the bases GASTROINTESTINAL: Abdomen soft, non-tender, nondistended. EXTREMITIES: No cyanosis,no edema. LUE AVG, + thrill/bruit. NEUROLOGICAL: Awake, alert, and oriented x 3. Non-focal. Laboratory Laboratory Tests Test 07/23/17 02:29 07/23/17 04:42 White Blood Count 10.5 Red Blood Count 2.66 Hemoglobin 8.2 Hematocrit 25.0 Mean Corpuscular Volume 94.0 Mean Corpuscular Hemoglobin 30.8 Mean Corpuscular Hemoglobin Concent 32.8 Red Cell Distribution Width 19.0 Platelet Count 206 Mean Platelet Volume 8.3 Neutrophils (%) (Auto) 72.2 Lymphocytes (%) (Auto) 13.1 Monocytes (%) (Auto) 9.8 Eosinophils (%) (Auto) 4.3 Basophils (%) (Auto) 0.6 Neutrophils # (Auto) 7.6 Lymphocytes # (Auto) 1.4 Monocytes # (Auto) 1.0 Eosinophils # (Auto) 0.4 Basophils # (Auto) 0.1 CBC Comment AUTO DIFF Differential Comment AUTO DIFF CONFIRMED Platelet Estimate NORMAL Platelet Morphology Comment NORMAL Ovalocytes 1+ Acanthocytes OCC Blood Urea Nitrogen 71 Creatinine 9.68 Random Glucose 99 Calcium Level 8.9 Magnesium Level 1.9 Sodium Level 136 Potassium Level 6.9 5.9 Chloride Level 100 Carbon Dioxide Level 29.0 Anion Gap 7 Estimat Glomerular Filtration Rate 7 (Angela Ortega) Result Diagram: 07/23/1722807/23/17441 Imaging Last Impressions Chest X-Ray 07/23/17219 Signed Impressions: Service Date/Time: Sunday, July 23, 2017 02:33 - CONCLUSION: Cardiomegaly with diffuse prominence of the interstitium likely secondary to CHF. Girish Nguyen MD (Angela Ortega) Assessment and Plan Problem List: (1) ESRD (end stage renal disease) on dialysis ICD Codes: N18.6 - End stage renal disease; Z99.2 - Dependence on renal dialysis Status: Chronic Plan: Dialysis today for 2 hrs on a 1K bath, repeat labs tomorrow Resume TTS HD schedule tomorrow He has PermCath for HD, refuses to allow us to cannulate AV graft left arm HE is set up for transitional program at [facility] when discharged Xanax ordered for HD, he becomes anxious with treatment Check phosphorous level, start Renvela (2) Hyperkalemia ICD Codes: E87.5 - Hyperkalemia Plan: See above Low K diet ordered Repeat labs (3) Anemia of renal disease ICD Codes: D63.1 - Anemia in chronic kidney disease Status: Acute Plan: Epogen with HD (4) CHF (congestive heart failure) ICD Codes: I50.9 - Heart failure, unspecified Status: Acute Plan: Fluid removal as tolerated (Angela Ortega) Assessment and Plan patient was seen and examined. Dialysis today on account of hyperkalemia and fluid overload. Agree with above assessment and plan. (Keron Singh MD) Angela Ortega Jul 23, 2017 11:39 Keron Singh MD Jul 23, 2017 20:47
[2017-07-23] MEDS ORDERED: SEVELAMER CARBONATE 800 MG TAB PO SCH (12:00)
[2017-07-23] MEDS: BENZONATATE 100 MG CAP PO PRN ×2 (12:53→16:13)
[2017-07-23] MEDS: diphenhydrAMINE HCL 25 MG CAP PO PRN (15:16)
[2017-07-23] MEDS: HEPARIN SODIUM - IV 10,000 UNITS/10 ML VIAL PRN (15:16)
[2017-07-23] MEDS: GENTAMICIN SULFATE (DIALYSIS USE ONLY) 20 MG/2 ML VIAL OTHER PRN (15:16)
--- NOTE | 2017-07-23 17:38 | EKG ---
Date Performed: 07/23/2017 Time Performed: 05:35:31 PTAGE: 72 years EKG: ATRIAL FIBRILLATION WITH RAPID VENTRICULAR RESPONSE MARKED LEFT AXIS DEVIATION PATTERN CONS ISTENT WITH PULMONARY DISEASE Since previous tracing, no significant change noted ABNORMAL ECG PREVIOUS TRACING : 06/30/2017 17.59 DOCTOR: Marshal Velazquez Interpretating Date/Time 07/23/2017 17:38:00
[2017-07-23] MEDS: guaiFENesin SOLUTION 200 MG/10 ML CUP PO PRN (18:45)
[2017-07-23] MEDS: traZODone HCL 50 MG TAB PO SCH (19:50)
[2017-07-23] MEDS ORDERED: RESP: ALBUTEROL 2.5 MG/3 ML NEB (PRN) ONE (20:18)
[2017-07-23] MEDS: RESP: ALBUTEROL CONC 2.5 MG/0.5 ML NEB NEB PRN (20:19)
[2017-07-24] VITALS (18 sets, daily range): BP systolic 75–110; BP diastolic 48–66; PULSE 81–140; RESP 18–47; TEMP 97.9–99.8; O2SAT 78–100
[2017-07-24] MEDS: ALPRAZolam 0.5 MG TAB PO PRN ×2 (00:49→20:29)
[2017-07-24] MEDS: ACETAMINOPHEN/HYDROcodone 325 MG/5 MG TAB PO PRN (00:49)
[2017-07-24] MEDS: diphenhydrAMINE HCL 25 MG CAP PO PRN ×2 (00:49→20:29)
[2017-07-24] MEDS: guaiFENesin SOLUTION 200 MG/10 ML CUP PO PRN ×4 (00:54→20:29)
[2017-07-24] MEDS ORDERED: RESP: ALBUTEROL 2.5 MG/3 ML NEB (PRN) ONE (01:18)
[2017-07-24] MEDS: RESP: ALBUTEROL CONC 2.5 MG/0.5 ML NEB NEB PRN ×4 (01:23→17:05)
[2017-07-24] MEDS ORDERED: RESP: ALBUTEROL 2.5 MG/IPRATROPIUM 0.5 MG NEB (SCH) ONE (05:09)
[2017-07-24 08:27] LABS: AUTOMATED NEUTROPHIL # 4.1 TH/MM3 (1.8-7.7); BASOPHIL # 0.1 TH/MM3 (0-0.2); EOSINOPHIL # 0.4 TH/MM3 (0-0.4); EOSINOPHIL % 6.5 % (0.0-4.0); HEMATOCRIT 25.6 % (39.0-51.0); HEMOGLOBIN 8.5 GM/DL (13.0-17.0); LYMPH % 13.7 % (9.0-44.0); LYMPHOCYTE # 0.8 TH/MM3 (1.0-4.8); MEAN CELL VOLUME 94.1 FL (80.0-100.0); MEAN CORPUSCULAR HEMOGLOBIN 31.1 PG (27.0-34.0); MONO % 9.7 % (0.0-8.0); MONOCYTE # 0.6 TH/MM3 (0-0.9); NEUT % 69.1 % (16.0-70.0); PLATELET COUNT 204 TH/MM3 (150-450); RED BLOOD COUNT 2.72 MIL/MM3 (4.50-5.90); RED CELL DISTRIBUTION WIDTH 18.8 % (11.6-17.2)
[2017-07-24] MEDS: ASPIRIN EC 81 MG TABEC PO SCH (08:35)
[2017-07-24] MEDS: VITAMIN B CMPLX/VITC/FOLIC AC CAP PO SCH (08:35)
[2017-07-24] MEDS: ISOSORBIDE MONONITRATE 30 MG TAB PO SCH (08:36)
[2017-07-24] MEDS: SEVELAMER CARBONATE 800 MG TAB PO SCH ×3 (08:36→17:27)
[2017-07-24] MEDS: METOPROLOL TARTRATE 25 MG TAB PO SCH ×3 (08:38→20:28)
[2017-07-24] MEDS: DILTIAZEM HCL 90 MG TAB PO SCH ×4 (08:38→20:29)
[2017-07-24] MEDS: DOCUSATE SODIUM 50 MG/SENNA 8.6 MG TAB PO SCH ×2 (08:38→20:28)
[2017-07-24] MEDS: LOSARTAN 50 MG TAB PO SCH (08:38)
[2017-07-24] MEDS: SODIUM CHLORIDE 0.9% FLUSH 10 ML FLUSH IV FLUSH SCH ×2 (08:38→20:30)
[2017-07-24] MEDS: HEPARIN SODIUM - SQ 10,000 UNITS/ML VIAL SQ SCH ×2 (08:39→20:28)
[2017-07-24 08:57] LABS: ALKALINE PHOSPHATASE 167 U/L (45-117); ALT (GPT) 12 U/L (12-78); AST (GOT) 14 U/L (15-37); BICARBONATE 35.2 MEQ/L (21.0-32.0); BLOOD UREA NITROGEN 57 MG/DL (7-18); CALCIUM 8.4 MG/DL (8.5-10.1); CHLORIDE 100 MEQ/L (98-107); CREATININE 9.18 MG/DL (0.60-1.30); GLOMERULAR FILTRATION RATE 7 ML/MIN (>89); GLUCOSE,RANDOM 88 MG/DL (74-106); PHOSPHORUS 5.6 MG/DL (2.5-4.9); SODIUM (NA) 140 MEQ/L (136-145); TOTAL BILIRUBIN ADULT 0.4 MG/DL (0.2-1.0); TOTAL PROTEIN 6.4 GM/DL (6.4-8.2)
[2017-07-24] MEDS ORDERED: guaiFENesin SOLUTION 200 MG/10 ML CUP PO PRN (10:15)
--- NOTE | 2017-07-24 11:16 | HHI.NPPN ---
Subjective Renal Failure: Chronic Interval History He has been coughing and wheezing. Seen during dialysis. (Angela Ortega) Review of Systems Respiratory Lungs: SOB, Cough (Angela Ortega) Objective Data Data Vital Signs Date Time Temp Pulse Resp B/P (MAP) Pulse Ox O2 Delivery O2 Flow Rate FiO2 07/24/17 09:10 130 07/24/17 08:56 94 Nasal Cannula 5.00 07/24/17 08:56 Nasal Cannula 3.00 07/24/17 08:39 97.9 110 18 105/66 (79) 90 07/24/17 05:30 92 Nasal Cannula 4.00 07/24/17 04:54 98.1 89 19 107/60 (76) 96 07/23/17 23:21 99.4 91 18 96/55 (69) 90 07/23/17 19:43 98.2 93 19 94/50 (65) 91 07/23/17 17:52 91 Nasal Cannula 3.00 07/23/17 16:00 96.7 102 24 120/81 (94) 91 07/23/17 14:32 91 07/23/17 12:48 100 Nasal Cannula 3.00 07/23/17 11:53 111 07/23/17 11:43 91 Nasal Cannula 3.00 07/23/17 11:38 97.1 108 26 116/73 (87) 91 (Angela Ortega) -: 07/24/17 0809 07/24/17 0804 Imaging Last 72 hours Impressions Chest X-Ray 07/23/17 0220 Signed Impressions: Service Date/Time: Sunday, July 23, 2017 02:33 - CONCLUSION: Cardiomegaly with diffuse prominence of the interstitium likely secondary to CHF. Girish Nguyen MD Tubes & Lines: Perma-Cath (Angela Ortega) Physical Exam General Appearance: Well Developed, Comfortable (Angela Ortega) Eyes Eye Exam: Pupils Equal (Angela Ortega) Neck Neck Exam: Neck Supple (Angela Ortega) Pulmonary Resp Exam: Rhonchi, Sputum, Decreased Bases (Angela Ortega) Cardiology CV Exam: Regular, Normal Sinus Rhythm (Angela Ortega) Gastrointestinal/Abdomen GI Exam: Soft, Non-Tender (Angela Ortega) Musculoskeletal MS Exam: Joints Intact, Normal Gait, Normal Tone (Angela Ortega) Integumentary Skin Exam: Clear, Warm, Dry, Intact (Angela Ortega) Extremeties Extremities Exam: No Edema, Pedal Pulses Palpable (Angela Ortega) Neurologic Neuro Exam: Alert, Awake, Oriented, Speech Clear, Moving All Extremities (Angela Ortega) Assessment/Plan Discussed Condition With: Patient Problem List: (1) ESRD (end stage renal disease) on dialysis ICD Codes: N18.6 - End stage renal disease; Z99.2 - Dependence on renal dialysis Status: Chronic Plan: Dialyzed yesterday for hyperkalemia Seen during HD today on a 3K, 350 BFR, goal 2L continue HD support TTS and as needed He has PermCath for HD, refuses to allow us to cannulate AV graft left arm He [place] [facility] [place] Xan[place] ordered for HD, he becomes anxious with treatment Contine Renvela (2) Hyperkalemia ICD Codes: E87.5 - Hyperkalemia Plan: See above Low K diet ordered Repeat K level is acceptable (3) Anemia of renal disease ICD Codes: D63.1 - Anemia in chronic kidney disease Status: Acute Plan: Epogen with HD (4) CHF (congestive heart failure) ICD Codes: I50.9 - Heart failure, unspecified Status: Acute Plan: Fluid removal as tolerated (Angela Ortega) Plan patient was seen and examined. Agree with above assessment and plan. Seen during dialysis. (eKron Singh MD) Angela Ortega Jul 24, 2017 11:16 Keron Singh MD Jul 24, 2017 19:32
[2017-07-24] MEDS: GENTAMICIN SULFATE (DIALYSIS USE ONLY) 20 MG/2 ML VIAL OTHER PRN (12:59)
[2017-07-24] MEDS: EPOETIN ALFA 10,000 UNITS/ML VIAL IV PUSH PRN (12:59)
[2017-07-24] MEDS: HEPARIN SODIUM - IV 10,000 UNITS/10 ML VIAL PRN (13:00)
[2017-07-24] MEDS ORDERED: DIGOXIN 0.5 MG/2 ML VIAL IV PUSH ONE (14:45)
--- NOTE | 2017-07-24 15:05 | EKG ---
Date Performed: 07/24/2017 Time Performed: 14:34:54 PTAGE: 72 years EKG: ATRIAL FIBRILLATION WITH RAPID VENTRICULAR RESPONSE PATTERN CONSISTENT WITH PULMONARY DISEA SE INFERIOR MYOCARDIAL INFARCTION , PROBABLY OLD ABNORMAL ECG No significant change from prior electr ocardiogram. PREVIOUS TRACING : 07/23/2017 05.35 DOCTOR: Calos Landa Interpretating Date/Time 07/24/2017 15:04:27
[2017-07-24] MEDS ORDERED: CHLORHEXIDINE GLUCONATE 2 % 1 PACK (2 CLOTHS)(extra cloths) TOPICAL PRN (17:45)
--- NOTE | 2017-07-24 18:37 | HHI.PR ---
Objective Vital Signs Date Time Temp Pulse Resp B/P (MAP) Pulse Ox O2 Delivery O2 Flow Rate FiO2 07/24/17 18:00 108 07/24/17 16:00 109 07/24/17 16:00 98.8 109 26 110/56 (74) 92 07/24/17 15:44 Nasal Cannula 4.00 07/24/17 14:35 135 20 108/55 (72) 98 07/24/17 14:30 140 07/24/17 14:28 99.8 131 108/57 (74) 95 07/24/17 14:20 99.8 136 22 108/57 (74) 92 07/24/17 09:10 130 07/24/17 08:56 94 Nasal Cannula 5.00 07/24/17 08:56 Nasal Cannula 3.00 07/24/17 08:39 97.9 110 18 105/66 (79) 90 07/24/17 07:51 106 07/24/17 05:30 92 Nasal Cannula 4.00 07/24/17 04:54 98.1 89 19 107/60 (76) 96 07/23/17 23:21 99.4 91 18 96/55 (69) 90 07/23/17 19:43 98.2 93 19 94/50 (65) 91 I/O 07/23/17 07/23/17 07/23/17 07/24/17 07/24/17 07/24/17 06:59 14:59 22:59 06:59 14:59 22:59 Intake Total 100 ml 240 ml 240 ml Output Total 200 ml 4000 ml 3000 ml Balance -100 ml -3760 ml 240 ml -3000 ml Intake Oral 100 ml 240 ml 240 ml Output Emesis 200 ml Hemodialysis 4000 ml 3000 ml # Voids 0 1 1 # Bowel Movements 1 2 0 0 Result Diagram: 07/24/17 0809 07/24/17 0804 Assessment and Plan Assessment and Plan A-Fib with RVR - [place] [facility] [place] to 140's during dialysis - Loaded on Digoxin, will follow level (careful due to dialysis) - Cardiology consult placed Cough/dyspnea -Symptoms have been since April. - Consider allergies vs. COPD/CHF - Robitussin added COPD -Home medication resumed. DuoNeb's when necessary. End-stage renal disease on dialysis - had a dialysis treatment today -Patient had left tunnel catheter placed on 07/19/17. Hyperkalemia -On admission potassium is 6.9 and today it is 5.9. -Dialysis performed today Coronary artery disease/hyperlipidemia/hypertension -Resume home medication. DVT prophylaxis -Heparin renally dosed. Rolando Philippe MD Jul 24, 2017 18:37
[2017-07-24] MEDS: traZODone HCL 50 MG TAB PO SCH (20:28)
--- NOTE | 2017-07-24 20:29 | MB ---
cc: GUMARO BASURTO DO DATE OF CONSULTATION 07/24/2017 REASON FOR CONSULTATION Atrial fibrillation with rapid ventricular response. HISTORY OF PRESENT ILLNESS Renny Beaver is a 72-year-old male who presented to [facility] on July 23, 2017 due to cough and shortness of breath. The patient has been in and out of the hospital multiple times over the past few months. He apparently has had this cough and shortness of breath for sometime and it has not gotten better or worse. He denies fevers or chills. Apparently he has had a history of noncompliance, specifically with his dialysis. Overall on discussing this with him he states that he goes to most of his dialysis sessions. Apparently he had some mild hypotension and so he had not received his normal doses of Lopressor and Cardizem. He then went into atrial fibrillation with rapid ventricular response. He has since been given his metoprolol and Cardizem as well as a dose of digoxin. In seeing him he is currently hemodynamically stable without chest pain or shortness of breath. PAST MEDICAL HISTORY 1. Hypertension. 2. Atrial fibrillation. 3. Systolic congestive heart failure with a previous ejection fraction of 40-45%. 4. End-stage renal disease on hemodialysis Sunday, , Sunday. 5. COPD. PAST SURGICAL HISTORY 1. Left upper extremity AV fistula. 2. Prostatectomy. ALLERGIES NO KNOWN DRUG ALLERGIES. MEDICATIONS 1. Benadryl Sunday, , Sunday as needed for itching. 2. Levocetirizine 5 mg daily. 3. DuoNeb every 4 hours as needed for shortness of breath. 4. Imdur 30 mg daily. 5. Metoprolol tartrate 12.5 mg b.i.d. 6. Cardizem 90 mg q.i.d. 7. Losartan 100 mg daily. 8. Aspirin 81 mg daily. 9. Trazodone 150 mg every night. 10. Xanax 0.5 mg every night as needed for anxiety. 11. Hydroxyzine 25 mg every 6 hours. 12. Renvela 800 mg t.i.d. 13. Lomotil one tablet every 6 hours as needed for diarrhea. 14. Zofran 8 mg t.i.d. as needed for nausea and vomiting. FAMILY HISTORY Denies premature coronary artery disease or sudden cardiac within the family. SOCIAL HISTORY Denies tobacco, alcohol, drug abuse. REVIEW OF SYSTEMS 14-systems were reviewed including osteopathic. Pertinent positives and negatives above, otherwise negative. PHYSICAL EXAMINATION VITAL SIGNS: Temperature 99.8, heart rate 130, blood pressure 108/57, respirations 20, pulse ox 95% on 3 liters. GENERAL: In general the patient appears well. No acute distress, alert, awake and oriented x3. HEENT: Extraocular muscles intact. Mucous membranes moist. NECK: Supple. No JVD at 45 degrees. No carotid bruits heard bilaterally. Carotid upstroke is brisk in nature. CARDIOVASCULAR: Heart is irregularly irregular and tachycardic. A 1/6 crescendo-decrescendo murmur to the right sternal border. LUNGS: Have decreased breath sounds bilaterally but no overt wheezes, rales or rhonchi. ABDOMEN: Soft, nontender, nondistended. No organomegaly noted. EXTREMITIES: Show no clubbing, cyanosis or edema. Femoral and distal pulses intact bilaterally. NEUROLOGIC: No focal deficits. SKIN: Warm, dry and intact. OSTEOPATHIC: No kyphoscoliosis, lordosis or paraspinal tender points. LABORATORY FINDINGS Hemoglobin 8.5, hematocrit 25.6, platelets 204. Potassium 4.8, BUN 57, creatinine 9.18. Electrocardiogram (July 24, 2017 at 1434) atrial fibrillation with rapid ventricular response, possible old inferior myocardial infarction. IMPRESSIONS 1. Atrial fibrillation with rapid ventricular response. 2. COPD. 3. End-stage renal disease on hemodialysis. 4. History of noncompliance. 5. Hyperkalemia on admission. 6. History of coronary artery disease. 7. History of hyperlipidemia. 8. History of hypertension. RECOMMENDATIONS 1. Mr. Beaver was found to be in atrial fibrillation with rapid ventricular response and this may be due to him not receiving his beta eris and calcium channel eris therapy. 2. We will attempt to place this back on as well as give him a dose of digoxin. 3. If he continues to have episodes of hypotension on his current medications, he may to be placed on digoxin therapy chronically although this will have to be watched as he is a dialysis patient. 4. As far as anticoagulation goes he states that he was previously on Coumadin but they stopped this a number of years ago. In discussing this with him, he states that he would not like to be on anticoagulation and continue on just aspirin therapy and understands the risk. My overall concern with anticoagulation with him would be his anemia as well as noncompliance. 5. Further recommendations will be made based on the hospital course. Thank you for allowing me to see Renny Beaver. If there are any questions please do not hesitate to call. Gumaro Basurto DO VGP/KK /6:59 PM /7:58 PM
[2017-07-24 20:35] LABS: BICARBONATE 33.6 MEQ/L (21.0-32.0); CALCIUM 8.4 MG/DL (8.5-10.1); CREATININE 6.21 MG/DL (0.60-1.30)
[2017-07-24 20:55] LABS: DIGOXIN 0.7 NG/ML (0.8-2.0)
[2017-07-25] VITALS (28 sets, daily range): BP systolic 78–128; BP diastolic 47–71; PULSE 72–118; RESP 13–43; TEMP 98.2–99.6; O2SAT 66–100
[2017-07-25] MEDS: RESP: ALBUTEROL CONC 2.5 MG/0.5 ML NEB NEB PRN ×4 (00:11→21:27)
[2017-07-25] MEDS: CHLORHEXIDINE GLUCONATE 2 % 1 PACK (2 CLOTHS)(taper/protocol) TOPICAL SCH (03:13)
[2017-07-25] MEDS: VITAMIN B CMPLX/VITC/FOLIC AC CAP PO SCH (09:00)
[2017-07-25] MEDS: DOCUSATE SODIUM 50 MG/SENNA 8.6 MG TAB PO SCH ×2 (09:00→20:36)
[2017-07-25] MEDS: METOPROLOL TARTRATE 25 MG TAB PO SCH ×2 (10:12→20:36)
[2017-07-25] MEDS: SEVELAMER CARBONATE 800 MG TAB PO SCH ×3 (10:12→17:14)
[2017-07-25] MEDS: HEPARIN SODIUM - SQ 10,000 UNITS/ML VIAL SQ SCH ×2 (10:13→20:35)
[2017-07-25] MEDS: LOSARTAN 50 MG TAB PO SCH (10:14)
[2017-07-25] MEDS: ASPIRIN EC 81 MG TABEC PO SCH (10:15)
[2017-07-25] MEDS: ISOSORBIDE MONONITRATE 30 MG TAB PO SCH (10:15)
[2017-07-25] MEDS: SODIUM CHLORIDE 0.9% FLUSH 10 ML FLUSH IV FLUSH SCH ×2 (10:16→20:36)
[2017-07-25] MEDS: DILTIAZEM HCL 90 MG TAB PO SCH ×4 (10:16→20:36)
--- NOTE | 2017-07-25 11:34 | PD.CARD.PN ---
Subjective Subjective Remarks No events overnight No chest pain/SOB Heart rates around 100-120 bpm Objective Medications Current Medications Medications (Trade) Dose Ordered Sig/Erik Route Start Time Stop Time Status Last Admin (NS Flush) 2 ml UNSCH PRN IV FLUSH 07/23/17 06:00 (NS Flush) 2 ml BID IV FLUSH 07/23/17 09:00 07/25/17 10:16 (Zofran Inj) 4 mg Q6H PRN IVP 07/23/17 06:00 07/23/17 19:46 (Heparin Inj) 5,000 units Q12H SQ 07/23/17 09:00 07/25/17 10:13 (Tylenol) 650 mg Q6H PRN PO 07/23/17 06:00 (Bledsoe 5-325 Mg) 1 tab Q4H PRN PO 07/23/17 06:00 07/24/17 00:49 (Bledsoe 10-325 Mg) 1 tab Q4H PRN PO 07/23/17 06:00 (Clarice-Colace) 1 tab BID PO 07/23/17 09:00 (Milk Of Magnesia Liq) 30 ml Q12H PRN PO 07/23/17 06:00 (Senokot) 17.2 mg Q12H PRN PO 07/23/17 06:00 (Dulcolax Supp) 10 mg DAILY PRN RECTAL 07/23/17 06:00 (Lactulose Liq) 30 ml DAILY PRN PO 07/23/17 06:00 (Xanax) 0.5 mg HS PRN PO 07/23/17 06:00 07/24/17 20:29 (Ecotrin Ec) 81 mg DAILY PO 07/23/17 09:00 07/25/17 10:15 (Cardizem) 90 mg QID PO 07/23/17 09:00 07/25/17 10:16 (Imdur) 30 mg DAILY PO 07/23/17 09:00 07/25/17 10:15 (Cozaar) 100 mg DAILY PO 07/23/17 09:00 07/25/17 10:14 (Lopressor) 12.5 mg BID PO 07/23/17 09:00 07/25/17 10:12 (Nephrocaps) 1 cap DAILY PO 07/23/17 09:00 07/25/17 09:00 (Desyrel) 150 mg HS PO 07/23/17 21:00 07/24/17 20:28 Sodium Chloride 1,000 ml @ 0 mls/hr Q0M PRN OTHER 07/23/17 10:54 (Heparin Inj) 8,000 units UNSCH PRN IV FLUSH 07/23/17 11:00 Sodium Chloride 1,000 ml @ 200 mls/hr Q5H PRN IV 07/23/17 10:54 Sodium Chloride 1,000 ml @ 0 mls/hr Q0M PRN OTHER 07/23/17 10:54 (Mannitol Inj) 12.5 gm UNSCH PRN IV 07/23/17 11:00 Albumin Human 100 ml @ 60 mls/hr UNSCH PRN IV 07/23/17 11:00 (NS Flush) 5 ml UNSCH PRN IV FLUSH 07/23/17 11:00 (Heparin Inj) UNSCH PRN .XX 07/23/17 11:00 07/24/17 13:00 (Gentamicin (Dialysis) Inj) 20 mg UNSCH PRN OTHER 07/23/17 11:00 07/24/17 12:59 (Zofran Inj) 4 mg UNSCH PRN IV PUSH 07/23/17 11:00 (Tylenol) 650 mg UNSCH PRN PO 07/23/17 11:00 (Benadryl) 25 mg UNSCH PRN PO 07/23/17 11:00 07/24/17 20:29 (Nitrostat Sl) 0.4 mg UNSCH PRN SL 07/23/17 11:00 (Catapres) 0.1 mg UNSCH PRN PO 07/23/17 11:00 (Epogen Inj) 10,000 units UNSCH PRN IV PUSH 07/23/17 11:00 07/24/17 12:59 (Gelfoam 12 Mm/7 Mm Top) 1 foam UNSCH PRN TOP 07/23/17 11:00 (Albuterol Concentrated Neb) 2.5 mg Q4HR NEB PRN NEB 07/23/17 12:00 07/25/17 04:12 (Renvela) 800 mg TIDAC PO 07/23/17 17:00 07/25/17 10:12 (Robitussin Liq) 200 mg Q4H PRN PO 07/23/17 18:30 07/24/17 20:29 (Robitussin Liq) 200 mg Q4H PRN PO 07/24/17 10:15 Miscellaneous Information Patient in critical care unit? Ass... Q361D .XX 07/24/17 17:45 (Chlorhexidine 2% Cloth) 3 pack DAILY@04 TOPICAL 07/25/17 04:00 07/29/17 04:01 (Chlorhexidine 2% Cloth) 3 pack UNSCH PRN TOPICAL 07/24/17 17:45 07/29/17 17:38 Vital Signs / I&O Vital Signs Date Time Temp Pulse Resp B/P (MAP) Pulse Ox O2 Delivery O2 Flow Rate FiO2 07/25/17 07:00 115 20 128/66 (86) 91 07/25/17 07:00 115 07/25/17 06:00 109 20 121/61 (81) 94 07/25/17 06:00 109 07/25/17 05:00 114 07/25/17 05:00 114 20 114/60 (78) 91 07/25/17 04:14 96 Venturi Mask 6.00 50 07/25/17 04:02 107 07/25/17 04:02 98.2 107 20 110/66 (81) 92 07/25/17 03:00 102 07/25/17 03:00 102 20 100/57 (71) 92 07/25/17 02:55 66 07/25/17 02:00 96 20 96/62 (73) 93 07/25/17 02:00 96 07/25/17 01:00 89 07/25/17 01:00 89 20 88/52 (64) 93 07/25/17 00:24 40 Venturi Mask 07/25/17 00:17 94 Venturi Mask 6.00 40 07/25/17 00:00 88 07/25/17 00:00 99.6 88 20 85/49 (61) 90 07/24/17 23:00 81 07/24/17 23:00 81 20 96/53 (67) 94 07/24/17 22:00 88 07/24/17 22:00 88 20 75/48 (57) 95 07/24/17 21:00 111 20 106/50 (68) 96 07/24/17 21:00 111 07/24/17 20:00 107 07/24/17 20:00 100 Nasal Cannula 6.00 07/24/17 20:00 107 20 97/51 (66) 100 07/24/17 19:00 105 07/24/17 19:00 99.7 105 20 92/51 (65) 96 07/24/17 18:00 108 47 92/51 (65) 78 07/24/17 18:00 108 07/24/17 17:00 94 38 101/57 (72) 96 07/24/17 16:45 Nasal Cannula 6.00 07/24/17 16:00 109 07/24/17 16:00 98.8 109 26 110/56 (74) 92 07/24/17 16:00 88 4.00 07/24/17 15:44 Nasal Cannula 4.00 07/24/17 14:35 135 20 108/55 (72) 98 07/24/17 14:30 140 07/24/17 14:28 99.8 131 108/57 (74) 95 07/24/17 14:20 99.8 136 22 108/57 (74) 92 I/O 07/24/17 07/24/17 07/24/17 07/25/17 07/25/17 07/25/17 07:00 15:00 23:00 07:00 15:00 23:00 Intake Total 240 ml 260 ml Output Total 3000 ml 0 ml Balance 240 ml -3000 ml 260 ml Intake Oral 240 ml 260 ml Output Urine Total 0 ml Emesis 0 ml Hemodialysis 3000 ml # Voids 1 # Bowel Movements 0 0 Physical Exam GENERAL: NAD, AAOx3 SKIN: Warm and dry. HEAD: Atraumatic. Normocephalic. EYES: Pupils equal and round. No scleral icterus. No injection or drainage. ENT: No nasal bleeding or discharge. Mucous membranes pink and moist. NECK: Trachea midline. No JVD. CARDIOVASCULAR: Irregularly irregular RESPIRATORY: No accessory muscle use. Clear to auscultation. Breath sounds equal bilaterally. GASTROINTESTINAL: Abdomen soft, non-tender, nondistended. Hepatic and splenic margins not palpable. MUSCULOSKELETAL: Extremities without clubbing, cyanosis, or edema. No obvious deformities. NEUROLOGICAL: Awake and alert. No obvious cranial nerve deficits. Motor grossly within normal limits. Five out of 5 muscle strength in the arms and legs. Normal speech. PSYCHIATRIC: Appropriate mood and affect; insight and judgment normal. Laboratory Laboratory Tests Test 07/24/17 16:00 07/24/17 19:38 Nasal Screen MRSA (PCR) MRSA NOT DETECTED Blood Urea Nitrogen 34 MG/DL Creatinine 6.21 MG/DL Random Glucose 158 MG/DL Calcium Level 8.4 MG/DL Sodium Level 138 MEQ/L Potassium Level 4.6 MEQ/L Chloride Level 98 MEQ/L Carbon Dioxide Level 33.6 MEQ/L Anion Gap 6 MEQ/L Estimat Glomerular Filtration Rate 11 ML/MIN Digoxin Level 0.7 NG/ML Assessment and Plan Problem List: (1) Atrial fibrillation with RVR ICD Codes: I48.91 - Unspecified atrial fibrillation (2) Hyperkalemia ICD Codes: E87.5 - Hyperkalemia (3) Anemia of renal disease ICD Codes: D63.1 - Anemia in chronic kidney disease Status: Acute (4) ESRD (end stage renal disease) on dialysis ICD Codes: N18.6 - End stage renal disease; Z99.2 - Dependence on renal dialysis Status: Chronic (5) COPD (chronic obstructive pulmonary disease) ICD Codes: J44.9 - Chronic obstructive pulmonary disease, unspecified Status: Chronic (6) Non-compliance ICD Codes: Z91.19 - Patient's noncompliance with other medical treatment and regimen Status: Chronic Assessment and Plan 1) Atrial fibrillation with rapid ventricular response. Con't BB/CCB Will attempt to increase BB, may need further digoxin but would try to avoid As far as anticoagulation goes he states that he was previously on Coumadin but they stopped this a number of years ago In discussing this with him, he states that he would not like to be on anticoagulation and continue on just aspirin therapy and understands the risk My overall concern with anticoagulation with him would be his anemia as well as noncompliance. 2) COPD. 3) End-stage renal disease on hemodialysis. 4) History of noncompliance. 5) Hyperkalemia on admission. 6) History of coronary artery disease. 7) History of hyperlipidemia. 8) History of hypertension. Gumaro Ro DO Jul 25, 2017 11:34
[2017-07-25] MEDS ORDERED: METOPROLOL TARTRATE 25 MG TAB PO ONE (11:45)
--- NOTE | 2017-07-25 12:12 | HHI.PR ---
Subjective Remarks f/u; a-fib with RVR in no acute distress. denies chest pain or sob. BP and HR trend noted. has mild diarrhea. d/w the RN. Objective Vitals Vital Signs Date Time Temp Pulse Resp B/P (MAP) Pulse Ox O2 Delivery O2 Flow Rate FiO2 07/25/17 11:00 118 43 96/54 (68) 87 07/25/17 10:01 111 17 104/71 (82) 89 07/25/17 10:00 111 07/25/17 09:00 115 21 99/55 (70) 97 07/25/17 08:00 98.3 112 20 113/67 (82) 100 07/25/17 08:00 112 07/25/17 07:05 94 Nasal Cannula 6.00 07/25/17 07:00 91 Venturi Mask 50 07/25/17 07:00 115 20 128/66 (86) 91 07/25/17 07:00 115 07/25/17 06:00 109 20 121/61 (81) 94 07/25/17 06:00 109 07/25/17 05:00 114 07/25/17 05:00 114 20 114/60 (78) 91 07/25/17 04:14 96 Venturi Mask 6.00 50 07/25/17 04:02 107 07/25/17 04:02 98.2 107 20 110/66 (81) 92 07/25/17 03:00 102 07/25/17 03:00 102 20 100/57 (71) 92 07/25/17 02:55 66 07/25/17 02:00 96 20 96/62 (73) 93 07/25/17 02:00 96 07/25/17 01:00 89 07/25/17 01:00 89 20 88/52 (64) 93 07/25/17 00:24 40 Venturi Mask 07/25/17 00:17 94 Venturi Mask 6.00 40 07/25/17 00:00 88 07/25/17 00:00 99.6 88 20 85/49 (61) 90 07/24/17 23:00 81 07/24/17 23:00 81 20 96/53 (67) 94 07/24/17 22:00 88 07/24/17 22:00 88 20 75/48 (57) 95 07/24/17 21:00 111 20 106/50 (68) 96 07/24/17 21:00 111 07/24/17 20:00 107 07/24/17 20:00 100 Nasal Cannula 6.00 07/24/17 20:00 107 20 97/51 (66) 100 07/24/17 19:00 105 07/24/17 19:00 99.7 105 20 92/51 (65) 96 07/24/17 18:00 108 47 92/51 (65) 78 07/24/17 18:00 108 07/24/17 17:00 94 38 101/57 (72) 96 07/24/17 16:45 Nasal Cannula 6.00 07/24/17 16:00 109 07/24/17 16:00 98.8 109 26 110/56 (74) 92 07/24/17 16:00 88 4.00 07/24/17 15:44 Nasal Cannula 4.00 07/24/17 14:35 135 20 108/55 (72) 98 07/24/17 14:30 140 07/24/17 14:28 99.8 131 108/57 (74) 95 07/24/17 14:20 99.8 136 22 108/57 (74) 92 I/O 07/24/17 07/24/17 07/24/17 07/25/17 07/25/17 07/25/17 06:59 14:59 22:59 06:59 14:59 22:59 Intake Total 240 ml 260 ml Output Total 3000 ml 0 ml Balance 240 ml -3000 ml 260 ml Intake Oral 240 ml 260 ml Output Urine Total 0 ml Emesis 0 ml Hemodialysis 3000 ml # Voids 1 # Bowel Movements 0 0 Result Diagram: 07/24/17 0809 07/24/178 Imaging Last Impressions Chest X-Ray 07/23/170 Signed Impressions: Service Date/Time: Sunday, July 23, 2017 02:33 - CONCLUSION: Cardiomegaly with diffuse prominence of the interstitium likely secondary to CHF. Girish Nguyen MD Objective Remarks GENERAL: This is a well-nourished, well-developed patient, in no apparent distress. CARDIOVASCULAR: irregular rhythm without murmurs, gallops, or rubs. RESPIRATORY: Clear to auscultation. Breath sounds equal bilaterally. No wheezes , rales, or rhonchi. GASTROINTESTINAL: Abdomen soft, non-tender, nondistended. Normal, active bowel sounds MUSCULOSKELETAL: Extremities without clubbing, cyanosis, or edema. NEURO: Alert & Oriented x4 to person, place, time, situation. Moves all ext x4 Medications and IVs Inpatient Medications Acetaminophen (Tylenol) 650 mg UNSCH PRN PO for headach, pain, temp > 101F; Start 07/23/17 at 11:00 Acetaminophen/ Hydrocodone Bitart ([place] 5-325 Mg) 1 tab Q4H PRN PO PAIN SCALE 3 TO 5 Last administered on 07/24/17 00:49; Start 07/23/17 at 06:00 Acetaminophen/ Hydrocodone Bitart ([place] 10-325 Mg) 1 tab Q4H PRN PO PAIN SCALE 6 TO 10; Start 07/23/17 at 06:00 Albumin Human 100 ml @ 60 mls/hr UNSCH PRN IV WITH DIALYSIS; Start 07/23/17 at 11:00 Albuterol Sulfate (Albuterol Concentrated Neb) 2.5 mg Q4HR NEB PRN NEB SOBN/ wheezing Last administered on 07/25/17 04:12; Start 07/23/17 at 12:00 Albuterol/ Ipratropium (Duoneb Neb) 1 ampule Q4HR NEB PRN NEB SOB/WHEEZING; Start 07/23/17 at 06:00; Stop 07/23/17 at 12:27; Status DC Alprazolam (Xanax) 0.5 mg HS PRN PO ANXIETY Last administered on 07/24/17 20: 29; Start 07/23/17 at 06:00 Aspirin (Ecotrin Ec) 81 mg DAILY PO Last administered on 07/25/17 10:15; Start 07/23/17 at 09:00 Benzonatate (Tessalon) 200 mg TID PRN PO cough Last administered on 07/23/17 16:13; Start 07/23/17 at 12:00; Stop 07/23/17 at 18:22; Status DC Bisacodyl (Dulcolax Supp) 10 mg DAILY PRN RECTAL SEVERE CONSITIPATION; Start 07/23/17 at 06:00 Calcium Gluconate (Calcium Gluconate Inj) 1 gm ONCE ONCE SLOW IVP Last administered on 07/23/17 03:35; Start 07/23/17 at 03:15; Stop 07/23/17 at 03 :16; Status DC Chlorhexidine Gluconate (Chlorhexidine 2% Cloth) 3 pack UNSCH PRN TOPICAL HYGIENIC CARE; Start 07/24/17 at 17:45; Stop 07/29/17 at 17:38 Clonidine (Catapres) 0.1 mg UNSCH PRN PO for BP > 180/100 X 2 readings; Start 07/23/17 at 11:00 Dextrose (D50w (Vial) Inj) 50 ml ONCE ONCE IV PUSH Last administered on 03:45; Start 07/23/17 at 03:15; Stop 07/23/17 at 03:16; Status DC Digoxin (Lanoxin Inj) 0.25 mg ONCE ONCE IV PUSH Last administered on 15:26; Start 07/24/17 at 14:45; Stop 07/24/17 at 14:46; Status DC Diltiazem HCl (Cardizem) 90 mg QID PO Last administered on 07/25/17 10:16; Start 07/23/17 at 09:00 Diphenhydramine HCl (Benadryl) 25 mg UNSCH PRN PO for hives/itching/ anaphylaxis Last administered on 07/24/17 20:29; Start 07/23/17 at 11:00 Epoetin [place] (Epogen Inj) 10,000 units UNSCH PRN IV PUSH WITH DIALYSIS Last administered on 07/24/17 12:59; Start 07/23/17 at 11:00 Gelatin (Gelfoam 12 Mm/7 Mm Top) 1 foam UNSCH PRN TOP SEE LABEL COMMENTS; Start 07/23/17 at 11:00 Gentamicin Sulfate (Gentamicin (Dialysis) Inj) 20 mg UNSCH PRN OTHER WITH DIALYSIS Last administered on 07/24/17 12:59; Start 07/23/17 at 11:00 Guaifenesin (Robitussin Liq) 200 mg Q4H PRN PO COUGH; Start 07/24/17 at 10:15 Heparin Sodium (Porcine) (Heparin Inj) UNSCH PRN .XX WITH DIALYSIS Last administered on 07/24/17 13:00; Start 07/23/17 at 11:00 Insulin Human Regular (NovoLIN R INJ) 10 units ONCE ONCE IV PUSH Last administered on 07/23/17 03:50; Start 07/23/17 at 03:15; Stop 07/23/17 at 03 :16; Status DC Isosorbide Mononitrate (Imdur) 30 mg DAILY PO Last administered on 07/25/17 10:15; Start 07/23/17 at 09:00 Lactulose (Lactulose Liq) 30 ml DAILY PRN PO SEVERE CONSITIPATION; Start 07/23 at 06:00 Losartan Potassium (Cozaar) 100 mg DAILY PO Last administered on 07/25/17 10: 14; Start 07/23/17 at 09:00 Magnesium Hydroxide (Milk Of Magnesia Liq) 30 ml Q12H PRN PO Mild constipation ; Start 07/23/17 at 06:00 Mannitol (Mannitol Inj) 12.5 gm UNSCH PRN IV WITH DIALYSIS; Start 07/23/17 at 11:00 Metoprolol Tartrate (Lopressor) 12.5 mg ONCE ONCE PO ; Start 07/25/17 at 11:45 ; Stop 07/25/17 at 11:46; Status UNV Miscellaneous Information Patient in critical care unit? Ass... Q361D .XX ; Start 07/24/17 at 17:45 Nitroglycerin (Nitrostat Sl) 0.4 mg UNSCH PRN SL CHEST PAIN; Start 07/23/17 at 11:00 Ondansetron HCl (Zofran Inj) 4 mg UNSCH PRN IV PUSH WITH DIALYSIS; Start 07/23 at 11:00 Senna/Docusate Sodium (Clarice-Colace) 1 tab BID PO ; Start 07/23/17 at 09:00 Sennosides (Senokot) 17.2 mg Q12H PRN PO Moderate constipation; Start at 06:00 Sevelamer Carbonate (Renvela) 800 mg TIDAC PO Last administered on 07/25/17 10:12; Start 07/23/17 at 17:00 Sodium Polystyrene Sulfonate (Kayexalate Liq) 15 gm ONCE ONCE PO Last administered on 07/23/17 10:58; Start 07/23/17 at 11:00; Stop 07/23/17 at 11 :06; Status DC Sodium Bicarbonate (Sodium Bicarbonate 8.4% Inj) 50 meq ONCE ONCE SLOW IVP Last administered on 07/23/17 03:52; Start 07/23/17 at 03:15; Stop 07/23/17 at 03:16; Status DC Sodium Chloride (NS Flush) 5 ml UNSCH PRN IV FLUSH WITH DIALYSIS; Start at 11:00 Trazodone HCl (Desyrel) 150 mg HS PO Last administered on 07/24/17 20:28; Start 07/23/17 at 21:00 Vitamin B Complex/ Vit C/Folic Acid (Nephrocaps) 1 cap DAILY PO Last administered on 07/25/17 09:00; Start 07/23/17 at 09:00 Zinc Oxide (Desitin 40% Oint) 1 applic ONCE ONCE TOPICAL Last administered on 07/23/17 06:00; Start 07/23/17 at 04:15; Stop 07/23/17 at 04:16; Status DC A/P Assessment and Plan A-Fib with RVR -continue metoprolol and cardizem -will monitor the HR and BP closely. -patient declined anticoagulation; continue aspirin. - Cardiology follow-up appreciated. Cough/dyspnea -Symptoms have been since April. - Consider allergies vs. COPD/CHF - Robitussin added COPD -Home medication resumed. DuoNeb's when necessary. End-stage renal disease on dialysis - HD per nephrology. -Patient had left tunnel catheter placed on 07/19/17. Hyperkalemia-resolved. Coronary artery disease/hyperlipidemia/hypertension -Resumed home medication. DVT prophylaxis -Heparin renally dosed. will monitor in ICU for today. d/w the RN. Kae Edward MD Jul 25, 2017 12:12
--- NOTE | 2017-07-25 14:20 | HHI.NPPN ---
Subjective Renal Failure: Chronic Interval History Moved to ICU for new RVR, hx of A fib. He looks well, tachycardic, not on cardizem gtt. (Angela Ortega) Review of Systems Respiratory Lungs: SOB, Cough (Angela Ortega) Objective Data Data Vital Signs Date Time Temp Pulse Resp B/P (MAP) Pulse Ox O2 Delivery O2 Flow Rate FiO2 07/25/17 14:00 72 07/25/17 13:00 77 27 78/50 (59) 94 07/25/17 12:00 86 07/25/17 12:00 98.5 86 13 86/51 (63) 96 07/25/17 11:00 118 43 96/54 (68) 87 07/25/17 10:01 111 17 104/71 (82) 89 07/25/17 10:00 111 07/25/17 09:00 115 21 99/55 (70) 97 07/25/17 08:00 98.3 112 20 113/67 (82) 100 07/25/17 08:00 112 07/25/17 07:05 94 Nasal Cannula 6.00 07/25/17 07:00 91 Venturi Mask 50 07/25/17 07:00 115 20 128/66 (86) 91 07/25/17 07:00 115 07/25/17 06:00 109 20 121/61 (81) 94 07/25/17 06:00 109 07/25/17 05:00 114 07/25/17 05:00 114 20 114/60 (78) 91 07/25/17 04:14 96 Venturi Mask 6.00 50 07/25/17 04:02 107 07/25/17 04:02 98.2 107 20 110/66 (81) 92 07/25/17 03:00 102 07/25/17 03:00 102 20 100/57 (71) 92 07/25/17 02:55 66 07/25/17 02:00 96 20 96/62 (73) 93 07/25/17 02:00 96 07/25/17 01:00 89 07/25/17 01:00 89 20 88/52 (64) 93 07/25/17 00:24 40 Venturi Mask 07/25/17 00:17 94 Venturi Mask 6.00 40 07/25/17 00:00 88 07/25/17 00:00 99.6 88 20 85/49 (61) 90 07/24/17 23:00 81 07/24/17 23:00 81 20 96/53 (67) 94 07/24/17 22:00 88 07/24/17 22:00 88 20 75/48 (57) 95 07/24/17 21:00 111 20 106/50 (68) 96 07/24/17 21:00 111 07/24/17 20:00 107 07/24/17 20:00 100 Nasal Cannula 6.00 07/24/17 20:00 107 20 97/51 (66) 100 07/24/17 19:00 105 07/24/17 19:00 99.7 105 20 92/51 (65) 96 07/24/17 18:00 108 47 92/51 (65) 78 07/24/17 18:00 108 07/24/17 17:00 94 38 101/57 (72) 96 07/24/17 16:45 Nasal Cannula 6.00 07/24/17 16:00 109 07/24/17 16:00 98.8 109 26 110/56 (74) 92 07/24/17 16:00 88 4.00 07/24/17 15:44 Nasal Cannula 4.00 07/24/17 14:35 135 20 108/55 (72) 98 07/24/17 14:30 140 07/24/17 14:28 99.8 131 108/57 (74) 95 07/24/17 14:20 99.8 136 22 108/57 (74) 92 (Angela Ortega) -: 07/24/17 0809 07/24/17 1938 Imaging Last 72 hours Impressions Chest X-Ray 07/23/17 0220 Signed Impressions: Service Date/Time: Sunday, July 23, 2017 02:33 - CONCLUSION: Cardiomegaly with diffuse prominence of the interstitium likely secondary to CHF. Girish Nguyen MD Tubes & Lines: Perma-Cath (Angela Ortega) Physical Exam General Appearance: Well Developed, Comfortable (Angela Ortega) Eyes Eye Exam: Pupils Equal (Angela Ortega) Neck Neck Exam: Neck Supple (Angela Ortega) Pulmonary Resp Exam: Rhonchi, Sputum, Decreased Bases (Angela Ortega) Cardiology CV Exam: Good Perfusion, Irregular, Tachycardia (Angela Ortega) Gastrointestinal/Abdomen GI Exam: Soft, Non-Tender, Bowel Sounds Present (Angela Ortega) Musculoskeletal MS Exam: Joints Intact, Normal Gait, Normal Tone (Angela Ortega) Integumentary Skin Exam: Clear, Warm, Dry, Intact (Angela Ortega) Extremeties Extremities Exam: No Edema, Pedal Pulses Palpable Extremeties Remarks left arm AVG, + thrill, bruit (Angela Ortega) Neurologic Neuro Exam: Alert, Awake, Oriented, Speech Clear, Moving All Extremities (Angela Ortega) Assessment/Plan Discussed Condition With: Patient Assessment Summary: Anemia of CKD, Hypertension, End Stage Renal Disease Problem List: (1) ESRD (end stage renal disease) on dialysis ICD Codes: N18.6 - End stage renal disease; Z99.2 - Dependence on renal dialysis Status: Chronic Plan: Continue HD support TTS and as needed. 3L UF yesterday He has PermCath for HD, refuses to allow us to cannulate AV graft left arm He is set up for transitional program at [facility] [place] when discharged Xanax ordered for HD, he becomes anxious with treatment Continue Renvela with meals (2) Hyperkalemia ICD Codes: E87.5 - Hyperkalemia Plan: Improved, continue to monitor Low K diet ordered (3) Anemia of renal disease ICD Codes: D63.1 - Anemia in chronic kidney disease Status: Acute Plan: Epogen with HD (4) CHF (congestive heart failure) ICD Codes: I50.9 - Heart failure, unspecified Status: Acute Plan: Fluid removal as tolerated (5) Atrial fibrillation with RVR ICD Codes: I48.91 - Unspecified atrial fibrillation Plan: On oral Cardizem and metoprolol. Given a dose of digoxin He is on ASA 81 mg, not on full anticoagulation. May be a candidate for Eliquis Plan Can be transferred out of ICU. (Angela Ortega) Plan patient was seen and examined. Agree with above assessment and plan. Dialysis will be tomorrow. (Keron Singh MD) Angela Ortega Jul 25, 2017 14:20 Keron Singh MD Jul 25, 2017 19:12
[2017-07-25] MEDS: traZODone HCL 50 MG TAB PO SCH (20:35)
[2017-07-25] MEDS: guaiFENesin SOLUTION 200 MG/10 ML CUP PO PRN (22:31)
[2017-07-25] MEDS: ALPRAZolam 0.5 MG TAB PO PRN (22:56)
[2017-07-25] MEDS: diphenhydrAMINE HCL 25 MG CAP PO PRN (22:56)
[2017-07-26] VITALS (22 sets, daily range): BP systolic 93–115; BP diastolic 51–69; PULSE 65–99; RESP 13–29; TEMP 98–99.3; O2SAT 69–99
[2017-07-26] MEDS: DILTIAZEM HCL 90 MG TAB PO SCH ×5 (02:08→21:18)
[2017-07-26] MEDS: CHLORHEXIDINE GLUCONATE 2 % 1 PACK (2 CLOTHS)(taper/protocol) TOPICAL SCH (04:00)
[2017-07-26] MEDS: RESP: ALBUTEROL CONC 2.5 MG/0.5 ML NEB NEB PRN ×3 (04:36→23:06)
[2017-07-26] MEDS: METOPROLOL TARTRATE 25 MG TAB PO SCH ×2 (08:41→21:19)
[2017-07-26] MEDS: DOCUSATE SODIUM 50 MG/SENNA 8.6 MG TAB PO SCH ×2 (08:41→21:00)
[2017-07-26] MEDS: LOSARTAN 50 MG TAB PO SCH (08:42)
[2017-07-26] MEDS: SEVELAMER CARBONATE 800 MG TAB PO SCH ×3 (08:42→16:19)
[2017-07-26] MEDS: ISOSORBIDE MONONITRATE 30 MG TAB PO SCH (08:42)
[2017-07-26] MEDS: VITAMIN B CMPLX/VITC/FOLIC AC CAP PO SCH (08:42)
[2017-07-26] MEDS: HEPARIN SODIUM - SQ 10,000 UNITS/ML VIAL SQ SCH ×2 (08:43→21:18)
[2017-07-26] MEDS: SODIUM CHLORIDE 0.9% FLUSH 10 ML FLUSH IV FLUSH SCH ×2 (08:43→21:19)
[2017-07-26] MEDS: ASPIRIN EC 81 MG TABEC PO SCH (08:43)
[2017-07-26] MEDS: guaiFENesin SOLUTION 200 MG/10 ML CUP PO PRN ×2 (09:07→18:23)
[2017-07-26] MEDS: EPOETIN ALFA 10,000 UNITS/ML VIAL IV PUSH PRN (09:34)
[2017-07-26] MEDS: diphenhydrAMINE HCL 25 MG CAP PO PRN (09:34)
[2017-07-26] MEDS: GENTAMICIN SULFATE (DIALYSIS USE ONLY) 20 MG/2 ML VIAL OTHER PRN (09:34)
[2017-07-26] MEDS: HEPARIN SODIUM - IV 10,000 UNITS/10 ML VIAL PRN (09:35)
--- NOTE | 2017-07-26 12:30 | PD.CARD.PN ---
Subjective Subjective Remarks No events overnight No chest pain/SOB Heart rates better controlled Blood pressure slightly low Objective Medications Current Medications Medications (Trade) Dose Ordered Sig/Erik Route Start Time Stop Time Status Last Admin (NS Flush) 2 ml UNSCH PRN IV FLUSH 07/23/17 06:00 (NS Flush) 2 ml BID IV FLUSH 07/23/17 09:00 07/26/17 08:43 (Zofran Inj) 4 mg Q6H PRN IVP 07/23/17 06:00 07/23/17 19:46 (Heparin Inj) 5,000 units Q12H SQ 07/23/17 09:00 07/26/17 08:43 (Tylenol) 650 mg Q6H PRN PO 07/23/17 06:00 ([place] 5-325 Mg) 1 tab Q4H PRN PO 07/23/17 06:00 07/24/17 00:49 ([place] 10-325 Mg) 1 tab Q4H PRN PO 07/23/17 06:00 (Clarice-Colace) 1 tab BID PO 07/23/17 09:00 07/26/17 08:41 (Milk Of Magnesia Liq) 30 ml Q12H PRN PO 07/23/17 06:00 (Senokot) 17.2 mg Q12H PRN PO 07/23/17 06:00 (Dulcolax Supp) 10 mg DAILY PRN RECTAL 07/23/17 06:00 (Lactulose Liq) 30 ml DAILY PRN PO 07/23/17 06:00 (Xanax) 0.5 mg HS PRN PO 07/23/17 06:00 07/25/17 22:56 (Ecotrin Ec) 81 mg DAILY PO 07/23/17 09:00 07/26/17 08:43 (Cardizem) 90 mg QID PO 07/23/17 09:00 07/26/17 08:41 (Imdur) 30 mg DAILY PO 07/23/17 09:00 07/26/17 08:42 (Nephrocaps) 1 cap DAILY PO 07/23/17 09:00 07/26/17 08:42 (Desyrel) 150 mg HS PO 07/23/17 21:00 07/25/17 20:35 Sodium Chloride 1,000 ml @ 0 mls/hr Q0M PRN OTHER 07/23/17 10:54 (Heparin Inj) 8,000 units UNSCH PRN IV FLUSH 07/23/17 11:00 Sodium Chloride 1,000 ml @ 200 mls/hr Q5H PRN IV 07/23/17 10:54 Sodium Chloride 1,000 ml @ 0 mls/hr Q0M PRN OTHER 07/23/17 10:54 07/26/17 09:35 (Mannitol Inj) 12.5 gm UNSCH PRN IV 07/23/17 11:00 Albumin Human 100 ml @ 60 mls/hr UNSCH PRN IV 07/23/17 11:00 (NS Flush) 5 ml UNSCH PRN IV FLUSH 07/23/17 11:00 (Heparin Inj) UNSCH PRN .XX 07/23/17 11:00 07/26/17 09:35 (Gentamicin (Dialysis) Inj) 20 mg UNSCH PRN OTHER 07/23/17 11:00 07/26/17 09:34 (Zofran Inj) 4 mg UNSCH PRN IV PUSH 07/23/17 11:00 (Tylenol) 650 mg UNSCH PRN PO 07/23/17 11:00 (Benadryl) 25 mg UNSCH PRN PO 07/23/17 11:00 07/26/17 09:34 (Nitrostat Sl) 0.4 mg UNSCH PRN SL 07/23/17 11:00 (Catapres) 0.1 mg UNSCH PRN PO 07/23/17 11:00 (Epogen Inj) 10,000 units UNSCH PRN IV PUSH 07/23/17 11:00 07/26/17 09:34 (Gelfoam 12 Mm/7 Mm Top) 1 foam UNSCH PRN TOP 07/23/17 11:00 (Albuterol Concentrated Neb) 2.5 mg Q4HR NEB PRN NEB 07/23/17 12:00 07/26/17 04:36 (Renvela) 800 mg TIDAC PO 07/23/17 17:00 07/26/17 08:42 (Robitussin Liq) 200 mg Q4H PRN PO 07/23/17 18:30 07/26/17 09:07 (Robitussin Liq) 200 mg Q4H PRN PO 07/24/17 10:15 Miscellaneous Information Patient in critical care unit? Ass... Q361D .XX 07/24/17 17:45 (Chlorhexidine 2% Cloth) 3 pack DAILY@04 TOPICAL 07/25/17 04:00 07/29/17 04:01 07/26/17 04:00 (Chlorhexidine 2% Cloth) 3 pack UNSCH PRN TOPICAL 07/24/17 17:45 07/29/17 17:38 (Lopressor) 25 mg BID PO 07/25/17 21:00 07/26/17 08:41 (Cozaar) 50 mg DAILY PO 07/26/17 09:00 07/26/17 08:42 Vital Signs / I&O Vital Signs Date Time Temp Pulse Resp B/P (MAP) Pulse Ox O2 Delivery O2 Flow Rate FiO2 07/26/17 11:16 88 Venturi Mask 8.00 50 07/26/17 11:16 69 21 07/26/17 10:08 95 Nasal Cannula 5.00 07/26/17 10:00 89 07/26/17 08:00 84 07/26/17 08:00 98.0 84 13 112/60 (77) 98 07/26/17 07:00 100 Nasal Cannula 6.00 07/26/17 06:00 78 07/26/17 04:37 95 Nasal Cannula 6.00 07/26/17 04:00 81 07/26/17 04:00 98.0 81 29 103/58 (73) 96 07/26/17 02:00 99 07/26/17 00:00 98.7 87 22 95/51 (66) 93 07/26/17 00:00 87 07/25/17 22:00 84 07/25/17 21:27 99 Nasal Cannula 6.00 07/25/17 20:00 76 07/25/17 20:00 99.0 76 16 94/52 (66) 94 07/25/17 19:00 93 Nasal Cannula 6.00 07/25/17 18:00 78 07/25/17 18:00 78 20 81/47 (58) 90 07/25/17 17:00 80 29 97/55 (69) 92 07/25/17 16:00 77 07/25/17 16:00 77 26 94/54 (67) 94 07/25/17 15:00 80 21 83/47 (59) 99 07/25/17 14:02 73 37 84/49 (61) 94 07/25/17 14:00 72 07/25/17 13:00 77 27 78/50 (59) 94 I/O 07/25/17 07/25/17 07/25/17 07/26/17 07/26/17 07/26/17 07:00 15:00 23:00 07:00 15:00 23:00 Intake Total 260 ml 350 ml Output Total 0 ml 0 ml Balance 260 ml 350 ml Intake Oral 260 ml 350 ml Output Urine Total 0 ml 0 ml Emesis 0 ml 0 ml # Bowel Movements 0 5 Physical Exam GENERAL: NAD, AAOx3 SKIN: Warm and dry. HEAD: Atraumatic. Normocephalic. EYES: Pupils equal and round. No scleral icterus. No injection or drainage. ENT: No nasal bleeding or discharge. Mucous membranes pink and moist. NECK: Trachea midline. No JVD. CARDIOVASCULAR: Irregularly irregular RESPIRATORY: No accessory muscle use. Clear to auscultation. Breath sounds equal bilaterally. GASTROINTESTINAL: Abdomen soft, non-tender, nondistended. Hepatic and splenic margins not palpable. MUSCULOSKELETAL: Extremities without clubbing, cyanosis, or edema. No obvious deformities. NEUROLOGICAL: Awake and alert. No obvious cranial nerve deficits. Motor grossly within normal limits. Five out of 5 muscle strength in the arms and legs. Normal speech. PSYCHIATRIC: Appropriate mood and affect; insight and judgment normal. Assessment and Plan Problem List: (1) Atrial fibrillation with RVR ICD Codes: I48.91 - Unspecified atrial fibrillation (2) Hyperkalemia ICD Codes: E87.5 - Hyperkalemia (3) Anemia of renal disease ICD Codes: D63.1 - Anemia in chronic kidney disease Status: Acute (4) ESRD (end stage renal disease) on dialysis ICD Codes: N18.6 - End stage renal disease; Z99.2 - Dependence on renal dialysis Status: Chronic (5) COPD (chronic obstructive pulmonary disease) ICD Codes: J44.9 - Chronic obstructive pulmonary disease, unspecified Status: Chronic (6) Non-compliance ICD Codes: Z91.19 - Patient's noncompliance with other medical treatment and regimen Status: Chronic Assessment and Plan 1) Atrial fibrillation with rapid ventricular response. Con't BB/CCB BB increased, may need further digoxin but would try to avoid As far as anticoagulation goes he states that he was previously on Coumadin but they stopped this a number of years ago In discussing this with him, he states that he would not like to be on anticoagulation and continue on just aspirin therapy and understands the risk My overall concern with anticoagulation with him would be his anemia as well as noncompliance. Decreased Losartan due to mild hypotension 2) COPD. 3) End-stage renal disease on hemodialysis. 4) History of noncompliance. 5) Hyperkalemia on admission. 6) History of coronary artery disease. 7) History of hyperlipidemia. 8) History of hypertension. Gumaro Ro DO Jul 26, 2017 12:30
--- NOTE | 2017-07-26 12:39 | HHI.NPPN ---
Subjective Renal Failure: Chronic Interval History Seen during bedside dialysis. On venti mask. (Angela Ortega) Review of Systems Respiratory Lungs: SOB, Cough (Angela Ortega) Objective Data Data Vital Signs Date Time Temp Pulse Resp B/P (MAP) Pulse Ox O2 Delivery O2 Flow Rate FiO2 07/26/17 11:16 88 Venturi Mask 8.00 50 07/26/17 11:16 69 21 07/26/17 10:08 95 Nasal Cannula 5.00 07/26/17 10:00 89 07/26/17 08:00 84 07/26/17 08:00 98.0 84 13 112/60 (77) 98 07/26/17 07:00 100 Nasal Cannula 6.00 07/26/17 06:00 78 07/26/17 04:37 95 Nasal Cannula 6.00 07/26/17 04:00 81 07/26/17 04:00 98.0 81 29 103/58 (73) 96 07/26/17 02:00 99 07/26/17 00:00 98.7 87 22 95/51 (66) 93 07/26/17 00:00 87 07/25/17 22:00 84 07/25/17 21:27 99 Nasal Cannula 6.00 07/25/17 20:00 76 07/25/17 20:00 99.0 76 16 94/52 (66) 94 07/25/17 19:00 93 Nasal Cannula 6.00 07/25/17 18:00 78 07/25/17 18:00 78 20 81/47 (58) 90 07/25/17 17:00 80 29 97/55 (69) 92 07/25/17 16:00 77 07/25/17 16:00 77 26 94/54 (67) 94 07/25/17 15:00 80 21 83/47 (59) 99 07/25/17 14:02 73 37 84/49 (61) 94 07/25/17 14:00 72 07/25/17 13:00 77 27 78/50 (59) 94 (Angela Ortega) -: 07/24/17 0809 07/24/17 1938 Tubes & Lines: Perma-Cath (Angela Ortega) Physical Exam General Appearance: Well Developed, Comfortable (Angela Ortega) Eyes Eye Exam: Pupils Equal (Angela Ortega) Neck Neck Exam: Neck Supple (Angela Ortega) Pulmonary Resp Exam: Rhonchi, Sputum, Decreased Bases (Angela Ortega) Cardiology CV Exam: Good Perfusion, Irregular, Tachycardia (Angela Ortega) Gastrointestinal/Abdomen GI Exam: Soft, Non-Tender, Bowel Sounds Present (Angela Ortega) Musculoskeletal MS Exam: Joints Intact, Normal Gait, Normal Tone (Angela Ortega) Integumentary Skin Exam: Clear, Warm, Dry, Intact (Angela Ortega) Extremeties Extremities Exam: No Edema, Pedal Pulses Palpable Extremeties Remarks left arm AVG, + thrill, bruit (Angela Ortega) Neurologic Neuro Exam: Alert, Awake, Oriented, Speech Clear, Moving All Extremities (Angela Ortega) Assessment/Plan Discussed Condition With: Patient Assessment Summary: Anemia of CKD, Hypertension, End Stage Renal Disease Problem List: (1) ESRD (end stage renal disease) on dialysis ICD Codes: N18.6 - End stage renal disease; Z99.2 - Dependence on renal dialysis Status: Chronic Plan: Seen during dialysis today on a 2K, 350 BFR, goal 1.5 L Continue HD support TTS He has PermCath for HD, refuses to allow us to cannulate AV graft left arm but has agreed for us to attempt on Sunday He is set up for transitional program at [facility] [place] when discharged Xanax ordered for HD, he becomes anxious with treatment Continue Renvela with meals (2) Hyperkalemia ICD Codes: E87.5 - Hyperkalemia Plan: Improved, continue to monitor Low K diet ordered (3) Anemia of renal disease ICD Codes: D63.1 - Anemia in chronic kidney disease Status: Acute Plan: Epogen with HD Check iron profile in AM (4) CHF (congestive heart failure) ICD Codes: I50.9 - Heart failure, unspecified Status: Acute Plan: Fluid removal as tolerated (5) Atrial fibrillation with RVR ICD Codes: I48.91 - Unspecified atrial fibrillation Plan: On oral Cardizem and metoprolol. He is on ASA 81 mg, not on full anticoagulation. May be a candidate for Eliquis Plan (Angela Ortega) Plan patient was seen and examined. Agree with above assessment and plan. (Keron Singh MD) Angela Ortega Jul 26, 2017 12:39 Keron Singh MD Jul 27, 2017 09:55
--- NOTE | 2017-07-26 12:54 | HHI.PR ---
Subjective Remarks in no acute distress. denies chest pain. HR and BP trend noted. d/w the RN and no acute issues over night. Objective Vitals Vital Signs Date Time Temp Pulse Resp B/P (MAP) Pulse Ox O2 Delivery O2 Flow Rate FiO2 07/26/17 11:16 88 Venturi Mask 8.00 50 07/26/17 11:16 69 21 07/26/17 10:08 95 Nasal Cannula 5.00 07/26/17 10:00 89 07/26/17 08:00 84 07/26/17 08:00 98.0 84 13 112/60 (77) 98 07/26/17 07:00 100 Nasal Cannula 6.00 07/26/17 06:00 78 07/26/17 04:37 95 Nasal Cannula 6.00 07/26/17 04:00 81 07/26/17 04:00 98.0 81 29 103/58 (73) 96 07/26/17 02:00 99 07/26/17 00:00 98.7 87 22 95/51 (66) 93 07/26/17 00:00 87 07/25/17 22:00 84 07/25/17 21:27 99 Nasal Cannula 6.00 07/25/17 20:00 76 07/25/17 20:00 99.0 76 16 94/52 (66) 94 07/25/17 19:00 93 Nasal Cannula 6.00 07/25/17 18:00 78 07/25/17 18:00 78 20 81/47 (58) 90 07/25/17 17:00 80 29 97/55 (69) 92 07/25/17 16:00 77 07/25/17 16:00 77 26 94/54 (67) 94 07/25/17 15:00 80 21 83/47 (59) 99 07/25/17 14:02 73 37 84/49 (61) 94 07/25/17 14:00 72 07/25/17 13:00 77 27 78/50 (59) 94 I/O 07/25/17 07/25/17 07/25/17 07/26/17 07/26/17 07/26/17 07:00 15:00 23:00 07:00 15:00 23:00 Intake Total 260 ml 350 ml Output Total 0 ml 0 ml Balance 260 ml 350 ml Intake Oral 260 ml 350 ml Output Urine Total 0 ml 0 ml Emesis 0 ml 0 ml # Bowel Movements 0 5 Result Diagram: 07/24/17 0809 07/24/17 1938 Imaging Last Impressions Chest X-Ray 07/23/170 Signed Impressions: Service Date/Time: Sunday, July 23, 2017 02:33 - CONCLUSION: Cardiomegaly with diffuse prominence of the interstitium likely secondary to CHF. Girish Nguyen MD Objective Remarks GENERAL: This is a well-nourished, well-developed patient, in no apparent distress. CARDIOVASCULAR: irregular rhythm without murmurs, gallops, or rubs. RESPIRATORY: Clear to auscultation. Breath sounds equal bilaterally. No wheezes , rales, or rhonchi. GASTROINTESTINAL: Abdomen soft, non-tender, nondistended. Normal, active bowel sounds MUSCULOSKELETAL: Extremities without clubbing, cyanosis, or edema. NEURO: Alert & Oriented x4 to person, place, time, situation. Moves all ext x4 Medications and IVs Inpatient Medications Acetaminophen (Tylenol) 650 mg UNSCH PRN PO for headach, pain, temp > 101F; Start 07/23/17 at 11:00 Acetaminophen/ Hydrocodone Bitart ([place] 5-325 Mg) 1 tab Q4H PRN PO PAIN SCALE 3 TO 5 Last administered on 07/24/17 00:49; Start 07/23/17 at 06:00 Acetaminophen/ Hydrocodone Bitart ([place] 10-325 Mg) 1 tab Q4H PRN PO PAIN SCALE 6 TO 10; Start 07/23/17 at 06:00 Albumin Human 100 ml @ 60 mls/hr UNSCH PRN IV WITH DIALYSIS; Start 07/23/17 at 11:00 Albuterol Sulfate (Albuterol Concentrated Neb) 2.5 mg Q4HR NEB PRN NEB SOBN/ wheezing Last administered on 07/26/17 04:36; Start 07/23/17 at 12:00 Albuterol/ Ipratropium (Duoneb Neb) 1 ampule Q4HR NEB PRN NEB SOB/WHEEZING; Start 07/23/17 at 06:00; Stop 07/23/17 at 12:27; Status DC Alprazolam (Xanax) 0.5 mg HS PRN PO ANXIETY Last administered on 07/25/17 22: 56; Start 07/23/17 at 06:00 Aspirin (Ecotrin Ec) 81 mg DAILY PO Last administered on 07/26/17 08:43; Start 07/23/17 at 09:00 Benzonatate (Tessalon) 200 mg TID PRN PO cough Last administered on 07/23/17 16:13; Start 07/23/17 at 12:00; Stop 07/23/17 at 18:22; Status DC Bisacodyl (Dulcolax Supp) 10 mg DAILY PRN RECTAL SEVERE CONSITIPATION; Start 07/23/17 at 06:00 Calcium Gluconate (Calcium Gluconate Inj) 1 gm ONCE ONCE SLOW IVP Last administered on 07/23/17 03:35; Start 07/23/17 at 03:15; Stop 07/23/17 at 03 :16; Status DC Chlorhexidine Gluconate (Chlorhexidine 2% Cloth) 3 pack UNSCH PRN TOPICAL HYGIENIC CARE; Start 07/24/17 at 17:45; Stop 07/29/17 at 17:38 Clonidine (Catapres) 0.1 mg UNSCH PRN PO for BP > 180/100 X 2 readings; Start 07/23/17 at 11:00 Dextrose (D50w (Vial) Inj) 50 ml ONCE ONCE IV PUSH Last administered on 03:45; Start 07/23/17 at 03:15; Stop 07/23/17 at 03:16; Status DC Digoxin (Lanoxin Inj) 0.25 mg ONCE ONCE IV PUSH Last administered on 15:26; Start 07/24/17 at 14:45; Stop 07/24/17 at 14:46; Status DC Diltiazem HCl (Cardizem) 90 mg QID PO Last administered on 07/26/17 08:41; Start 07/23/17 at 09:00 Diphenhydramine HCl (Benadryl) 25 mg UNSCH PRN PO for hives/itching/ anaphylaxis Last administered on 07/26/17 09:34; Start 07/23/17 at 11:00 Epoetin [place] (Epogen Inj) 10,000 units UNSCH PRN IV PUSH WITH DIALYSIS Last administered on 07/26/17 09:34; Start 07/23/17 at 11:00 Gelatin (Gelfoam 12 Mm/7 Mm Top) 1 foam UNSCH PRN TOP SEE LABEL COMMENTS; Start 07/23/17 at 11:00 Gentamicin Sulfate (Gentamicin (Dialysis) Inj) 20 mg UNSCH PRN OTHER WITH DIALYSIS Last administered on 07/26/17 09:34; Start 07/23/17 at 11:00 Guaifenesin (Robitussin Liq) 200 mg Q4H PRN PO COUGH; Start 07/24/17 at 10:15 Heparin Sodium (Porcine) (Heparin Inj) UNSCH PRN .XX WITH DIALYSIS Last administered on 07/26/17 09:35; Start 07/23/17 at 11:00 Insulin Human Regular (NovoLIN R INJ) 10 units ONCE ONCE IV PUSH Last administered on 07/23/17 03:50; Start 07/23/17 at 03:15; Stop 07/23/17 at 03 :16; Status DC Isosorbide Mononitrate (Imdur) 30 mg DAILY PO Last administered on 07/26/17 08:42; Start 07/23/17 at 09:00 Lactulose (Lactulose Liq) 30 ml DAILY PRN PO SEVERE CONSITIPATION; Start 07/23 at 06:00 Losartan Potassium (Cozaar) 50 mg DAILY PO Last administered on 07/26/17 08: 42; Start 07/26/17 at 09:00 Magnesium Hydroxide (Milk Of Magnesia Liq) 30 ml Q12H PRN PO Mild constipation ; Start 07/23/17 at 06:00 Mannitol (Mannitol Inj) 12.5 gm UNSCH PRN IV WITH DIALYSIS; Start 07/23/17 at 11:00 Metoprolol Tartrate (Lopressor) 12.5 mg ONCE ONCE PO ; Start 07/25/17 at 11:45 ; Stop 07/25/17 at 12:20; Status DC Miscellaneous Information Patient in critical care unit? Ass... Q361D .XX ; Start 07/24/17 at 17:45 Nitroglycerin (Nitrostat Sl) 0.4 mg UNSCH PRN SL CHEST PAIN; Start 07/23/17 at 11:00 Ondansetron HCl (Zofran Inj) 4 mg UNSCH PRN IV PUSH WITH DIALYSIS; Start 07/23 at 11:00 Senna/Docusate Sodium (Clarice-Colace) 1 tab BID PO Last administered on 08:41; Start 07/23/17 at 09:00 Sennosides (Senokot) 17.2 mg Q12H PRN PO Moderate constipation; Start at 06:00 Sevelamer Carbonate (Renvela) 800 mg TIDAC PO Last administered on 07/26/17 08:42; Start 07/23/17 at 17:00 Sodium Polystyrene Sulfonate (Kayexalate Liq) 15 gm ONCE ONCE PO Last administered on 07/23/17 10:58; Start 07/23/17 at 11:00; Stop 07/23/17 at 11 :06; Status DC Sodium Bicarbonate (Sodium Bicarbonate 8.4% Inj) 50 meq ONCE ONCE SLOW IVP Last administered on 07/23/17 03:52; Start 07/23/17 at 03:15; Stop 07/23/17 at 03:16; Status DC Sodium Chloride (NS Flush) 5 ml UNSCH PRN IV FLUSH WITH DIALYSIS; Start at 11:00 Trazodone HCl (Desyrel) 150 mg HS PO Last administered on 07/25/17 20:35; Start 07/23/17 at 21:00 Vitamin B Complex/ Vit C/Folic Acid (Nephrocaps) 1 cap DAILY PO Last administered on 07/26/17 08:42; Start 07/23/17 at 09:00 Zinc Oxide (Desitin 40% Oint) 1 applic ONCE ONCE TOPICAL Last administered on 07/23/17 06:00; Start 07/23/17 at 04:15; Stop 07/23/17 at 04:16; Status DC A/P Assessment and Plan A-Fib with RVR -continue metoprolol and cardizem -will monitor the HR and BP closely. -patient declined anticoagulation; continue aspirin. - Cardiology follow-up appreciated. Cough/dyspnea -Symptoms have been since April. - Consider allergies vs. COPD/CHF - Robitussin added COPD -Home medication resumed. DuoNeb's when necessary. End-stage renal disease on dialysis - HD per nephrology. -Patient had left tunnel catheter placed on 07/19/17. hypertension continue metoprolol and cardizem- losartan was decreased due to low-normal BP' s. Hyperkalemia-resolved. Coronary artery disease/hyperlipidemia -Resumed home medication. anemia of chronic disease on Epogen- will monitor H/H periodically. DVT prophylaxis -Heparin renally dosed. transfer to [facility]. d/w the RN. Discharge Planning dc planning within the next one-two days if stable and cleared by cardiology. Kae Edward MD Jul 26, 2017 12:54
[2017-07-26] MEDS: traZODone HCL 50 MG TAB PO SCH (21:16)
[2017-07-27] VITALS (13 sets, daily range): BP systolic 88–113; BP diastolic 48–73; PULSE 63–91; RESP 16–18; TEMP 97.6–99.2; O2SAT 91–97
[2017-07-27] MEDS: ACETAMINOPHEN/HYDROcodone 325 MG/5 MG TAB PO PRN (00:01)
[2017-07-27] MEDS: ALPRAZolam 0.5 MG TAB PO PRN (00:01)
[2017-07-27] MEDS: diphenhydrAMINE HCL 25 MG CAP PO PRN (00:01)
[2017-07-27] MEDS: CHLORHEXIDINE GLUCONATE 2 % 1 PACK (2 CLOTHS)(taper/protocol) TOPICAL SCH (04:00)
[2017-07-27] MEDS: RESP: ALBUTEROL CONC 2.5 MG/0.5 ML NEB NEB PRN ×2 (06:15→11:32)
[2017-07-27] MEDS: LOSARTAN 50 MG TAB PO SCH (08:50)
[2017-07-27] MEDS: DOCUSATE SODIUM 50 MG/SENNA 8.6 MG TAB PO SCH (08:50)
[2017-07-27] MEDS: ASPIRIN EC 81 MG TABEC PO SCH (08:50)
[2017-07-27] MEDS: ISOSORBIDE MONONITRATE 30 MG TAB PO SCH (08:50)
[2017-07-27] MEDS: METOPROLOL TARTRATE 25 MG TAB PO SCH (08:50)
[2017-07-27] MEDS: DILTIAZEM HCL 90 MG TAB PO SCH ×2 (08:50→13:00)
[2017-07-27] MEDS: VITAMIN B CMPLX/VITC/FOLIC AC CAP PO SCH (08:50)
[2017-07-27] MEDS: SEVELAMER CARBONATE 800 MG TAB PO SCH ×2 (08:50→11:22)
[2017-07-27] MEDS: HEPARIN SODIUM - SQ 10,000 UNITS/ML VIAL SQ SCH (08:51)
[2017-07-27] MEDS: SODIUM CHLORIDE 0.9% FLUSH 10 ML FLUSH IV FLUSH SCH (08:51)
--- NOTE | 2017-07-27 09:00 | PD.CARD.PN ---
Subjective Subjective Remarks No events overnight No chest pain/SOB Heart rates better controlled Blood pressure stable Objective Medications Current Medications Medications (Trade) Dose Ordered Sig/Erik Route Start Time Stop Time Status Last Admin (NS Flush) 2 ml UNSCH PRN IV FLUSH 07/23/17 06:00 (NS Flush) 2 ml BID IV FLUSH 07/23/17 09:00 07/27/17 08:51 (Zofran Inj) 4 mg Q6H PRN IVP 07/23/17 06:00 07/23/17 19:46 (Heparin Inj) 5,000 units Q12H SQ 07/23/17 09:00 07/27/17 08:51 (Tylenol) 650 mg Q6H PRN PO 07/23/17 06:00 ([place] 5-325 Mg) 1 tab Q4H PRN PO 07/23/17 06:00 07/27/17 00:01 ([place] 10-325 Mg) 1 tab Q4H PRN PO 07/23/17 06:00 (Clarice-Colace) 1 tab BID PO 07/23/17 09:00 07/26/17 08:41 (Milk Of Magnesia Liq) 30 ml Q12H PRN PO 07/23/17 06:00 (Senokot) 17.2 mg Q12H PRN PO 07/23/17 06:00 (Dulcolax Supp) 10 mg DAILY PRN RECTAL 07/23/17 06:00 (Lactulose Liq) 30 ml DAILY PRN PO 07/23/17 06:00 (Xanax) 0.5 mg HS PRN PO 07/23/17 06:00 07/27/17 00:01 (Ecotrin Ec) 81 mg DAILY PO 07/23/17 09:00 07/27/17 08:50 (Cardizem) 90 mg QID PO 07/23/17 09:00 07/27/17 08:50 (Imdur) 30 mg DAILY PO 07/23/17 09:00 07/27/17 08:50 (Nephrocaps) 1 cap DAILY PO 07/23/17 09:00 07/27/17 08:50 (Desyrel) 150 mg HS PO 07/23/17 21:00 07/26/17 21:16 Sodium Chloride 1,000 ml @ 0 mls/hr Q0M PRN OTHER 07/23/17 10:54 (Heparin Inj) 8,000 units UNSCH PRN IV FLUSH 07/23/17 11:00 Sodium Chloride 1,000 ml @ 200 mls/hr Q5H PRN IV 07/23/17 10:54 Sodium Chloride 1,000 ml @ 0 mls/hr Q0M PRN OTHER 07/23/17 10:54 07/26/17 09:35 (Mannitol Inj) 12.5 gm UNSCH PRN IV 07/23/17 11:00 Albumin Human 100 ml @ 60 mls/hr UNSCH PRN IV 07/23/17 11:00 (NS Flush) 5 ml UNSCH PRN IV FLUSH 07/23/17 11:00 (Heparin Inj) UNSCH PRN .XX 07/23/17 11:00 07/26/17 09:35 (Gentamicin (Dialysis) Inj) 20 mg UNSCH PRN OTHER 07/23/17 11:00 07/26/17 09:34 (Zofran Inj) 4 mg UNSCH PRN IV PUSH 07/23/17 11:00 (Tylenol) 650 mg UNSCH PRN PO 07/23/17 11:00 (Benadryl) 25 mg UNSCH PRN PO 07/23/17 11:00 07/27/17 00:01 (Nitrostat Sl) 0.4 mg UNSCH PRN SL 07/23/17 11:00 (Catapres) 0.1 mg UNSCH PRN PO 07/23/17 11:00 (Epogen Inj) 10,000 units UNSCH PRN IV PUSH 07/23/17 11:00 07/26/17 09:34 (Gelfoam 12 Mm/7 Mm Top) 1 foam UNSCH PRN TOP 07/23/17 11:00 (Albuterol Concentrated Neb) 2.5 mg Q4HR NEB PRN NEB 07/23/17 12:00 07/27/17 06:15 (Renvela) 800 mg TIDAC PO 07/23/17 17:00 07/27/17 08:50 (Robitussin Liq) 200 mg Q4H PRN PO 07/23/17 18:30 07/26/17 18:23 (Robitussin Liq) 200 mg Q4H PRN PO 07/24/17 10:15 Miscellaneous Information Patient in critical care unit? Ass... Q361D .XX 07/24/17 17:45 (Chlorhexidine 2% Cloth) 3 pack DAILY@04 TOPICAL 07/25/17 04:00 07/29/17 04:01 07/26/17 04:00 (Chlorhexidine 2% Cloth) 3 pack UNSCH PRN TOPICAL 07/24/17 17:45 07/29/17 17:38 (Lopressor) 25 mg BID PO 07/25/17 21:00 07/27/17 08:50 (Cozaar) 50 mg DAILY PO 07/26/17 09:00 07/27/17 08:50 Vital Signs / I&O Vital Signs Date Time Temp Pulse Resp B/P (MAP) Pulse Ox O2 Delivery O2 Flow Rate FiO2 07/27/17 06:19 95 Nasal Cannula 3.00 07/27/17 05:16 99.2 65 16 113/73 (86) 93 07/27/17 04:05 93 Nasal Cannula 5.00 07/27/17 03:00 63 07/27/17 02:00 64 07/27/17 01:00 68 07/27/17 00:00 64 07/26/17 23:06 92 Nasal Cannula 4.50 07/26/17 23:00 99.2 71 16 101/63 (76) 93 07/26/17 23:00 65 07/26/17 22:00 82 07/26/17 21:00 92 07/26/17 20:00 99.3 92 16 115/69 (84) 92 07/26/17 20:00 94 Nasal Cannula 3.00 07/26/17 20:00 98 07/26/17 19:00 94 07/26/17 18:19 82 07/26/17 17:07 99 Nasal Cannula 4.00 07/26/17 17:00 78 07/26/17 16:05 98.4 83 18 103/60 (74) 97 07/26/17 16:00 79 07/26/17 14:00 68 07/26/17 12:00 99 07/26/17 12:00 98.3 99 19 93/54 (67) 85 07/26/17 11:16 88 Venturi Mask 8.00 50 12/21/17 11:16 69 21 07/26/17 10:08 95 Nasal Cannula 5.00 07/26/17 10:00 89 I/O 07/26/17 07/26/17 07/26/17 07/27/17 07/27/17 07/27/17 07:00 15:00 23:00 07:00 15:00 23:00 Output Total 1000 ml Balance -1000 ml Hemodialysis 1000 ml Physical Exam GENERAL: NAD, AAOx3 SKIN: Warm and dry. HEAD: Atraumatic. Normocephalic. EYES: Pupils equal and round. No scleral icterus. No injection or drainage. ENT: No nasal bleeding or discharge. Mucous membranes pink and moist. NECK: Trachea midline. No JVD. CARDIOVASCULAR: Irregularly irregular RESPIRATORY: No accessory muscle use. Clear to auscultation. Breath sounds equal bilaterally. GASTROINTESTINAL: Abdomen soft, non-tender, nondistended. Hepatic and splenic margins not palpable. MUSCULOSKELETAL: Extremities without clubbing, cyanosis, or edema. No obvious deformities. NEUROLOGICAL: Awake and alert. No obvious cranial nerve deficits. Motor grossly within normal limits. Five out of 5 muscle strength in the arms and legs. Normal speech. PSYCHIATRIC: Appropriate mood and affect; insight and judgment normal. Assessment and Plan Problem List: (1) Atrial fibrillation with RVR ICD Codes: I48.91 - Unspecified atrial fibrillation (2) Hyperkalemia ICD Codes: E87.5 - Hyperkalemia (3) Anemia of renal disease ICD Codes: D63.1 - Anemia in chronic kidney disease Status: Acute (4) ESRD (end stage renal disease) on dialysis ICD Codes: N18.6 - End stage renal disease; Z99.2 - Dependence on renal dialysis Status: Chronic (5) COPD (chronic obstructive pulmonary disease) ICD Codes: J44.9 - Chronic obstructive pulmonary disease, unspecified Status: Chronic (6) Non-compliance ICD Codes: Z91.19 - Patient's noncompliance with other medical treatment and regimen Status: Chronic Assessment and Plan 1) Atrial fibrillation with rapid ventricular response. Con't BB/CCB BB increased, may need further digoxin but would try to avoid As far as anticoagulation goes he states that he was previously on Coumadin but they stopped this a number of years ago In discussing this with him, he states that he would not like to be on anticoagulation and continue on just aspirin therapy and understands the risk My overall concern with anticoagulation with him would be his anemia as well as noncompliance. Decreased Losartan due to mild hypotension 2) COPD. 3) End-stage renal disease on hemodialysis. 4) History of noncompliance. 5) Hyperkalemia on admission. 6) History of coronary artery disease. 7) History of hyperlipidemia. 8) History of hypertension. 9) Cardiovascularly stable for discharge Gumaro Ro DO Jul 27, 2017 09:00
--- NOTE | 2017-07-27 09:58 | HHI.NPPN ---
Subjective Renal Failure: Chronic Interval History Moved out of [facility]. He is resting, not in distress. Dialyzed yesterday. (Angela Ortega) Review of Systems Respiratory Lungs: SOB, Cough (Angela Ortega) Objective Data Data Vital Signs Date Time Temp Pulse Resp B/P (MAP) Pulse Ox O2 Delivery O2 Flow Rate FiO2 07/27/17 09:40 84 07/27/17 08:00 97 Nasal Cannula 3.00 07/27/17 08:00 82 07/27/17 08:00 97.6 85 18 112/66 (81) 97 07/27/17 06:19 95 Nasal Cannula 3.00 07/27/17 05:16 99.2 65 16 113/73 (86) 93 07/27/17 04:05 93 Nasal Cannula 5.00 07/27/17 03:00 63 07/27/17 02:00 64 07/27/17 01:00 68 07/27/17 00:00 64 07/26/17 23:06 92 Nasal Cannula 4.50 07/26/17 23:00 99.2 71 16 101/63 (76) 93 07/26/17 23:00 65 07/26/17 22:00 82 07/26/17 21:00 92 07/26/17 20:00 99.3 92 16 115/69 (84) 92 07/26/17 20:00 94 Nasal Cannula 3.00 07/26/17 20:00 98 07/26/17 19:00 94 07/26/17 18:19 82 07/26/17 17:07 99 Nasal Cannula 4.00 07/26/17 17:00 78 07/26/17 16:05 98.4 83 18 103/60 (74) 97 07/26/17 16:00 79 07/26/17 14:00 68 07/26/17 12:00 99 07/26/17 12:00 98.3 99 19 93/54 (67) 85 07/26/17 11:16 88 Venturi Mask 8.00 50 07/26/17 11:16 69 21 07/26/17 10:08 95 Nasal Cannula 5.00 07/26/17 10:00 89 (Angela Ortega) -: 07/24/17 0809 07/24/171937 Tubes & Lines: Perma-Cath (Angela Ortega) Physical Exam General Appearance: Well Developed, Comfortable, Sleeping (Angela Ortega) Eyes Eye Exam: Pupils Equal (Angela Ortega) Neck Neck Exam: Neck Supple (Angela Ortega) Pulmonary Resp Exam: Rhonchi, Sputum, Decreased Bases (Angela Ortega) Cardiology CV Exam: Good Perfusion, Irregular (Angela Ortega) Gastrointestinal/Abdomen GI Exam: Soft, Non-Tender, Bowel Sounds Present (Angela Ortega) Musculoskeletal MS Exam: Joints Intact, Normal Gait, Normal Tone, Good Strength (Angela Ortega) Integumentary Skin Exam: Clear, Warm, Dry, Intact (Angela Ortega) Extremeties Extremities Exam: No Edema, Pedal Pulses Palpable Extremeties Remarks left arm AVG, + thrill, bruit (Angela Ortega) Neurologic Neuro Exam: Alert, Awake, Oriented, Speech Clear, Moving All Extremities (Angela Ortega) Assessment/Plan Discussed Condition With: Patient Assessment Summary: Anemia of CKD, Hypertension, End Stage Renal Disease Problem List: (1) ESRD (end stage renal disease) on dialysis ICD Codes: N18.6 - End stage renal disease; Z99.2 - Dependence on renal dialysis Status: Chronic Plan: Continue HD support TTS. 1 L UF yesterday. He has PermCath for HD, refuses to allow us to cannulate AV graft left arm but has agreed for us to attempt on Sunday He is set up for transitional program at [facility] when discharged Xanax ordered for HD, he becomes anxious with treatment Continue Renvela with meals (2) Atrial fibrillation with RVR ICD Codes: I48.91 - Unspecified atrial fibrillation Plan: Rate improved, continue oral Cardizem and metoprolol. He is on ASA 81 mg, not on full anticoagulation. May need full anticoagulation, cardiology to determine. (3) Hyperkalemia ICD Codes: E87.5 - Hyperkalemia Plan: Improved, continue to monitor Low K diet ordered (4) Anemia of renal disease ICD Codes: D63.1 - Anemia in chronic kidney disease Status: Acute Plan: Epogen with HD Awaiting iron profile from today (5) CHF (congestive heart failure) ICD Codes: I50.9 - Heart failure, unspecified Status: Acute Plan: Fluid removal as tolerated Plan (Angela Ortega) Plan patient was seen and examined. Agree with above assessment and plan. (Keron Singh MD) Angela Ortega Jul 27, 2017 09:58 Keron Singh MD Jul 27, 2017 15:45
[2017-07-27 10:15] LABS: % SATURATION IRON PROFILE 26.7 % (20-50); ALBUMIN 2.9 GM/DL (3.4-5.0); BICARBONATE 26.4 MEQ/L (21.0-32.0); BLOOD UREA NITROGEN 41 MG/DL (7-18); CALCIUM 8.7 MG/DL (8.5-10.1); CHLORIDE 101 MEQ/L (98-107); CREATININE 7.45 MG/DL (0.60-1.30); GLOMERULAR FILTRATION RATE 9 ML/MIN (>89); GLUCOSE,RANDOM 122 MG/DL (74-106); IRON (FE) 78 MCG/DL (65-175); PHOSPHORUS 5.1 MG/DL (2.5-4.9); SODIUM (NA) 137 MEQ/L (136-145); TOTAL IRON BINDING CAPACITY 293 MCG/DL (250-450)
[2017-07-27] MEDS ORDERED: METO25TA3 PO (10:36)
[2017-07-27] MEDS ORDERED: COZA50TA PO (10:36)
--- NOTE | 2017-07-27 10:41 | HHI.DS ---
Discharge Summary Admission Date Jul 23, 2017 at 06:06 Discharge Date: Jul 27, 2017 Admitting Diagnosis Hyperkalemia; Pulm Edema/Dyspnea (1) Atrial fibrillation with RVR ICD Code: I48.91 - Unspecified atrial fibrillation Diagnosis: Principal Procedures none Brief History - From Admission This is a 72-year-old male history of COPD, chronic last heart failure, age of fibrillation, end-stage renal disease on hemodialysis status post left tunnel catheter placed on 07/19/17, and noncompliance who presented with cough and shortness of breathing since April. Patient is poor historian and it was difficult getting a history from patient since patient did not want to give me much information. He stated that on his prior admission he was treated for pneumonia his symptoms. His symptoms have not worsened at all. Patient had multiple admissions due to the the same symptoms. Denies any fevers or chills. He is scheduled for dialysis on Sunday, and Sunday but from the medical records patient already received dialysis on July 07, , and . Otherwise patient has no other complaints. All other review of system reviewed and negative. CBC/BMP: 07/24/17 0809 07/27/17 0929 Significant Findings Laboratory Tests Test 07/24/17 16:00 07/24/17 19:38 07/27/17 09:29 Blood Urea Nitrogen 34 MG/DL (7-18) 41 MG/DL (7-18) Creatinine 6.21 MG/DL (0.60-1.30) 7.45 MG/DL (0.60-1.30) Random Glucose 158 MG/DL (74-106) 122 MG/DL (74-106) Calcium Level 8.4 MG/DL (8.5-10.1) Carbon Dioxide Level 33.6 MEQ/L (21.0-32.0) Estimat Glomerular Filtration Rate 11 ML/MIN (>89) 9 ML/MIN (>89) Digoxin Level 0.7 NG/ML (0.8-2.0) Albumin 2.9 GM/DL (3.4-5.0) Phosphorus Level 5.1 MG/DL (2.5-4.9) Imaging Last Impressions Chest X-Ray 07/23/17 0220 Signed Impressions: Service Date/Time: Sunday, July 23, 2017 02:33 - CONCLUSION: Cardiomegaly with diffuse prominence of the interstitium likely secondary to CHF. Girish Nguyen MD PE at Discharge GENERAL: This is a well-nourished, well-developed patient, in no apparent distress. CARDIOVASCULAR: irregular rhythm without murmurs, gallops, or rubs. RESPIRATORY: Clear to auscultation. Breath sounds equal bilaterally. No wheezes , rales, or rhonchi. GASTROINTESTINAL: Abdomen soft, non-tender, nondistended. Normal, active bowel sounds MUSCULOSKELETAL: Extremities without clubbing, cyanosis, or edema. NEURO: Alert & Oriented x4 to person, place, time, situation. Moves all ext x4 Hospital Course patient was admitted with atrial fibrillation with RVR. cardiology consulted and he was continued on metoprolol and cardizem. his HR improved and he was cleared for discharge per cardiology. of note he declined anticoagulation and he will be continued on aspirin.he had his HD during this hospitalization per nephrology. Pt Condition on Discharge: Stable Discharge Disposition: Discharge to SNF Discharge Time: > 30 minutes Discharge Instructions DIET: Follow Instructions for: Heart Healthy Diet Activities you can perform: Regular-No Restrictions Follow up Referrals: Cardiology Nephrology PCP Follow-up New Medications: Hydrocodone-Acetaminophen (Printer) 5 Mg-325 Mg Tab 1 TAB PO Q6H PRN for PAIN, #12 TAB 0 Refills Losartan (Cozaar) 25 Mg Tab 25 MG PO DAILY for Blood Pressure Management, #30 TAB 0 Refills Metoprolol Tartrate (Metoprolol Tartrate) 25 Mg Tab 25 MG PO BID for a-fib for 30 Days, #60 TAB 0 Refills Continued Medications: Acetaminophen (Tylenol) 325 Mg Tab 325 MG PO Q6H PRN for PAIN SCALE 4 TO 10, TAB 0 Refills Alprazolam (Alprazolam) 0.5 Mg Tab 0.5 MG PO HS PRN for ANXIETY, #5 TAB 0 Refills (This prescription has been renewed) Amino Acids-Protein Hydrolysat (Pro-Stat) 1 Liq Liq 30 ML PO TID Aspirin DR (Aspirin 81) 81 Mg Tabdr 81 MG PO DAILY, TAB 0 Refills B-Complex W/ C & Folic Acid (Renal-Mya 0.8 mg) 1 Tab Tab 0.8 MG PO DAILY Calcium Carbonate (Antacid) (Antacid) 500 Mg Chew 500 MG CHEW TID PRN for REFLUX, TAB Diltiazem (Diltiazem) 90 Mg Tab 90 MG PO QID for Angina, #120 TAB 0 Refills Diphenhydramine HCl (Benadryl Allergy) 25 Mg Cap 1 TAB PO tue, meliza, sat PRN for for itiching Diphenoxylate-Atropine (Lomotil) 2.5-0.025 Mg Tab 1 TAB PO Q6H PRN for DIARRHEA, #10 TAB 0 Refills Diphenoxylate-Atropine (Lomotil) 2.5-0.025 Mg Tab 1 TAB PO Q6H PRN for DIARRHEA, TAB 0 Refills Hydroxyzine HCl (Hydroxyzine HCl) 25 Mg Tab 25 MG PO Q6HR, TAB 0 Refills Ipratropium-Albuterol Neb (Duoneb) 0.5-2.5 Mg/3 Ml Neb 3 ML NEB Q4HR PRN for SHORTNESS OF BREATH, #30 NEBULE 0 Refills Isosorbide Mononitrate ER (Isosorbide Mononitrate ER) 30 Mg Nolan 30 MG PO DAILY for Prevent Chest Pain, #30 TAB 0 Refills Levocetirizine (Levocetirizine) 5 Mg Tab 5 MG PO DAILY for Allergy Management, #30 TAB 0 Refills Ondansetron (Ondansetron) 8 Mg Tab 8 MG PO TID PRN for NAUSEA OR VOMITING, TAB 0 Refills Ondansetron (Zofran) 8 Mg Tab 8 MG PO TID for Nausea/Vomiting, TAB 0 Refills Sennosides-Docusate Sodium (Gnp Senna Plus 8.6-50 mg) 8.6 Mg-50 Mg Tab 1 TAB PO BID for Constipation, #60 TAB Sevelamer Carbonate (Renvela) 800 Mg Tab 800 MG PO TID for Control phosphorous levels, #180 TAB 0 Refills Trazodone (Trazodone) 150 Mg Tablet 150 MG PO HS for Control Depression, #30 TAB 0 Refills Discontinued Medications: Losartan (Losartan) 100 Mg Tab 100 MG PO DAILY for Blood Pressure Management, #30 TAB 0 Refills Metoprolol Tartrate (Metoprolol Tartrate) 25 Mg Tab 12.5 MG PO BID, #60 TAB 0 Refills Kae Edward MD Jul 27, 2017 10:41
[2017-07-27] MEDS: ONDANSETRON HCL 4 MG/2 ML VIAL IVP PRN (11:22)
[2017-07-27] MEDS ORDERED: COZA25TA PO (12:52)
[2017-07-27] MEDS ORDERED: NORC5TAB PO (12:52)
[2017-07-27] MEDS ORDERED: ALPR0.5T3 PO (12:52)
--- NOTE | 2017-07-27 12:56 | HHI.PR ---
Subjective Remarks in no acute distress. denies chest pain or sob. wants to be discharged. d/w the RN. Objective Vitals Vital Signs Date Time Temp Pulse Resp B/P (MAP) Pulse Ox O2 Delivery O2 Flow Rate FiO2 07/27/17 12:01 73 07/27/17 11:37 91 Nasal Cannula 4.00 07/27/17 11:35 97.6 74 18 88/48 (61) 93 07/27/17 11:35 84 07/27/17 11:35 93 Nasal Cannula 3.00 07/27/17 10:02 91 07/27/17 09:40 84 07/27/17 08:00 97 Nasal Cannula 3.00 07/27/17 08:00 82 07/27/17 08:00 97.6 85 18 112/66 (81) 97 07/27/17 06:19 95 Nasal Cannula 3.00 07/27/17 05:16 99.2 65 16 113/73 (86) 93 07/27/17 04:05 93 Nasal Cannula 5.00 07/27/17 03:00 63 07/27/17 02:00 64 07/27/17 01:00 68 07/27/17 00:00 64 07/26/17 23:06 92 Nasal Cannula 4.50 07/26/17 23:00 99.2 71 16 101/63 (76) 93 07/26/17 23:00 65 07/26/17 22:00 82 07/26/17 21:00 92 07/26/17 20:00 99.3 92 16 115/69 (84) 92 07/26/17 20:00 94 Nasal Cannula 3.00 07/26/17 20:00 98 07/26/17 19:00 94 07/26/17 18:19 82 07/26/17 17:07 99 Nasal Cannula 4.00 07/26/17 17:00 78 07/26/17 16:05 98.4 83 18 103/60 (74) 97 07/26/17 16:00 79 07/26/17 14:00 68 I/O 07/26/17 07/26/17 07/26/17 07/27/17 07/27/17 07/27/17 07:00 15:00 23:00 07:00 15:00 23:00 Output Total 1000 ml Balance -1000 ml Hemodialysis 1000 ml Result Diagram: 07/24/17 0809 07/27/17 0929 Imaging Last Impressions Chest X-Ray 07/23/17 0220 Signed Impressions: Service Date/Time: Sunday, July 23, 2017 02:33 - CONCLUSION: Cardiomegaly with diffuse prominence of the interstitium likely secondary to CHF. Girish Nguyen MD Objective Remarks GENERAL: This is a well-nourished, well-developed patient, in no apparent distress. CARDIOVASCULAR: irregular rhythm without murmurs, gallops, or rubs. RESPIRATORY: Clear to auscultation. Breath sounds equal bilaterally. No wheezes , rales, or rhonchi. GASTROINTESTINAL: Abdomen soft, non-tender, nondistended. Normal, active bowel sounds MUSCULOSKELETAL: Extremities without clubbing, cyanosis, or edema. NEURO: Alert & Oriented x4 to person, place, time, situation. Moves all ext x4 Procedures none Medications and IVs Inpatient Medications Acetaminophen (Tylenol) 650 mg UNSCH PRN PO for headach, pain, temp > 101F; Start 07/23/17 at 11:00 Acetaminophen/ Hydrocodone Bitart (Vestal 5-325 Mg) 1 tab Q4H PRN PO PAIN SCALE 3 TO 5 Last administered on 07/27/17 00:01; Start 07/23/17 at 06:00 Acetaminophen/ Hydrocodone Bitart (Vestal 10-325 Mg) 1 tab Q4H PRN PO PAIN SCALE 6 TO 10; Start 07/23/17 at 06:00 Albumin Human 100 ml @ 60 mls/hr UNSCH PRN IV WITH DIALYSIS; Start 07/23/17 at 11:00 Albuterol Sulfate (Albuterol Concentrated Neb) 2.5 mg Q4HR NEB PRN NEB SOBN/ wheezing Last administered on 07/27/17 11:32; Start 07/23/17 at 12:00 Albuterol/ Ipratropium (Duoneb Neb) 1 ampule Q4HR NEB PRN NEB SOB/WHEEZING; Start 07/23/17 at 06:00; Stop 07/23/17 at 12:27; Status DC Alprazolam (Xanax) 0.5 mg HS PRN PO ANXIETY Last administered on 07/27/17 00: 01; Start 07/23/17 at 06:00 Aspirin (Ecotrin Ec) 81 mg DAILY PO Last administered on 07/27/17 08:50; Start 07/23/17 at 09:00 Benzonatate (Tessalon) 200 mg TID PRN PO cough Last administered on 07/23/17 16:13; Start 07/23/17 at 12:00; Stop 07/23/17 at 18:22; Status DC Bisacodyl (Dulcolax Supp) 10 mg DAILY PRN RECTAL SEVERE CONSITIPATION; Start 07/23/17 at 06:00 Calcium Gluconate (Calcium Gluconate Inj) 1 gm ONCE ONCE SLOW IVP Last administered on 07/23/17 03:35; Start 07/23/17 at 03:15; Stop 07/23/17 at 03 :16; Status DC Chlorhexidine Gluconate (Chlorhexidine 2% Cloth) 3 pack UNSCH PRN TOPICAL HYGIENIC CARE; Start 07/24/17 at 17:45; Stop 07/29/17 at 17:38 Clonidine (Catapres) 0.1 mg UNSCH PRN PO for BP > 180/100 X 2 readings; Start 07/23/17 at 11:00 Dextrose (D50w (Vial) Inj) 50 ml ONCE ONCE IV PUSH Last administered on 03:45; Start 07/23/17 at 03:15; Stop 07/23/17 at 03:16; Status DC Digoxin (Lanoxin Inj) 0.25 mg ONCE ONCE IV PUSH Last administered on 15:26; Start 07/24/17 at 14:45; Stop 07/24/17 at 14:46; Status DC Diltiazem HCl (Cardizem) 90 mg QID PO Last administered on 07/27/17 08:50; Start 07/23/17 at 09:00 Diphenhydramine HCl (Benadryl) 25 mg UNSCH PRN PO for hives/itching/ anaphylaxis Last administered on 07/27/17 00:01; Start 07/23/17 at 11:00 Epoetin West (Epogen Inj) 10,000 units UNSCH PRN IV PUSH WITH DIALYSIS Last administered on 07/26/17 09:34; Start 07/23/17 at 11:00 Gelatin (Gelfoam 12 Mm/7 Mm Top) 1 foam UNSCH PRN TOP SEE LABEL COMMENTS; Start 07/23/17 at 11:00 Gentamicin Sulfate (Gentamicin (Dialysis) Inj) 20 mg UNSCH PRN OTHER WITH DIALYSIS Last administered on 07/26/17 09:34; Start 07/23/17 at 11:00 Guaifenesin (Robitussin Liq) 200 mg Q4H PRN PO COUGH; Start 07/24/17 at 10:15 Heparin Sodium (Porcine) (Heparin Inj) UNSCH PRN .XX WITH DIALYSIS Last administered on 07/26/17 09:35; Start 07/23/17 at 11:00 Insulin Human Regular (NovoLIN R INJ) 10 units ONCE ONCE IV PUSH Last administered on 07/23/17 03:50; Start 07/23/17 at 03:15; Stop 07/23/17 at 03 :16; Status DC Isosorbide Mononitrate (Imdur) 30 mg DAILY PO Last administered on 07/27/17 08:50; Start 07/23/17 at 09:00 Lactulose (Lactulose Liq) 30 ml DAILY PRN PO SEVERE CONSITIPATION; Start 07/23 at 06:00 Losartan Potassium (Cozaar) 50 mg DAILY PO Last administered on 07/27/17 08: 50; Start 07/26/17 at 09:00 Magnesium Hydroxide (Milk Of Magnesia Liq) 30 ml Q12H PRN PO Mild constipation ; Start 07/23/17 at 06:00 Mannitol (Mannitol Inj) 12.5 gm UNSCH PRN IV WITH DIALYSIS; Start 07/23/17 at 11:00 Metoprolol Tartrate (Lopressor) 12.5 mg ONCE ONCE PO ; Start 07/25/17 at 11:45 ; Stop 07/25/17 at 12:20; Status DC Miscellaneous Information Patient in critical care unit? Ass... Q361D .XX ; Start 07/24/17 at 17:45 Nitroglycerin (Nitrostat Sl) 0.4 mg UNSCH PRN SL CHEST PAIN; Start 07/23/17 at 11:00 Ondansetron HCl (Zofran Inj) 4 mg UNSCH PRN IV PUSH WITH DIALYSIS; Start 07/23 at 11:00 Senna/Docusate Sodium (Clarice-Colace) 1 tab BID PO Last administered on 08:41; Start 07/23/17 at 09:00 Sennosides (Senokot) 17.2 mg Q12H PRN PO Moderate constipation; Start at 06:00 Sevelamer Carbonate (Renvela) 800 mg TIDAC PO Last administered on 07/27/17 11:22; Start 07/23/17 at 17:00 Sodium Polystyrene Sulfonate (Kayexalate Liq) 15 gm ONCE ONCE PO Last administered on 07/23/17 10:58; Start 07/23/17 at 11:00; Stop 07/23/17 at 11 :06; Status DC Sodium Bicarbonate (Sodium Bicarbonate 8.4% Inj) 50 meq ONCE ONCE SLOW IVP Last administered on 07/23/17 03:52; Start 07/23/17 at 03:15; Stop 07/23/17 at 03:16; Status DC Sodium Chloride (NS Flush) 5 ml UNSCH PRN IV FLUSH WITH DIALYSIS; Start at 11:00 Trazodone HCl (Desyrel) 150 mg HS PO Last administered on 07/26/17 21:16; Start 07/23/17 at 21:00 Vitamin B Complex/ Vit C/Folic Acid (Nephrocaps) 1 cap DAILY PO Last administered on 07/27/17 08:50; Start 07/23/17 at 09:00 Zinc Oxide (Desitin 40% Oint) 1 applic ONCE ONCE TOPICAL Last administered on 07/23/17 06:00; Start 07/23/17 at 04:15; Stop 07/23/17 at 04:16; Status DC A/P Problem List: (1) Atrial fibrillation with RVR ICD Code: I48.91 - Unspecified atrial fibrillation Assessment and Plan A-Fib with RVR- now HR controlled. -continue metoprolol and cardizem -patient declined anticoagulation; continue aspirin. - Cardiology follow-up appreciated. Cough/dyspnea -Symptoms have been since April. - Consider allergies vs. COPD/CHF - Robitussin added COPD -Home medication resumed. DuoNeb's when necessary. End-stage renal disease on dialysis - HD per nephrology. -Patient had left tunnel catheter placed on 07/19/17. hypertension continue metoprolol and cardizem- losartan was decreased due to low-normal BP' s. Hyperkalemia-resolved. Coronary artery disease/hyperlipidemia -Resumed home medication. anemia of chronic disease on Epogen- will monitor H/H periodically. DVT prophylaxis -Heparin renally dosed. Discharge Planning dc to SNF. see med list. f/u; pcp, nephrology and cardiology. d/w the patient and RN. time spent 35 min. Kae Edward MD Jul 27, 2017 12:56
== END 2017-07-27 14:51 | DRG 308 ==
LOC: NEPC 02:16 → NEDA 05:40 → OBSVTOIN 06:06 → N06B 07:49 → HIME 07-24 15:55 → HCIS 07-26 15:48
PROVIDERS: ADMIT Internal Medicine; ATTEND Internal Medicine
PROC: 5A1D70Z Performance of Urinary Filtration, Intermittent, Less than 6 Hours Per Day (ICD-10-PCS; principal; 2017-07-23)
DX: I48.91 Unspecified atrial fibrillation (principal); I13.2 Hypertensive heart and chronic kidney disease with heart failure and with stage 5 chronic kidney disease, or end stage renal disease; N18.6 End stage renal disease; J96.10 Chronic respiratory failure, unspecified whether with hypoxia or hypercapnia; I50.22 Chronic systolic (congestive) heart failure; E88.89 Other specified metabolic disorders; E87.5 Hyperkalemia; J44.9 Chronic obstructive pulmonary disease, unspecified; R21 Rash and other nonspecific skin eruption; Z99.2 Dependence on renal dialysis; Z91.19 Patient's noncompliance with other medical treatment and regimen; D63.1 Anemia in chronic kidney disease; Z79.82 Long term (current) use of aspirin; I25.10 Atherosclerotic heart disease of native coronary artery without angina pectoris; E78.5 Hyperlipidemia, unspecified; Z85.46 Personal history of malignant neoplasm of prostate; Z87.891 Personal history of nicotine dependence
CPT/HCPCS: 71010; 76937; 80048; 80053; 80069; 80162; 83540; 83550; 83735; 84100; 84132; 85025; 87641; 90935; 93005; 94640; 94664; 96374; 96375; J0610; J1160; J1580; J1644; J1815; J2405; J7030; J7611; J7613; Q4081

== ENCOUNTER 2017-08-09 09:01 | Emergency (ER) | payer MEDICARE, MEDICAID ==
[~2017-08-09] VITALS: Ht 177.8 cm; Wt 91.0 kg
[2017-08-09] VITALS (7 sets, daily range): BP systolic 133–140; BP diastolic 69–82; PULSE 102–109; RESP 22–26; TEMP 97.8; O2SAT 79–100
[~2017-08-09 09:01] MED LIST changes: +BENA25CA4 PO; +COZA25TA PO; +HYDR-3133 PO; +LEVOTAB PO; -LOSA100T PO; +NORC5TAB PO; +ZOFR8TAB PO
--- NOTE | 2017-08-09 09:29 | PD ---
HPI Chief Complaint: Respiratory Symptoms Time Seen by Provider: 09:18 Travel History International Travel<30 days: No Contact w/Intl Traveler<30days: No Traveled to known affect area: No History of Present Illness HPI 72-year-old male patient with history of end-stage renal disease on hemodialysis , hypertension, COPD, presents to the ER today from dialysis, apparently had gone there and they have found that his saturations were 66-70%. He states that he has not been feeling well for several days, having coughing, shortness of breath. He denies any chest pains, fevers, vomiting, or any other symptoms. Last had dialysis 2 days ago. Modifying Factors: None Associated Signs & Symptoms: Not feeling well, low saturations, coughing and shortness of breath Risk Factors: COPD history PFSH Past Medical History Anemia: Yes Arthritis: Yes (CRAMPS IN HAND AND NECK) Atrial Fibrillation: Yes Anxiety: Yes Depression: No Cancer: Yes (HX PROSTATE) Cardiovascular Problems: Yes Chemotherapy: Yes Congestive Heart Failure: Yes COPD: Yes Diabetes: No Dialysis: Yes (/URS/SAT) Diminished Hearing: No Endocrine: No Gastrointestinal Disorders: Yes (APPENDICITIS) GERD: Yes Hypertension: Yes Immune Disorder: No Musculoskeletal: Yes Neurologic: No Psychiatric: No Reproductive: No Respiratory: Yes Migraines: No Renal Failure: Yes Sleep Apnea: Yes (NO CPAP MACHINE) Past Surgical History Arteriovenous Shunt: Yes (L UPPER ARM FISTULA-WORKING) Prostatectomy: Yes Other Surgery: Yes (AV FISTULA TO LEFT UPPER ARM WORKS) Social History Alcohol Use: No (HX ) Tobacco Use: No (QUIT 2 YEARS AGO) Substance Use: No Allergies-Medications (Allergen,Severity, Reaction): Coded Allergies: No Known Allergies (Unverified Allergy, Unknown, 07/23/17) Reported Meds & Prescriptions Reported Meds & Active Scripts Active Cozaar (Losartan Potassium) 25 Mg Tab 25 Mg PO DAILY Alprazolam 0.5 Mg Tab 0.5 Mg PO HS PRN Metoprolol Tartrate 25 Mg Tab 25 Mg PO BID 30 Days Trazodone (Trazodone HCl) 150 Mg Tablet 150 Mg PO HS Reported Levocetirizine 5 Mg Tab 5 Mg PO DAILY Hydroxyzine HCl 25 Mg Tab 25 Mg PO Q6HR Benadryl Allergy (Diphenhydramine HCl) 25 Mg Cap 1 Tab PO TUE, SHAWN, SAT PRN Antacid (Calcium Carbonate (Antacid)) 500 Mg Chew 500 Mg CHEW TID PRN Pro-Stat (Amino Acids-Protein Hydrolysat) 1 Liq Liq 30 Ml PO TID Renal-Mya 0.8 mg (B-Complex W/ C & Folic Acid) 1 Tab Tab 0.8 Mg PO DAILY Aspirin 81 (Aspirin) 81 Mg Tabdr 81 Mg PO DAILY Diltiazem (Diltiazem HCl) 90 Mg Tab 90 Mg PO QID Renvela (Sevelamer Carbonate) 800 Mg Tab 800 Mg PO TID Isosorbide Mononitrate ER (Isosorbide Mononitrate) 30 Mg Nolan 30 Mg PO DAILY Review of Systems Except as stated in HPI: all other systems reviewed are Neg Physical Exam Narrative GENERAL: Well-developed elderly -[place] male patient currently in mild respiratory distress. Awake and oriented 3. SKIN: Focused skin assessment warm/dry. HEAD: Atraumatic. Normocephalic. EYES: Pupils equal and round. No scleral icterus. No injection or drainage. ENT: No nasal bleeding or discharge. Mucous membranes pink and moist. NECK: Trachea midline. No JVD. Supple. Left IJ catheter in place. CARDIOVASCULAR: Regular rate and rhythm. No murmur appreciated. RESPIRATORY: Notable accessory muscle use. Wheezing throughout bilaterally. Breath sounds equal bilaterally. GASTROINTESTINAL: Abdomen soft, non-tender, nondistended. Hepatic and splenic margins not palpable. MUSCULOSKELETAL: No obvious deformities. No clubbing. No cyanosis. No edema. NEUROLOGICAL: Awake and alert. No obvious cranial nerve deficits. Motor grossly within normal limits. Normal speech. PSYCHIATRIC: Appropriate mood and affect; insight and judgment normal. Data Data Last Documented VS Vital Signs Date Time Temp Pulse Resp B/P (MAP) Pulse Ox O2 Delivery O2 Flow Rate FiO2 08/09/17 17:32 96 Nasal Cannula 6.00 08/09/17 13:15 97.8 101 24 Orders Orders Electrocardiogram (08/09/17 ) Complete Blood Count With Diff (08/09/17 09:18) Comprehensive Metabolic Panel (08/09/17 09:18) B-Type Natriuretic Peptide (08/09/17 09:18) Iv Access Insert/Monitor (08/09/17 09:18) Ecg Monitoring (08/09/17 09:18) Oximetry (08/09/17 09:18) Oxygen Administration (08/09/17 09:18) Chest, Single Ap (08/09/17 09:18) Sodium Chloride 0.9% Flush (Ns Flush) (08/09/17 09:30) Methylprednisolone So Succ Inj (Solumedr (08/09/17 09:30) Albuterol-Ipratropium Neb (Duoneb Neb) (08/09/17 09:30) Blood Flow Rate (08/09/17 12:45) Dialysate Flow Rate (08/09/17 12:45) Dialyzer (08/09/17 12:45) Concentrate (08/09/17 12:45) Acid Concentrate (08/09/17 12:45) Length Of Dialysis (08/09/17 12:45) Frequency Of Dialysis (08/09/17 12:45) Dialysis Obtain (08/09/17 12:45) Needle Size (08/09/17 12:45) Dialysis Schedule (08/09/17 12:45) Resp Oxygen Ruddy C Titrat 1-4 L (08/09/17 ) Dialysis Weight (08/09/17 12:45) ^ Obtain As Needed (08/09/17 12:45) Sodium Chlor 0.9% 1000 Ml Inj (Ns 1000 M (08/09/17 12:45) Heparin Inj (Heparin Inj) (08/09/17 12:45) Sodium Chlor 0.9% 1000 Ml Inj (Ns 1000 M (08/09/17 12:45) Sodium Chlor 0.9% 1000 Ml Inj (Ns 1000 M (08/09/17 12:45) Mannitol Inj (Mannitol Inj) (08/09/17 12:45) Albumin 25% Inj (Albumin 25% Inj) (08/09/17 12:45) Sodium Chloride 0.9% Flush (Ns Flush) (08/09/17 12:45) Heparin Inj (Heparin Inj) (08/09/17 12:45) Gentamicin (Dialysis) Inj (Gentamicin (D (08/09/17 12:45) Ondansetron Inj (Zofran Inj) (08/09/17 12:45) Acetaminophen (Tylenol) (08/09/17 12:45) Diphenhydramine (Benadryl) (08/09/17 12:45) Nitroglycerin Sl (Nitrostat Sl) (08/09/17 12:45) Clonidine (Catapres) (08/09/17 12:45) Epoetin West Inj (Epogen Inj) (08/09/17 12:45) Gelatin 12 Mm/7 Mm Top (Gelfoam 12 Mm/7 (08/09/17 12:45) Labs Laboratory Tests Test 08/09/17 09:30 White Blood Count 9.5 TH/MM3 Red Blood Count 2.54 MIL/MM3 Hemoglobin 8.0 GM/DL Hematocrit 23.8 % Mean Corpuscular Volume 93.8 FL Mean Corpuscular Hemoglobin 31.3 PG Mean Corpuscular Hemoglobin Concent 33.4 % Red Cell Distribution Width 18.6 % Platelet Count 240 TH/MM3 Mean Platelet Volume 8.8 FL CBC Comment AUTO DIFF Differential Total Cells Counted 100 Neutrophils % (Manual) 68 % Band Neutrophils % 1 % Lymphocytes % 13 % Monocytes % 14 % Eosinophils % 2 % Basophils % 2 % Neutrophils # (Manual) 6.6 TH/MM3 Differential Comment FINAL DIFF MANUAL Platelet Estimate NORMAL Platelet Morphology Comment NORMAL Ovalocytes 1+ Acanthocytes OCC Keratocytes 1+ Blood Urea Nitrogen 83 MG/DL Creatinine 11.00 MG/DL Random Glucose 87 MG/DL Total Protein 7.0 GM/DL Albumin 3.7 GM/DL Calcium Level 9.1 MG/DL Alkaline Phosphatase 192 U/L Aspartate Amino Transf (AST/SGOT) 37 U/L Alanine Aminotransferase (ALT/SGPT) 35 U/L Total Bilirubin 0.5 MG/DL Sodium Level 137 MEQ/L Potassium Level 7.4 MEQ/L Chloride Level 100 MEQ/L Carbon Dioxide Level 26.9 MEQ/L Anion Gap 10 MEQ/L Estimat Glomerular Filtration Rate 6 ML/MIN B-Type Natriuretic Peptide 1370 PG/ML MDM Medical Decision Making Medical Screen Exam Complete: Yes Emergency Medical Condition: Yes Medical Record Reviewed: Yes Interpretation(s) EKG shows A. fib with RVR at a rate of 100 bpm. No signs of acute ST-T elevations or depressions. Laboratory Tests Test 08/09/17 09:30 Red Blood Count 2.54 MIL/MM3 (4.50-5.90) Hemoglobin 8.0 GM/DL (13.0-17.0) Hematocrit 23.8 % (39.0-51.0) Red Cell Distribution Width 18.6 % (11.6-17.2) Monocytes % 14 % (0-8) Ovalocytes 1+ (NORMAL) Keratocytes 1+ (NORMAL) Blood Urea Nitrogen 83 MG/DL (7-18) Creatinine 11.00 MG/DL (0.60-1.30) Alkaline Phosphatase 192 U/L (45-117) Potassium Level 7.4 MEQ/L (3.5-5.1) Estimat Glomerular Filtration Rate 6 ML/MIN (>89) B-Type Natriuretic Peptide 1370 PG/ML (0-100) Last 24 hours Impressions Chest X-Ray 08/09/17917 Signed Impressions: Service Date/Time: August 09:42 - CONCLUSION: 1. Mild pulmonary vascular congestion. 2. Cardiomegaly. Pradip Yusuf MD Differential Diagnosis Hypoxia, shortness of breath, coughing, wheezing: COPD exacerbation versus pneumonia versus fluid overload versus CHF Narrative Course He was fairly hypoxic and wheezing initially in the ER. Solu-Medrol and nebulizers were initiated in the ER with improvement in symptoms. However, chest x-ray showing pulmonary edema and his lab work indicates that he needs dialysis and is in fluid overload. I have discussed findings with the patient and have offered to admit the patient but he is refusing to stay for admission. Case was discussed with patient's renal doctor, Dr. Singh, who has taken the patient for immediate dialysis. Patient did not want to be admitted to the hospital and wanted to wait until after his dialysis. On reevaluation at 5:30 PM after his dialysis, he states he feels much improved, states that he has chronic COPD and usually his saturations are in the 80s. He is able to ambulate fairly comfortably in the ER but does have hypoxia without oxygen dropping down into the high 60s and 70s. At this point, he states that this is his baseline and considering the patientis baseline and wants to leave, I will release him with follow-up to primary care physician at the facility. He should return for any worsening in symptoms that he should continue to take his dialysis on a consistent basis. The plan was discussed with him and he states understanding. Diagnosis Primary Impression: Hypoxia Additional Impressions: COPD (chronic obstructive pulmonary disease) CHF (congestive heart failure) Hyperkalemia, diminished renal excretion Med/Other Pt SpecificInfo: Prescription(s) given Scripts Albuterol 6.7 GM Inh (Proventil Hfa 6.7 GM Inh) 90 Mcg/Act Aer 2 PUFF INH Q4-6H Y for SHORTNESS OF BREATH, #1 INHALER 0 Refills Prov: Elke Lundberg MD 08/09/17 Prednisone (Prednisone) 50 Mg Tab 50 MG PO DAILY for 5 Days, #5 TAB 0 Refills Prov: Elke Lundberg MD 08/09/17 Disposition: 03 DISCHARGE TO SNF Condition: Stable Elke Lundberg MD Aug 09, 2017 09:29
[2017-08-09] MEDS ORDERED: methylPREDNISolone SOD SUCC 125 MG/2 ML VIAL IV PUSH ONE (09:30)
[2017-08-09] MEDS ORDERED: SODIUM CHLORIDE 0.9% FLUSH 10 ML FLUSH IVF PRN (09:30)
[2017-08-09] MEDS: RESP: ALBUTEROL 2.5 MG/IPRATROPIUM 0.5 MG NEB (SCH) INH ×2 (09:33→09:34)
[2017-08-09 09:52] LABS: HEMATOCRIT 23.8 % (39.0-51.0); MEAN CELL VOLUME 93.8 FL (80.0-100.0); MEAN CORPUSCULAR HEMOGLOBIN 31.3 PG (27.0-34.0); MEAN CORPUSCULAR HGB CONC 33.4 % (32.0-36.0); MEAN PLATELET VOLUME 8.8 FL (7.0-11.0); PLATELET COUNT 240 TH/MM3 (150-450); RED BLOOD COUNT 2.54 MIL/MM3 (4.50-5.90); RED CELL DISTRIBUTION WIDTH 18.6 % (11.6-17.2); WHITE BLOOD COUNT 9.5 TH/MM3 (4.0-11.0)
--- NOTE | 2017-08-09 09:58 | RADRPT ---
EXAM DATE/TIME: 08/09/2017 09:42 [facility] COMPARISON: CHEST SINGLE AP, July 23, 2017, 2:33. INDICATIONS : Short of breath. MEDICAL HISTORY : dialysis SURGICAL HISTORY : ENCOUNTER: Initial ACUITY: 1 day PAIN SCORE: 0/10 LOCATION: Bilateral chest FINDINGS: The heart is enlarged. Mild pulmonary vascular congestion is noted. A left internal jugular tunneled dialysis catheter has its tips in the right atrium. CONCLUSION: 1. Mild pulmonary vascular congestion. 2. Cardiomegaly. Pradip Yusuf MD on August 09, 2017 at 9:55 Board Certified Radiologist. This report was verified electronically.
[2017-08-09 10:35] LABS: ALBUMIN 3.7 GM/DL (3.4-5.0); ALKALINE PHOSPHATASE 192 U/L (45-117); ALT (GPT) 35 U/L (12-78); AST (GOT) 37 U/L (15-37); BICARBONATE 26.9 MEQ/L (21.0-32.0); BLOOD UREA NITROGEN 83 MG/DL (7-18); CALCIUM 9.1 MG/DL (8.5-10.1); CHLORIDE 100 MEQ/L (98-107); GLOMERULAR FILTRATION RATE 6 ML/MIN (>89); GLUCOSE,RANDOM 87 MG/DL (74-106); SODIUM (NA) 137 MEQ/L (136-145); TOTAL BILIRUBIN ADULT 0.5 MG/DL (0.2-1.0)
[2017-08-09 10:48] LABS: BANDS 1 % (0-6); BASOPHILS 2 % (0-2); LYMPHOCYTES 13 % (9-44); MONOCYTES 14 % (0-8); NEUTROPHIL # MANUAL DIFF 6.6 TH/MM3 (1.8-7.7); POLYS (SEG NEUTROPHILS) 68 % (16-70)
[2017-08-09 10:49] LABS: KERATOCYTES 1+ (NORMAL); OVALOCYTES 1+ (NORMAL)
[2017-08-09 10:50] LABS: ACANTHOCYTES OCC (NORMAL)
[2017-08-09] MEDS ORDERED: ACETAMINOPHEN 325 MG TAB PO PRN (12:45)
[2017-08-09] MEDS ORDERED: GELATIN 12 MM/7 MM FOAM TOP PRN (12:45)
[2017-08-09] MEDS ORDERED: HEPARIN SODIUM - IV 10,000 UNITS/10 ML VIAL IV FLUSH PRN (12:45)
[2017-08-09] MEDS ORDERED: SODIUM CHLORIDE 0.9% FLUSH 10 ML FLUSH IV FLUSH PRN (12:45)
[2017-08-09] MEDS ORDERED: SODIUM CHLOR 0.9% 1000 ML INJ 1,000 ML OTHER PRN ×2 (12:45)
[2017-08-09] MEDS ORDERED: GENTAMICIN SULFATE (DIALYSIS USE ONLY) 20 MG/2 ML VIAL OTHER PRN (12:45)
[2017-08-09] MEDS ORDERED: HEPARIN SODIUM - IV 10,000 UNITS/10 ML VIAL PRN (12:45)
[2017-08-09] MEDS ORDERED: EPOETIN ALFA 10,000 UNITS/ML VIAL IV PUSH PRN (12:45)
[2017-08-09] MEDS ORDERED: cloNIDine HCL 0.1 MG TAB PO PRN (12:45)
[2017-08-09] MEDS ORDERED: NITROGLYCERIN 0.4 MG SL 25 TABS/BTL SL PRN (12:45)
[2017-08-09] MEDS ORDERED: MANNITOL 12.5 GM/50 ML VIAL IV PRN (12:45)
[2017-08-09] MEDS ORDERED: ALBUMIN 25% INJ 100 ML IV PRN (12:45)
[2017-08-09] MEDS ORDERED: SODIUM CHLOR 0.9% 1000 ML INJ 1,000 ML IV PRN (12:45)
[2017-08-09] MEDS ORDERED: diphenhydrAMINE HCL 25 MG CAP PO PRN (12:45)
[2017-08-09] MEDS ORDERED: ONDANSETRON HCL 4 MG/2 ML VIAL IV PUSH PRN (12:45)
[2017-08-09] MEDS ORDERED: ALBU6.7H INH (17:44)
[2017-08-09] MEDS ORDERED: PRED50 PO (17:44)
--- NOTE | 2017-08-10 18:34 | EKG ---
Date Performed: 08/09/2017 Time Performed: 09:15:14 PTAGE: 72 years EKG: ATRIAL FIBRILLATION WITH RAPID VENTRICULAR RESPONSE MARKED LEFT AXIS DEVIATION PATTERN CONS ISTENT WITH PULMONARY DISEASE ABNORMAL ECG PREVIOUS TRACING : 07/24/2017 14.34 DOCTOR: Nancy Torre Interpretating Date/Time 08/10/2017 18:33:45
== END 2017-08-09 19:09 ==
LOC: NEPE 09:01 → NEDAMB 19:09
DX: R09.02 Hypoxemia (principal); J44.9 Chronic obstructive pulmonary disease, unspecified; I13.2 Hypertensive heart and chronic kidney disease with heart failure and with stage 5 chronic kidney disease, or end stage renal disease; N18.6 End stage renal disease; I50.9 Heart failure, unspecified; E87.5 Hyperkalemia; I48.91 Unspecified atrial fibrillation; R94.31 Abnormal electrocardiogram [ECG] [EKG]; Z99.2 Dependence on renal dialysis
CPT/HCPCS: 71045; 80053; 83880; 85007; 85027; 93005; 94640; 94664; 96374; 99285; G0257; J1580; J1644; J2930; 90935

== ENCOUNTER 2017-08-20 14:00 | Inpatient (IN) | payer MEDICARE, MEDICAID ==
[~2017-08-20] VITALS: Ht 177.8 cm; Wt 88.9 kg
[~2017-08-20 14:00] MED LIST changes: +ALBU6.7H INH; -IPRASOL NEB; -LOMO2.5T PO; -NORC5TAB PO; -ONDA8TAB7 PO; -PERI PO; +PRED50 PO; -TYLE325T PO; -ZOFR8TAB PO
[2017-08-20 14:12] VITALS: BP 114/68; PULSE 65; RESP 24; TEMP 98.4; O2SAT 95
--- NOTE | 2017-08-20 14:16 | PD ---
HPI Chief Complaint: Respiratory Symptoms Time Seen by Provider: 14:14 Travel History International Travel<30 days: No Contact w/Intl Traveler<30days: No Traveled to known affect area: No History of Present Illness HPI 72-year-old male with a history of congestive heart failure, COPD and end-stage renal disease on hemodialysis presents to emergency department via [facility] from his intermediate facility, [facility], who was concerned about 'low O2 saturation. States that he is normally on 3 L a minute of oxygen but the nursing facility says that for the last week he has had a persistent 89% oxygen on 3LPM. Patient denies chest pain. States he feels very anxious. EVAC states that patient was very calm during the transport and remained 96-97% on 3 LPM nasal cannula. [facility] states that patient was due to have hemodialysis Sunday but was unable to make this appointment. Says he has hemodialysis Tuesdays, , and Saturdays, for 8 years. States he does not produce urine. He has a PermCath in place. PFSH Past Medical History Anemia: Yes Arthritis: Yes (CRAMPS IN HAND AND NECK) Atrial Fibrillation: Yes Anxiety: Yes Depression: No Cancer: Yes (HX PROSTATE) Cardiovascular Problems: Yes Chemotherapy: Yes Congestive Heart Failure: Yes COPD: Yes Diabetes: No Dialysis: Yes (//SUN) Diminished Hearing: No Endocrine: No Gastrointestinal Disorders: Yes (APPENDICITIS) GERD: Yes Hypertension: Yes Immune Disorder: No Implanted Vascular Access Dvce: Yes Musculoskeletal: Yes Neurologic: No Psychiatric: No Reproductive: No Respiratory: Yes Migraines: No Renal Failure: Yes Sleep Apnea: Yes (NO CPAP MACHINE) Past Surgical History Arteriovenous Shunt: Yes (L UPPER ARM FISTULA-WORKING) Prostatectomy: Yes Other Surgery: Yes (AV FISTULA TO LEFT UPPER ARM WORKS) Social History Alcohol Use: No (HX ) Tobacco Use: No (QUIT 2 YEARS AGO) Substance Use: No Allergies-Medications (Allergen,Severity, Reaction): Coded Allergies: No Known Allergies (Unverified Allergy, Unknown, 07/23/17) Reported Meds & Prescriptions Reported Meds & Active Scripts Active Proventil Hfa 6.7 GM Inh (Albuterol Sulfate) 90 Mcg/Act Aer 2 Puff INH Q4-6H PRN Cozaar (Losartan Potassium) 25 Mg Tab 25 Mg PO DAILY Metoprolol Tartrate 25 Mg Tab 25 Mg PO BID 30 Days Trazodone (Trazodone HCl) 150 Mg Tablet 150 Mg PO HS Reported Zofran (Ondansetron HCl) 8 Mg Tab 8 Mg PO TID Sennosides 8.6 Mg Tab 8.6 Mg PO BID Saline Nasal [place] (Sodium Chloride) 0.65% [place] 1 [place] EACH NARE Q2HR PRN Lomotil (Diphenoxylate-Atropine) 2.5-0.025 Mg Tab 1 Tab PO Q6H PRN Imodium A-D (Loperamide HCl) 2 Mg Capsule 2 Mg PO Q6H PRN Guaifenesin DM Liq (Guaifenesin-Dextromethorphan Liq) 10-100 Mg/5 Ml Liq 5 Ml PO Q4H PRN Duoneb (Ipratropium-Albuterol Neb) 0.5-2.5 Mg/3 Ml Neb 3 Ml NEB Q4HR PRN Tylenol (Acetaminophen) 325 Mg Tab 650 Mg PO Q6H PRN Katy-Mya (B-Complex W/ C & Folic Acid) 1 Tab 1 Tab PO DAILY Levocetirizine 5 Mg Tab 5 Mg PO DAILY Hydroxyzine HCl 25 Mg Tab 25 Mg PO Q6HR Benadryl Allergy (Diphenhydramine HCl) 25 Mg Cap 1 Tab PO Q8HR PRN Antacid (Calcium Carbonate (Antacid)) 500 Mg Chew 500 Mg CHEW TIDAC Pro-Stat (Amino Acids-Protein Hydrolysat) 1 Liq Liq 30 Ml PO TID Aspirin 81 (Aspirin) 81 Mg Tabdr 81 Mg PO DAILY Diltiazem (Diltiazem HCl) 90 Mg Tab 90 Mg PO QID Renvela (Sevelamer Carbonate) 800 Mg Tab 800 Mg PO TID Isosorbide Mononitrate ER (Isosorbide Mononitrate) 30 Mg Nolan 30 Mg PO DAILY Review of Systems Except as stated in HPI: all other systems reviewed are Neg Physical Exam Narrative GENERAL: Well-nourished, anxious SKIN: Focused skin assessment warm/dry. HEAD: Atraumatic. Normocephalic. EYES: Pupils equal and round. No scleral icterus. No injection or drainage. ENT: No nasal bleeding or discharge. Mucous membranes pink and moist. NECK: Trachea midline. No JVD. CARDIOVASCULAR: Regular rate and rhythm. No murmur appreciated. Chest wall- left permacath in place RESPIRATORY: No accessory muscle use. 3-word dyspnea, resolved upon reassessment. GASTROINTESTINAL: Abdomen soft, non-tender, nondistended. MUSCULOSKELETAL: No obvious deformities. No clubbing. No cyanosis. No edema. NEUROLOGICAL: Awake and alert. No obvious cranial nerve deficits. Motor grossly within normal limits. Normal speech. PSYCHIATRIC: Appropriate mood and affect; insight and judgment normal. Data Data Last Documented VS Vital Signs Date Time Temp Pulse Resp B/P (MAP) Pulse Ox O2 Delivery O2 Flow Rate FiO2 08/20/17 14:19 Nasal Cannula 4.00 08/20/17 14:19 95 08/20/17 14:15 76 28 08/20/17 14:12 98.4 114/68 (83) Orders Orders Complete Blood Count With Diff (08/20/17 14:16) Comprehensive Metabolic Panel (08/20/17 14:16) B-Type Natriuretic Peptide (08/20/17 14:16) Act Partial Throm Time (Ptt) (08/20/17 14:16) Prothrombin Time / Inr (Pt) (08/20/17 14:16) Magnesium (Mg) (08/20/17 14:16) Ckmb (Isoenzyme) Profile (08/20/17 14:16) Troponin I (08/20/17 14:16) Blood Culture (08/20/17 14:16) Iv Access Insert/Monitor (08/20/17 14:16) Electrocardiogram (08/20/17 14:16) Ecg Monitoring (08/20/17 14:16) Oximetry (08/20/17 14:16) Oxygen Administration (08/20/17 14:16) Chest, Single Ap (08/20/17 14:16) Alprazolam (Xanax) (08/20/17 14:45) Albuterol-Ipratropium Neb (Duoneb Neb) (08/20/17 14:45) Lorazepam Inj (Ativan Inj) (08/20/17 15:45) CKMB (08/20/17 14:35) CKMB% (08/20/17 14:35) Lining Strap Closer / Telemetry KESHAWN.Q8H (08/20/17 15:45) Intake + Output KESHAWN.QSHIFT (08/20/17 15:45) Insulin Human Regular Inj (Novolin R Inj (08/20/17 15:45) Dextrose 50% In Marcel (Vial) Inj (D50w (Vi (08/20/17 15:45) Dextrose 5% In Wate... W/Sodium Bicarbon (08/20/17 17:45) Calcium Gluconate Inj (Calcium Gluconate (08/20/17 15:45) Consult Nephrology (08/20/17 ) Admit Order (Ed Use Only) (08/20/17 16:50) Labs Laboratory Tests Test 08/20/17 14:35 White Blood Count 12.0 TH/MM3 Red Blood Count 2.88 MIL/MM3 Hemoglobin 8.7 GM/DL Hematocrit 26.2 % Mean Corpuscular Volume 90.9 FL Mean Corpuscular Hemoglobin 30.3 PG Mean Corpuscular Hemoglobin Concent 33.3 % Red Cell Distribution Width 17.8 % Platelet Count 267 TH/MM3 Mean Platelet Volume 8.2 FL Neutrophils (%) (Auto) 73.3 % Lymphocytes (%) (Auto) 9.2 % Monocytes (%) (Auto) 7.1 % Eosinophils (%) (Auto) 9.3 % Basophils (%) (Auto) 1.1 % Neutrophils # (Auto) 8.8 TH/MM3 Lymphocytes # (Auto) 1.1 TH/MM3 Monocytes # (Auto) 0.9 TH/MM3 Eosinophils # (Auto) 1.1 TH/MM3 Basophils # (Auto) 0.1 TH/MM3 CBC Comment DIFF FINAL Differential Comment Prothrombin Time 11.1 SEC Prothromb Time International Ratio 1.1 RATIO Activated Partial Thromboplast Time 22.6 SEC Blood Urea Nitrogen 94 MG/DL Creatinine 11.73 MG/DL Random Glucose 119 MG/DL Total Protein 6.7 GM/DL Albumin 3.7 GM/DL Calcium Level 9.0 MG/DL Magnesium Level 2.3 MG/DL Alkaline Phosphatase 196 U/L Aspartate Amino Transf (AST/SGOT) 39 U/L Alanine Aminotransferase (ALT/SGPT) 36 U/L Total Bilirubin 0.4 MG/DL Sodium Level 133 MEQ/L Potassium Level 8.0 MEQ/L Chloride Level 95 MEQ/L Carbon Dioxide Level 25.8 MEQ/L Anion Gap 12 MEQ/L Estimat Glomerular Filtration Rate 5 ML/MIN Total Creatine Kinase 107 U/L Creatine Kinase MB 3.1 NG/ML Troponin I 0.21 NG/ML B-Type Natriuretic Peptide 1336 PG/ML MDM Medical Decision Making Medical Screen Exam Complete: Yes Emergency Medical Condition: Yes Differential Diagnosis Congestive heart failure, COPD exacerbation, pneumonia, dialysis status,anxiety Narrative Course 72-year-old male with a history of congestive heart failure, COPD and end-stage renal disease on hemodialysis presents to emergency department via [facility] from his intermediate facility, [facility], who was concerned about 'low O2 saturation. States that he is normally on 3 L a minute of oxygen but the nursing facility says that for the last week he has had a persistent 89% oxygen on 3LPM. Patient denies chest pain. States he feels very anxious. EVAC states that patient was very calm during the transport and remained 96-97% on 3 LPM nasal cannula. [facility]AC states that patient was due to have hemodialysis Sunday but was unable to make this appointment. Says he has hemodialysis Tuesdays, , and Saturdays, for 8 years. States he does not produce urine. He has a PermCath in place. Vital signs stable. 96% on 3LPM O2. Physical exam findings faint rhonchi lower lobes EKG similar to previous- A. fib with rate control, no ST elevations or depressions Alprazolam 0.5mg and duonebs x2 ordered in the ED. Additional 1mg Ativan administered for anxiety. Patient resting comfortably on reexamination. Please see Dr. Hernandez's note as well regarding this patient. Dr. Pereira was consulted for urgent dialysis for hyperkalemia. Pt will be admitted for hyperkalemia, COPD exacerbation, need for dialysis. Again, please see my attending's note as well regarding disposition and further information regarding this patient. Diagnosis Primary Impression: Hyperkalemia Additional Impressions: COPD exacerbation ESRD (end stage renal disease) on dialysis Admitting Information Admitting Physician Requests: Admit Scripts Hydrocodone-Acetaminophen ([place]) 5 Mg-325 Mg Tab 1 TAB PO Q6H Y for PAIN, #30 TAB 0 Refills Prov: Madhu Balbuena DO 08/21/17 Lorazepam (Ativan) 1 Mg Tab 1 MG PO TuThSa for Anxiety, #12 TAB 0 Refills Take 1 tablet (1mg) daily on Sunday, and Sunday prior to going to dialysis Prov: Madhu Balbuena DO 08/21/17 Alprazolam (Xanax) 0.5 Mg Tab 0.5 MG PO Q8H Y for ANXIETY, #90 TAB 0 Refills Prov: Madhu Balbuena DO 08/21/17 Condition: Stable Charlene Morales Aug 20, 2017 14:16
[2017-08-20] MEDS ORDERED: ALPRAZolam 0.5 MG TAB PO ONE (14:45)
--- NOTE | 2017-08-20 14:49 | RADRPT ---
EXAM DATE/TIME: 08/20/2017 14:34 [facility] COMPARISON: CHEST SINGLE AP, August 09, 2017, 9:42. EXTERNAL COMPARISON : INDICATIONS : Shortness of breath and patient on dialysis. MEDICAL HISTORY : Hypertension. Chronic obstructive pulmonary disease. ESRD on hemodialysis CHF AFIB prostate ca G ERD Anemia bone disorder SURGICAL HISTORY : Prostatectomy. AVF left arm dialysis catheter ENCOUNTER: Initial ACUITY: 3 days PAIN SCORE: 0/10 LOCATION: upper chest FINDINGS: Again noted is a left multilevel and dialysis catheter in place. There is cardiomegaly with mild prom inence of the pulmonary interstitial perivascular edema consistent with pulmonary vascular congestion . Cardiomegaly is appreciated. There are no consolidative infiltrates. CONCLUSION: Stable chest. Regularly with mild pulmonary vascular congestion. No consolidating infiltrates. Juan Miguel Bridges MD on August 20, 2017 at 14:45 Board Certified Radiologist. This report was verified electronically.
--- NOTE | 2017-08-20 15:03 | PD ---
Physical Exam Date Seen by Provider: Aug 20, 2017 Time Seen by Provider: 15:01 Narrative The patient is a 72-year-old [place] male was initially evaluated by the mid-level provider. Please refer to the initial history, physical, diagnostic evaluation, and treatment modality plan. Data Data Last Documented VS Vital Signs Date Time Temp Pulse Resp B/P (MAP) Pulse Ox O2 Delivery O2 Flow Rate FiO2 08/20/17 14:19 Nasal Cannula 4.00 08/20/17 14:19 95 08/20/17 14:15 76 28 08/20/17 14:12 98.4 114/68 (83) Orders Orders Complete Blood Count With Diff (08/20/17 14:16) Comprehensive Metabolic Panel (08/20/17 14:16) B-Type Natriuretic Peptide (08/20/17 14:16) Act Partial Throm Time (Ptt) (08/20/17 14:16) Prothrombin Time / Inr (Pt) (08/20/17 14:16) Magnesium (Mg) (08/20/17 14:16) Ckmb (Isoenzyme) Profile (08/20/17 14:16) Troponin I (08/20/17 14:16) Urinalysis - C+S If Indicated (08/20/17 14:16) Blood Culture (08/20/17 14:16) Iv Access Insert/Monitor (08/20/17 14:16) Electrocardiogram (08/20/17 14:16) Ecg Monitoring (08/20/17 14:16) Oximetry (08/20/17 14:16) Oxygen Administration (08/20/17 14:16) Chest, Single Ap (08/20/17 14:16) Alprazolam (Xanax) (08/20/17 14:45) Albuterol-Ipratropium Neb (Duoneb Neb) (08/20/17 14:45) Lorazepam Inj (Ativan Inj) (08/20/17 15:45) CKMB (08/20/17 14:35) CKMB% (08/20/17 14:35) Gear Lapping Machine Operator / Telemetry KESHAWN.Q8H (08/20/17 15:45) Intake + Output KESHAWN.QSHIFT (08/20/17 15:45) Insulin Human Regular Inj (Novolin R Inj (08/20/17 15:45) Dextrose 50% In Marcel (Vial) Inj (D50w (Vi (08/20/17 15:45) Dextrose 5% In Wate... W/Sodium Bicarbon (08/20/17 17:45) Calcium Gluconate Inj (Calcium Gluconate (08/20/17 15:45) Consult Nephrology (08/20/17 ) Admit Order (Ed Use Only) (08/20/17 16:50) Labs Laboratory Tests Test 08/20/17 14:35 White Blood Count 12.0 TH/MM3 Red Blood Count 2.88 MIL/MM3 Hemoglobin 8.7 GM/DL Hematocrit 26.2 % Mean Corpuscular Volume 90.9 FL Mean Corpuscular Hemoglobin 30.3 PG Mean Corpuscular Hemoglobin Concent 33.3 % Red Cell Distribution Width 17.8 % Platelet Count 267 TH/MM3 Mean Platelet Volume 8.2 FL Neutrophils (%) (Auto) 73.3 % Lymphocytes (%) (Auto) 9.2 % Monocytes (%) (Auto) 7.1 % Eosinophils (%) (Auto) 9.3 % Basophils (%) (Auto) 1.1 % Neutrophils # (Auto) 8.8 TH/MM3 Lymphocytes # (Auto) 1.1 TH/MM3 Monocytes # (Auto) 0.9 TH/MM3 Eosinophils # (Auto) 1.1 TH/MM3 Basophils # (Auto) 0.1 TH/MM3 CBC Comment DIFF FINAL Differential Comment Prothrombin Time 11.1 SEC Prothromb Time International Ratio 1.1 RATIO Activated Partial Thromboplast Time 22.6 SEC Blood Urea Nitrogen 94 MG/DL Creatinine 11.73 MG/DL Random Glucose 119 MG/DL Total Protein 6.7 GM/DL Albumin 3.7 GM/DL Calcium Level 9.0 MG/DL Magnesium Level 2.3 MG/DL Alkaline Phosphatase 196 U/L Aspartate Amino Transf (AST/SGOT) 39 U/L Alanine Aminotransferase (ALT/SGPT) 36 U/L Total Bilirubin 0.4 MG/DL Sodium Level 133 MEQ/L Potassium Level 8.0 MEQ/L Chloride Level 95 MEQ/L Carbon Dioxide Level 25.8 MEQ/L Anion Gap 12 MEQ/L Estimat Glomerular Filtration Rate 5 ML/MIN Total Creatine Kinase 107 U/L Creatine Kinase MB 3.1 NG/ML Troponin I 0.21 NG/ML B-Type Natriuretic Peptide 1336 PG/ML MDM Medical Record Reviewed: Yes Supervised Visit with RUPERT: Yes Interpretation(s) EKG reveals atrial fibrillation with a rate of 71. Intraventricular conduction delay. Laboratory Tests Test 08/20/17 14:35 White Blood Count 12.0 TH/MM3 Red Blood Count 2.88 MIL/MM3 Hemoglobin 8.7 GM/DL Hematocrit 26.2 % Mean Corpuscular Volume 90.9 FL Mean Corpuscular Hemoglobin 30.3 PG Mean Corpuscular Hemoglobin Concent 33.3 % Red Cell Distribution Width 17.8 % Platelet Count 267 TH/MM3 Mean Platelet Volume 8.2 FL Neutrophils (%) (Auto) 73.3 % Lymphocytes (%) (Auto) 9.2 % Monocytes (%) (Auto) 7.1 % Eosinophils (%) (Auto) 9.3 % Basophils (%) (Auto) 1.1 % Neutrophils # (Auto) 8.8 TH/MM3 Lymphocytes # (Auto) 1.1 TH/MM3 Monocytes # (Auto) 0.9 TH/MM3 Eosinophils # (Auto) 1.1 TH/MM3 Basophils # (Auto) 0.1 TH/MM3 CBC Comment DIFF FINAL Differential Comment Prothrombin Time 11.1 SEC Prothromb Time International Ratio 1.1 RATIO Activated Partial Thromboplast Time 22.6 SEC Blood Urea Nitrogen 94 MG/DL Creatinine 11.73 MG/DL Random Glucose 119 MG/DL Total Protein 6.7 GM/DL Albumin 3.7 GM/DL Calcium Level 9.0 MG/DL Magnesium Level 2.3 MG/DL Alkaline Phosphatase 196 U/L Aspartate Amino Transf (AST/SGOT) 39 U/L Alanine Aminotransferase (ALT/SGPT) 36 U/L Total Bilirubin 0.4 MG/DL Sodium Level 133 MEQ/L Potassium Level 8.0 MEQ/L Chloride Level 95 MEQ/L Carbon Dioxide Level 25.8 MEQ/L Anion Gap 12 MEQ/L Estimat Glomerular Filtration Rate 5 ML/MIN Total Creatine Kinase 107 U/L Creatine Kinase MB 3.1 NG/ML Troponin I 0.21 NG/ML B-Type Natriuretic Peptide 1336 PG/ML Last Impressions Chest X-Ray 08/20/17 1416 Signed Impressions: Service Date/Time: Sunday, August 20, 2017 14:34 - CONCLUSION: Stable chest. Regularly with mild pulmonary vascular congestion. No consolidating infiltrates. Juan Miguel Bridges MD Differential Diagnosis Last Impressions Chest X-Ray 08/20/17 1416 Signed Impressions: Service Date/Time: Sunday, August 20, 2017 14:34 - CONCLUSION: Stable chest. Regularly with mild pulmonary vascular congestion. No consolidating infiltrates. Juan Miguel Bridges MD Narrative Course I, Dr. Hernandez, have reviewed the advance practice practitioner's documentation and am in agreement, met with the patient face to face, made the diagnosis, and the medical decision making was done by me. *My assessment and Findings: The patient is a 72-year-old [place] male was initially evaluated by the mid-level provider. Please refer to the initial history, physical, diagnostic evaluation, and treatment modality plan. The patient does have a history of end-stage renal disease and is on hemodialysis for 8 years. The patient has not made urine and over 1 year's duration. The patient normally attends dialysis on Tuesdays, , Saturdays. The patient states he missed dialysis on Sunday secondary to transportation issues. The patient also has a history of COPD and is on oxygen regularly between 2-4 L, also notes a history of anxiety and takes benzodiazepines. The patient became anxious and short of breath earlier today. Physical examination reveals a slightly anxious gentleman who is slightly short of breath while talking. He does have a few scattered rhonchi in the base. He has a positive thrill to the left upper extremity AV fistula and has a permacath in place to the left superior chest wall. Chest x-ray was obtained, reveals chronic pulmonary vascular congestion, no acute findings. The patient's potassium was elevated 8.0, no evidence of hemolysis, most likely secondary to end-stage renal disease on hemodialysis admit seen his last dialysis appointment. Therefore, call was placed to Dr. Singh, who was last laborer sawmill to see the patient in the emergency department/hospital. Patient will be admitted and will go to dialysis, after dialysis she will be stable for medical floor. The on-call medical service was paged for admission. The patient did receive insulin, D50, and bicarbonate for his hyperkalemia. No IV fluids were administered as patient longer takes urine and is already slightly volume overloaded. Physician Communication Physician Communication I discussed the patient Dr. Singh who agrees with dialysis. A call was placed to the on-call medical service for admission. I discussed the patient with Dr. Kahn who agrees with admission. Diagnosis Primary Impression: Hyperkalemia, diminished renal excretion Additional Impression: ESRD (end stage renal disease) on dialysis Admitting Information Admitting Physician Requests: Admit Condition: Stable Socrates Hernandez MD Aug 20, 2017 15:03
[2017-08-20 15:04] LABS: AUTOMATED NEUTROPHIL # 8.8 TH/MM3 (1.8-7.7); BASOPHIL # 0.1 TH/MM3 (0-0.2); BASOPHIL % 1.1 % (0.0-2.0); EOSINOPHIL # 1.1 TH/MM3 (0-0.4); EOSINOPHIL % 9.3 % (0.0-4.0); HEMATOCRIT 26.2 % (39.0-51.0); HEMOGLOBIN 8.7 GM/DL (13.0-17.0); LYMPH % 9.2 % (9.0-44.0); LYMPHOCYTE # 1.1 TH/MM3 (1.0-4.8); MEAN CELL VOLUME 90.9 FL (80.0-100.0); MEAN CORPUSCULAR HEMOGLOBIN 30.3 PG (27.0-34.0); MEAN CORPUSCULAR HGB CONC 33.3 % (32.0-36.0); MEAN PLATELET VOLUME 8.2 FL (7.0-11.0); MONO % 7.1 % (0.0-8.0); MONOCYTE # 0.9 TH/MM3 (0-0.9); NEUT % 73.3 % (16.0-70.0); PLATELET COUNT 267 TH/MM3 (150-450); RED BLOOD COUNT 2.88 MIL/MM3 (4.50-5.90); RED CELL DISTRIBUTION WIDTH 17.8 % (11.6-17.2)
[2017-08-20 15:22] LABS: INTERNATIONAL NORMALIZED RATIO 1.1 RATIO; PROTHROMBIN TIME - PATIENT 11.1 SEC (9.8-11.6)
[2017-08-20 15:35] LABS: ALBUMIN 3.7 GM/DL (3.4-5.0); ALKALINE PHOSPHATASE 196 U/L (45-117); ALT (GPT) 36 U/L (12-78); AST (GOT) 39 U/L (15-37); BICARBONATE 25.8 MEQ/L (21.0-32.0); BLOOD UREA NITROGEN 94 MG/DL (7-18); CHLORIDE 95 MEQ/L (98-107); GLOMERULAR FILTRATION RATE 5 ML/MIN (>89); GLUCOSE,RANDOM 119 MG/DL (74-106); MAGNESIUM 2.3 MG/DL (1.5-2.5); SODIUM (NA) 133 MEQ/L (136-145); TOTAL BILIRUBIN ADULT 0.4 MG/DL (0.2-1.0); TOTAL PROTEIN 6.7 GM/DL (6.4-8.2); TROPONIN I 0.21 NG/ML (0.02-0.05)
[2017-08-20] MEDS: RESP: ALBUTEROL 2.5 MG/IPRATROPIUM 0.5 MG NEB (SCH) INH (15:39)
[2017-08-20 15:44] LABS: CREATININE 11.73 MG/DL (0.60-1.30)
[2017-08-20] MEDS ORDERED: INSULIN HUMAN REGULAR 1,000 UNITS/10 ML VIAL IV PUSH ONE (15:45)
[2017-08-20] MEDS ORDERED: CALCIUM GLUCONATE 10% 1 GM/10 ML VIAL IV PUSH ONE (15:45)
[2017-08-20] MEDS ORDERED: LORazepam 2 MG/ML VIAL IV PUSH ONE (15:45)
[2017-08-20] MEDS ORDERED: DEXTROSE 50% IN WATER 50 ML VIAL(D50) IV PUSH ONE (15:45)
[2017-08-20] MEDS ORDERED: GUAISYP7 PO (16:30)
[2017-08-20] MEDS ORDERED: SENN8.6T81 PO (16:30)
[2017-08-20] MEDS ORDERED: LORA-474 PO (16:30)
[2017-08-20] MEDS ORDERED: LOPE-1 PO (16:30)
[2017-08-20] MEDS ORDERED: TYLE325T PO (16:30)
[2017-08-20] MEDS ORDERED: ALPR.5 PO (16:30)
[2017-08-20] MEDS ORDERED: RENATAB5 PO (16:30)
[2017-08-20] MEDS ORDERED: IPRASOL NEB (16:30)
[2017-08-20] MEDS ORDERED: ZOFR8TAB PO (16:30)
[2017-08-20] MEDS ORDERED: SALI0.653 EACH NARE (16:30)
[2017-08-20] MEDS ORDERED: LOMO2.5T PO (16:30)
[2017-08-20] MEDS ORDERED: NORC5TAB PO (16:30)
--- NOTE | 2017-08-20 17:14 | HHI.HP ---
HPI Service [facility] Primary Care Physician Unknown Admission Diagnosis hyperkalemia, dyspnea, elevated troponin, ESRD on HD Diagnoses: (1) Acute on chronic systolic CHF (congestive heart failure) (2) ESRD (end stage renal disease) on dialysis (3) Hyperkalemia, diminished renal excretion (4) Non-compliance (5) A-fib Chief Complaint: SOB and respiratory failure with hypoxia Travel History International Travel<30 Days: No Contact w/Intl Traveler <30 Da: No Traveled to Known Affected Are: No History of Present Illness 72-year-old male with PMH of HTN, A. fib on ASA, Anxiety, CHF (Echo 09/17/15 w/ EF 40-45%), ESRD on HD T/Th/Sat, COPD and Non-Compliance who presented to the ER from a local SNF via [facility] w/ complaints of respiratory failure and SOB. On arrival pt noted to have O2 sat 95% on 4L, BP 114/68, HR 65, Afebrile. WBC 12.0. K+ 8.0, s/p Insulin/D50/Ca/Kayexalate. Creatinine 11.73. CXR with mild pulmonary vascular congestion. No pulmonary infiltrates. Patient was taken to dialysis center where he was seen. Review of Systems Except as stated in HPI: all other systems reviewed are Neg Past Family Social History Past Medical History HTN, A. fib on ASA, Anxiety, CHF (Echo 09/17/15 w/ EF 40-45%), ESRD on HD T/Th/ Sat, COPD, chronic respiratory failure, Non-Compliance Past Surgical History LUE AV Fistula, Prostatectomy Reported Medications Proventil Hfa 6.7 GM Inh (Albuterol Sulfate) 90 Mcg/Act Aer 2 Puff INH Q4-6H PRN Cozaar (Losartan Potassium) 25 Mg Tab 25 Mg PO DAILY Metoprolol Tartrate 25 Mg Tab 25 Mg PO BID 30 Days Trazodone (Trazodone HCl) 150 Mg Tablet 150 Mg PO HS Reported Zofran (Ondansetron HCl) 8 Mg Tab 8 Mg PO TID Sennosides 8.6 Mg Tab 8.6 Mg PO BID Saline Nasal [place] (Sodium Chloride) 0.65% [place] 1 [place] EACH NARE Q2HR PRN Lomotil (Diphenoxylate-Atropine) 2.5-0.025 Mg Tab 1 Tab PO Q6H PRN Imodium A-D (Loperamide HCl) 2 Mg Capsule 2 Mg PO Q6H PRN [place] (Hydrocodone-Acetaminophen) 5 Mg-325 Mg Tab 1 Tab PO Q6H PRN Guaifenesin DM Liq (Guaifenesin-Dextromethorphan Liq) 10-100 Mg/5 Ml Liq 5 Ml PO Q4H PRN Duoneb (Ipratropium-Albuterol Neb) 0.5-2.5 Mg/3 Ml Neb 3 Ml NEB Q4HR PRN Ativan (Lorazepam) 1 Mg Tab 1 Mg PO TUTHSA Take 1 tablet (1mg) daily on Sunday, and Sunday prior to going to dialysis Xanax (Alprazolam) 0.5 Mg Tab 0.5 Mg PO Q8H PRN Tylenol (Acetaminophen) 325 Mg Tab 650 Mg PO Q6H PRN [place]-Mya (B-Complex W/ C & Folic Acid) 1 Tab 1 Tab PO DAILY Levocetirizine 5 Mg Tab 5 Mg PO DAILY Hydroxyzine HCl 25 Mg Tab 25 Mg PO Q6HR Benadryl Allergy (Diphenhydramine HCl) 25 Mg Cap 1 Tab PO Q8HR PRN Antacid (Calcium Carbonate (Antacid)) 500 Mg Chew 500 Mg CHEW TIDAC Pro-Stat (Amino Acids-Protein Hydrolysat) 1 Liq Liq 30 Ml PO TID Aspirin 81 (Aspirin) 81 Mg Tabdr 81 Mg PO DAILY Diltiazem (Diltiazem HCl) 90 Mg Tab 90 Mg PO QID Renvela (Sevelamer Carbonate) 800 Mg Tab 800 Mg PO TID Isosorbide Mononitrate ER (Isosorbide Mononitrate) 30 Mg Nolan 30 Mg PO DAILY Allergies: Coded Allergies: No Known Allergies (Unverified Allergy, Unknown, 07/23/17) Family History No h/o DM or CAD Social History Alcohol Use: No (HX ) Tobacco Use: No (QUIT 2 YEARS AGO) Substance Use: No Physical Exam Vital Signs Vital Signs Date Time Temp Pulse Resp B/P (MAP) Pulse Ox O2 Delivery O2 Flow Rate FiO2 08/20/17 14:19 Nasal Cannula 4.00 18 14:19 95 4.00 18 14:15 76 28 95 Nasal Cannula 4.00 08/20/17 14:12 98.4 65 24 114/68 (83) 95 Physical Exam GENERAL: This is a well-nourished, well-developed patient, in no apparent distress. SKIN: No rashes, ecchymoses or lesions. Cool and dry. HEAD: Atraumatic. Normocephalic. No temporal or scalp tenderness. EYES: Pupils equal round and reactive. Extraocular motions intact. No scleral icterus. No injection or drainage. ENT: Nose without bleeding, purulent drainage or septal hematoma. Throat without erythema, tonsillar hypertrophy or exudate. Uvula midline. Airway patent. NECK: Trachea midline. No JVD or lymphadenopathy. Supple, nontender, no meningeal signs. CARDIOVASCULAR: Regular rate and rhythm without murmurs, gallops, or rubs. RESPIRATORY: Clear to auscultation. Breath sounds equal bilaterally. No wheezes , rales, or rhonchi. GASTROINTESTINAL: Abdomen soft, non-tender, nondistended. No hepato-splenomegaly , or palpable masses. No guarding. MUSCULOSKELETAL: Extremities without clubbing, cyanosis, or edema. No joint tenderness, effusion, or edema noted. No calf tenderness. Negative Homans sign bilaterally. NEUROLOGICAL: Awake and alert. Cranial nerves II through XII intact. Motor and sensory grossly within normal limits. Five out of 5 muscle strength in all muscle groups. Normal speech. Laboratory Laboratory Tests Test 08/20/17 14:35 White Blood Count 12.0 Red Blood Count 2.88 Hemoglobin 8.7 Hematocrit 26.2 Mean Corpuscular Volume 90.9 Mean Corpuscular Hemoglobin 30.3 Mean Corpuscular Hemoglobin Concent 33.3 Red Cell Distribution Width 17.8 Platelet Count 267 Mean Platelet Volume 8.2 Neutrophils (%) (Auto) 73.3 Lymphocytes (%) (Auto) 9.2 Monocytes (%) (Auto) 7.1 Eosinophils (%) (Auto) 9.3 Basophils (%) (Auto) 1.1 Neutrophils # (Auto) 8.8 Lymphocytes # (Auto) 1.1 Monocytes # (Auto) 0.9 Eosinophils # (Auto) 1.1 Basophils # (Auto) 0.1 CBC Comment DIFF FINAL Differential Comment Prothrombin Time 11.1 Prothromb Time International Ratio 1.1 Activated Partial Thromboplast Time 22.6 Blood Urea Nitrogen 94 Creatinine 11.73 Random Glucose 119 Total Protein 6.7 Albumin 3.7 Calcium Level 9.0 Magnesium Level 2.3 Alkaline Phosphatase 196 Aspartate Amino Transf (AST/SGOT) 39 Alanine Aminotransferase (ALT/SGPT) 36 Total Bilirubin 0.4 Sodium Level 133 Potassium Level 8.0 Chloride Level 95 Carbon Dioxide Level 25.8 Anion Gap 12 Estimat Glomerular Filtration Rate 5 Total Creatine Kinase 107 Creatine Kinase MB 3.1 Troponin I 0.21 B-Type Natriuretic Peptide 1336 Date/Time Source Procedure Growth Status 08/20/17 14:45 Blood Peripheral Aerobic Blood Culture Pending Received 08/20/17 14:45 Blood Peripheral Anaerobic Blood Culture Pending Received Result Diagram: 08/20/17 1435 08/20/17 1435 Imaging Last Impressions Chest X-Ray 08/20/17 1416 Signed Impressions: Service Date/Time: Sunday, August 20, 2017 14:34 - CONCLUSION: Stable chest. Regularly with mild pulmonary vascular congestion. No consolidating infiltrates. Juan Miguel Bridges MD Septic Shock Reassessment Septic shock perfusion: reassessment completed Caprini VTE Risk Assessment Caprini VTE Risk Assessment: Mod/High Risk (score >= 2) Caprini Risk Assessment Model Point Value = 1 Point Value = 2 Point Value = 3 Point Value = 5 Age 41-60 Minor surgery BMI > 25 kg/m2 Swollen legs Varicose veins or History of unexplained or recurrent spontaneous Oral contraceptives or hormone replacement Sepsis (< 1 month) Serious lung disease, including pneumonia (< 1 month) Abnormal pulmonary function Acute myocardial infarction Congestive heart failure (< 1 month) History of inflammatory bowel disease Medical patient at bed rest Age 61-74 Arthroscopic surgery Major open surgery (> 45 min) Laparoscopic surgery (> 45 min) Malignancy Confined to bed (> 72 hours) Immobilizing plaster cast Central venous access Age >= 75 History of VTE Family history of VTE Factor V Leiden Prothrombin 83308H Lupus anticoagulant Anticardiolipin antibodies Elevated serum homocysteine Heparin-induced thrombocytopenia Other congenital or acquired thrombophilia Stroke (< 1 month) Elective arthroplasty Hip, pelvis, or leg fracture Acute spinal cord injury (< 1 month) Prophylaxis Regimen Total Risk Factor Score Risk Level Prophylaxis Regimen 0-1 Low Early ambulation 2 Moderate Order ONE of the following: *Sequential Compression Device (SCD) *Heparin 5000 units SQ BID 3-4 Higher Order ONE of the following medications: *Heparin 5000 units SQ TID *Enoxaparin/Lovenox 40 mg SQ daily (WT < 150 kg, CrCl > 30 mL/min) *Enoxaparin/Lovenox 30 mg SQ daily (WT < 150 kg, CrCl > 10-29 mL/min) *Enoxaparin/Lovenox 30 mg SQ BID (WT < 150 kg, CrCl > 30 mL/min) AND/OR *Sequential Compression Device (SCD) 5 or more Highest Order ONE of the following medications: *Heparin 5000 units SQ TID (Preferred with Epidurals) *Enoxaparin/Lovenox 40 mg SQ daily (WT < 150 kg, CrCl > 30 mL/min) *Enoxaparin/Lovenox 30 mg SQ daily (WT < 150 kg, CrCl > 10-29 mL/min) *Enoxaparin/Lovenox 30 mg SQ BID (WT < 150 kg, CrCl > 30 mL/min) AND *Sequential Compression Device (SCD) Assessment and Plan Problem List: (1) Hyperkalemia ICD Code: E87.5 - Hyperkalemia (2) Hyperkalemia, diminished renal excretion ICD Code: E87.5 - Hyperkalemia Status: Acute (3) ESRD (end stage renal disease) on dialysis ICD Code: N18.6 - End stage renal disease; Z99.2 - Dependence on renal dialysis Status: Chronic (4) Non-compliance ICD Code: Z91.19 - Patient's noncompliance with other medical treatment and regimen Status: Chronic (5) Acute on chronic systolic CHF (congestive heart failure) ICD Code: I50.23 - Acute on chronic systolic (congestive) heart failure (6) A-fib ICD Code: I48.91 - Unspecified atrial fibrillation Assessment and Plan 72 yrs old with 1. CHF: Acute on Chronic. Systolic. Echo 09/17/15 w/ EF 40-45%. Resume home medications. HD for fluid overload.Cardiology consult PRN 2. Hypoxia: Multifactorial-secondary to CHF, COPD, and Non-compliance w/ HD. O2 sat 95% on 4L. HD for fluid overload as above. Monitor O2. 3. ESRD on HD: T//Sat. Follows w/ Dr. Singh. Notoriously non-compliant w / dialysis. having HD today 4. Hyperkalemia: K+ 8.0. S/p Insulin/D50/Ca/Kayexalate in ER. For HD today. Recheck labs following dialysis. 5. COPD: Chronic Respiratory Failure Continue DuoNeb PRN 6. Hyperkalemia: K+ 8.0. S/p Insulin/D50/Ca/Kayexalate in ER. For HD today. Recheck labs following dialysis. 7. A-fib: Chronic. Resume home medications. On ASA. 8. Non-Compliance: As above, pt known to be non-compliant w/ meds, treatment and dialysis 9. DVT Prophylaxis: Heparin sq Code Status Full code Discussed Condition With patient, ED physician Physician Certification 2 Midnight Certification Type: Admission for Inpatient Services Order for Inpatient Services The services are ordered in accordance with Medicare regulations or non- Medicare payer requirements, as applicable. In the case of services not specified as inpatient-only, they are appropriately provided as inpatient services in accordance with the 2-midnight benchmark. Estimated LOS (days): 2 days is the estimated time the patient will need to remain in the hospital, assuming treatment plan goals are met and no additional complications. Post-Hospital Plan: Not yet determined Lam Kahn MD Aug 20, 2017 17:14
[2017-08-20] MEDS ORDERED: RESP: ALBUTEROL 2.5 MG/IPRATROPIUM 0.5 MG NEB (PRN) NEB (17:15)
[2017-08-20] MEDS ORDERED: SODIUM CHLORIDE 0.9% FLUSH 10 ML FLUSH IV FLUSH PRN (17:15)
[2017-08-20] MEDS ORDERED: ACETAMINOPHEN 325 MG TAB PO PRN ×2 (17:15)
[2017-08-20] MEDS ORDERED: NALOXONE HCL 0.4 MG/ML AMP IV PUSH PRN (17:15)
[2017-08-20] MEDS ORDERED: MAGNESIUM HYDROXIDE SUSP 30 ML CUP PO PRN (17:15)
[2017-08-20] MEDS ORDERED: ONDANSETRON HCL 4 MG/2 ML VIAL IVP PRN (17:15)
[2017-08-20] MEDS ORDERED: ALPRAZolam 0.5 MG TAB PO PRN (17:15)
[2017-08-20] MEDS ORDERED: SODIUM BICARBONATE 8.4% INJ 150 MEQ in DEXTROSE 5% IN WATE 1000ML INJ 1,000 ML IV ONE ×2 (17:45)
[2017-08-20 20:00] VITALS: PULSE 106
[2017-08-20 20:55] VITALS: BP 104/59; PULSE 105; RESP 19; TEMP 98.2; O2SAT 94
[2017-08-20] MEDS ORDERED: traZODone HCL 50 MG TAB PO SCH (21:00)
[2017-08-20] MEDS: SEVELAMER CARBONATE 800 MG TAB PO SCH (22:51)
[2017-08-20] MEDS: METOPROLOL TARTRATE 25 MG TAB PO SCH (22:51)
[2017-08-20] MEDS: SODIUM CHLORIDE 0.9% FLUSH 10 ML FLUSH IV FLUSH SCH (22:52)
[2017-08-20] MEDS: DILTIAZEM HCL 90 MG TAB PO SCH (22:52)
[2017-08-21] VITALS (8 sets, daily range): BP systolic 93–113; BP diastolic 54–63; PULSE 81–113; RESP 18–21; TEMP 97.4–98.3; O2SAT 92–95
[2017-08-21] MEDS ORDERED: methylPREDNISolone SOD SUCC 125 MG/2 ML VIAL IV PUSH ONE (02:15)
[2017-08-21 04:48] LABS: BICARBONATE 32.5 MEQ/L (21.0-32.0); CALCIUM 8.8 MG/DL (8.5-10.1); CREATININE 7.97 MG/DL (0.60-1.30)
[2017-08-21] MEDS: SODIUM POLYSTYRENE SULFONATE SUSP 15 GM/60 ML CUP PO ONE ×2 (05:30→06:18)
[2017-08-21] MEDS ORDERED: DEXTROSE 50% IN WATER 50 ML VIAL(D50) IV PUSH ONE (05:30)
[2017-08-21] MEDS ORDERED: CALCIUM GLUCONATE 10% 1 GM/10 ML VIAL IV PUSH ONE (05:30)
[2017-08-21] MEDS ORDERED: INSULIN HUMAN REGULAR 1,000 UNITS/10 ML VIAL IV PUSH ONE (05:30)
[2017-08-21] MEDS ORDERED: cloNIDine HCL 0.1 MG TAB PO PRN (09:00)
[2017-08-21] MEDS ORDERED: ACETAMINOPHEN 325 MG TAB PO PRN (09:00)
[2017-08-21] MEDS ORDERED: MANNITOL 12.5 GM/50 ML VIAL IV PUSH PRN (09:00)
[2017-08-21] MEDS ORDERED: SODIUM CHLOR 0.9% 1000 ML OTHER PRN ×2 (09:00)
[2017-08-21] MEDS ORDERED: NITROGLYCERIN 0.4 MG SL 25 TABS/BTL SL PRN (09:00)
[2017-08-21] MEDS ORDERED: SODIUM CHLORIDE 0.9% FLUSH 10 ML FLUSH IV FLUSH PRN (09:00)
[2017-08-21] MEDS ORDERED: ONDANSETRON HCL 4 MG/2 ML VIAL IV PUSH PRN (09:00)
[2017-08-21] MEDS ORDERED: GELATIN 12 MM/7 MM FOAM TOPICAL PRN (09:00)
[2017-08-21] MEDS: SEVELAMER CARBONATE 800 MG TAB PO SCH ×3 (09:00→17:24)
[2017-08-21] MEDS ORDERED: ASPIRIN EC 81 MG TABEC PO SCH (09:00)
[2017-08-21] MEDS: DILTIAZEM HCL 90 MG TAB PO SCH ×3 (09:00→17:25)
[2017-08-21] MEDS ORDERED: GENTAMICIN SULFATE (DIALYSIS USE ONLY) 20 MG/2 ML VIAL OTHER PRN (09:00)
[2017-08-21] MEDS ORDERED: HEPARIN SODIUM - IV 10,000 UNITS/10 ML VIAL OTHER PRN (09:00)
[2017-08-21] MEDS ORDERED: ALBUMIN 25% 25 GM/100 ML BAG IV PRN (09:00)
[2017-08-21] MEDS ORDERED: diphenhydrAMINE HCL 25 MG CAP PO PRN ×2 (09:00→09:30)
[2017-08-21] MEDS ORDERED: NS 250 ML IV PRN (09:00)
[2017-08-21] MEDS ORDERED: LOSARTAN 25 MG TAB PO SCH (09:00)
[2017-08-21] MEDS ORDERED: ISOSORBIDE MONONITRATE 30 MG TAB PO SCH (09:00)
[2017-08-21] MEDS ORDERED: HEPARIN SODIUM - IV 10,000 UNITS/10 ML VIAL IV FLUSH PRN (09:00)
[2017-08-21] MEDS ORDERED: EPOETIN ALFA 10,000 UNITS/ML VIAL IV PUSH PRN (09:15)
[2017-08-21] MEDS ORDERED: ALBUTEROL SULFATE 90 MCG/ACT HFA 8 GM INHALER INH PRN (09:30)
[2017-08-21] MEDS ORDERED: SODIUM CHLORIDE 0.65% NASAL SPRAY 45 ML BTL EACH NARE PRN (09:30)
[2017-08-21] MEDS ORDERED: guaiFENesin/DEXTROMETHORPHAN 200 MG/20 MG/10 ML CUP PO PRN (09:30)
--- NOTE | 2017-08-21 09:35 | PD.CONS ---
HPI Service Nephrology Consult Requested By Reason for Consult ESRD, Hyperkalemia Primary Care Physician Unknown History of Present Illness This is a 72 y/o AAM patient with ESRD. He dialyzes TTS, is currently enrolled in the transitional HD program, had full HD on Sunday. He was admitted from local SNF for shortness of breath. On arrival he was severely hyperkalemic, K of 8. He was dialyzed yesterday on a 1K bath, 5L fluid removal. This morning his potassium is 6.1. He is again seen during dialysis. PMH listed below includes A fib, CHF, anemia, metabolic bone disorder, HTN, and historically non compliant with diet and treatment. We were consulted to assist with management. He is a full code. (Angela Ortega) Review of Systems Constitutional: COMPLAINS OF: Fatigue (Angela Ortega) Past Family Social History Allergies: Coded Allergies: No Known Allergies (Unverified Allergy, Unknown, 07/23/17) Past Medical History ESRD on HD TTS Hyperkalemia COPD atrial fibrillation prostate cancer hypertension anemia metabolic bone disorder Psychiatric disorder and noncompliance Past Surgical History Permacath AVF left arm prostate surgery Reported Medications Proventil Hfa 6.7 GM Inh (Albuterol Sulfate) 90 Mcg/Act Aer 2 Puff INH Q4-6H PRN Cozaar (Losartan Potassium) 25 Mg Tab 25 Mg PO DAILY Metoprolol Tartrate 25 Mg Tab 25 Mg PO BID 30 Days Trazodone (Trazodone HCl) 150 Mg Tablet 150 Mg PO HS Reported Zofran (Ondansetron HCl) 8 Mg Tab 8 Mg PO TID Sennosides 8.6 Mg Tab 8.6 Mg PO BID Saline Nasal [place] (Sodium Chloride) 0.65% [place] 1 [place] EACH NARE Q2HR PRN Lomotil (Diphenoxylate-Atropine) 2.5-0.025 Mg Tab 1 Tab PO Q6H PRN Imodium A-D (Loperamide HCl) 2 Mg Capsule 2 Mg PO Q6H PRN [place] (Hydrocodone-Acetaminophen) 5 Mg-325 Mg Tab 1 Tab PO Q6H PRN Guaifenesin DM Liq (Guaifenesin-Dextromethorphan Liq) 10-100 Mg/5 Ml Liq 5 Ml PO Q4H PRN Duoneb (Ipratropium-Albuterol Neb) 0.5-2.5 Mg/3 Ml Neb 3 Ml NEB Q4HR PRN Ativan (Lorazepam) 1 Mg Tab 1 Mg PO TUTHSA Take 1 tablet (1mg) daily on Sunday, and Sunday prior to going to dialysis Xanax (Alprazolam) 0.5 Mg Tab 0.5 Mg PO Q8H PRN Tylenol (Acetaminophen) 325 Mg Tab 650 Mg PO Q6H PRN [place]-Mya (B-Complex W/ C & Folic Acid) 1 Tab 1 Tab PO DAILY Levocetirizine 5 Mg Tab 5 Mg PO DAILY Hydroxyzine HCl 25 Mg Tab 25 Mg PO Q6HR Benadryl Allergy (Diphenhydramine HCl) 25 Mg Cap 1 Tab PO Q8HR PRN Antacid (Calcium Carbonate (Antacid)) 500 Mg Chew 500 Mg CHEW TIDAC Pro-Stat (Amino Acids-Protein Hydrolysat) 1 Liq Liq 30 Ml PO TID Aspirin 81 (Aspirin) 81 Mg Tabdr 81 Mg PO DAILY Diltiazem (Diltiazem HCl) 90 Mg Tab 90 Mg PO QID Renvela (Sevelamer Carbonate) 800 Mg Tab 800 Mg PO TID Isosorbide Mononitrate ER (Isosorbide Mononitrate) 30 Mg Nolan 30 Mg PO DAILY Active Ordered Medications Last 72 hours Impressions Chest X-Ray 08/20/17 1416 Signed Impressions: Service Date/Time: Sunday, August 20, 2017 14:34 - CONCLUSION: Stable chest. Regularly with mild pulmonary vascular congestion. No consolidating infiltrates. Juan Miguel Bridges MD Family History Non contributory Social History Resides at local [facility] Former smoker Unemployed Full code (Angela Ortega) Physical Exam Vital Signs Vital Signs Date Time Temp Pulse Resp B/P (MAP) Pulse Ox O2 Delivery O2 Flow Rate FiO2 08/21/17 04:10 97.4 88 18 106/58 (74) 94 08/21/17 04:00 81 08/21/17 00:10 97.8 113 19 113/63 (80) 92 08/21/17 00:05 92 Nasal Cannula 4.00 08/21/17 00:00 111 08/21/17 00:00 Nasal Cannula 4.00 08/20/17 22:00 Nasal Cannula 3.00 08/20/17 22:00 Nasal Cannula 08/20/17 20:55 98.2 105 19 104/59 (74) 94 08/20/17 20:00 106 08/20/17 14:19 Nasal Cannula 4.00 08/20/17 14:19 95 4.00 08/20/17 14:15 76 28 95 Nasal Cannula 4.00 08/20/17 14:12 98.4 65 24 114/68 (83) 95 Physical Exam GENERAL: Well-nourished, well-developed patient. Seen during dialysis. SKIN: Warm and dry. HEAD: Normocephalic. EYES: No scleral icterus. No injection or drainage. NECK: Supple, trachea midline. No JVD or lymphadenopathy. CARDIOVASCULAR: Irregularly irregular. Permcath right chest. RESPIRATORY: Crepitation at the bases GASTROINTESTINAL: Abdomen soft, non-tender, nondistended. EXTREMITIES: No cyanosis,no edema. LUE AVG, + thrill/bruit. NEUROLOGICAL: Awake, alert, and oriented x 3. Non-focal. Laboratory Laboratory Tests Test 08/20/17 14:35 08/21/17 03:36 White Blood Count 12.0 Red Blood Count 2.88 Hemoglobin 8.7 Hematocrit 26.2 Mean Corpuscular Volume 90.9 Mean Corpuscular Hemoglobin 30.3 Mean Corpuscular Hemoglobin Concent 33.3 Red Cell Distribution Width 17.8 Platelet Count 267 Mean Platelet Volume 8.2 Neutrophils (%) (Auto) 73.3 Lymphocytes (%) (Auto) 9.2 Monocytes (%) (Auto) 7.1 Eosinophils (%) (Auto) 9.3 Basophils (%) (Auto) 1.1 Neutrophils # (Auto) 8.8 Lymphocytes # (Auto) 1.1 Monocytes # (Auto) 0.9 Eosinophils # (Auto) 1.1 Basophils # (Auto) 0.1 CBC Comment DIFF FINAL Differential Comment Prothrombin Time 11.1 Prothromb Time International Ratio 1.1 Activated Partial Thromboplast Time 22.6 Blood Urea Nitrogen 94 60 Creatinine 11.73 7.97 Random Glucose 119 100 Total Protein 6.7 Albumin 3.7 Calcium Level 9.0 8.8 Magnesium Level 2.3 Alkaline Phosphatase 196 Aspartate Amino Transf (AST/SGOT) 39 Alanine Aminotransferase (ALT/SGPT) 36 Total Bilirubin 0.4 Sodium Level 133 137 Potassium Level 8.0 6.1 Chloride Level 95 98 Carbon Dioxide Level 25.8 32.5 Anion Gap 12 7 Estimat Glomerular Filtration Rate 5 8 Total Creatine Kinase 107 Creatine Kinase MB 3.1 Troponin I 0.21 B-Type Natriuretic Peptide 1336 Date/Time Source Procedure Growth Status 08/20/17 14:45 Blood Peripheral Aerobic Blood Culture Pending Received 08/20/17 14:45 Blood Peripheral Anaerobic Blood Culture Pending Received (Angela Ortega) Result Diagram: 08/20/17 1435 08/21/17 0336 Imaging Last Impressions Chest X-Ray 08/20/17 1416 Signed Impressions: Service Date/Time: Sunday, August 20, 2017 14:34 - CONCLUSION: Stable chest. Regularly with mild pulmonary vascular congestion. No consolidating infiltrates. Juan Miguel Bridges MD (Angela Ortega) Assessment and Plan Problem List: (1) ESRD (end stage renal disease) on dialysis ICD Codes: N18.6 - End stage renal disease; Z99.2 - Dependence on renal dialysis Status: Chronic Plan: Dialyzed yesterday for hyperkalemia, 5L UF Seen during dialysis today on a 1K, 350 BFR, goal 1.5L Low potassium, high protein diet ordered Avoid IVF administration Obtain daily labs (2) Hyperkalemia ICD Codes: E87.5 - Hyperkalemia Plan: Dialysis on a 1K bath. Low K diet Daily labs (3) Anemia of renal disease ICD Codes: D63.1 - Anemia in chronic kidney disease Status: Acute Plan: Epogen with dialysis (4) HTN (hypertension) ICD Codes: I10 - Essential (primary) hypertension Status: Acute Plan: Monitor blood pressure Resume home medications (5) Metabolic bone disease ICD Codes: E88.9 - Metabolic disorder, unspecified; M90.80 - Osteopathy in diseases classified elsewhere, unspecified site Status: Acute Plan: Obtain phosphorus level Resume binders with meals (Angela Ortega) Assessment and Plan patient was seen and examined during dialysis today. Dialyzed emergently yesterday due to life threatening hyperkalemia. Dialysis again today. He is non compliant with dietary restrictions. (Keron Singh MD) Angela Ortega Aug 21, 2017 09:35 Keron Singh MD Aug 21, 2017 19:47
[2017-08-21] MEDS ORDERED: RESP: ALBUTEROL 2.5 MG/IPRATROPIUM 0.5 MG NEB (PRN) NEB (09:45)
[2017-08-21] MEDS ORDERED: PT OWN MED: LEVOCETIRIZINE 5MG PO DAILY PO SCH (10:00)
[2017-08-21] MEDS: ONDANSETRON ODT 4 MG TAB PO SCH ×2 (13:16→17:24)
[2017-08-21] MEDS: METOPROLOL TARTRATE 25 MG TAB PO SCH (13:17)
[2017-08-21] MEDS: CALCIUM CARBONATE 500 MG CHEWABLE TAB CHEW SCH ×2 (13:17→17:25)
[2017-08-21] MEDS: SODIUM CHLORIDE 0.9% FLUSH 10 ML FLUSH IV FLUSH SCH (13:18)
--- NOTE | 2017-08-21 14:59 | HHI.PR ---
Subjective Remarks 72-year-old male with PMH of HTN, A. fib on ASA, Anxiety, CHF (Echo 09/17/15 w/ EF 40-45%), ESRD on HD T//Sat, COPD and Non-Compliance who presented to the ER from a local SNF via [facility] w/ complaints of respiratory failure and SOB. On arrival pt noted to have O2 sat 95% on 4L, BP 114/68, HR 65, Afebrile. WBC 12.0. K+ 8.0, s/p Insulin/D50/Ca/Kayexalate. Creatinine 11.73. CXR with mild pulmonary vascular congestion. No pulmonary infiltrates. Patient was taken to dialysis center where he was seen. 08-21 HAD HD AGAIN TODAY [facility] RN AND PT [facility] NGUYEN DC TO HOME TODAY Objective Vitals Vital Signs Date Time Temp Pulse Resp B/P (MAP) Pulse Ox O2 Delivery O2 Flow Rate FiO2 08/21/17 12:20 98.3 109 21 103/60 (74) 95 08/21/17 12:00 Nasal Cannula 5.00 08/21/17 08:30 Nasal Cannula 5.00 08/21/17 08:00 89 08/21/17 04:10 97.4 88 18 106/58 (74) 94 08/21/17 04:00 81 08/21/17 00:10 97.8 113 19 113/63 (80) 92 08/21/17 00:05 92 Nasal Cannula 4.00 08/21/17 00:00 111 08/21/17 00:00 Nasal Cannula 4.00 08/20/17 22:00 Nasal Cannula 3.00 08/20/17 22:00 Nasal Cannula 08/20/17 20:55 98.2 105 19 104/59 (74) 94 08/20/17 20:00 106 I/O 08/20/17 08/20/17 08/20/17 08/21/17 08/21/17 08/21/17 07:00 15:00 23:00 07:00 15:00 23:00 Intake Total 360 ml Output Total 5000 ml Balance -5000 ml 360 ml Intake Oral 360 ml Output Hemodialysis 5000 ml # Voids 0 # Bowel Movements 0 Result Diagram: 08/20/17 7885 08/21/17 0336 Other Results Laboratory Tests Test 08/20/17 14:35 1/16/18 03:36 White Blood Count 12.0 TH/MM3 Red Blood Count 2.88 MIL/MM3 Hemoglobin 8.7 GM/DL Hematocrit 26.2 % Mean Corpuscular Volume 90.9 FL Mean Corpuscular Hemoglobin 30.3 PG Mean Corpuscular Hemoglobin Concent 33.3 % Red Cell Distribution Width 17.8 % Platelet Count 267 TH/MM3 Mean Platelet Volume 8.2 FL Neutrophils (%) (Auto) 73.3 % Lymphocytes (%) (Auto) 9.2 % Monocytes (%) (Auto) 7.1 % Eosinophils (%) (Auto) 9.3 % Basophils (%) (Auto) 1.1 % Neutrophils # (Auto) 8.8 TH/MM3 Lymphocytes # (Auto) 1.1 TH/MM3 Monocytes # (Auto) 0.9 TH/MM3 Eosinophils # (Auto) 1.1 TH/MM3 Basophils # (Auto) 0.1 TH/MM3 CBC Comment DIFF FINAL Differential Comment Prothrombin Time 11.1 SEC Prothromb Time International Ratio 1.1 RATIO Activated Partial Thromboplast Time 22.6 SEC Blood Urea Nitrogen 94 MG/DL 60 MG/DL Creatinine 11.73 MG/DL 7.97 MG/DL Random Glucose 119 MG/DL 100 MG/DL Total Protein 6.7 GM/DL Albumin 3.7 GM/DL Calcium Level 9.0 MG/DL 8.8 MG/DL Magnesium Level 2.3 MG/DL Alkaline Phosphatase 196 U/L Aspartate Amino Transf (AST/SGOT) 39 U/L Alanine Aminotransferase (ALT/SGPT) 36 U/L Total Bilirubin 0.4 MG/DL Sodium Level 133 MEQ/L 137 MEQ/L Potassium Level 8.0 MEQ/L 6.1 MEQ/L Chloride Level 95 MEQ/L 98 MEQ/L Carbon Dioxide Level 25.8 MEQ/L 32.5 MEQ/L Anion Gap 12 MEQ/L 7 MEQ/L Estimat Glomerular Filtration Rate 5 ML/MIN 8 ML/MIN Total Creatine Kinase 107 U/L Creatine Kinase MB 3.1 NG/ML Troponin I 0.21 NG/ML B-Type Natriuretic Peptide 1336 PG/ML Imaging Last Impressions Chest X-Ray 08/20/17 1416 Signed Impressions: Service Date/Time: Sunday, August 20, 2017 14:34 - CONCLUSION: Stable chest. Regularly with mild pulmonary vascular congestion. No consolidating infiltrates. Juan Miguel Bridges MD Objective Remarks GENERAL: Awake alert talkative not so cooperative in no acute distress SKIN: Warm and dry. HEAD: Atraumatic. Normocephalic. EYES: Pupils equal and round. No scleral icterus. No injection or drainage. Extraocular muscles intact ENT: No nasal bleeding or discharge. Mucous membranes pink and moist. Tongue is midline NECK: Trachea midline. No JVD. Supple left side dialysis access CARDIOVASCULAR: Regular rate and rhythm. S1 and S2 no S3 or S4 RESPIRATORY: No accessory muscle use. Clear to auscultation. Breath sounds equal bilaterally. Decreased breath sounds bilaterally GASTROINTESTINAL: Abdomen soft, non-tender, nondistended. Hepatic and splenic margins not palpable. Obese MUSCULOSKELETAL: Extremities without clubbing, cyanosis, or edema. No obvious deformities. NEUROLOGICAL: Awake and alert. No obvious cranial nerve deficits. Motor grossly within normal limits. 4 out of 5 muscle strength in the arms and legs. Normal speech. PSYCHIATRIC: INAppropriate mood and affect; insight and judgment ABnormal. Procedures HD Medications and IVs Current Medications Alprazolam (Xanax) 0.5 mg ONCE ONCE PO Last administered on 08/20/17at 14:47; Start 08/20/17 at 14:45; Stop 08/20/17 at 14:46; Status DC Albuterol/ Ipratropium (Duoneb Neb) 1 ampule Q15M INH Last administered on 08/20at 15:39; Start 08/20/17 at 14:45; Stop 08/20/17 at 15:01; Status DC Lorazepam (Ativan Inj) 1 mg ONCE ONCE IV PUSH Last administered on 08/20/17at 15:51; Start 08/20/17 at 15:45; Stop 08/20/17 at 15:46; Status DC Insulin Human Regular (NovoLIN R INJ) 10 units ONCE ONCE IV PUSH Last administered on 08/20/17at 15:59; Start 08/20/17 at 15:45; Stop 08/20/17 at 15:47 ; Status DC Dextrose (D50w (Vial) Inj) 50 ml ONCE ONCE IV PUSH Last administered on at 15:59; Start 08/20/17 at 15:45; Stop 08/20/17 at 15:47; Status DC Sodium Bicarbonate 150 meq/Dextrose 1,150 ml @ 0 mls/hr Q0M ONCE IV Last administered on 08/20/17at 16:58; Start 08/20/17 at 17:45; Stop 08/20/17 at 17:45 ; Status DC Calcium Gluconate (Calcium Gluconate Inj) 1 gm ONCE ONCE IV PUSH Last administered on 08/20/17at 15:59; Start 08/20/17 at 15:45; Stop 08/20/17 at 15:47 ; Status DC Alprazolam (Xanax) 0.5 mg Q8H PRN PO ANXIETY; Start 08/20/17 at 17:15 Aspirin (Ecotrin Ec) 81 mg DAILY PO Last administered on 08/21/17at 13:17; Start 08/21/17 at 09:00 Diltiazem HCl (Cardizem) 90 mg QID PO Last administered on 08/21/17at 13:17; Start 08/20/17 at 18:00 Isosorbide Mononitrate (Imdur) 30 mg DAILY PO Last administered on 08/21/17at 13 :17; Start 08/21/17 at 09:00 Losartan Potassium (Cozaar) 25 mg DAILY PO Last administered on 08/21/17at 13:17 ; Start 08/21/17 at 09:00 Metoprolol Tartrate (Lopressor) 25 mg BID PO Last administered on 08/21/17at 13: 17; Start 08/20/17 at 21:00 Sevelamer Carbonate (Renvela) 800 mg TID PO Last administered on 08/21/17at 13: 16; Start 08/20/17 at 18:00 Trazodone HCl (Desyrel) 150 mg HS PO Last administered on 08/20/17at 22:51; Start 08/20/17 at 21:00 Sodium Chloride (NS Flush) 2 ml UNSCH PRN IV FLUSH FLUSH AFTER USING IV ACCESS ; Start 08/20/17 at 17:15 Sodium Chloride (NS Flush) 2 ml BID IV FLUSH Last administered on 08/21/17at 13: 18; Start 08/20/17 at 21:00 Acetaminophen (Tylenol) 650 mg Q4H PRN PO TEMP > 100.4; Start 08/20/17 at 17:15 Ondansetron HCl (Zofran Inj) 4 mg Q6H PRN IVP NAUSEA OR VOMITING; Start at 17:15 Acetaminophen (Tylenol) 650 mg Q6H PRN PO PAIN SCALE 1 TO 2; Start 08/20/17 at 17:15 Naloxone HCl (Narcan Inj) 0.4 mg UNSCH PRN IV PUSH SEE LABEL COMMENTS; Start at 17:15 Magnesium Hydroxide (Milk Of Magnesia Liq) 30 ml Q12H PRN PO Mild constipation ; Start 08/20/17 at 17:15 Albuterol/ Ipratropium (Duoneb Neb) 1 ampule Q2HR NEB PRN NEB SOB/WHEEZING Last administered on 08/20/17at 23:54; Start 08/20/17 at 17:15; Stop 08/21/17 at 09:44; Status DC Methylprednisolone Sodium Succinate (SoluMEDROL INJ) 125 mg ONCE ONCE IV PUSH ; Start 08/21/17 at 02:15; Stop 08/21/17 at 02:16; Status DC Insulin Human Regular (NovoLIN R INJ) 10 units ONCE ONCE IV PUSH Last administered on 08/21/17at 06:21; Start 08/21/17 at 05:30; Stop 08/21/17 at 05:41 ; Status DC Dextrose (D50w (Vial) Inj) 50 ml ONCE ONCE IV PUSH Last administered on at 06:21; Start 08/21/17 at 05:30; Stop 08/21/17 at 05:41; Status DC Calcium Gluconate (Calcium Gluconate Inj) 1 gm ONCE ONCE IV PUSH Last administered on 08/21/17at 06:13; Start 08/21/17 at 05:30; Stop 08/21/17 at 05:41 ; Status DC Sodium Polystyrene Sulfonate (Kayexalate Liq) 30 gm ONCE ONCE PO ; Start at 05:30; Stop 08/21/17 at 05:41; Status DC Sodium Chloride 1,000 ml @ 0 mls/hr TITRATE PRN OTHER WITH DIALYSIS; Start at 09:00 Heparin Sodium (Porcine) (Heparin Inj) 8,000 units UNSCH PRN IV FLUSH WITH DIALYSIS; Start 08/21/17 at 09:00 Sodium Chloride 1,000 ml @ 200 mls/hr Q5H PRN OTHER WITH DIALYSIS; Start at 09:00 Sodium Chloride 200 ml @ 0 mls/hr UNSCH PRN IV WITH DIALYSIS; Start 08/21/17 at 09:00 Mannitol (Mannitol Inj) 12.5 gm UNSCH PRN IV PUSH WITH DIALYSIS; Start at 09:00 Albumin Human 100 ml @ 60 mls/hr UNSCH PRN IV WITH DIALYSIS; Start 08/21/17 at 09:00 Sodium Chloride (NS Flush) 5 ml UNSCH PRN IV FLUSH WITH DIALYSIS; Start at 09:00 Heparin Sodium (Porcine) (Heparin Inj) Dwell Heparin to f... UNSCH PRN OTHER WITH DIALYSIS; Start 08/21/17 at 09:00 Gentamicin Sulfate (Gentamicin (Dialysis) Inj) 10 mg UNSCH PRN OTHER WITH DIALYSIS; Start 08/21/17 at 09:00 Gelatin (Gelfoam 12 Mm/7 Mm Top) 1 foam UNSCH PRN TOPICAL WITH DIALYSIS; Start 08/21/17 at 09:00 Ondansetron HCl (Zofran Inj) 4 mg UNSCH PRN IV PUSH NAUSEA OR VOMITING; Start 08/21/17 at 09:00 Acetaminophen (Tylenol) 650 mg UNSCH X1 PRN PO WITH DIALYSIS; Start 08/21/17 at 09:00; Stop 08/23/17 at 23:59 Diphenhydramine HCl (Benadryl) 25 mg UNSCH PRN PO WITH DIALYSIS; Start at 09:00 Nitroglycerin (Nitrostat Sl) 0.4 mg UNSCH PRN SL WITH DIALYSIS; Start 08/21/17 at 09:00 Clonidine (Catapres) 0.1 mg UNSCH PRN PO WITH DIALYSIS; Start 08/21/17 at 09:00 Epoetin [place] (Epogen Inj) 10,000 units UNSCH PRN IV PUSH WITH DIALYSIS; Start 08/21/17 at 09:15 Albuterol Sulfate (Proair Hfa Inh) 2 puff Q4HR PRN INH SHORTNESS OF BREATH; Start 08/21/17 at 09:30 Calcium Carbonate (Tums Chew) 500 mg TIDAC CHEW Last administered on 08/21/17at 13:17; Start 08/21/17 at 12:00 Diphenhydramine HCl (Benadryl) 25 mg Q8HR PRN PO ITCHING; Start 08/21/17 at 09: 30 Guaifenesin/ Dextromethorphan (Robitussin Dm 200-20 Mg/10 ml Liq) 5 ml Q4H PRN PO COUGH; Start 08/21/17 at 09:30 Albuterol/ Ipratropium (Duoneb Neb) 1 ampule Q4HR NEB PRN NEB SOB/WHEEZING; Start 08/21/17 at 09:45 Sodium Chloride ([place]) 1 spray Q2HR PRN EACH NARE NASAL CONGESTION; Start 08/21/17 at 09:30 Sennosides (Senokot) 8.6 mg BID PO ; Start 08/21/17 at 21:00 Non-Formulary Medication 1 tab DAILY PO ; Start 08/22/17 at 09:00; Status UNV Patient Own Medication PT OWN MED: LEVOCETIRIZINE 5MG PO DAILY DAILY PO ; Start 08/21/17 at 10:00; Status Future Hold Ondansetron HCl (Zofran Odt) 8 mg TID PO Last administered on 08/21/17at 13:16 ; Start 08/21/17 at 13:00 A/P Problem List: (1) Hyperkalemia ICD Code: E87.5 - Hyperkalemia (2) Hyperkalemia, diminished renal excretion ICD Code: E87.5 - Hyperkalemia Status: Acute (3) ESRD (end stage renal disease) on dialysis ICD Code: N18.6 - End stage renal disease; Z99.2 - Dependence on renal dialysis Status: Chronic (4) Non-compliance ICD Code: Z91.19 - Patient's noncompliance with other medical treatment and regimen Status: Chronic (5) Acute on chronic systolic CHF (congestive heart failure) ICD Code: I50.23 - Acute on chronic systolic (congestive) heart failure (6) A-fib ICD Code: I48.91 - Unspecified atrial fibrillation Assessment and Plan 72 yrs old with 1. CHF: Acute on Chronic. Systolic. Echo 09/17/15 w/ EF 40-45%. Resume home medications. HD for fluid overload.Cardiology consult PRN-had hemodialysis on August 20 and August 21 can be discharged to home 2. Hypoxia: Multifactorial-secondary to CHF, COPD, and Non-compliance w/ HD. O2 sat 95% on 4L. HD for fluid overload as above. Monitor O2. 3. ESRD on HD: T//Sun. Follows w/ Dr. Singh. Notoriously non-compliant w / dialysis. having HD today --totally noncompliant with dialysis is on transitional dialysis here at [place] due to his noncompliance 4. Hyperkalemia: K+ 8.0. S/p Insulin/D50/Ca/Kayexalate in ER. For HD today. Recheck labs following dialysis. 5. COPD: Chronic Respiratory Failure Continue DuoNeb PRN 6. Hyperkalemia: K+ 8.0. S/p Insulin/D50/Ca/Kayexalate in ER. For HD today. Recheck labs following dialysis. 7. A-fib: Chronic. Resume home medications. On ASA. 8. Non-Compliance: As above, pt known to be non-compliant w/ meds, treatment and dialysis --known to skip dialysis whenever he feels like 9. DVT Prophylaxis: Heparin sq Code Status Full code Wants to go back to [facility] [id number] FILLED OUT DC TO [facility] Discharge Planning BACK TO [facility] TODAY Madhu Balbuena DO Aug 21, 2017 14:59
[2017-08-21] MEDS ORDERED: LORA-474 PO (15:02)
[2017-08-21] MEDS ORDERED: ALPR.5 PO (15:02)
[2017-08-21] MEDS ORDERED: NORC5TAB PO (15:02)
--- NOTE | 2017-08-21 15:05 | HHI.DS ---
Discharge Summary Admission Date Aug 20, 2017 at 16:52 Discharge Date: Aug 21, 2017 Admitting Diagnosis hyperkalemia, dyspnea, elevated troponin, ESRD on HD (1) Hyperkalemia ICD Code: E87.5 - Hyperkalemia Diagnosis: Principal (2) Hyperkalemia, diminished renal excretion ICD Code: E87.5 - Hyperkalemia Diagnosis: Principal Status: Acute (3) ESRD (end stage renal disease) on dialysis ICD Code: N18.6 - End stage renal disease; Z99.2 - Dependence on renal dialysis Diagnosis: Principal Status: Chronic (4) Non-compliance ICD Code: Z91.19 - Patient's noncompliance with other medical treatment and regimen Diagnosis: Secondary Status: Chronic (5) Acute on chronic systolic CHF (congestive heart failure) ICD Code: I50.23 - Acute on chronic systolic (congestive) heart failure Diagnosis: Principal (6) A-fib ICD Code: I48.91 - Unspecified atrial fibrillation Diagnosis: Principal Procedures HD Brief History - From Admission 72-year-old male with PMH of HTN, A. fib on ASA, Anxiety, CHF (Echo 09/17/15 w/ EF 40-45%), ESRD on HD T/Th/Sat, COPD and Non-Compliance who presented to the ER from a local SNF via [facility] w/ complaints of respiratory failure and SOB. On arrival pt noted to have O2 sat 95% on 4L, BP 114/68, HR 65, Afebrile. WBC 12.0. K+ 8.0, s/p Insulin/D50/Ca/Kayexalate. Creatinine 11.73. CXR with mild pulmonary vascular congestion. No pulmonary infiltrates. Patient was taken to dialysis center where he was seen. CBC/BMP: 08/20/17 1435 08/21/17 0336 Significant Findings Laboratory Tests Test 08/20/17 14:35 08/21/17 03:36 White Blood Count 12.0 TH/MM3 (4.0-11.0) Red Blood Count 2.88 MIL/MM3 (4.50-5.90) Hemoglobin 8.7 GM/DL (13.0-17.0) Hematocrit 26.2 % (39.0-51.0) Red Cell Distribution Width 17.8 % (11.6-17.2) Neutrophils (%) (Auto) 73.3 % (16.0-70.0) Eosinophils (%) (Auto) 9.3 % (0.0-4.0) Neutrophils # (Auto) 8.8 TH/MM3 (1.8-7.7) Eosinophils # (Auto) 1.1 TH/MM3 (0-0.4) Activated Partial Thromboplast Time 22.6 SEC (24.3-30.1) Blood Urea Nitrogen 94 MG/DL (7-18) 60 MG/DL (7-18) Creatinine 11.73 MG/DL (0.60-1.30) 7.97 MG/DL (0.60-1.30) Random Glucose 119 MG/DL (74-106) Alkaline Phosphatase 196 U/L (45-117) Aspartate Amino Transf (AST/SGOT) 39 U/L (15-37) Sodium Level 133 MEQ/L (136-145) Potassium Level 8.0 MEQ/L (3.5-5.1) 6.1 MEQ/L (3.5-5.1) Chloride Level 95 MEQ/L (98-107) Estimat Glomerular Filtration Rate 5 ML/MIN (>89) 8 ML/MIN (>89) Troponin I 0.21 NG/ML (0.02-0.05) B-Type Natriuretic Peptide 1336 PG/ML (0-100) Carbon Dioxide Level 32.5 MEQ/L (21.0-32.0) Imaging Last Impressions Chest X-Ray 08/20/17 1416 Signed Impressions: Service Date/Time: Sunday, August 20, 2017 14:34 - CONCLUSION: Stable chest. Regularly with mild pulmonary vascular congestion. No consolidating infiltrates. Juan Miguel Bridges MD PE at Discharge GENERAL: Awake alert talkative not so cooperative in no acute distress SKIN: Warm and dry. HEAD: Atraumatic. Normocephalic. EYES: Pupils equal and round. No scleral icterus. No injection or drainage. Extraocular muscles intact ENT: No nasal bleeding or discharge. Mucous membranes pink and moist. Tongue is midline NECK: Trachea midline. No JVD. Supple left side dialysis access CARDIOVASCULAR: Regular rate and rhythm. S1 and S2 no S3 or S4 RESPIRATORY: No accessory muscle use. Clear to auscultation. Breath sounds equal bilaterally. Decreased breath sounds bilaterally GASTROINTESTINAL: Abdomen soft, non-tender, nondistended. Hepatic and splenic margins not palpable. Obese MUSCULOSKELETAL: Extremities without clubbing, cyanosis, or edema. No obvious deformities. NEUROLOGICAL: Awake and alert. No obvious cranial nerve deficits. Motor grossly within normal limits. 4 out of 5 muscle strength in the arms and legs. Normal speech. PSYCHIATRIC: INAppropriate mood and affect; insight and judgment ABnormal. Hospital Course 72-year-old male with PMH of HTN, A. fib on ASA, Anxiety, CHF (Echo 09/17/15 w/ EF 40-45%), ESRD on HD T//Sun, COPD and Non-Compliance who presented to the ER from a local SNF via [facility] w/ complaints of respiratory failure and SOB. On arrival pt noted to have O2 sat 95% on 4L, BP 114/68, HR 65, Afebrile. WBC 12.0. K+ 8.0, s/p Insulin/D50/Ca/Kayexalate. Creatinine 11.73. CXR with mild pulmonary vascular congestion. No pulmonary infiltrates. Patient was taken to dialysis center where he was seen. 1-16 HAD HD AGAIN TODAY [facility] RN AND PT WANTS TO GO TO [facility] TODAY [facility] NGUYEN DC TO HOME TODAY 72 yrs old with 1. CHF: Acute on Chronic. Systolic. Echo 09/17/15 w/ EF 40-45%. Resume home medications. HD for fluid overload.Cardiology consult PRN-had hemodialysis on August 20 and August 21 can be discharged to home 2. Hypoxia: Multifactorial-secondary to CHF, COPD, and Non-compliance w/ HD. O2 sat 95% on 4L. HD for fluid overload as above. Monitor O2. 3. ESRD on HD: T//Sat. Follows w/ Dr. Singh. Notoriously non-compliant w / dialysis. having HD today --totally noncompliant with dialysis is on transitional dialysis here at [place] due to his noncompliance 4. Hyperkalemia: K+ 8.0. S/p Insulin/D50/Ca/Kayexalate in ER. For HD today. Recheck labs following dialysis. 5. COPD: Chronic Respiratory Failure Continue DuoNeb PRN 6. Hyperkalemia: K+ 8.0. S/p Insulin/D50/Ca/Kayexalate in ER. For HD today. Recheck labs following dialysis. 7. A-fib: Chronic. Resume home medications. On ASA. 8. Non-Compliance: As above, pt known to be non-compliant w/ meds, treatment and dialysis --known to skip dialysis whenever he feels like 9. DVT Prophylaxis: Heparin sq Code Status Full code Wants to go back to [facility] 3008 FILLED OUT DC TO [facility] Discharge Planning BACK TO [facility] TODAY Pt Condition on Discharge: Good Discharge Disposition: Discharge to [facility] Discharge Time: > 30 minutes Discharge Instructions DIET: Follow Instructions for: Heart Healthy Diet, Renal Failure Diet Speech Therapy-Diet Recommends: Regular Activities you can perform: Regular-No Restrictions Follow up Referrals: Nephrology - 1 Week PCP Follow-up - 1 Week Continued Medications: Acetaminophen (Tylenol) 325 Mg Tab 650 MG PO Q6H PRN for General Discomfort, TAB 0 Refills Albuterol 6.7 GM Inh (Proventil Hfa 6.7 GM Inh) 90 Mcg/Act Aer 2 PUFF INH Q4-6H PRN for SHORTNESS OF BREATH, #1 INHALER 0 Refills Alprazolam (Xanax) 0.5 Mg Tab 0.5 MG PO Q8H PRN for ANXIETY, #90 TAB 0 Refills (This prescription has been renewed) Amino Acids-Protein Hydrolysat (Pro-Stat) 1 Liq Liq 30 ML PO TID Aspirin DR (Aspirin 81) 81 Mg Tabdr 81 MG PO DAILY, TAB 0 Refills B-Complex W/ C & Folic Acid (Katy-Mya) 1 Tab 1 TAB PO DAILY, TAB Calcium Carbonate (Antacid) (Antacid) 500 Mg Chew 500 MG CHEW TIDAC for Acid Indigestion, TAB Diltiazem (Diltiazem) 90 Mg Tab 90 MG PO QID for Angina, #120 TAB 0 Refills Diphenhydramine HCl (Benadryl Allergy) 25 Mg Cap 1 TAB PO Q8HR PRN for ITCHING Diphenoxylate-Atropine (Lomotil) 2.5-0.025 Mg Tab 1 TAB PO Q6H PRN for DIARRHEA, TAB 0 Refills Guaifenesin-Dextromethorphan Liq (Guaifenesin DM Liq) 10-100 Mg/5 Ml Liq 5 ML PO Q4H PRN for COUGH, #1 BOTTLE 0 Refills Hydrocodone-Acetaminophen ([place]) 5 Mg-325 Mg Tab 1 TAB PO Q6H PRN for PAIN, #30 TAB 0 Refills (This prescription has been renewed ) Hydroxyzine HCl (Hydroxyzine HCl) 25 Mg Tab 25 MG PO Q6HR, TAB 0 Refills Ipratropium-Albuterol Neb (Duoneb) 0.5-2.5 Mg/3 Ml Neb 3 ML NEB Q4HR PRN for SOB/WHEEZING, #30 NEBULE 0 Refills Isosorbide Mononitrate ER (Isosorbide Mononitrate ER) 30 Mg Nolan 30 MG PO DAILY for Prevent Chest Pain, #30 TAB 0 Refills Levocetirizine (Levocetirizine) 5 Mg Tab 5 MG PO DAILY for Allergy Management, #30 TAB 0 Refills Loperamide (Imodium A-D) 2 Mg Capsule 2 MG PO Q6H PRN for DIARRHEA, #30 CAP 0 Refills Lorazepam (Ativan) 1 Mg Tab 1 MG PO TuThSa for Anxiety, #12 TAB 0 Refills (This prescription has been renewed) Take 1 tablet (1mg) daily on Sunday, and Sunday prior to going to dialysis Losartan (Cozaar) 25 Mg Tab 25 MG PO DAILY for Blood Pressure Management, #30 TAB 0 Refills Metoprolol Tartrate (Metoprolol Tartrate) 25 Mg Tab 25 MG PO BID for a-fib for 30 Days, #60 TAB 0 Refills Ondansetron (Zofran) 8 Mg Tab 8 MG PO TID for Nausea/Vomiting, TAB 0 Refills Saline Nasal Anatone (Saline Nasal Anatone) 0.65% Anatone 1 SPRAY EACH NARE Q2HR PRN for NASAL CONGESTION, #1 BOTTLE 0 Refills Sennosides (Sennosides) 8.6 Mg Tab 8.6 MG PO BID for Constipation, TAB 0 Refills Sevelamer Carbonate (Renvela) 800 Mg Tab 800 MG PO TID for Control phosphorous levels, #180 TAB 0 Refills Trazodone (Trazodone) 150 Mg Tablet 150 MG PO HS for Control Depression, #30 TAB 0 Refills Additional Information RESUME HD ON SUNDAY, SUNDAY, AND SUNDAY AT [facility]AL [facility]ARE HD UNIT Madhu Balbuena DO Aug 21, 2017 15:05
--- NOTE | 2017-08-21 19:02 | EKG ---
Date Performed: 08/20/2017 Time Performed: 14:26:13 PTAGE: 72 years EKG: ATRIAL FIBRILLATION MARKED LEFT AXIS DEVIATION INTRAVENTRICULAR CONDUCTION DELAY When celso red to previous tracing, the atrial fibrillation is under Better control, but there has been further widening of the QRS Complex. ABNORMAL ECG PREVIOUS TRACING : 08/09/2017 09.15 DOCTOR: Char Hardy Interpretating Date/Time 08/21/2017 19:00:42
[2017-08-21] MEDS ORDERED: SENNOSIDES 8.6 MG TAB PO SCH (21:00)
[2017-08-22] MEDS ORDERED: NON-FORMULARY DRUG (B-Complex W/ C & Folic Acid (Rena-Vite) 1 TAB) PO SCH (09:00)
== END 2017-08-21 18:00 | DRG 291 ==
LOC: NEPC 14:00 → NEDA 16:52 → N04B 20:54
PROVIDERS: ADMIT Hospitalist; ATTEND Hospitalist
PROC: 5A1D70Z Performance of Urinary Filtration, Intermittent, Less than 6 Hours Per Day (ICD-10-PCS; principal; 2017-08-20)
DX: I13.2 Hypertensive heart and chronic kidney disease with heart failure and with stage 5 chronic kidney disease, or end stage renal disease (principal); I50.23 Acute on chronic systolic (congestive) heart failure; J96.11 Chronic respiratory failure with hypoxia; N18.6 End stage renal disease; E88.89 Other specified metabolic disorders; E87.5 Hyperkalemia; J44.9 Chronic obstructive pulmonary disease, unspecified; I48.2 Chronic atrial fibrillation; Z99.2 Dependence on renal dialysis; Z91.19 Patient's noncompliance with other medical treatment and regimen; D63.1 Anemia in chronic kidney disease; F41.9 Anxiety disorder, unspecified; Z87.891 Personal history of nicotine dependence; Z85.46 Personal history of malignant neoplasm of prostate
CPT/HCPCS: 71045; 80048; 80053; 82550; 82552; 82948; 83735; 83880; 84484; 85025; 85610; 85730; 87040; 90935; 93005; 94640; 94664; 96374; 96375; J0610; J1815; J2060; J7070

== ENCOUNTER 2017-08-28 13:04 | Emergency (ER) | payer MEDICARE, MEDICAID ==
[~2017-08-28] VITALS: Ht 177.8 cm; Wt 86.0 kg
[~2017-08-28 13:04] MED LIST changes: +ALPR.5 PO; -ALPR0.5T3 PO; -B CO PO; +GUAISYP7 PO; +IPRASOL NEB; +LOMO2.5T PO; +LOPE-1 PO; +LORA-474 PO; +NORC5TAB PO; -PRED50 PO; +RENATAB5 PO; +SALI0.653 EACH NARE; +SENN8.6T81 PO; +TYLE325T PO; +ZOFR8TAB PO
[2017-08-28 13:17] VITALS: BP 125/65; PULSE 116; RESP 24; TEMP 99.7
[2017-08-28 13:43] VITALS: PULSE 110; RESP 20; O2SAT 95
--- NOTE | 2017-08-28 13:45 | PD ---
HPI Chief Complaint: Respiratory Distress Time Seen by Provider: 13:39 Travel History International Travel<30 days: No Contact w/Intl Traveler<30days: No Traveled to known affect area: No History of Present Illness HPI 72-year-old male arrives to the ER complaining of shortness of breath. He was at his dialysis today and left an hour early due to anxiety (TRS). While waiting for his ride home he became increasingly dyspneic. It was noted that is oxygen canister ran out of oxygen as he was waiting. He denies chest pain in the ER. He reports normally his oxygen saturations 85% on room air and in the low 90s with nasal cannula at home typically 4 L. PFSH Past Medical History Anemia: Yes Arthritis: Yes (CRAMPS IN HAND AND NECK) Asthma: No Atrial Fibrillation: Yes Anxiety: Yes Depression: No Heart Rhythm Problems: Yes Cancer: Yes (HX PROSTATE) Cardiovascular Problems: Yes High Cholesterol: Yes Chemotherapy: No Chest Pain: No Congestive Heart Failure: Yes COPD: Yes Cerebrovascular Accident: No Diabetes: No Dialysis: Yes (//SAT) Diminished Hearing: No Endocrine: No Gastrointestinal Disorders: Yes (APPENDICITIS) GERD: Yes Genitourinary: Yes Hiatal Hernia: No Hypertension: Yes Immune Disorder: No Implanted Vascular Access Dvce: Yes Kidney Stones: No Musculoskeletal: Yes Neurologic: No Psychiatric: No Reproductive: No Respiratory: Yes Migraines: No Radiation Therapy: No Renal Failure: Yes Seizures: No Sleep Apnea: Yes (NO CPAP MACHINE) Thyroid Disease: No Ulcer: No Past Surgical History Abdominal Surgery: No Arteriovenous Shunt: Yes (L UPPER ARM FISTULA) Cardiac Surgery: No Ear Surgery: No Endocrine Surgery: No Eye Surgery: No Genitourinary Surgery: No Gynecologic Surgery: No Oral Surgery: No Prostatectomy: Yes Thoracic Surgery: Yes (vas cath) Other Surgery: Yes (AV FISTULA TO LEFT UPPER ARM WORKS) Social History Alcohol Use: No (HX ) Tobacco Use: No (quit 2 yrs ago smoked 40yrs) Substance Use: No Allergies-Medications (Allergen,Severity, Reaction): Coded Allergies: No Known Allergies (Unverified Allergy, Unknown, 07/23/17) Reported Meds & Prescriptions Reported Meds & Active Scripts Active [place] (Hydrocodone-Acetaminophen) 5 Mg-325 Mg Tab 1 Tab PO Q6H PRN Ativan (Lorazepam) 1 Mg Tab 1 Mg PO TUTHSA Take 1 tablet (1mg) daily on Sunday, and Sunday prior to going to dialysis Xanax (Alprazolam) 0.5 Mg Tab 0.5 Mg PO Q8H PRN Proventil Hfa 6.7 GM Inh (Albuterol Sulfate) 90 Mcg/Act Aer 2 Puff INH Q4-6H PRN Cozaar (Losartan Potassium) 25 Mg Tab 25 Mg PO DAILY Metoprolol Tartrate 25 Mg Tab 25 Mg PO BID 30 Days Trazodone (Trazodone HCl) 150 Mg Tablet 150 Mg PO HS Reported Zofran (Ondansetron HCl) 8 Mg Tab 8 Mg PO TID Sennosides 8.6 Mg Tab 8.6 Mg PO BID Saline Nasal [employer] (Sodium Chloride) 0.65% [employer] 1 [employer] EACH NARE Q2HR PRN Lomotil (Diphenoxylate-Atropine) 2.5-0.025 Mg Tab 1 Tab PO Q6H PRN Imodium A-D (Loperamide HCl) 2 Mg Capsule 2 Mg PO Q6H PRN Guaifenesin DM Liq (Guaifenesin-Dextromethorphan Liq) 10-100 Mg/5 Ml Liq 5 Ml PO Q4H PRN Duoneb (Ipratropium-Albuterol Neb) 0.5-2.5 Mg/3 Ml Neb 3 Ml NEB Q4HR PRN Tylenol (Acetaminophen) 325 Mg Tab 650 Mg PO Q6H PRN [place]-Mya (B-Complex W/ C & Folic Acid) 1 Tab 1 Tab PO DAILY Levocetirizine 5 Mg Tab 5 Mg PO DAILY Hydroxyzine HCl 25 Mg Tab 25 Mg PO Q6HR Benadryl Allergy (Diphenhydramine HCl) 25 Mg Cap 1 Tab PO Q8HR PRN Antacid (Calcium Carbonate (Antacid)) 500 Mg Chew 500 Mg CHEW TIDAC Pro-Stat (Amino Acids-Protein Hydrolysat) 1 Liq Liq 30 Ml PO TID Aspirin 81 (Aspirin) 81 Mg Tabdr 81 Mg PO DAILY Diltiazem (Diltiazem HCl) 90 Mg Tab 90 Mg PO QID Renvela (Sevelamer Carbonate) 800 Mg Tab 800 Mg PO TID Isosorbide Mononitrate ER (Isosorbide Mononitrate) 30 Mg Nolan 30 Mg PO DAILY Review of Systems Except as stated in HPI: all other systems reviewed are Neg General / Constitutional: No: Fever Respiratory: Positive: Shortness of Breath Physical Exam Narrative GENERAL: 72-year-old male pleasant mildly dyspneic SKIN: Warm and dry. HEAD: Atraumatic. Normocephalic. EYES: Pupils equal and round. No scleral icterus. No injection or drainage. ENT: No nasal bleeding or discharge. Mucous membranes pink and moist. Nasal cannula present NECK: Trachea midline. No JVD. CARDIOVASCULAR: Minimal tachycardia. Regular rhythm. RESPIRATORY: Minimal tachypnea. The lungs are clear. GASTROINTESTINAL: Abdomen soft, non-tender, nondistended. Hepatic and splenic margins not palpable. MUSCULOSKELETAL: Extremities without clubbing, cyanosis, or edema. No obvious deformities. NEUROLOGICAL: Awake and alert. No obvious cranial nerve deficits. Motor grossly within normal limits. Five out of 5 muscle strength in the arms and legs. Normal speech. PSYCHIATRIC: Appropriate mood and affect; insight and judgment normal. Data Data Last Documented VS Vital Signs Date Time Temp Pulse Resp B/P (MAP) Pulse Ox O2 Delivery O2 Flow Rate FiO2 08/28/17 14:08 137/77 (97) 94 08/28/17 13:43 110 20 Nasal Cannula 4.00 08/28/17 13:17 99.7 Orders Orders Ed Discharge Order (08/28/17 13:39) MDM Medical Decision Making Medical Screen Exam Complete: Yes Emergency Medical Condition: Yes Medical Record Reviewed: Yes Differential Diagnosis Hypoxia, metabolic disorder, pulmonary edema, pleural effusion Narrative Course Patient stated on nasal cannula for about 10 minutes of the O2 sat increased to the mid 90s, the patient's baseline. Since he is on oxygen 24 7 and ran out of oxygen leading to the hypoxia I believe in this case prior to placing oxygen canister send the patient home with continuous oxygen resolution of her hypoxia is most likely and a reasonable clinical solution. Pt lives at [facility]. Diagnosis Primary Impression: Hypoxia Med/Other Pt SpecificInfo: No Change to Meds Disposition: 01 DISCHARGE HOME Condition: Stable Vinicius Ro MD Aug 28, 2017 13:45
[2017-08-28 14:08] VITALS: BP 137/77
== END 2017-08-28 17:36 | disposition home or self-care (01) ==
LOC: NEPE 13:04 → NEDAMB 17:36
DX: R09.02 Hypoxemia (principal); I13.2 Hypertensive heart and chronic kidney disease with heart failure and with stage 5 chronic kidney disease, or end stage renal disease; N18.6 End stage renal disease; I50.9 Heart failure, unspecified; F41.9 Anxiety disorder, unspecified; I48.91 Unspecified atrial fibrillation; J44.9 Chronic obstructive pulmonary disease, unspecified; Z99.2 Dependence on renal dialysis; Z87.891 Personal history of nicotine dependence
CPT/HCPCS: 99282

== ENCOUNTER 2017-09-13 09:34 | Emergency (ER) | payer MEDICARE, MEDICAID ==
[~2017-09-13] VITALS: Ht 177.8 cm; Wt 90.0 kg
[2017-09-13 09:44] VITALS: BP 148/80; PULSE 122; RESP 16; TEMP 98.1; O2SAT 95
--- NOTE | 2017-09-13 09:57 | PD ---
HPI Chief Complaint: Abnormal Results Time Seen by Provider: 09:48 Travel History International Travel<30 days: No Contact w/Intl Traveler<30days: No Traveled to known affect area: No History of Present Illness HPI This is a 72-year-old male who presents to the emergency department having been dropped off here mistakenly by his medical transport company. He is supposed to be in transitional dialysis. He has no medical complaints. History Past Medical Histgory Hx Cancer: Yes (HX PROSTATE) Hx Chemotherapy: No Hx Radiation Therapy: No Social History Alcohol Use: No (HX ) Tobacco Use: No (quit 2 yrs ago smoked 40yrs) Allergies-Medications (Allergen,Severity, Reaction): Coded Allergies: No Known Allergies (Unverified Allergy, Unknown, 07/23/17) Reported Meds & Prescriptions Reported Meds & Active Scripts Active [place] (Hydrocodone-Acetaminophen) 5 Mg-325 Mg Tab 1 Tab PO Q6H PRN Ativan (Lorazepam) 1 Mg Tab 1 Mg PO TUTHSA Take 1 tablet (1mg) daily on Sunday, and Sunday prior to going to dialysis Xanax (Alprazolam) 0.5 Mg Tab 0.5 Mg PO Q8H PRN Proventil Hfa 6.7 GM Inh (Albuterol Sulfate) 90 Mcg/Act Aer 2 Puff INH Q4-6H PRN Cozaar (Losartan Potassium) 25 Mg Tab 25 Mg PO DAILY Metoprolol Tartrate 25 Mg Tab 25 Mg PO BID 30 Days Trazodone (Trazodone HCl) 150 Mg Tablet 150 Mg PO HS Reported Zofran (Ondansetron HCl) 8 Mg Tab 8 Mg PO TID Sennosides 8.6 Mg Tab 8.6 Mg PO BID Saline Nasal [place] (Sodium Chloride) 0.65% [place] 1 [place] EACH NARE Q2HR PRN Lomotil (Diphenoxylate-Atropine) 2.5-0.025 Mg Tab 1 Tab PO Q6H PRN Imodium A-D (Loperamide HCl) 2 Mg Capsule 2 Mg PO Q6H PRN Guaifenesin DM Liq (Guaifenesin-Dextromethorphan Liq) 10-100 Mg/5 Ml Liq 5 Ml PO Q4H PRN Duoneb (Ipratropium-Albuterol Neb) 0.5-2.5 Mg/3 Ml Neb 3 Ml NEB Q4HR PRN Tylenol (Acetaminophen) 325 Mg Tab 650 Mg PO Q6H PRN [place]-Mya (B-Complex W/ C & Folic Acid) 1 Tab 1 Tab PO DAILY Levocetirizine 5 Mg Tab 5 Mg PO DAILY Hydroxyzine HCl 25 Mg Tab 25 Mg PO Q6HR Benadryl Allergy (Diphenhydramine HCl) 25 Mg Cap 1 Tab PO Q8HR PRN Antacid (Calcium Carbonate (Antacid)) 500 Mg Chew 500 Mg CHEW TIDAC Pro-Stat (Amino Acids-Protein Hydrolysat) 1 Liq Liq 30 Ml PO TID Aspirin 81 (Aspirin) 81 Mg Tabdr 81 Mg PO DAILY Diltiazem (Diltiazem HCl) 90 Mg Tab 90 Mg PO QID Renvela (Sevelamer Carbonate) 800 Mg Tab 800 Mg PO TID Isosorbide Mononitrate ER (Isosorbide Mononitrate) 30 Mg Nolan 30 Mg PO DAILY Review of Systems General / Constitutional: No: Fever Cardiovascular: No: Chest Pain or Discomfort Physical Exam Narrative GENERAL: Well-appearing, no acute distress, nontoxic SKIN: Warm and dry. HEAD: Atraumatic. Normocephalic. ENT: No nasal bleeding or discharge. Moist mucous membranes MUSCULOSKELETAL: No obvious deformities. Moving all extremities. NEUROLOGICAL: Awake and alert. No obvious cranial nerve deficits. Motor grossly within normal limits. Normal speech. PSYCHIATRIC: Appropriate mood and affect; insight and judgment normal. Data Data Last Documented VS Vital Signs Date Time Temp Pulse Resp B/P (MAP) Pulse Ox O2 Delivery O2 Flow Rate FiO2 09/13/17 09:44 98.1 122 16 148/80 (102) 95 Nasal Cannula 2.00 MDM Medical Screen Exam Complete: Yes Emergency Medical Condition: No Narrative Course This is a patient with end-stage renal disease who is supposed to be at dialysis but was mistakenly dropped off in the emergency department. He has no emergency medical condition present as he was just dialyzed 2 days ago. Plan Patient will be sent to dialysis. Primary Impression: End stage renal disease Tess Jaimes MD Sep 13, 2017 09:57
== END 2017-09-13 10:28 | disposition left against medical advice (07) ==
LOC: NEPD 09:34
DX: N18.6 End stage renal disease (principal); Z99.2 Dependence on renal dialysis
CPT/HCPCS: 99281